=== PATIENT | female | born 1965 | race Caucasian/White ===

== ENCOUNTER 2023-08-25 14:29 | Emergency (ER) | payer BC, SELFPAY ==
[2023-08-25] VITALS (7 sets, daily range): BP systolic 119–134; BP diastolic 67–83; PULSE 79–96; RESP 18; TEMP 36.3; O2SAT 93–96; BMI 27.6
--- NOTE | 2023-08-25 15:05 | CT_ITS ---
Patient: VARUN PORTILLO Facility:?[facility] Patient ID:?[id number] Site Patient ID:?[id number]. Site :?1965 Study:?CT-Chest W/ 95CC [id number] PE PROTOCOL-08/25/2023 3:41:03 PM Ordering Physician:Leela Collins Final Report: INDICATION: Postop; shortness of breath. COMPARISON: CT abdomen and pelvis with intravenous contrast same date. TECHNIQUE: CT chest with intravenous contrast; coronal and sagittal reformats. FINDINGS: No evidence of pulmonary thromboembolism. Dense consolidation lower lobe right lung with elevated right hemidiaphragm. Bilateral pleural effusion more on the right. More fluid identified surrounding the distal esophagus in the lower thorax. Postop changes at the esophagogastric junction. Normal size cardiac silhouette without any pericardial effusion. Evidence of pneumomediastinum as well as subcutaneous emphysema involving the anterior chest wall. IMPRESSION: 1. Dense atelectasis lower lobe right lung. 2. Bilateral pleural effusion. 3. Postop changes at the esophagogastric junction. 4. Subcu emphysema anterior chest wall are pneumomediastinum. Please note that all CT scans at this facility use dose modulation, iterative reconstruction, and/or weight-based dosing when appropriate to reduce radiation dose to as low as reasonably achievable. Dictated by Harsha Zaragoza MD @ 08/25/2023 4:29:45 PM Signed by:?Harsha Zaragoza MD @08/25/2023 4:29:45 PM (Electronic Signature)
--- NOTE | 2023-08-25 15:05 | CT_ITS ---
Patient: VARUN PORTILLO Facility:?[facility] Patient ID:?[id number] Site Patient ID:?[id number]. Site :?1965 Study:?CT-Abdomen/Pelvis W/ 95CC [id number]/27/2024 3:41:05 PM Ordering Physician:Leela Collins Final Report: INDICATION: Postop; abdominal pain. COMPARISON: CT chest with intravenous contrast, same date TECHNIQUE: CT abdomen and pelvis with and without contrast; coronal and sagittal reformats. FINDINGS: Elevated right hemidiaphragm. Consolidation lower lobe right lung. Loculated pleural effusion right lower chest and small left-sided pleural effusion. Postop changes from Filemon fundoplication. Distended stomach with a gastrostomy tube in place. No focal hepatic or splenic pathology. No pancreatic pathology. Nonobstructive dilatation of the common bile duct without any evidence of choledocholithiasis. Gallbladder is unremarkable. No adrenal pathology. No kidney stones or obstructive uropathy. No retroperitoneal lymphadenopathy. Normal appendix. No pneumoperitoneum or intestinal obstruction. Subcutaneous emphysema involving the soft tissues the anterior abdominal wall. IMPRESSION: 1. Bilateral pleural effusion and dense atelectasis lower lobe right lung. 2. Gastrostomy tube in place. 3. Subcu emphysema in the abdominal wall involving the anterior abdominal wall. 4. Normal appendix. Please note that all CT scans at this facility use dose modulation, iterative reconstruction, and/or weight-based dosing when appropriate to reduce radiation dose to as low as reasonably achievable. Dictated by Harsha Zaragoza MD @ 08/25/2023 4:27:03 PM Signed by:?Harsha Zaragoza MD @08/25/2023 4:27:03 PM (Electronic Signature)
--- NOTE | 2023-08-25 15:14 | ED.GENADULT ---
HPI - General Adult General Chief complaint: Post Op Complication Stated complaint: Hernia surgery on 08/20-pain, diff breathing Time Seen by Provider: 08/25/23 14:34 Source: patient Mode of arrival: ambulatory Limitations: no limitations History of Present Illness HPI narrative: 58-year-old female presenting today with shortness of breath, chest pain and abdominal pain. Patient is postop day number 8. On August 16 she had a laparoscopic hiatal hernia repair, lysis of adhesions, Aquiles fundoplication, percutaneous endoscopic gastrostomy tube insertion. Surgery was complicated by a pneumothorax which required right chest tube placement. Immediate postop course complicated by a left-sided pneumothorax which required a bedside pigtail placement. She had extensive pneumomediastinum and subcutaneous emphysema. Chest tubes were removed on 08/18. She was discharged home on August 20. The PEG tube was inserted for venting. Discharged home on Tylenol, ibuprofen, methocarbamol, Zofran, oxycodone, senna-docusate. Follow-up appointment scheduled for September 11. She went back to the ER on August 21 and was diagnosed with a UTI and put on ciprofloxacin. Presents today with increased difficulty breathing. States that she has significant pain around the entire right shoulder area. Can not find a comfortable position. Patient also has questions as to why she has a PEG tube in. States that she does not know how to use it. Has been using her pain medications as prescribed and has been helping. She states that she has an increasing abdominal pain that she describes as a band across the entire upper abdomen. States that she had temperature of 100? on the 21 of August but no elevated temperatures since then. Patient states that she came to [facility] because they were not attentive at the . Past medical history is significant for anxiety, degenerative disc disease of the cervical spine, depression, GERD, neuropathy, restless leg syndrome. Past surgical history includes colonoscopy, EGD, laparoscopic hysterectomy, vaginal prolapse repair. Patient denies any tobacco use or alcohol use. Related Data Home Medications Medication Instructions Recorded Confirmed ciprofloxacin HCl 500 mg tablet 500 mg PO BID 08/25/23 08/25/23 (Cipro) methocarbamol 500 mg tablet 500 mg PO Q4H 08/25/23 08/25/23 oxycodone 5 mg/5 mL oral solution 5 mg PO Q1H 08/25/23 08/25/23 sennosides 8.6 mg-docusate sodium 1 tab-cap PO BID 08/25/23 08/25/23 50 mg tablet (Docuzen) Allergies Allergy/AdvReac Type Severity Reaction Status Date / Time No Known Drug Allergies Allergy Verified 08/25/23 14:48 Review of Systems Status of ROS: Reports: 10 or more systems reviewed and unremarkable except as noted in History and below Exam Const: Vital Signs, click to edit/add: Vital Signs - 24 hr 08/25/23 14:35 08/25/23 15:05 08/25/23 17:05 Temperature 97.4 F L Pulse Rate 83 Pulse Rate [Right Pulse Oximeter] 95 Respiratory Rate 18 Blood Pressure 127/67 Blood Pressure [Ri ght Upper Arm] 134/70 Pulse Oximetry 96 95 94 Oxygen Delivery Me thod Room Air 08/25/23 17:06 Temperature Pulse Rate 86 Pulse Rate [Right Pulse Oximeter] Respiratory Rate Blood Pressure Blood Pressure [Ri ght Upper Arm] Pulse Oximetry 93 Oxygen Delivery Me thod Course Course ED Course: I reviewed the patient is operative and postoperative notes from the [facility]. IV is established and labs were drawn. CBC and chemistries unremarkable. CRP slightly elevated at 2.6. Normal troponin. EKG, read by me, shows normal sinus rhythm with 1 premature ventricular complex, pulse 79. Chest CT shows bilateral pleural effusions, atelectasis on the right, and continued subcutaneous emphysema and pneumomediastinum. Subcutaneous emphysema and pneumomediastinum was noted in her imaging prior to her discharge from the hospital. Abdominal CT was unremarkable. Discussed the case with who suggested comparing previous CT images to make sure that the subcutaneous emphysema was not worsening. Unfortunately, we do not have access to their images and they do not have access to our images. We tried pushing or images to the you however after several hours of trying we were not successful. I did speak to Dr. Guerrero, ER physician at the who felt that outpatient follow-up would be appropriate if the patient was feeling better and was hemodynamically stable. He also stated the transferring the patient to the you would also be reasonable with we felt that a more immediate workup was needed. Patient did have a dose of her own pain medication while she was here and did go re-evaluate her. She did ask to leave several times while she was waiting. She said that she was feeling much better and did not feel the need to be transferred to the at this time. We had a long conversation about her symptoms and if she felt like she was getting worse need to go to the emergency room right away. Otherwise she can follow-up as an outpatient. I recommend she call her surgical TM 1st thing Sunday morning to discuss her symptoms and discuss any follow-up as needed. Vital Signs Vital signs: Initial Vital Signs Temperature 97.4 F L 08/25/23 14:35 Temperature Source Temporal Artery Scan 08/25/23 14:35 Pulse Rate 95 08/25/23 14:35 Respiratory Rate 18 08/25/23 14:35 Blood Pressure 134/70 08/25/23 14:35 Blood Pressure Mean 91 08/25/23 14:35 Blood Pressure Position Sitting 08/25/23 14:35 Pulse Oximetry 96 08/25/23 14:35 Oxygen Delivery Method Room Air 08/25/23 14:35 Vital Signs Temperature 97.4 F L 08/25/23 14:35 Pulse Rate 95 08/25/23 14:35 Respiratory Rate 18 08/25/23 14:35 Blood Pressure 134/70 08/25/23 14:35 Pulse Oximetry 96 08/25/23 14:35 Oxygen Delivery Method Room Air 08/25/23 14:35 Temperature 97.4 F L 08/25/23 14:35 Pulse Rate 86 08/25/23 17:06 Respiratory Rate 18 08/25/23 14:35 Blood Pressure 127/67 08/25/23 17:05 Pulse Oximetry 93 08/25/23 17:06 Oxygen Delivery Method Room Air 08/25/23 14:35 Medical Decision Making MDM Narrative Medical decision making narrative: 58-year-old female with postop pain and subjective shortness of breath. Patient remained between 93 and 97% oxygenation while she was in our ER. And after being here for a few hours she anxious stated that she was feeling better, was requesting dinner and discharge. At this time I do feel like she is hemodynamically stable not follow-up as an outpatient. Our plan per above. Medical Records Medical records reviewed: Yes I reviewed the patient's medical records Lab Data Lab results reviewed: Yes I reviewed the patient's lab results Labs: Lab Results 08/25/23 08/25/23 Range/Units 15:06 15:15 WBC 7.62 (4.50-11.00) K/uL RBC 4.89 (4.00-5.20) m/uL Hgb 12.7 (12.0-16.0) gm/dL Hct 40.4 (33.0-51.0) % MCV 83 (80-100) fL MCH 26 (26-34) pg MCHC 31 L (32-36) gm/dL RDW Coeff of Tess 15.3 (11.5-15.5) % Plt Count 395 (140-440) K/uL Neut % (Auto) 65.0 (42.0-72.0) % Lymph % (Auto) 23.1 (20-44) % [place] % (Auto) 8.9 (0.0-11.0) % Eos % (Auto) 2.4 (0.0-7.0) % Baso % (Auto) 0.1 (0.0-3.0) % Neut # (Auto) 4.95 (1.7-7.0) K/uL Lymph # (Auto) 1.76 (0.90-2.90) K/uL [place] # (Auto) 0.70 (0.00-0.90) K/UL Eos # (Auto) 0.18 (0.00-0.50) K/uL Baso # (Auto) 0.01 (0.00-0.30) K/uL Abs Immat Gran (auto) 0.04 (0.00-0.30) K/uL Imm/Tot Granulo (auto) 0.5 % Sodium 136 (135-149) mmol/L Potassium 4.1 (3.6-5.1) mmol/L Chloride 101 (96-114) mmol/L Carbon Dioxide 29 (20-32) mmol/L Anion Gap 6 L (7-15) mEq/L BUN 7 (7-30) mg/dL Creatinine 0.6 (0.5-1.5) mg/dL Estimated Creat Clear 90.84 Estimated GFR 103 ml/min Glucose 100 (60-115) mg/dL Lactate 1.4 (0.5-1.9) mmol/L Calcium 9.1 (8.4-10.6) mg/dL Total Bilirubin 0.2 (0.1-1.5) mg/dL Direct Bilirubin 0.1 (0.0-0.5) mg/dL AST 21 (12-35) U/L ALT 38 H (4-35) U/L Alkaline Phosphatase 87 (40-150) U/L Troponin I < 0.01 L (0.01-0.04) ng/mL C-Reactive Protein 2.6 H (0.5-1.0) mg/dL Total Protein 7.4 (6.0-8.3) g/dL Albumin 3.9 (3.3-5.0) g/dL Lipase 40 (23-300) U/L POC Troponin I 0.00 L (0.01-0.04) ng/ml Imaging Data CT scan - abdomen: Attestation: I have reviewed the pertinent imaging results. Radiologist's impression: Study:?CT-Abdomen/Pelvis W/ 95CC [id number]/27/2024 3:41:05 PM Ordering Physician:Leela Collins Final Report: INDICATION: Postop; abdominal pain. COMPARISON: CT chest with intravenous contrast, same date TECHNIQUE: CT abdomen and pelvis with and without contrast; coronal and sagittal reformats. FINDINGS: Elevated right hemidiaphragm. Consolidation lower lobe right lung. Loculated pleural effusion right lower chest and small left-sided pleural effusion. Postop changes from Filemon fundoplication. Distended stomach with a gastrostomy tube in place. No focal hepatic or splenic pathology. No pancreatic pathology. Nonobstructive dilatation of the common bile duct without any evidence of choledocholithiasis. Gallbladder is unremarkable. No adrenal pathology. No kidney stones or obstructive uropathy. No retroperitoneal lymphadenopathy. Normal appendix. No pneumoperitoneum or intestinal obstruction. Subcutaneous emphysema involving the soft tissues the anterior abdominal wall. IMPRESSION: 1. Bilateral pleural effusion and dense atelectasis lower lobe right lung. 2. Gastrostomy tube in place. 3. Subcu emphysema in the abdominal wall involving the anterior abdominal wall. 4. Normal appendix. CT scan - chest: Attestation: I have reviewed the pertinent imaging results. Radiologist's impression: Study:?CT-Chest W/ 95CC [id number] PE PROTOCOL-08/25/2023 3:41:03 PM Ordering Physician:Leela Collins Final Report: INDICATION: Postop; shortness of breath. COMPARISON: CT abdomen and pelvis with intravenous contrast same date. TECHNIQUE: CT chest with intravenous contrast; coronal and sagittal reformats. FINDINGS: No evidence of pulmonary thromboembolism. Dense consolidation lower lobe right lung with elevated right hemidiaphragm. Bilateral pleural effusion more on the right. More fluid identified surrounding the distal esophagus in the lower thorax. Postop changes at the esophagogastric junction. Normal size cardiac silhouette without any pericardial effusion. Evidence of pneumomediastinum as well as subcutaneous emphysema involving the anterior chest wall. IMPRESSION: 1. Dense atelectasis lower lobe right lung. 2. Bilateral pleural effusion. 3. Postop changes at the esophagogastric junction. 4. Subcu emphysema anterior chest wall are pneumomediastinum. ECG Data Attestation: I personally reviewed and interpreted this ECG as follows: Discharge Plan Discharge Clinical Impression: Post-op pain Patient Disposition: Home, Self-Care Condition: Stable Additional Instructions: Your workup today included lab work and imaging of both the chest and the abdomen to did not find any evidence of postoperative complications or infection. As we discussed, I was not able to compare today's images with your images from the [facility]. Based on your vital signs and how you are feeling right now it does not seem like the complications you had postoperatively (the air in your chest) are getting any worse. However, If your symptoms get worse you do need to return to the emergency room right away. I do recommend that you call your surgical team on Sunday to discuss your symptoms and see if they want to see you sooner than September 11. Postoperative pain is expected, but if you feel like you are having a hard time breathing, develop a fever or have worsening pain again you should return to the emergency room. Prescriptions: No Action oxycodone 5 mg/5 mL solution 5 mg PO Q1H ciprofloxacin HCl [Cipro] 500 mg tablet 500 mg PO BID methocarbamol 500 mg tablet 500 mg PO Q4H sennosides-docusate sodium [Docuzen] 8.6-50 mg tablet 1 tab-cap PO BID Follow Up/Referrals: Provider,Not a Local [Primary Care Provider] - Stand Alone Forms: [facility] Info Instructions
[2023-08-25 15:22] LABS: Basophils Absolute Auto 0.01 K/uL (0.00-0.30); Basophils Percent Auto 0.1 % (0.0-3.0); Eosinophils Absolute Auto 0.18 K/uL (0.00-0.50); Eosinophils Percent Auto 2.4 % (0.0-7.0); Hematocrit 40.4 % (33.0-51.0); Hemoglobin* 12.7 gm/dL (12.0-16.0); Immature Granulocytes Abs Auto 0.04 K/uL (0.00-0.30); Immature Granulocytes Pct Auto 0.5 %; Lymphocytes Absolute Auto 1.76 K/uL (0.90-2.90); Lymphocytes Percent Auto 23.1 % (20-44); Mean Corpuscular HGB Conc 31 gm/dL (32-36); Mean Corpuscular Hemoglobin 26 pg (26-34); Mean Corpuscular Volume 83 fL (80-100); Monocytes Percent Auto 8.9 % (0.0-11.0); Neutrophils Absolute Auto 4.95 K/uL (1.7-7.0); Platelet Count* 395 K/uL (140-440); RDW Coefficient of Variation % 15.3 % (11.5-15.5); Red Blood Count 4.89 m/uL (4.00-5.20); White Blood Count* 7.62 K/uL (4.50-11.00)
[2023-08-25 15:23] LABS: Slide Review Reflex No
[2023-08-25 15:25] LABS: Lactate* 1.4 mmol/L (0.5-1.9)
[2023-08-25 15:41] LABS: Albumin* 3.9 g/dL (3.3-5.0); Chloride* 101 mmol/L (96-114); Sodium* 136 mmol/L (135-149)
[2023-08-25 15:42] LABS: Potassium* 4.1 mmol/L (3.6-5.1)
[2023-08-25 15:44] LABS: Creatinine* 0.6 mg/dL (0.5-1.5); Est. Creatinine Clearance* 90.84; Estimated Glomerular Filt Rate 103 ml/min
[2023-08-25 15:45] LABS: Alanine Aminotransferase* 38 U/L (4-35); Alkaline Phosphatase* 87 U/L (40-150); Anion Gap 6 mEq/L (7-15); Aspartate Amino Transferase* 21 U/L (12-35); Bilirubin Direct* 0.1 mg/dL (0.0-0.5); Bilirubin Total* 0.2 mg/dL (0.1-1.5); Blood Urea Nitrogen* 7 mg/dL (7-30); Calcium* 9.1 mg/dL (8.4-10.6); Carbon Dioxide* 29 mmol/L (20-32); Glucose* 100 mg/dL (60-115); Lipase* 40 U/L (23-300); Total Protein* 7.4 g/dL (6.0-8.3)
[2023-08-25 15:47] LABS: C Reactive Protein* 2.6 mg/dL (0.5-1.0)
[2023-08-25 15:58] LABS: Troponin I* < 0.01 ng/mL (0.01-0.04)
== END 2023-08-25 19:31 | disposition home or self-care (01) ==
PROVIDERS: Emergency Provider Family Medicine
DX: G89.18 Other acute postprocedural pain (principal)
CPT/HCPCS: 36415; 71275; 74177; 80048; 80076; 83605; 83690; 84484; 85025; 86140; 93005; 94761; 99285; Q9967

== ENCOUNTER 2024-12-19 18:40 | Inpatient (IN) | payer MEDICAID, SELFPAY ==
--- OUTSIDE RECORDS SUMMARY | 2024-11-05 15:20 | XMS_ITS | Encounter Summary ---
Author Organization [facility] Address [address] [address] Phone Care Team Providers Care Catering Assistant Name Role Phone Lucia Lemons RN Unavailable Unavailable Choice, No Pcp-Patient Primary Care Provider Susan vailable Reason for Referral * Ancillary Services (Routine) - Closed Specialty Diagnoses / Procedures Referred By Contac t Referred To Contact Radiology Diagnoses Neck pain Procedures XR CERVICAL SPINE 2 OR 3 VIEWS Zoey Terry MD [address] [place] [address] Phone: tel: fax: Referral ID Status Reason Start Date Expiration Date Visits Re quested Visits Authorized [id number] Closed 11/05/2024 02/05/2026 1 1 Reason for Visit * Reason Comments Pain Neck down arms, left hip pain down legs x 2months Foot Problem Bumps on right foot x6-7 month Lab Work Pt requesting lab wo rk Establish Care Does not want to est ablish with dr terry Encounter Details Date Type Department Care Team (Late st Contact Info) Description 11/05/2024 3:20 PM CDT Office Visit [facility] [address] [place], [place] [id number] Zoey Terry MD [address] [place], [place] [phone] Neck pain (Primary Dx); Gastroesophageal reflux disease with esophagitis without hemorrhage Social History Tobacco Use Types Packs/Day Years Used Date Smoking Tobacco: Never Smokeless Tobacco: Never Tobacco Cessation:Counseling Given: Not Answered Alcohol Use Standard Drinks/Week Comments No 0 (1 standard drink = 0.6 oz pur e alcohol) [facility] Utilities Answer Date Recorded In the past 12 months has th e electric, gas, oil, or water company threatened to shut off services in your home? No 11/05/2024 Overall Financial Resource Strain (CARDIA) Answe r Date Recorded How hard is it for you to pa y for the very basics like food, housing, medical care, and heating? Patient declined 08/16/2022 PHQ-2 Answer Date Recorded PHQ-2 Total 6 11/05/2024 Hunger Vital Sign Answer Date Recorded Within the past 12 months, y ou worried that your food would run out before you got the money to buy more. Never true 11/06/19 25 Within the past 12 months, t he food you bought just didn't last and you didn't have money to get more. Never true 11/05/2024 PRAPARE - Transportation Answer Date Re corded In the past 12 months, has l ack of transportation kept you from medical appointments or from getting medications? No 12/2024 In the past 12 months, has l ack of transportation kept you from meetings, work, or from getting things needed for daily living? No 11/05/2024 Housing Stability Vital Sign Answer Nilesh e Recorded In the last 12 months, was t here a time when you were not able to pay the mortgage or rent on time? No 11/05/2024 In the past 12 months, how m any times have you moved where you were living? 0 11/05/2024 At any time in the past 12 m [facility], were you homeless or living in a usp (including now)? No 11/05/2024 IP Custom Utilities ([employer]) Answer Date Recorded How hard is it for you to pa y for the very basics like food, housing, medical care, and heating? 98 08/16/2022 IP Custom IPV Answer Date Recorded Do you feel UNSAFE in any of your personal relationships with your family members or any other acquaintances? 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 Gender Identity Not on file Sexual Orientation Not on file documented as of this encounter Last Filed Vital Signs Vital Sign Reading Time Taken Comments Blood Pressure 102/60 11/05/2024 3:17 PM CDT Pulse 71 11/05/2024 3:17 PM CDT Temperature 36.3 C (97.4 F) 11/05/2024 3:17 PM CDT Respiratory Rate - - Oxygen Saturation 98% 11/05/2024 3:17 PM CDT Inhaled Oxygen Concentration - - Weight 74.2 kg (163 lb 7.5 oz) 11/05/2024 3:17 P M CDT Height 165.1 cm (5' 5) 11/05/2024 3:17 PM CDT Body Mass Index 27.2 11/05/2024 3:17 PM CDT documented in this encounter Functional Status * Patient's Vision Adequate to Safely Complete Daily Activities Answer Date of Assessment Author Yes 02/26/2024 2:42 PM CDT Nadeem Moore RN * Patient's Memory Adequate to Safely Complete Daily Activities Answer Date of Assessment Author Yes 02/26/2024 2:42 PM CDT Nadeem Moore RN documented as of this encounter Mental Status * Patient's Judgment Adequate to Safely Complete Daily Activities Answer Entry Date Author Yes 02/26/2024 2:42 PM CDT Nadeem Moore RN documented in this encounter Ordered Prescriptions Prescription Sig Dispense Quantity Refills Last Filled Start Date End Date tolnaftate (Tinactin) 1 % AerosolIndications :Infection Apply 1 [place] topically two times a day. Indications: Infection 150 g 1 11/05/2024 diclofenac (Voltaren) 1 % Gel Apply 4 g topically four times a day. Apply to affected area: neck and back 120 g 1 11/05/2024 documented in this encounter Progress Notes * Zoey Terry MD - 11/05/2024 3:20 PM CDT I Laura Dietrich, am scribing under the direction and in the presence of Zoey Terry MD. 11/05/24 3:30 PM SUBJECTIVE: Jo Ann Ely is a 59 year old female who presents with aching, exhausting, and nagging pain located in the neck, down the arms as well as left hip pain and down her leg for the past two months.She does has have osteoarthritis as well as rheumatoid arthritis. OBJECTIVE: Problem list, PMH, Allergies, and Current medications A comprehensive review of systems was negative except for: back and neck pain GENERAL APPEARANCE: Healthy; alert and oriented X3; no acute distress MUSCULOSKELETAL: decreased ROM of the shoulders and back ASSESSMENT No visits with results within 1 Month(s) from this visit. Latest known visit with results is: [facility]/NURSE VISIT on 04/25/2024 Component Date Value Ref Range Status Urine Color 04/25/2024 Yellow Straw, Yellow, Jayda Final Urine Appearance 04/25/2024 Clear Clear Final Urine Specific [place] 04/25/2024 >=1.030 1.003 - 1.035 Final Urine pH 04/25/2024 5.0 5.0 - 8.0 Final Urine Glucose 04/25/2024 Negative Negative Final Urine Ketones 04/25/2024 Trace (A) Negative Final Urine Protein 04/25/2024 Negative Negative, Trace mg/dL Final Urine Nitrites 04/25/2024 Negative Negative Final Urine Leukocyte Esterase 04/25/2024 Negative Negative Final Urine WBC's 04/25/2024 0-3 0 - 8 /HPF Final Urine RBC's 04/25/2024 0-3 0 - 3 /HPF Final Urine Bacteria 04/25/2024 Occasional (A) None Seen /HPF Final Urine Mucous 04/25/2024 Present (A) None Seen Final Urine Hyaline Cast 04/25/2024 3-8 (A) 0 - 3 /LPF Final Calcium Oxalate Crystals, Urine 04/25/2024 Present (A) None Seen Final Urine Squamous Epithelial Cells 04/25/2024 Moderate Rare, Few, Moderate, None Seen /HPF Final (M54.2) Neck pain (primary encounter diagnosis) Plan: XR CERVICAL SPINE 2 OR 3 VIEWS (K21.00) Gastroesophageal reflux disease with esophagitis without hemorrhage PLAN: The is pain with palpation of the SI joint area on the left side. There was some decreased ROM of the shoulders as she is unable to lift them up over her head easily. Her past MRI's show that there is disc bulging present of the thoracic spine area. She did try some physical therapy that did not help much. She has tried pain injections in the past and she feels like it has not helped. Currently has been trying some pain relieving cream such as: Icy hot, Aspercreme that have given her somerelief. Sent over Voltaren gel today. There is athlete's foot present on the right foot and advisedto have her dry them well as well as using a topical spray to help treat this. She does have GERD that is present and has been taking medication to treat this. A x-ray order was placed to have her get her neck checked out. FOLLOW UP PLAN: Will have her follow up again as needed I affirm that the scribed note above has been reviewed and is a complete reflection of this patientencounter. Zoey Terry MD 11/16/24 5:57 PM documented in this encounter Miscellaneous Notes * Clinical Note - Marla Urbano LPN - 11/05/2024 3:20 PM CDT This chart was prepped for visit by Marla Urbano LPN on 11/03/2024. documented in this encounter Plan of Treatment Not on file documented as of this encounter Results * XR CERVICAL SPINE 2 OR 3 VIEWS (11/05/2024 3:52 PM CDT) Anatomical Region Laterality Modality C-Spine Radiographic Anne-Marie ging 11/05/2024 3:52 PM CDT Narrative 11/05/2024 8:57 PM CDT This document is currently in Final Status Exam XR CERVICAL SPINE 2 OR 3 VIEWS INDICATION: Neck pain; COMPARISON: None. IMPRESSION: Cervical lordosis is maintained. No discrete fracture. Mild degenerative disc disease primarily at C4-C5 and C5-C6. Multilevel mild to moderate facet arthropathy. Prevertebral soft tissues and lung apices are unremarkable. Dictated By: Dr. Rohit Contreras 11/05/2024 3:53 PM Edited By: VINCENT 11/05/2024 4:38 PM Electronically Signed: Dr. Rohit Contreras 11/05/2024 8:57 PM Procedure Note Rohit Contreras MD - 11/05/2024 This document is currently in Final Status Exam XR CERVICAL SPINE 2 OR 3 VIEWS INDICATION: Neck pain; COMPARISON: None. IMPRESSION: Cervical lordosis is maintained. No discrete fracture. Milddegenerative disc disease primarily at C4-C5 and C5-C6. Multilevel mild tomoderate facet arthropathy. Prevertebral soft tissues and lung apices areunremarkable. Dictated By: Dr. Rohit Contreras 11/05/2024 3:53 PM Edited By: VINCENT 11/05/2024 4:38 PM Electronically Signed: Dr. Rohit Contreras 11/05/2024 8:57 PM Zoey Terry MD [facility] DIAGNOSTIC IMAGING ORDERABL ES Final Result documented in this encounter Visit Diagnoses Diagnosis Neck pain- Primary Cervicalgia Gastroesophageal reflux disease with esophagitis without hemorrhage Neck pain Cervicalgia documented in this encounter Discontinued Medications Medication Sig Discontinue Reason Start Date End Da te ibuprofen (Motrin) 800 MG tablet Take 1 Tablet by mouth every six hours as needed for Pain or Fever. Administer with food. Course of treatment completed 04/13/2022 11/05/2024 documented as of this encounter Care Teams Catering Assistant Relationship Specialty Start Date End Date Choice, No Pcp-Patient PCP - General 10/02/23 Lucia Lemons, RN Nurse Navigator Pulmonary Medicine 05/23/17 documented as of this encounter
--- OUTSIDE RECORDS SUMMARY | 2024-11-05 15:46 | XMS_ITS | Encounter Summary ---
Author Organization [facility] Address [address] [address] Phone Care Team Providers Care Bowl Sander Name Role Phone Lucia Lemons RN Unavailable Unavailable Choice, No Pcp-Patient Primary Care Provider Susan vailable Reason for Referral * Ancillary Services (Routine) - Closed Specialty Diagnoses / Procedures Referred By Contac t Referred To Contact Radiology Diagnoses Neck pain Procedures XR CERVICAL SPINE 2 OR 3 VIEWS Zoey Terry MD [address] [place] [id number] Phone: tel: fax: Referral ID Status Reason Start Date Expiration Date Visits Re quested Visits Authorized [id number] Closed 11/05/2024 02/05/2026 1 1 Reason for Visit * Ancillary Services (Routine) - Closed Specialty Diagnoses / Procedures Referred By Contac t Referred To Contact Radiology Diagnoses Neck pain Procedures XR CERVICAL SPINE 2 OR 3 VIEWS Zoey Terry MD [address] [place] [address] Phone: tel: fax: Referral ID Status Reason Start Date Expiration Date Visits Re quested Visits Authorized [id number] Closed 11/05/2024 02/05/2026 1 1 Encounter Details Date Type Department Care Team (Late st Contact Info) Description 11/05/2024 3:46 PM CDT - 11/05/2024 11:59 PM CDT Hospital Encounter [facility] RADIOLOGY [address] [place] [id number] Zoey Terry MD [address] [facility] [place], [place] [phone] Neck pain Discharge Disposition: Discharged Social History Tobacco Use Types Packs/Day Years Used Date Smoking Tobacco: Never Smokeless Tobacco: Never Alcohol Use Standard Drinks/Week Comments No 0 (1 standard drink = 0.6 oz pur e alcohol) [facility] Utilities Answer Date Recorded In the past [...] any time in the past 12 m [facility], were you homeless or living in a assisted (including now)? No 11/05/2024 [facility] IP Custom Utilities ([employer]) Answer Date Recorded How hard is it for you to pa y for the very basics like food, housing, medical care, and heating? 98 08/16/2022 [facility] IP Custom IPV Answer Date Recorded Do you feel UNSAFE in any of your personal relationships with your family members or any other acquaintances? 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 Gender Identity Not on file Sexual Orientation Not on file documented as of this encounter Functional Status * Patient's Vision Adequate to Safely Complete Daily Activities Answer Date of Assessment Author Yes 02/26/2024 2:42 PM Nadeem Hopper RN * Patient's Memory Adequate to Safely Complete Daily Activities Answer Date of Assessment Author Yes 02/26/2024 2:42 PM Nadeem Hopper RN documented as of this encounter Mental Status * Patient's Judgment Adequate to Safely Complete Daily Activities Answer Entry Date Author Yes 02/26/2024 2:42 PM Nadeem Hopper RN documented in this encounter Medications at Time of Discharge Multiple Vitamins-Mineral s (CertaVite/Antio xidants) tablet 11/05/2024 omeprazole (PriLOSEC) 40 MG delayed-release capsule Take 1 Capsule by mouth one time a day. 12/06/2022 diclofenac (Voltaren) 1 % Gel Apply 4 g topically four times a day. Apply to affected area: neck and back 120 g 1 11/05/2024 tolnaftate (Tinactin) 1 % AerosolIndicatio ns:Infection Apply 1 [place] topically two times a day. Indications: Infection 150 g 1 11/05/2024 celecoxib (CeleBREX) 200 MG capsule Take 1 Capsule by mouth two times a day. 180 Capsule 3 04/25/2024 cyanocobalamin 500 MCG tablet Take 500 mcg by mouth. famotidine (Pepcid) 20 MG tablet Take 20 mg by mouth two times a day. 12/06/2022 Phenylephrine-DM -GG (Mucinex Fast-Max Congest Cough) 2.5-5-100 MG/5ML Liquid Take 5 mL by mouth two times a day as needed for Other (cough). 118 mL 04/05/2024 [place]-3 Fatty Acids (fish oil) 1200 MG capsuleIndicatio ns:Chronic pain in right shoulder Take 1 Capsule by mouth one time a day. 90 Capsule 3 03/14/2024 Multiple Vitamin (Multivitamin Adult) Tablet Take 1 Tablet by mouth one time a day. 90 Tablet 3 01/30/2024 Glucosamine-Antony droit-Vit C-Mn (glucosamine chondroitin complex) capsule Take 1 Capsule by mouth two times a day. 100 Capsule 3 01/30/2024 Vitamin D, Cholecalciferol, 25 MCG (1000 UT) Tablet Take 1 Tablet by mouth one time a day. 1 unit of Vitamin D equals 0.025 mcg of Vitamin D 90 Tablet 3 01/30/2024 acetaminophen (Tylenol) 500 MG tablet Take 1-2 Tablets by mouth every six hours as needed for Pain . Limit acetaminophen to 4000 mg per day from all sources. 50 Tablet 04/13/2022 documented as of this encounter Discharge Disposition Disposition Code Departure Means Destination Discharged documented in this encounter Plan of Treatment Not on file documented as of this encounter Procedures Procedure Name Priority Date/Time Associated Diagnosis Comments XR CERVICAL SPINE 2 OR 3 VIEWS Xray today 11/05/2024 3:52 PM CDT Neck pain documented in this encounter Results * XR CERVICAL SPINE [...] in this encounter Visit Diagnoses Diagnosis Neck pain Cervicalgia documented in this encounter Care Teams Bowl Sander Relationship Specialty Start Date End Date Choice, No Pcp-Patient PCP - General 10/02/23 Lucia Lemons, RN Nurse Navigator Pulmonary Medicine 05/23/17 documented as of this encounter
--- OUTSIDE RECORDS SUMMARY | 2024-11-13 16:02 | XMS_ITS | Encounter Summary ---
Author Organization [facility] Address [address] [address] Phone Care Team Providers Care Rip And Groove Machine Operator Name Role Phone Lucia Lemons RN Unavailable Unavailable Choice, No Pcp-Patient Primary Care Provider Susan vailable Reason for Referral * Diagnostic (Routine) - Closed Specialty Diagnoses / Procedures Referred By Contac t Referred To Contact Radiology Diagnoses Neck pain Procedures MR CERVICAL SPINE WO CONTRAST Zoey Terry MD [address] [place] [address] Phone: tel: fax: Referral ID Status Reason Start Date Expiration Date Visits Re quested Visits Authorized [id number] Closed 11/06/2024 02/06/2026 1 1 Reason for Visit * Diagnostic (Routine) - Closed Specialty Diagnoses / Procedures Referred By Contac t Referred To Contact Radiology Diagnoses Neck pain Procedures MR CERVICAL SPINE WO CONTRAST Zoey Terry MD [address] [place] [address] Phone: tel: fax: Referral ID Status Reason Start Date Expiration Date Visits Re quested Visits Authorized [id number] Closed 11/06/2024 02/06/2026 1 1 Encounter Details Date Type Department Care Team (Late st Contact Info) Description 11/13/2024 4:02 PM CDT - 11/13/2024 11:59 PM CDT Hospital Encounter [facility] RAD MRI [address] [place], [place] [address] Zoey Terry MD [address] [place], [place] [id number] Neck pain Discharge Disposition: Discharged Social History Tobacco Use Types Packs/Day Years Used Date Smoking Tobacco: Never Smokeless Tobacco: Never Alcohol Use Standard Drinks/Week Comments No 0 (1 standard drink = 0.6 oz pur e alcohol) [facility] Utilities Answer Date Recorded In the past [...] any time in the past 12 m [facility], were you homeless or living in a alf (including now)? 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 12/06/2022 amphetamine-dext roamphetamine (Adderall) 10 MG tablet TAKE 1 TABLET BY MOUTH EVERY MORNING FOR 30 DAYS. TO AVOID INSOMNIA, LAST DAILY DOSE SHOULD BE TAKEN NO LESS THAN 6 HOURS BEFORE BED. 09/24/2024 30 Tablet 11/12/2024 diclofenac (Voltaren) 1 % Gel Apply 4 g topically four times a day. Apply to affected area: neck and back 120 g 1 11/05/2024 tolnaftate (Tinactin) 1 % AerosolIndicatio ns:Infection Apply 1 [place] topically two times a day. Indications: Infection [...] needed for Other (cough). 118 mL 04/05/2024 [place]-3 Fatty Acids (fish oil) 1200 MG capsuleIndicatio [...] Procedure Name Priority Date/Time Associated Diagnosis Comments MR CERVICAL SPINE WO CONTRAST Routine 11/13/2024 4:44 PM CDT Neck pain documented in this encounter Results * MR CERVICAL SPINE WO CONTRAST (11/13/2024 4:44 PM CDT) Anatomical Region Laterality Modality C-Spine, Spine Magnetic Resonan ce 11/13/2024 4:44 PM CDT Narrative 11/14/2024 9:41 PM CDT This document is currently in Final Status Exam MR CERVICAL SPINE WO CONTRAST CLINICAL HISTORY: Neck pain, chronic. TECHNIQUE: Multiplanar, multisequence MR imaging of the cervical spine was performed without contrast. COMPARISON: MRI cervical spine 04/03/2019 FINDINGS:There is anatomic alignment of the cervical vertebrae.The bone marrow signal intensity is within normal limits.The intervertebral disc signal intensity is well-preserved at all visualized levels. The cerebellar tonsils are normal in position and configuration.The cervical cord is normal in caliber and signal intensity. Vertebral artery flow voids are present. Left vertebral artery is dominant. At the C2-C3 level: No spinal canal stenosis, neuroforaminal narrowing or disc herniation is present. At the C3-C4 level: No spinal canal stenosis, neuroforaminal narrowing or disc herniation is present. At the C4-C5 level: No spinal canal stenosis, neuroforaminal narrowing or disc herniation is present. At the C5-C6 level: Small posterior disc bulge and mild facet degenerative change without significant stenosis. At the C6-C7 level: Small posterior disc bulge without significant stenosis. At the C7-T1 level: No spinal canal stenosis, neuroforaminal narrowing or disc herniation is present. IMPRESSION: Minimal degenerative changes. No nerve root impingement or significant stenosis. Dictated By: Eran Sanches MD 11/14/2024 8:29 PM Edited By: TAYA 11/14/2024 8:37 PM Electronically Signed: Eran Sanches MD 11/14/2024 9:41 PM Procedure Note Eran Sanches MD - 11/14/2024 This document is currently in Final Status Exam MR CERVICAL SPINE WO CONTRAST CLINICAL HISTORY: Neck pain, chronic. TECHNIQUE: Multiplanar, multisequence MR imaging of the cervical spine wasperformed without contrast. COMPARISON: MRI cervical spine 04/03/2019 FINDINGS:There is anatomic alignment of the cervical vertebrae.The bonemarrow signal intensity is within normal limits.The intervertebral discsignal intensity is well-preserved at all visualized levels. Thecerebellar tonsils are normal in position and configuration.The cervicalcord is normal in caliber and signal intensity. Vertebral artery flowvoids are present. Left vertebral artery is dominant. At the C2-C3 level: No spinal canal stenosis, neuroforaminal narrowing ordisc herniation is present. At the C3-C4 level: No spinal canal stenosis, neuroforaminal narrowing ordisc herniation is present. At the C4-C5 level: No spinal canal stenosis, neuroforaminal narrowing ordisc herniation is present. At the C5-C6 level: Small posterior disc bulge and mild facet degenerativechange without significant stenosis. At the C6-C7 level: Small posterior disc bulge without significantstenosis. At the C7-T1 level: No spinal canal stenosis, neuroforaminal narrowing ordisc herniation is present. IMPRESSION: Minimal degenerative changes. No nerve root impingement orsignificant stenosis. Dictated By: Eran Sanches MD 11/14/2024 8:29 PM Edited By: TAYA 11/14/2024 8:37 PM Electronically Signed: Eran Sanches MD 11/14/2024 9:41 PM us Zoey Terry MD [facility] MRI ORDERABLES Final Result documented in this encounter Visit Diagnoses Diagnosis Neck pain Cervicalgia documented in this encounter Care Teams Rip And Groove Machine Operator Relationship Specialty Start Date End Date Choice, No Pcp-Patient PCP - General 10/02/23 Lucia Lemons, RN Nurse Navigator Pulmonary Medicine 05/23/17 documented as of this encounter
--- OUTSIDE RECORDS SUMMARY | 2024-12-09 17:00 | XMS_ITS | Encounter Summary ---
Author Organization [facility] Address [address] [address] Phone Care Team Providers Care Timber Sprinkler Name Role Phone Lucia Lemons RN Unavailable Unavailable Choice, No Pcp-Patient Primary Care Provider Susan vailable Reason for Visit * Reason Comments Abdominal Pain Nausea Encounter Details Date Type Department Care Team (Late st Contact Info) Description 12/09/2024 5:00 PM CDT Office Visit [facility] [address] CLINIC [place]ALK - [place] [address] [place] [phone] Rocío Campa, HYDROPRESS OPERATOR, MACARONI MAKER [address] [place] [phone] Abdominal pain, unspecified abdominal location (Primary Dx) Social History Tobacco Use Types Packs/Day Years Used Date Smoking Tobacco: Never Smokeless Tobacco: Never Tobacco Cessation:Counseling Given: Not Answered Alcohol Use Standard Drinks/Week Comments No 0 (1 standard drink = 0.6 oz pur e alcohol) [facility] Utilities Answer Date Recorded In the past 12 months has e electric, gas, oil, or water company threatened to shut off services in your home? No 11/05/2024 Overall Financial Resource Strain (CARDIA) Answe r Date Recorded How hard is it for you to pa y for the very basics like food, housing, medical care, and heating? Patient declined 08/16/2022 PHQ-2 Answer Date Recorded PHQ-2 Total 0 12/09/2024 Hunger Vital Sign Answer Date Recorded Within [...] any time in the past 12 m [facility], were you homeless or living in a long-term (including now)? No 11/05/2024 IP Custom Utilities [...] on file Legal Sex Female 10:44 AM CONSTRUCTION SECRETARY Gender Identity Not on file Sexual Orientation Not on file documented as of this encounter Last Filed Vital Signs Vital Sign Reading Time Taken Comments Blood Pressure 104/60 12/09/2024 5:10 PM CDT Pulse 113 12/09/2024 5:10 PM CDT Temperature 37.6 C (99.6 F) 12/09/2024 5:10 PM CDT Respiratory Rate 22 12/09/2024 5:10 PM CDT Oxygen Saturation 92% 12/09/2024 5:10 PM CDT Inhaled Oxygen Concentration - - Weight 70.1 kg (154 lb 8.7 oz) 12/09/2024 5:10 P M CDT Height - - Body Mass Index 25.72 11/05/2024 3:17 PM CDT documented in this [...] Nadeem Moore RN documented in this encounter Progress Notes * Rocío Campa APRN, CNP - 12/09/2024 5:00 PM CDT Chief Complaint Patient presents with Abdominal Pain Nausea Vitals: 12/09/24 1710 BP: 104/60 Pulse: 113 Resp: 22 Temp: 37.6 ??C (99.6 ??F) TempSrc: Temporal SpO2: 92% Weight: 154 lb 8.7 oz (70.1 kg) Patient here with grandson with complaint of having abdominal pain. Rates abdominal pain 7 out of 10 located more right side of abdomen. complains of having some diarrhea constipation and nausea not keeping fluids down. Remmended further evaluation and treatment at higher level of care. Called and notified ER of patient's arrival. documented in this encounter Plan of Treatment Not on file documented as of this encounter Visit Diagnoses Diagnosis Abdominal pain, unspecified abdominal location- Primary documented in this encounter Historical Medications * This list may reflect changes made after this encounter. omeprazole (PriLOSEC) 40 MG delayed-release capsule Take 1 Capsule by mouth one time a day. 12/06/2022 Multiple Vitamins-Minerals (CertaVite/Antiox idants) tablet 11/05/2024 metoclopramide (Reglan) 5 MG/5ML solution Take 10 mg by mouth. methocarbamol (Robaxin) 500 MG tablet Take 500 mg by mouth every 24 hours as needed. lamoTRIgine (LaMICtal) 100 MG tablet Take 100 mg by mouth at bedtime. hydrOXYzine HCl (Atarax) 25 MG tablet Take 25 mg by mouth every six hours as needed. added in this encounter Care Teams Timber Sprinkler Relationship Specialty Start Date End Date Choice, No Pcp-Patient PCP - General 10/02/23 Lucia Lemons, RN Nurse Navigator Pulmonary Medicine 05/23/17 documented as of this encounter
[2024-12-19] VITALS (7 sets, daily range): BP systolic 91–121; BP diastolic 49–66; PULSE 90–93; RESP 16–18; TEMP 36.6–38.3; O2SAT 92–99; BMI 26.6; BMI 26.7
--- OUTSIDE RECORDS SUMMARY | 2024-12-19 18:43 | XMS_ITS | Encounter Summary ---
Author Organization [employer] [facility] Address [address] [place] [address] Phone Care Team Providers Care Healthcare Facility Administrator Name Role Phone Lucia Lemons RN Unavailable Unavailable Choice, No Pcp-Patient Primary Care Provider Susan vailable Encounter Details Date Type Department Care Team (Latest Contact Info) Description 11/05/2024 Travel Social History Tobacco Use Types Packs/Day Years Used Date Smoking Tobacco: Never Smokeless Tobacco: Never Alcohol Use Standard Drinks/Week Comments No 0 (1 standard drink = 0.6 oz pur e alcohol) [facility] Utilities Answer Date Recorded In the [...] any time in the past 12 m onths, were you homeless or living in a long term (including now)? No 11/05/2024 EH IP Custom [...] on file Legal Sex Female 10:44 AM PHARMACY TECHNICIAN INSTRUCTOR Gender Identity Not on file Sexual Orientation [...] Nadeem Hopper RN documented in this encounter Plan of Treatment Not on file documented as of this encounter Visit Diagnoses Not on filedocumented in this encounter Care Teams Healthcare Facility Administrator Relationship Specialty Start Date End Date Choice, No Pcp-Patient PCP - General 10/02/23 Lucia Lemons, RIGOBERTO Nurse Navigator Pulmonary Medicine 05/23/17 documented as of this encounter
--- OUTSIDE RECORDS SUMMARY | 2024-12-19 18:43 | XMS_ITS | Encounter Summary ---
Author Organization [facility] Address [address] [place] [phone] Phone Care Team Providers Care Boom Truck Driver Name Role Phone Lucia Lemons RN Unavailable Unavailable Choice, No Pcp-Patient Primary Care Provider Susan vailable Encounter Details Date Type Department Care Team (Late st Contact Info) Description 11/07/2024 Telephone [facility] [address] [place], [place] [address] Iris Rodriguez Social History Tobacco Use Types Packs/Day Years Used Date Smoking Tobacco: Never Smokeless Tobacco: Never Alcohol Use Standard Drinks/Week Comments No 0 (1 standard drink = 0.6 oz pur e alcohol) [facility] Utilities Answer Date Recorded In the past [...] any time in the past [address] [facility], were you homeless or living in a fpc (including now)? No 11/05/2024 IP Custom Utilities [...] on file Legal Sex Female 10:44 AM TRAFFIC ANALYST Gender Identity Not on file Sexual Orientation Not on file documented as of this encounter Functional Status * Patient's Vision Adequate to Safely Complete Daily Activities Answer Date of Assessment Author Yes 02/26/2024 2:42 PM CDT Nadeem Moore RN * Patient's Memory Adequate to Safely Complete Daily Activities Answer Date of Assessment Author Yes 02/26/2024 2:42 PM CDT Nadeem Moore, RIGOBERTO documented as of this encounter Mental Status * Patient's Judgment Adequate to Safely Complete Daily Activities Answer Entry Date Author Yes 02/26/2024 2:42 PM CDT Nadeem Moore, RIGOBERTO documented in this encounter Miscellaneous Notes * Telephone Encounter - Iris Rodriguez - 11/10/2024 11:45 AM CDT error documented in this encounter Plan of Treatment Not on file documented as of this encounter Visit Diagnoses Not on filedocumented in this encounter Care Teams Boom Truck Driver Relationship Specialty Start Date End Date Choice, No Pcp-Patient PCP - General 10/02/23 Lucia Lemons, RN Nurse Navigator Pulmonary Medicine 05/23/17 documented as of this encounter
--- OUTSIDE RECORDS SUMMARY | 2024-12-19 18:43 | XMS_ITS | Encounter Summary ---
Author Organization [facility] Address [address] [address] Phone Care Team Providers Care Vacuum Closing Machine Operator Name Role Phone Lucia Lemons RN Unavailable Unavailable Zoey Terry MD Primary Care Provider [phone] Mahnaz Turner APRN, MEDICAL STAFF CREDENTIALING COORDINATOR Primary Care Provi paty Choice, No Pcp-Patient Primary Care Provider Susan vailable Encounter Details Date Type Department Care Team (Late st Contact Info) Description 09/11/2017 Scanned - Medical Reports [facility] HIS [address] [place], [place] [id number] Abstract, Provider, Social History Tobacco Use Types Packs/Day Years Used Date Smoking Tobacco: Never Smokeless Tobacco: Never Alcohol Use Standard Drinks/Week Comments No 0 (1 standard drink = 0.6 oz pur e alcohol) Comments No Sex and Gender Information Value Date Recorded Sex Assigned at Not on file Legal Sex Female 10:44 AM ACADEMIC ADVISEMENT DIRECTOR Gender Identity Not on file Sexual Orientation Not on file documented as of this encounter Functional Status * Patient's Vision Adequate to Safely Complete Daily Activities Answer Date of Assessment Author No 11/22/2015 2:58 PM Nicole Desir RN * Patient's Memory Adequate to Safely Complete Daily Activities Answer Date of Assessment Author No 11/22/2015 2:58 PM Nicole Desir RN documented as of this encounter Mental Status * Patient's Judgment Adequate to Safely Complete Daily Activities Answer Entry Date Author No 11/22/2015 2:58 PM Nicole Desir RN documented in this encounter Plan of Treatment Not on file documented as of this encounter Procedures Procedure Name Priority Date/Time Associated Diagnosis Comments EYE EXAM ESTABLISHED PATIENT COMPREHENSIVE Routine 09/06/2017 documented in this encounter Results * EYE EXAM & TREATMENT (09/06/2017) us Provider Abstract MD GAUTHIER PROCEDURES Final Resul t documented in this encounter Visit Diagnoses Not on filedocumented in this encounter Additional Health Concerns Infection Onset Date Last Indicated Resolved Time COVID-19 Confirmed 02/22/2021 02/22/2021 11:06 PM ACADEMIC ADVISEMENT DIRECTOR R/O COVID-19 12/14/2021 12/14/2021 12/14/2021 10:5 4 AM CDT COVID-19 Confirmed 12/14/2021 12/14/2021 11:06 PM CDT R/O Respiratory Pathogens 02/26/2024 02/26/2024 11:55 AM CDT R/O COVID-19 02/26/2024 02/26/2024 02/26/2024 11:5 5 AM CDT R/O Respiratory Pathogens 04/10/2024 04/10/2024 4:03 PM ACADEMIC ADVISEMENT DIRECTOR R/O COVID-19 04/10/2024 04/10/2024 04/10/2024 4:03 PM ACADEMIC ADVISEMENT DIRECTOR Flu A (influenza A) 04/10/2024 04/10/2024 05/08/19 25 11:06 PM ACADEMIC ADVISEMENT DIRECTOR documented as of this encounter Care Teams Vacuum Closing Machine Operator Relationship Specialty Start Date End Date Zoey Terry MD [address] [place] [id number] PCP - General Family Medicine 06/20/17 08/24/20 Mahnaz Turner, PACKING CLERK, MEDICAL STAFF CREDENTIALING COORDINATOR [address] [place] [phone] PCP - General Family Medicine 08/25/20 05/13/23 Choice, No Pcp-Patient PCP - General 10/02/23 Lucia Lemons, RN Nurse Navigator Pulmonary Medicine 05/23/17 documented as of this encounter
--- OUTSIDE RECORDS SUMMARY | 2024-12-19 18:43 | XMS_ITS | Encounter Summary ---
Author Organization [facility] Address [address] [address] Phone Care Team Providers Care Research Assistant Professor Name Role Phone Lucia Lemons RN Unavailable Unavailable Zoey Terry MD Primary Care Provider [phone] Mahnaz Turner APRN, CATCH BASIN CLEANER Primary Care Provi paty Choice, No Pcp-Patient Primary Care Provider Susan vailable Encounter Details Date Type Department Care Team (Late st Contact Info) Description 10/11/2017 Scanned - Medical Reports [facility] [address] [place], [place] [phone] Abstract, Provider, Social History Tobacco Use Types Packs/Day Years Used Date Smoking Tobacco: Never Smokeless Tobacco: Never Alcohol Use Standard Drinks/Week Comments No 0 (1 standard drink = 0.6 oz pur e alcohol) Comments No Sex and Gender Information Value Date Recorded Sex Assigned at Not on file Legal Sex Female 10:44 AM HORTICULTURAL SPECIALTY GROWER INSIDE Gender Identity Not on file Sexual Orientation [...] Time COVID-19 Confirmed 02/22/2021 02/22/2021 11:06 PM HORTICULTURAL SPECIALTY GROWER INSIDE R/O COVID-19 12/14/2021 12/14/2021 12/14/2021 10:5 4 AM CDT COVID-19 Confirmed 12/14/2021 12/14/2021 11:06 PM CDT R/O Respiratory Pathogens 02/26/2024 02/26/2024 11:55 AM CDT R/O COVID-19 02/26/2024 02/26/2024 02/26/2024 11:5 5 AM CDT R/O Respiratory Pathogens 04/10/2024 04/10/2024 4:03 PM HORTICULTURAL SPECIALTY GROWER INSIDE R/O COVID-19 04/10/2024 04/10/2024 04/10/2024 4:03 PM HORTICULTURAL SPECIALTY GROWER INSIDE Flu A (influenza A) 04/10/2024 04/10/2024 05/08/19 25 11:06 PM HORTICULTURAL SPECIALTY GROWER INSIDE documented as of this encounter Care Teams Research Assistant Professor Relationship Specialty Start Date End Date Zoey Terry MD [address] [place] [id number] PCP - General Family Medicine 06/20/17 08/24/20 Mahnaz Turner, TECHNICAL EDUCATION TEACHER, CATCH BASIN CLEANER [address] [place] [id number] PCP - General Family Medicine 08/25/20 05/13/23 Choice, No Pcp-Patient PCP - General 10/02/23 Lucia Lemons, RN Nurse Navigator Pulmonary Medicine 05/23/17 documented as of this encounter
--- OUTSIDE RECORDS SUMMARY | 2024-12-19 18:43 | XMS_ITS | Encounter Summary ---
Author Organization [facility] Address [address] [address] Phone Care Team Providers Care Automatic Spinning Lathe Operator Name Role Phone Lucia Lemons RN Unavailable Unavailable Choice, No Pcp-Patient Primary Care Provider Susan vailable Reason for Referral * Diagnostic (Routine) - Closed Specialty Diagnoses / Procedures Referred By Contac t Referred To Contact Radiology Diagnoses Neck pain Procedures MR CERVICAL SPINE WO CONTRAST Zoey Terry MD [address] [place] [address] Phone: tel: fax: Referral ID Status Reason Start Date Expiration Date Visits Re quested Visits Authorized [id number] Closed 11/06/2024 02/06/2026 1 1 Reason for Visit * Reason Onset Date Comments Results 11/06/2024 Encounter Details Date Type Department Care Team (Late st Contact Info) Description 11/06/2024 Telephone [facility] [address] [place] [phone] Kiesha Ansari LPN Results Social History Tobacco Use Types Packs/Day Years Used Date Smoking Tobacco: Never Smokeless Tobacco: Never Alcohol Use Standard Drinks/Week Comments No 0 (1 standard drink = 0.6 oz pur e alcohol) [facility] Utilities Answer Date Recorded In the [...] any time in the past 12 m [facility], were you homeless or living in a fpc (including now)? No 11/05/2024 EH IP Custom [...] on file Legal Sex Female 10:44 AM AIR GRINDER Gender Identity Not on file Sexual Orientation Not on file documented as of this encounter Functional Status * Patient's Vision Adequate to Safely Complete Daily Activities Answer Date of Assessment Author Yes 02/26/2024 2:42 PM Nadeem Hopper, RN * Patient's Memory Adequate to Safely Complete Daily Activities Answer Date of Assessment Author Yes 02/26/2024 2:42 PM Nadeem Hopper RN documented as of this encounter Mental Status * Patient's Judgment Adequate to Safely Complete Daily Activities Answer Entry Date Author Yes 02/26/2024 2:42 PM CDT Nadeem Moore RN documented in this encounter Miscellaneous Notes * Telephone Encounter - Kiesha Ansari LPN - 11/06/2024 1:35 PM CDT Director Of Acquisitions called patient back and she states she was looking for results from her Xray. Director Of Acquisitions broughtthat to Zoey Terry MD and she states taht the results show arthritis and recommended either doing PT or having an MRI done to possibly do injections. Patient would like to move forward with the MRI. Orders will be placed today and patient aware to expect a phone call to schedule. -MARTIN Price * Telephone Encounter - Kiesha Ansari LPN - 11/06/2024 1:34 PM CDT ----- Message from Megadyne sent at 11/06/2024 12:30 PM CDT ----- Contact: Eda Ely Provider: Dr. Terry Date: 11/06/2024 Time: 12:30 PM Patient's Date of : 1965 Person Calling: Jo Ann Ely Phone Number: Home phone [phone] (home) Reason for call: Patient would like to know if Dr. Terry's nurse would give her a call. Pharmacy: [facility] - [place], [place] - [facility] [address] AT [address] [place] [address] Allergies: -- Latex -- Hives -- Oxycodone -- GI intolerance documented in this encounter Plan of Treatment Not on file documented as of this encounter Results * MR CERVICAL SPINE [...] Visit Diagnoses Diagnosis Neck pain- Primary Cervicalgia Neck pain Cervicalgia documented in this encounter Care Teams Automatic Spinning Lathe Operator Relationship Specialty Start Date End Date Choice, No Pcp-Patient PCP - General 10/02/23 Lucia Lemons, RN Nurse Navigator Pulmonary Medicine 05/23/17 documented as of this encounter
--- OUTSIDE RECORDS SUMMARY | 2024-12-19 18:43 | XMS_ITS | Encounter Summary ---
Author Organization [facility] Address [address] [place] [id number] Phone Care Team Providers Care Elementary Secretary Name Role Phone Lucia Lemons RN Unavailable Unavailable Choice, No Pcp-Patient Primary Care Provider Susan vailable Reason for Visit * Reason Onset Date Comments Medication 11/10/2024 Encounter Details Date Type Department Care Team (Late st Contact Info) Description 11/10/2024 Telephone [facility] [address] [place] [address] Laura Dietrich LPN Medication Social History Tobacco Use Types Packs/Day Years Used Date Smoking Tobacco: Never Smokeless Tobacco: Never Alcohol Use Standard Drinks/Week Comments No 0 (1 standard drink = 0.6 oz pur e alcohol) [facility] Utilities Answer Date Recorded In the past [...] any time in the past 12 m [facility], were you homeless or living in [...] on file Legal Sex Female 10:44 AM STAGE SET DESIGNER Gender Identity Not on file Sexual Orientation Not on file documented as of this encounter Functional Status * Patient's Vision Adequate to Safely Complete Daily Activities Answer Date of Assessment Author Yes 02/26/2024 2:42 PM CDT Nadeem Moore RN * Patient's Memory Adequate to Safely Complete Daily Activities Answer Date of Assessment Author Yes 02/26/2024 2:42 PM ANAMARIAT Nadeem Moore, RIGOBERTO documented as of this encounter Mental Status * Patient's Judgment Adequate to Safely Complete Daily Activities Answer Entry Date Author Yes 02/26/2024 2:42 PM CDT Nadeem Moore RN documented in this encounter Miscellaneous Notes * Telephone Encounter - Laura Dietrich LPN - 11/10/2024 9:32 AM CDT Called in the prescription to the pharmacy for the patient prior to her MRI. Left voicemail. ----- Message from Rosa sent at 11/06/2024 4:39 PM CDT ----- Provider: Dr Terry Date: 11/06/2024 Time: 4:39 PM Patient's Date of : 1965 Person Calling: Eda Phone Number: Cell phone Telephone Information: Mobile Not on file. Reason for call: Eda is scheduled for an MRI on 11-25-24. She is requesting something to help her relax during the procedure. Thank you Pharmacy: [facility] - [place], [place] - [address] AT [address] [place] [address] Allergies: -- Latex -- Hives -- Oxycodone -- GI intolerance documented in this encounter Plan of Treatment Not on file documented as of this encounter Visit Diagnoses Not on filedocumented in this encounter Care Teams Elementary Secretary Relationship Specialty Start Date End Date Choice, No Pcp-Patient PCP - General 10/02/23 Lucia Lemons, RN Nurse Navigator Pulmonary Medicine 05/23/17 documented as of this encounter
--- OUTSIDE RECORDS SUMMARY | 2024-12-19 18:44 | XMS_ITS | Clinical Summary ---
Author Organization [facility] Address [address] [place] [address] Care Team Providers Care Tax Representative Name Role Phone Clinic, No Pcp Or Primary Care Provider Unavaila ble Allergies No known active allergies Medications cyanocobalamin, vitamin B-12, 1,000 mcg cap Take 1 capsule by mouth once daily. Active dextroamphetamin e-amphetamine (Adderall XR) 20 mg Extended-Release capsule Take 20 mg by mouth once daily. Active hydrOXYzine HCL (ATARAX) 25 mg tablet Take 25 mg by mouth every 6 hours if needed. Active lamoTRIgine (LaMICtal) 100 mg tablet Take 100 mg by mouth at bedtime. Active traZODone (DESYREL) 100 mg tablet Take 100 mg by mouth at bedtime. Active omeprazole (PRILOSEC) 40 mg Delayed-Release capsuleIndicatio ns:Gastroesophag eal reflux disease with esophagitis without hemorrhage Take 1 Capsule (40 mg) by mouth once daily before a meal. 30 Capsule 12/06/2022 Active famotidine (PEPCID) 20 mg tabletIndication s:Gastroesophage al reflux disease with esophagitis without hemorrhage Take 1 Tablet (20 mg) by mouth two times daily. 60 Tablet 12/06/2022 Active ferrous sulfate, 65 mg elemental, (Iron, Ferrous Sulfate,) tabletIndication s:Iron deficiency anemia, unspecified iron deficiency anemia type Take 1 Tablet (325 mg) by mouth two times daily with meals. 60 Tablet 3 12/07/2022 Active Active Problems Problem Noted Date Diagnosed Date Intussusception of rectum 10/12/2017 Scalp pain 12/08/2016 Falls frequently 12/08/2016 Bilateral hand pain 12/08/2016 Urinary incontinence 12/08/2016 Moderate major depression 06/25/2009 Insomnia, unspecified 01/26/2009 Lipid screening 01/26/2009 Other screening mammogram 01/26/2009 Anxiety state, unspecified 01/26/2009 Acid reflux Resolved Problems Problem Noted Date Diagnosed Date Resolved Date Mild depression 03/23/2009 06/25/2009 Moderate major depression, single episode 02/22/2009 03/23/2009 Severe depression 01/26/2009 02/22/2009 Depression 01/26/2009 Immunizations Immunization Administration Dates Next Due Influenza Virus, Unspecified 03/28/2017,06/13/19 17 Influenza, IIV3 (Age >=3 years) 01/26/2009 Pneumococcal conj 13-Valent (Prevnar 13) 017 Tdap 01/26/2009 Family History Medical History Relation Name Comments Diabetes Father Cancer Maternal Aunt Cancer Maternal Uncle Cancer-prostate Maternal Uncle Cancer-breast Mother Diabetes Mother Relation Name Status Comments Father Maternal Aunt Maternal Uncle Mother Alive Social History Tobacco Use Types Packs/Day Years Used Date Smoking Tobacco: Never Smokeless Tobacco: Never Tobacco Cessation:Counseling Given: No Alcohol Use Standard Drinks/Week Comments No 0 (1 standard drink = 0.6 oz pur e alcohol) Social Connections Answer Date Recorded Frequency of Communication with Friends and Fami ly Not on file 12/06/2022 Comments No Sex and Gender Information Value Date Recorded Sex Assigned at Not on file 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 Gender Identity Not on file Sexual Orientation Not on file Obstetrics History Para Term AB IAB SAB Ectopic Multiple Livin g Live Births 4 4 3 1 4 4 Date Outcome GA Total Labor Labor/2nd/3rd Weight Sex Type Anes PTL Maria G A1 A5 Name Clin 1982 Term 4.37 kg (9 lb 10 oz) M Vag Living 1985 Term 3.01 kg (6 lb 10 oz) F Vag Living 1989 Term 2.78 kg (6 lb 2 oz) F Vag Living 1993 2.27 kg (5 lb) F Vag Living Last Filed Vital Signs Vital Sign Reading Time Taken Comments Blood Pressure 100/72 12/06/2022 1:39 PM CDT Pulse 90 12/06/2022 1:39 PM CDT Temperature 36.8 C (98.3 F) 10/13/2017 8:00 AM CDT Respiratory Rate 16 10/13/2017 11:0 0 AM CDT Oxygen Saturation 98% 12/06/2022 1:39 PM CDT Inhaled Oxygen Concentration - - Weight 70.7 kg (155 lb 14.4 oz) 12/06/2022 1:39 PM CDT Height 163 cm (5' 4.17) 12/06/2022 1:39 PM CDT Body Mass Index 26.62 12/06/2022 1:39 PM CDT Plan of Treatment Health Maintenance Due Date Last Done Comments Depression screening for age 12+ 1976 HIV for age 15-65 08/11/1979 Hepatitis C screening for age 18-79 1982 Zoster (shingles) series for age 50+ (1 of 2) 2014 Mammogram for age 45-75 02/07/2017 02/08/20 16 (Completed outside of [facility]), 02/26/2009, 02/23/2009 Pneumococcal series for age 50+ (2 of 2 - PPSV23) 06/13/2017 06/13/2016 Tetanus booster 01/26/2019 01/26/2009 Pap test for age 21-65 03/28/2020 7 (Completed outside of [facility]), 08/11/2011 (Completed outside of [facility]), 01/26/2009 Lipids for age 45-75 05/11/2021 05/11/2016 (Completed outside of [facility]), 02/10/2009 BMI (ht and wt on same day) for age 18+ 12/07/2023 12/06/2022, 12/28/2016 COVID-19 vaccine series ( season) 2023 RSV vaccine for adults or (1 - Risk 60-74 years 1-dose series) 2024 Influenza Vaccine (#1) 2024 7, 06/13/2016, 01/26/2009 Colonoscopy through age 75 04/06/202704/06, 03/15/2016 (Completed outside of [facility]) Hepatitis B series for 19+ Aged Out N o longer eligible based on patient's age to complete this topic Procedures Procedure Name Priority Date/Time Associated Diagnosis Comments SCAN-COLONOSCOPY 04/06/2017 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 XR FFDM MAMMO UNI ADDL VIEWS RIGHT (IA) Routine 02/26/2009 2:46 PM CDT Abnormal Mammogram, Unspecified LIPID PANEL W REFLEX MEASURED LDL Routine 02/10/2009 8:51 AM CDT Lipid Screening COMMUNICATION PROFESSOR THIN PREP PAP SCREEN IMAGED Routine 01/26/2009 4:30 PM CDT Routine Physical Examination from Last 3 Months or Most Recently Relevant to Health Maintenance Results * SCAN-COLONOSCOPY (04/06/2017 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) Narrative Procedure Note Vahe Mcghee MD - 04/06/2017 12:53 PM CST [facility] [address] [place] [address], [address], [place] [address] Patient Name: Jo Ann Ely Gender: Female Exam Date: 04/06/2017 Visit Number: [id number] Age: 51 Years Date of : 1965 Attending MD: Vahe Mcghee MD Medical Record#: [id number] ----- Procedure: Colonoscopy Indications: Rectal bleeding Constipation Referring MD: Referral Self Primary MD: Teo Locke DO Medications: Complications: Procedure: An examination of the heart and lungs was performed and found to be withinacceptable limits. The patient was therefore deemed a reasonablecandidate for endoscopy and 0 sedation. The risks and benefits of the procedure were explained to the patient.After obtaining informed consent, the patient received monitoredanesthesia care and I passed the scope without difficulty via the rectum to the cecum. The appendiceal orificeand ic valve were identified. The scope was retroflexed during theexamination The quality of the prep was good (Miralax/Gatorade/2 tabletsBisacodyl/Magnesium Citrate). This was a complete examination throughout the entire colon. Findings: Diverticulosis. Location: - entire colon. Quantity: many. Anal canal: internal hemorrhoid(s) Impression: Constipation, unspecified constipation type Internal hemorrhoids MD impression comments: MIld decreased sphincter tone on digital exam. Procedure: Upper GI Endoscopy Indications: Reflux Dysphagia Provider: Vahe Mcghee MD Referring MD: Referral Self Primary MD: Teo Locke DO Complications: No immediate complications Procedure: An examination of the heart and lungs was performed within acceptablelimits. The patient was therefore deemed a reasonable candidate forsedation. The risks and benefits were explained to the patient, who appeared tounderstand. After obtaining informed consent, the scope was passed underdirect vision. Throughout the procedure the patient's blood pressure,pulse and oxygen saturations were monitored. The scope was introducedthrough the mouth and advanced to the second portion of duodenum. Findings: Esophagus: Normal esophagus. The z-line is 38 centimeters from the incisors. *Esophagus Comments: No stenosis. Bx taken from distal and mid. Stomach: Normal stomach. Duodenum: Normal duodenum. Impression: GERD without esophagitis Impression Comments: Patient reports variable but frequentheartburn. Her dysphagia is vague and appears mild, so no further testing at thistime Pathology Results: A: ESOPHAGUS, DISTAL, BIOPSY: 1. Esophageal squamous mucosa with no diagnostic abnormalities 2. No evidence of gastroesophageal reflux, eosinophilic esophagitis orBarrett's mucosa B: ESOPHAGUS, MID, BIOPSY: 1. Normal esophageal squamous mucosa 2. No evidence of gastroesophageal reflux, eosinophilic esophagitis orBarrett's mucosa MICROSCOPIC A: Performed B: Performed Electronically signed by: Ravi Gaines MD Plan Comments: Recommendation Comments: Start Omeprazole 20mg qam. If does well couldtry taper to H2 enrico. Should have follow-up office visit Recommendation Comments: High fiber diet and metamucil 1 scoop per day toobtain 25-30g of fiber. If constipation reoccurs on this, would add Miralax 1 scoop at night. Call for follow-up if onogoin problems _Electronically signed by: Vahe Mcghee MD 04/06/2017 cc: Referral Self Teo Locke DO us Vahe Mcghee MD OTHER Final Result * XR FFDM MAMMO UNI ADDL VIEWS RIGHT (02/26/2009 2:46 PM CDT) MAMMOGRAM ACR 3 Probably Benign Finding: Short interval F/U suggested Anatomical Region Laterality Modality BREASTS, Breast Right Right Mammograph y 02/26/2009 2:46 PM CDT Narrative 02/26/2009 2:45 PM CDT UNILATERAL RIGHT BREAST ULTRASOUND CLINICAL HISTORY: Patient was recalled after baseline mammogram demonstrated a partially obscured, partially well-circumscribed questionable nodule in the central aspect of the right breast posterolaterally. FINDINGS: Sonographic evaluation of the right breast demonstrated a benign ovoid 7-mm nodule at the 9 o'clock position 7 cm from the nipple. Given the size and shape of this cyst, it is unlikely to represent what is seen on mammogram, and therefore, additional views of the right breast were performed to further evaluate the questionable nodular density. UNILATERAL RIGHT BREAST MAMMOGRAM ADDITIONAL VIEWS Spot compression CC, spot compression MLO and true lateral views were performed. FINDINGS: The nodular density in question spreads out with no underlying mass or architectural distortion. Benign-appearing calcifications are seen in the [id number]. CONCLUSION: ACR 3 Probably Benign Findings: Short interval followup suggested. RECOMMENDATION: Bilateral mammogram in 6 months. NOTE: The short-term interval followup mammogram of both breasts is being performed for the bilateral calcifications that are noted on this patient's baseline study with no prior studies for comparison. Today's findings were discussed with the patient. Procedure Note Dre Piotr Urbano, - 02/26/2009 UNILATERAL RIGHT BREAST ULTRASOUND CLINICAL HISTORY: Patient was recalled after baseline mammogramdemonstrated a partially obscured, partially well-circumscribedquestionable nodule in the central aspect of the right breastposterolaterally. FINDINGS: Sonographic evaluation of the right breast demonstrated a benignovoid 7-mm nodule at the 9 o'clock position 7 cm from the nipple. Giventhe size and shape of this cyst, it is unlikely to represent what is seenon mammogram, and therefore, additional views of the right breast wereperformed to further evaluate the questionable nodular density. UNILATERAL RIGHT BREAST MAMMOGRAM ADDITIONAL VIEWS Spot compression CC, spot compression MLO and true lateral views wereperformed. FINDINGS: The nodular density in question spreads out with no underlyingmass or architectural distortion. Benign-appearing calcifications areseen in the [id number]-wp-ikeg. CONCLUSION: ACR 3 Probably Benign Findings: Short interval followupsuggested. RECOMMENDATION: Bilateral mammogram in 6 months. NOTE: The short-term interval followup mammogram of both breasts is beingperformed for the bilateral calcifications that are noted on thispatient's baseline study with no prior studies for comparison. Today's findings were discussed with the patient. Suo Yi DO MAMMO Final Result * LIPID PANEL W REFLEX MEASURED LDL (02/10/2009 8:51 AM CDT) CHOLESTEROL,TOTAL 155 110 - 199 mg/dL [facility] TRIGLYCERIDES 94 <150 mg/dL [facility] HDL CHOLESTEROL 41 >40 mg/dL [facility] CHOL/HDL RATIO 3.78 <4.51 [facility] LDL CHOLESTEROL 95 <131 mg/dL [facility] PATIENT STATUS Fasting [facility] Blood specimen (specimen) BLOOD SPECIMEN / Unknown 02/10/2009 8:51 AM CDT 02/10/2009 8:45 AM CDT [employer] CHEMISTRY Final Result [facility] [address] [place] [address] * COMMUNICATION PROFESSOR THIN PREP PAP SCREEN IMAGED (01/26/2009 4:30 PM CDT) CYTOLOGY CYTOPATHOLOGY REPORT [facility] Status: Final Status [id number] CLINICAL INFORMATION Last Pap Result :NIL ABN [place]/Bx Past 5 YRS :None Hormone Usage :None Menstrual Status : Irregular Periods [place]/Bx done today :No HPV Request :HPV if ASCUS SPECIMEN SOURCE :Cervical/vaginal ThinPrep Vial, screening SPECIMEN ADEQUACY :Satisfactory for evaluation Endocervical component present. INT ERPRETATIO N/RESULT Negative for intraepithelial lesion or malignancy (NIL) Cytology 1st Screener :yael Signed by :[facility] This specimen was screened by the FDA approved ThinPrep Imaging System and manually reviewed. NOTE: The Pap test is a screening technique, not a diagnostic procedure. It is used primarily to screen for squamous cancers and precursor lesions. Published studies have shown that it is subject to both false negative and false positive results. The pap test should not be used as the sole means to diagnose or exclude pre-malignant and malignant lesions. COLLECTED:01/26/09 ACCESSIONED: 01/29/09 SIGNED: 02/08/09 [facility] PAP [place] CODE NIL [facility] Cervical/Vaginal (Cervical/Vagina l) 01/26/2009 4:30 PM CDT 01/26/2009 4:27 PM CDT Teo Locke DO PATHOLOGY/CYTOLOGY Final Result [facility] INTERNAL ZIP [id number] [address] from Last 3 Months or Most Recently Relevant to Health Maintenance Advance Directives * Full Code (Latest Code Status on File) Date Activated Date Inactivated Comments 10/11/2017 9:48 AM 10/13/2017 3:33 PM * Full Code Date Activated Date Inactivated Comments 06/01/2017 2:43 PM 06/01/2017 7:03 PM Question Answer Comments Code Status Discussion: Discussed Care Teams Tax Representative Relationship Specialty Start Date End Date Clinic, No Pcp Or . PCP - General 12/06/22
--- OUTSIDE RECORDS SUMMARY | 2024-12-19 18:44 | XMS_ITS | Encounter Summary ---
Author Organization [facility] Address [address] [place] [id number] Phone Care Team Providers Care Trigonometry Teacher Name Role Phone Lucia Lemons RN Unavailable Unavailable Choice, No Pcp-Patient Primary Care Provider Susan vailable Encounter Details Date Type Department Care Team (Latest Contact Info) Description 12/09/2024 Travel Social History Tobacco Use Types Packs/Day Years Used Date Smoking Tobacco: Never Smokeless Tobacco: Never Alcohol Use Standard Drinks/Week Comments No 0 (1 standard drink = 0.6 oz pur e alcohol) [facility] Utilities Answer Date Recorded In the [...] were you homeless or living in a fci (including now)? 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
--- OUTSIDE RECORDS SUMMARY | 2024-12-19 18:44 | XMS_ITS | Clinical Summary ---
Author Organization [facility] Address [address] [place] [id number] Phone Care Team Providers Care Geographic Information System Surveyor Name Role Phone Lucia Lemons RN Unavailable Unavailable Choice, No Pcp-Patient Primary Care Provider Susan vailable Allergies Active Allergy Reactions Criticality Noted Date Comments Latex Hives High 10/04/2023 Oxycodone GI intolerance 07/23/2015 Medications * This document contains information received from the source organization and may not represent a complete record from that organization. acetaminophen (Tylenol) 500 MG tablet Take 1-2 Tablets by mouth every six hours as needed for Pain . Limit acetaminophen to 4000 mg per day from all sources. 50 Tablet 2 Active Multiple Vitamin (Multivitamin Adult) Tablet Take 1 Tablet by mouth one time a day. 90 Tablet 3 4 Active Additional Information Patient not taking.Reported on 12/09/2024 Glucosamine-Cho ndroit-Vit C-Mn (glucosamine chondroitin complex) capsule Take 1 Capsule by mouth two times a day. 100 Capsule 3 4 Active Additional Information Patient not taking.Reported on 12/09/2024 Vitamin D, Cholecalciferol , 25 MCG (1000 UT) Tablet Take 1 Tablet by mouth one time a day. 1 unit of Vitamin D equals 0.025 mcg of Vitamin D 90 Tablet 3 4 Active [place]-3 Fatty Acids (fish oil) 1200 MG capsuleIndicati ons:Chronic pain in right shoulder Take 1 Capsule by mouth one time a day. 90 Capsule 3 4 Active Additional Information Patient not taking.Reported on 12/09/2024 cyanocobalamin 500 MCG tablet Take 500 mcg by mouth. Active famotidine (Pepcid) 20 MG tablet Take 20 mg by mouth two times a day. 3 Active Phenylephrine-D M-GG (Mucinex Fast-Max Congest Cough) 2.5-5-100 MG/5ML Liquid Take 5 mL by mouth two times a day as needed for Other (cough). 118 mL 4 Active Additional Information Patient not taking.Reported on 12/09/2024 celecoxib (CeleBREX) 200 MG capsule Take 1 Capsule by mouth two times a day. 180 Capsule 3 4 Active diclofenac (Voltaren) 1 % Gel Apply 4 g topically four times a day. Apply to affected area: neck and back 120 g 1 5 Active tolnaftate (Tinactin) 1 % AerosolIndicati ons:Infection Apply 1 [place] topically two times a day. Indications: Infection 150 g 1 5 Active Additional Information Patient not taking.Reported on 12/09/2024 amphetamine-dex troamphetamine (Adderall) 10 MG tablet TAKE 1 TABLET BY MOUTH EVERY MORNING FOR 30 DAYS. TO AVOID INSOMNIA, LAST DAILY DOSE SHOULD BE TAKEN NO LESS THAN 6 HOURS BEFORE BED. 09/24/2024 30 Tablet 5 Active sertraline (Zoloft) 100 MG tablet Take two tablets daily (200mg) 60 Tablet 2 5 Active Additional Information Patient not taking.Reported on 12/09/2024 risperiDONE (RisperDAL) 0.25 MG tablet Take 1 Tablet by mouth two times a day. 60 Tablet 5 5 Active topiramate (Topamax) 25 MG tablet Take 1 Tablet by mouth at bedtime. Do not crush. 30 Tablet 2 5 Active Additional Information Patient not taking.Reported on 12/09/2024 traZODone (Desyrel) 50 MG tablet Take one, or up to three at HS PRN 90 Tablet 5 5 Active amphetamine-dex troamphetamine (Adderall) 10 MG tablet Take 1 Tablet by mouth every morning for 30 days. To avoid insomnia, last daily dose should be taken no less than 6 hours before bed. 30 Tablet 5 025 Active amphetamine-dex troamphetamine (Adderall) 10 MG tablet Take 1 Tablet by mouth every morning for 30 days. To avoid insomnia, last daily dose should be taken no less than 6 hours before bed. 30 Tablet 5 025 Active amphetamine-dex troamphetamine (Adderall) 10 MG tablet Take 1 Tablet by mouth every morning for 30 days. To avoid insomnia, last daily dose should be taken no less than 6 hours before bed. 30 Tablet 5 025 Active hydrOXYzine HCl (Atarax) 25 MG tablet Take 25 mg by mouth every six hours as needed. Active lamoTRIgine (LaMICtal) 100 MG tablet Take 100 mg by mouth at bedtime. Active methocarbamol (Robaxin) 500 MG tablet Take 500 mg by mouth every 24 hours as needed. Active metoclopramide (Reglan) 5 MG/5ML solution Take 10 mg by mouth. Active Multiple Vitamins-Minera ls (CertaVite/Anti oxidants) tablet 5 Active omeprazole (PriLOSEC) 40 MG delayed-release capsule Take 1 Capsule by mouth one time a day. 3 Active Active Problems Problem Noted Date Diagnosed Date Acute cystitis without hematuria 02/27/2024 Dehydration 02/26/2024 Age-related osteoporosis with current pathologic al fracture 02/19/2024 Umbilical hernia 09/27/2018 Overview (09/08/2021): Added automatically from request for surgery [id number] Hernia of anterior abdominal wall 09/27/2018 Gastroesophageal reflux disease 10/26/2017 HPV (human papilloma virus) infection 08/02/2017 Family history of breast cancer 08/02/2017 Cyst of right breast 08/02/2017 Dense breasts 08/02/2017 Restless leg syndrome 06/04/2017 Memory loss 06/04/2017 Intractable headache 06/04/2017 Neuropathy 05/25/2017 Incidental pulmonary nodule, less than or equal to 3mm 05/24/2017 Preop general physical exam 05/21/2017 Bilateral hand pain 12/08/2016 Falls frequently 12/08/2016 Facet arthropathy, lumbar 09/19/2016 DDD (degenerative disc disease), lumbar 09/20/19 17 Spinal stenosis of cervical region 08/01/2016 DDD (degenerative disc disease), cervical 2016 Major depressive disorder, recurrent episode, mo derate 04/24/2016 CINTHIA (generalized anxiety disorder) 04/18/2016 Dysthymia Index Date 04/09/15 02/01/2016 Ureteral stone 11/09/2015 Hypermetropia 09/29/2015 Rectocele 04/01/2015 Mixed stress and urge urinary incontinence 04/01 Stool incontinence 04/01/2015 Midline low back pain without sciatica 5 Upper back pain 12/17/2014 Depressive disorder, not elsewhere classified Anxiety state 10/04/2011 Overview (04/19/2015): IMO Update Insomnia secondary to chronic pain 10/04/2011 Overview (01/29/2017): Updated per 01/28/17 IMO import Resolved Problems Problem Noted Date Diagnosed Date Resolved Date Hypotension due to hypovolemia 02/27/2024 02/27/2024 Dehydration 02/27/2024 02/27/2024 Fever 02/27/2024 02/27/2024 Chronic bilateral low back p ain without sciatica 01/24/2016 04/05/2016 Difficulty walking 01/24/2016 6 Left-sided thoracic back perfecto n, unspecified chronicity 01/24/2016 04/05/2016 Muscle stiffness 01/24/2016 04/05/2016 Hip pain 03/13/2012 09/16/2012 Back stiffness 03/13/2012 09/16/2012 Back pain 03/13/2012 09/16/2012 Other physical therapy 02/07/201209/16 Lower back pain 02/07/2012 09/16/2012 Weakness of left leg 02/07/2012 013 Muscle stiffness 02/07/2012 09/16/2012 Spondylosis without myelopat hy or radiculopathy, thoracic region 9 Encounters * This document contains information received from the source organization and may not represent a complete record from that organization. Date Type Department Care Team Description 12/09/2024 5:00 PM CDT Office Visit [facility] [place] [address] [place] [phone] Rocío Campa, HEATER ROOM HELPER, HOME HEALTH REGISTERED NURSE Abdominal pain, unspecified abdominal location (Primary Dx) 12/09/2024 Travel 11/24/2024 Results Follow-Up [facility] [address] [place] [address] Jayda Butler, RN MR CERVICAL SPINE WO CONTRAST 11/18/2024 Travel 11/13/2024 4:02 PM CDT - 11/13/2024 11:59 PM CDT Hospital Encounter [facility] [address] [place] [address] Zoey Terry MD Neck pain Discharge Disposition: Discharged 11/13/2024 Travel 11/10/2024 Telephone [facility] [address] [place] [address] Laura Dietrich LPN Medication 11/07/[address] [address] Iris Rodriguez 11/06/[address] [address] Kiesha Ansari LPN Results 11/05/2024 3:46 PM CDT - 11/05/2024 11:59 PM CDT Hospital Encounter [facility] RAD[facility] [address] [place] [address] Zoey Terry MD Neck pain Discharge Disposition: Discharged 11/05/2024 3:20 PM CDT Office Visit [facility] [address] [place] [id number] Zoey Terry MD Neck pain (Primary Dx); Gastroesophageal reflux disease with esophagitis without hemorrhage 11/05/2024 Travel from Last 3 Months Immunizations Immunization Administration Dates Next Due Influenza 01/26/2015 Influenza Quad Preservative Free 017(Deferred: Invalid Dose - [place]),06/13/2016 Influenza Quad Split 03/10/2013 Influenza Trivalent With Preservative 01/26/2015 ,01/28/2013,01/26/2009 Influenza Unspecified Formulation 2016,06/13/2016,01/26/2015,2012,01/28/2013,01/26/2009 Pneumococcal Conjugate, (Prevnar)13-valent 06/13/2016 Tdap (7 years and older) 06/24/2020,01/26/2009 Surgical History Surgery Date Site/Laterality Comments ANTER COLPORRHAPHY,BLAD/VAGINA , INCLD SCOPY IF PERF 09/21/2011 LAPAROSCOPY,SUPRACERVICA L HYSTERECTOMY,UTERUS 200 G OR < 02/28/2013 COLPOPEXY 07/09/2015 Uterus/N/A Procedure: robotic sacral colpopexy; posterior repair and perineoplasty; Surgeon: Belen Fernandez MD; Location: [facility] OR Medical devices from this surgery are in the Medical Devices section. VAGINAL PROLAPSE REPAIR 07/09/2015 Perineum/N/A Procedure: posterior repair and perineoplasty; Surgeon: Belen Fernandez MD; Location: [facility] OR Medical devices from this surgery are in the Medical Devices section. CYSTOSCOPY 11/29/2015 Bladder/Right Procedure: Cystoscopy with right retrograde pyelogram and Ureteroscopy Right with balloon dilation; Surgeon: Cuong Correia MD; Location: [facility] OR COLONOSCOPY 03/15/2016 Colon/N/A Procedure: COLONOSCOPY DIAGNOSTIC; Surgeon: Ezequiel Dye MD; Location: [facility] OR UPPER GASTROINTESTINAL ENDOSCOPY 03/15/2016 Mouth/N/A Procedure: ESOPHAGOGASTRODUODENOSCOPY DIAGNOSTIC; Surgeon: Ezequiel Dye MD; Location: [facility] OR OTHER SURGICAL HISTORY 05/19/2016 Back/N/A Procedure: INJECTION STEROID EPIDURAL Lumbar; Surgeon: Ravi Alexis MD; Location: [facility] OR OTHER SURGICAL HISTORY 07/07/2016 Back/N/A Procedure: INJECTION STEROID EPIDURAL; Surgeon: Ravi Alexis MD; Location: [facility] OR OTHER SURGICAL HISTORY 09/01/2016 Back/N/A Procedure: lumbar epidural steroid injection; Surgeon: Ravi Alexis MD; Location: [facility] OR OTHER SURGICAL HISTORY 08/15/2017 Bilateral L3-4, L4-5, and L5-S1 lumbar facet joint medial branch blocks LAP,LYSIS OF ADHESIONS 10/11/2017 Robotic assisted lysis of adhesions, suture rectopexy UPPER GASTROINTESTINAL ENDOSCOPY 05/21/2018 N/A Procedure: ESOPHAGOGASTRODUODENOSCOPY DIAGNOSTIC; Surgeon: Edgar Kasper MD; Location: [facility] OR VENTRAL HERNIA REPAIR 09/30/2018 Repair with mesh. ([facility]) COLONOSCOPY 03/25/2024 Colon/N/A Procedure: COLONOSCOPY DIAGNOSTIC; Surgeon: Amandeep Urbina MD; Location: [facility] OR Medical History Medical History Date Comments Depressive disorder, not els ewhere classified 10/04/2011 Insomnia, unspecified 10/04/2011 Rectocele 04/01/2015 Mixed stress and urge urinar y incontinence 04/01/2015 Stool incontinence 04/01/2015 Dysthymia 02/01/2016 Spinal stenosis of cervical region 08/01/2016 DDD (degenerative disc disea se), cervical 08/01/2016 Facet arthropathy, lumbar 09/19/2016 DDD (degenerative disc disea se), lumbar 09/19/2016 Sacroiliitis (HCC) 08/01/2017 S/p sacroilia c joint injection Trochanteric bursitis of left hip 08/01/2017 S/p left trochanteric bursa injection Cervicalgia Headache Spondylosis without myelopat hy or radiculopathy, cervical region Pain in thoracic spine Spondylosis without myelopat hy or radiculopathy, thoracic region Low back pain Spondylosis without myelopat hy or radiculopathy, lumbar region Acute lower UTI (urinary tra ct infection) 08/14/2017 Pulmonary nodule Cyst of right breast 08/02/2017 Family History Medical History Relation Comments Breast Cancer Maternal Aunt Cancer Maternal Aunt lung x2, cervica l cancer- Cancer Maternal Grandfather bone Cancer Maternal Uncle unknown Breast Cancer Mother Diabetes Mother Colon Cancer Other maternal cousin Cancer Paternal Aunt stomach Other Sister Pulmonary Atresi a Relation Status Comments Maternal Aunt Maternal Grandfather Maternal Uncle Mother Alive Other Paternal Aunt Sister Social History Tobacco Use Types Packs/Day Years Used Date Smoking Tobacco: Never Smokeless Tobacco: Never Tobacco Cessation:Counseling Given: Not Answered Alcohol Use Standard Drinks/Week Comments No 0 (1 standard drink = 0.6 oz pur e alcohol) [facility] Utilities Answer Date Recorded In [...] in the past 12 m [facility], were you homeless or living in a residential (including now)? No 11/05/2024 EH IP Custom [...] on file Legal Sex Female 10:44 AM LATHE PULLER Gender Identity Not on file Sexual Orientation Not on file Obstetrics History Para Term AB IAB SAB Ectopic Molar Multiple Living Live Births 4 4 4 4 4 Date Outcome GA Total Labor Labor/2nd/3rd Weight Sex Type Anes PTL Maria G A1 A5 Name Clin Term Term Term Term Last Filed Vital Signs Vital Sign Reading [...] oz) 12/09/2024 5:10 P M CDT Height 165.1 cm (5' 5) 11/05/2024 3:17 PM CDT Body Mass Index 25.72 11/05/2024 3:17 PM CDT Plan of Treatment Health Maintenance Due Date Last Done Comments CT Colonography 1965 Cologuard 1965 Last pap w/o HPV Testing 1965 Sigmoidoscopy 1965 Shingrix (Zoster recombinant) vaccine (Standing Order) (1 of 2) 2014 FIT/FOBT 02/01/2017 02/02/2016 Pneumococcal Vaccine: 50+ yrs (Standing Order) (2 of 2 - PCV20 or PCV21) 06/13/2017 06/13/2016 MAMMO,SCREEN 05/07/2025 05/07/2024, 08/29, 06/12/2019, Additional history exists Cervical Cancer Screening 12/29/2025 Last pap w/ HPV Testing 12/29/2025 12/29/2020 TETANUS (Standing Order) 06/24/2030 06/24/2020, 12/30 Colonoscopy 03/25/2034 03/25/2024, 02/28, 03/15/2016 Colorectal Cancer Screening 03/25/2034 RSV Vaccination (60+ yrs) (Abrysvo/Arexvy) (1 - 1-dose 75+ series) 08/11/2039 PERTUSSIS (Standing Order) Completed 06/24/2020, COLONOSCOPY Q 10 YRS Discontinued 03/25/2024, 03/15/2016, 03/15/2016 HPV Vaccine (Standing Order) Aged Out No longer eligible based on patient's age to complete this topic Hepatitis B Vaccine (Standing Order) Aged Out No longer eligible based on patient's age to complete this topic Medical Devices Implanted Type Area Manager Field Services Device Identifier Shelf Expiration Date Model / Serial / Lot Alyte Y Mesh Graft [id number] - [id number] Implanted:Qty: 1 on 07/09/2015 by Belen Fernandez MD at [facility] N/A: Vagina BARD 05/27/2017 Y500 / NA / [id number] Procedures Procedure Name Priority Date/Time Associated Diagnosis Comments MR CERVICAL SPINE WO CONTRAST Routine 11/13/2024 4:44 PM CDT Neck pain XR CERVICAL SPINE 2 OR 3 VIEWS Xray today 11/05/2024 3:52 PM CDT Neck pain MAMM TATA SCREEN DIGITAL BILAT Routine 05/07/2024 11:11 AM LATHE PULLER Visit for screening mammogram COLONOSCOPY PROCEDURE 03/15/2016 12:00 AM LATHE PULLER FECAL OCCULT BLOOD, IMMUNOASSAY (COLORECTAL SCREENING) Routine 02/02/2016 12:50 PM CDT Non-intractable vomiting with nausea, unspecified vomiting type Diarrhea of infectious origin from Last 3 Months or Most Recently Relevant to Health Maintenance Results * MR CERVICAL SPINE WO CONTRAST [...] Sanches MD 11/14/2024 9:41 PM us Zoey GAUTHIER MRI ORDERABLES Final Result * XR CERVICAL SPINE 2 OR 3 [...] Signed: Dr. Rohit Contreras 11/05/2024 8:57 PM us Zoey GAUTHIER DIAGNOSTIC IMAGING ORDERABL ES Final Result * MAMM TATA SCREEN DIGITAL BILAT (05/07/2024 11:11 AM LATHE PULLER) Anatomical Region Laterality Modality Breast Bilateral Mammography 05/07/2024 11:1 1 AM LATHE PULLER Narrative 05/07/2024 9:46 PM LATHE PULLER This document is currently in Final Status Exam MAMM TATA SCREEN DIGITAL BILAT REASON FOR EXAM: Routine screening with breast cancer history in her mother. COMPARISON: Comparison is made to prior study(ies) dated [id number]. TECHNIQUE: Routine digital mammography was performed with additional 3D digital breast tomosynthesis. Computer-Aided Detection System was utilized. BREAST DENSITY: The breasts are heterogeneously dense, which may obscure small masses. FINDINGS: No suspicious microcalcifications, asymmetries, or architectural distortion. IMPRESSION: No mammographic evidence of malignancy. RECOMMENDATION: Routine annual screening mammography is recommended in 12 months. Layman's letter sent to patient. ASSESSMENT: BI-RADS 2: Benign. TRACKING PURPOSES: Return to annual screening. Breast tissue can be either dense or not dense. Dense tissue makes it harder to find breast cancer on a mammogram and also raises the risk of developing breast cancer. Your breast tissue is dense. In some people with dense tissue, other imaging tests in addition to a mammogram may help find cancers. Talk to your healthcare provider about breast density, risks for breast cancer, and your individual situation. Dictated By: Dr. Moses De La Torre 05/07/2024 5:00 PM Edited By: KIRSTIE 05/07/2024 5:16 PM Electronically Signed: Dr. Moses De La Torre 05/07/2024 9:46 PM Procedure Note Moses De La Torre MD - 05/07/2024 This document is currently in Final Status Exam MAMM TATA SCREEN DIGITAL BILAT REASON FOR EXAM: Routine screening with breast cancer history in hermother. COMPARISON: Comparison is made to prior study(ies) dated . TECHNIQUE: Routine digital mammography was performed with additional 3Ddigital breast tomosynthesis. Computer-Aided Detection System was utilized. BREAST DENSITY: The breasts are heterogeneously dense, which may obscuresmall masses. FINDINGS: No suspicious microcalcifications, asymmetries, or architecturaldistortion. IMPRESSION: No mammographic evidence of malignancy. RECOMMENDATION: Routine annual screening mammography is recommended in 12months. Layman's letter sent to patient. ASSESSMENT: BI-RADS 2: Benign. TRACKING PURPOSES: Return to annual screening. Breast tissue can be either dense or not dense. Dense tissue makes itharder to find breast cancer on a mammogram and also raises the risk ofdeveloping breast cancer. Your breast tissue is dense. In some people withdense tissue, other imaging tests in addition to a mammogram may help findcancers. Talk to your healthcare provider about breast density, risks forbreast cancer, and your individual situation. Dictated By: Dr. Moses De La Torre 05/07/2024 5:00 PM Edited By: KIRSTIE 05/07/2024 5:16 PM Electronically Signed: Dr. Moses De La Torre 05/07/2024 9:46 PM us Yanni Almonte APRN, HOME HEALTH REGISTERED NURSE EC MAMMOGRAPHY ORDERAB LES Final Result * COLONOSCOPY PROCEDURE (03/15/2016 12:00 AM LATHE PULLER) 03/15/2016 Narrative Procedure Note Ezequiel Dye MD - 03/15/2016 12:[address] [facility] Patient Name: JO ANN PORTILLO Date of Service: 03/15/2016 : 1965 Age: 50Y Sex: F Patient Loc/Room #: [facility]/F PRE Provider: Ezequiel Dye MD, General Surgery COLONOSCOPY SITE: [facility] ORDERED BY: PROCEDURES: 1. EGD. 2. Colonoscopy. FINDINGS: Diverticulosis - mostly concentrated in the sigmoid colon. COMPLICATIONS: None. SOCIAL WORK INSTRUCTOR: None. ANESTHETIC: MAC. PREOPERATIVE DIAGNOSIS: GI bleeding. POSTOPERATIVE DIAGNOSIS: GI bleeding. INDICATIONS: Jo Ann is a 50-year-old female requiring an EGD andcolonoscopy for evaluation of GI bleeding. Risks, benefits, alternatives,and limitations including, but not limited to, infection, bleeding, andperforation was explained to patient. She wishes to proceed. PROCEDURE: Patient was placed in the left lateral decubitus position. EGscope was introduced and advanced atraumatically to the 2nd part of theduodenum. Scope was brought back into the stomach. No gastritis. No ulceration. No significant reflux disease. The scope was then brought back into the esophagus, which was normal. Digital rectal exam was performed next. Scope was introduced and advancedatraumatically to the ileocecal valve. Scope was brought back to the ascending, transverse, descending colon andretroflexed. The patient did have diverticulosis, which was extensive and mostlyconcentrated in the sigmoid colon. There was no evidence of old or newblood. The most likely etiology for the patient's bleeding was thediverticulosis, although there was no active bleeding at this time. Thepatient tolerated the procedure well. Ezequiel Dye MD [facility] General Surgery cc: Yanira Newell PA-C /RW Job ID: [id number] /brlisha/myla(status) Document ID: [id number] Ezequiel Dye MD EC PROCEDURES Final Resul t * (ABNORMAL) FECAL OCCULT BLOOD, IMMUNOASSAY (02/02/2016 12:50 PM CDT) Pathologist [facility] Fecal Occult Blood, Immunoassay Positive( A) 02/02/2016 2:00 PM CDT [facility] Comment: PLEASE NOTE: Our gastroenterology section recommends: 1) That positive FOBT results be followed by colonoscopy - without waiting for a second/confirmatory positive test before doing so. 2) Colonoscopy is the preferred screening method for colorectal cancer. if a patient declines colonoscopy for routine screening in favor of FOBT, then the recommended FOBT frequency is annually. 02/02/2016 12:5 0 PM CDT 02/02/2016 2:00 PM CDT Yanira Newell PA-C EC URINE ORDERABLES Final Result [facility] [address] [place] [address] from Last 3 Months or Most Recently Relevant to Health Maintenance Insurance [facility] [employer]ICHARD[employer] COMP [facility] * Guarantor: [employer] Account Type Relation to Patient Date of Phone Billing Address [employer] [address] [place] [address] Advance Directives For more information, please contact: [phone] * Full Code (Latest Code Status on File) Date Activated Date Inactivated Comments 03/25/2024 8:36 AM 03/25/2024 3:45 PM * Full Code Date Activated Date Inactivated Comments 02/26/2024 4:04 PM 02/27/2024 12:45 PM * Full Code/Unaddressed Date Activated Date Inactivated Comments 02/26/2024 2:40 PM 02/26/2024 4:04 PM * Full Code Date Activated Date Inactivated Comments 05/21/2018 9:27 AM 05/21/2018 3:26 PM * Full Code Date Activated Date Inactivated Comments 09/01/2016 11:43 AM 09/01/2016 12:32 PM Care Teams Geographic Information System Surveyor Relationship Specialty Start Date End Date Choice, No Pcp-Patient PCP - General 10/02/23 Lucia Lemons RN Nurse Navigator Pulmonary Medicine 05/23/17
--- OUTSIDE RECORDS SUMMARY | 2024-12-19 18:44 | XMS_ITS | Encounter Summary ---
Author Organization [facility] Address [address] [place] [address] Phone Care Team Providers Care Clinical Trial Specialist Name Role Phone Lucia Lemons RN Unavailable Unavailable Choice, No Pcp-Patient Primary Care Provider Susan vailable Encounter Details Date Type Department Care Team (Late st Contact Info) Description 11/24/2024 Results Follow-Up [facility] [address] [place], [place] [phone] Jayda Butler RN MR CERVICAL SPINE WO CONTRAST Social History Tobacco Use Types Packs/Day Years Used Date Smoking Tobacco: Never Smokeless Tobacco: Never Alcohol Use Standard Drinks/Week Comments No 0 (1 standard drink = 0.6 oz pur e alcohol) [facility] Utilities Answer Date Recorded In the [...] PHQ-2 Answer Date Recorded PHQ-2 Total 6 11/18/2024 Hunger Vital Sign Answer Date Recorded Within [...] any time in the past [address] [facility], were you homeless or living in a [...] on file Legal Sex Female 10:44 AM STEM ROLLER Gender Identity Not on file Sexual Orientation [...] on filedocumented in this encounter Care Teams Clinical Trial Specialist Relationship Specialty Start Date End Date Choice, No Pcp-Patient PCP - General 10/02/23 Lucia Lemons RN Nurse Navigator Pulmonary Medicine 05/23/17 documented as of this encounter
--- OUTSIDE RECORDS SUMMARY | 2024-12-19 18:44 | XMS_ITS | Patient Health Record ---
Author Organization [facility] Address [address] [place] [address] Care Team Providers Care Sales And Marketing Specialist Name Role Phone SHIVAM ADAMES MD Primary Care Provider Unavaila DOROTHEA Chávez Unavailable Unavailable Medications Medication SIG (Take, Route, Fr equency, Duration) Notes Start Date End Date Status Sertraline HCl 50 MG Orally; Duration: 30 day(s) Active Naproxen 500 MG Orally Acti ve Conover 5-325 MG Orally Activ e Lunesta 3 MG Orally Active hydrOXYzine HCl 25 MG Orally; Duration: 30 day(s) Active Zaleplon 10 MG Orally Activ e clonazePAM 0.5 MG Orally Ac tive Social History Tobacco Use: Social History Observation Description Date Details (start date - stop date) Never Smoker NA - NA Tobacco Use/Smoking Question Answer Notes Are you a nonsmoker Problems Problem Type SNOMED Code ICD Code Onset Dates Problem Status W/U Status Risk Notes Problem Ventral hernia (553.20) Active confirmed Plan Of Treatment No Information Insurance Providers Payer Name Payer Address Payer Phone Subscriber Number Group Number Insured Name Patient Relationship to Insured Coverage Start Date Coverage End Date [employer] [place] [address] [address] [place], [place] [id number] VARUN PORTILLO Self - patient is the insured Medical (General) History Medical History History ICD Code depression insomnia Surgical History Surgery Date(Month/Year) bladder sling Hospitalization History Reason Date(Month/Year) No hospitalization history
--- OUTSIDE RECORDS SUMMARY | 2024-12-19 18:44 | XMS_ITS | Encounter Summary ---
Author Organization [facility] Address [address] [place] [id number] Phone Care Team Providers Care Manager Apple Name Role Phone Lucia Lemons RN Unavailable Unavailable Choice, No Pcp-Patient Primary Care Provider Susan vailable Encounter Details Date Type Department Care Team (Latest Contact Info) Description 11/13/2024 Travel Social History Tobacco Use Types Packs/Day Years Used Date Smoking Tobacco: Never Smokeless Tobacco: Never Alcohol Use Standard Drinks/Week Comments No 0 (1 standard drink = 0.6 oz pur e alcohol) [facility] Utilities Answer Date Recorded In the [...] in a prison (including now)? 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
--- OUTSIDE RECORDS SUMMARY | 2024-12-19 18:44 | XMS_ITS | Encounter Summary ---
Author Organization [facility] Address [address] [place] [phone] Phone Care Team Providers Care Tug Boat Captain Name Role Phone Lucia Lemons RN Unavailable Unavailable Choice, No Pcp-Patient Primary Care Provider Susan vailable Encounter Details Date Type Department Care Team (Latest Contact Info) Description 11/18/2024 Travel Social History Tobacco Use Types Packs/Day Years Used Date Smoking Tobacco: Never Smokeless Tobacco: Never Alcohol Use Standard Drinks/Week Comments No 0 (1 standard drink = 0.6 oz pur e alcohol) [facility] Utilities Answer Date Recorded In the [...] in a long-term (including now)? 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
--- NOTE | 2024-12-19 19:07 | ED.GENADULT ---
HPI - General Adult General Chief complaint: Urogenital Problems, Female Stated complaint: Unspecified complaint Time Seen by Provider: 12/19/24 18:52 History of Present Illness HPI narrative: history of bowel and bladder incontinence with stimulator device which is turned off currently, pt has had problems with this since 2017 , the device helps control her bladder and bowels, she believes she may have a UTI now and states, my poop is weird, pt describes it as liquid with some loose consistency, having lower abdominal pain that radiates to her back, was hospitalized at [facility] in [place] for UTI and kept for 5 days , no known history of cdiff, tearful and unable to sit still in triage 59-year-old woman presenting to the emergency department with concern possible urinary tract infection. Has a long history bowel and bladder incontinence with a stimulator which was reportedly ineffective and so has been turned off. She reports being hospitalized between December 07 and December 12 at [facility] in [facility]. Says she was diagnosed with an infection in her butt and UTI. She herself is from [place] originally I believe. Reviewing records was diagnosed with urinary tract infection which looks to have grown out E coli; unclear sensitivities and diverticulitis. Was treated with IV antibiotics and discharged on 12/12 with Augmentin which she took through the completing the course 3 days ago. She has not measured a fever. She is having increased low abdominal pain that seems to radiate to her back. No dysuria. Has been experiencing ?weird poop?; it sounds to be somewhat loose. Is unfamiliar with C diff. no shortness of breath. Is requesting IV treatment with pain medication. Has been nauseated without vomiting. Related Data Home Medications ?Medication ?Instructions ?Recorded ?Confirmed clonazepam 0.25 mg disintegrating 0.25 mg PO DAILY 12/19/24 12/19/24 tablet dextroamphetamine-amphetamine 5 mg 10 mg PO DAILY 12/19/24 12/19/24 tablet (Adderall) risperidone 0.5 mg tablet 0.25 mg PO DAILY 12/19/24 12/19/24 (Risperdal) trazodone 50 mg tablet 50 mg PO QHS PRN 12/19/24 12/19/24 Allergies Allergy/AdvReac Type Severity Reaction Status Date / Time No Known Drug Allergies Allergy Verified 12/19/24 20:46 Review of Systems Status of ROS: Reports: 6 or more systems reviewed and unremarkable except as noted in History and below Exam Narrative: Exam Narrative: Is near tearful. Tremulous, shaky. Breathing easily. Lungs are clear. Heart in elevated rate and regular rhythm. Abdomen soft. She is moderately tender to palpation in the suprapubic area. No masses are appreciated. She is well-perfused peripherally without edema. Const: Vital Signs, click to edit/add: Vital Signs - 24 hr 12/19/24 18:58 12/19/24 20:07 12/19/24 20:52 Temperature 97.8 F 100 F H Pulse Rate Pulse Rate [Right Pulse Oximeter] 90 Respiratory Rate 18 Blood Pressure Blood Pressure [Ri ght Upper Arm] 119/66 Pulse Oximetry 99 96 Oxygen Delivery Me thod Room Air 12/19/24 21:14 12/19/24 21:42 Temperature 100.9 F H Pulse Rate 93 Pulse Rate [Right Pulse Oximeter] Respiratory Rate 16 Blood Pressure 121/60 Blood Pressure [Ri ght Upper Arm] Pulse Oximetry 93 Oxygen Delivery Me thod Room Air Documenting provider has reviewed patient's vital signs: yes Course Vital Signs Vital signs: Initial Vital Signs Temperature 97.8 F 12/19/24 18:58 Temperature Source Temporal Artery Scan 12/19/24 18:58 Pulse Rate 90 12/19/24 18:58 Respiratory Rate 18 12/19/24 18:58 Blood Pressure 119/66 12/19/24 18:58 Blood Pressure Mean 83 12/19/24 18:58 Blood Pressure Position Sitting 12/19/24 18:58 Pulse Oximetry 99 12/19/24 18:58 Oxygen Delivery Method Room Air 12/19/24 18:58 Vital Signs Temperature 97.8 F 12/19/24 18:58 Pulse Rate 90 12/19/24 18:58 Respiratory Rate 18 12/19/24 18:58 Blood Pressure 119/66 12/19/24 18:58 Pulse Oximetry 99 12/19/24 18:58 Oxygen Delivery Method Room Air 12/19/24 18:58 Temperature 100.9 F H 12/19/24 21:42 Pulse Rate 93 12/19/24 21:14 Respiratory Rate 16 12/19/24 21:14 Blood Pressure 121/60 12/19/24 21:14 Pulse Oximetry 93 12/19/24 21:14 Oxygen Delivery Method Room Air 12/19/24 21:14 Medications Administered Medications: Discontinued Medications Generic Name Dose Route Start Last Admin Trade Name Asha PRN Reason Stop Dose Admin Diazepam 5 mg 12/19/24 20:57 12/19/24 21:04 Diazepam 5 Mg/Ml Inj IV 12/19/24 20:58 5 mg ONCE ONE Administration Sodium Chloride 1,000 mls @ 1,000 mls/hr 12/19/24 19:46 12/19/24 21:13 0.9 % Sodium Chloride 1000 Ml IV 12/19/24 20:45 Infused .Q1H ONE Infusion Ketorolac Tromethamine 30 mg 12/19/24 21:08 12/19/24 21:35 Ketorolac 30 Mg/Ml Inj IVP 12/19/24 21:09 30 mg ONCE ONE Administration Morphine Sulfate 4 mg 12/19/24 19:46 12/19/24 20:02 Morphine 4 Mg/Ml Inj IVP 12/19/24 19:47 4 mg ONCE ONE Administration Ondansetron HCl 4 mg 12/19/24 19:46 12/19/24 20:02 Ondansetron 2 Mg/Ml Inj IVP 12/19/24 19:47 4 mg ONCE ONE Administration Medical Decision Making MDM Narrative Medical decision making narrative: Differential certainly includes recurrence of diverticulitis/incomplete treatment. Also consider urinary tract infection including pyelonephritis, abscess, mesenteric adenitis, C diff colitis. These shake some not sure represent rigors at this point. Would collect blood cultures. Initiated IV fluids, ordered for dose of morphine. Zofran. Labs with elevated white count at nearly 19,000. CRP elevated 2.8. Lactate is normal at 1.7. On reassessment is requesting hospitalization if possible to ?get this all sorted out noting that this is been going on since the beginning of November. I do think some of these symptoms are being exacerbated by anxiety. Requested a dose of Valium Pending urinalysis. Necessitated a cath specimen. I did independently review CT imaging of abdomen and pelvis with contrast. Looks to show some inflammatory stranding of the distal colon/rectum. Temperature now at 100. Ordered for ketorolac. On reassessment has actually look to have fallen asleep. Urinalysis with presence of nitrate and 5-10 white cells on microscopic. Indication: Recent diverticulitis, return of low abdominal pain Technique: Volumetric multidetector CT images of the abdomen and pelvis were obtained after the administration of intravenous contrast. 76 cc Isovue 370 low osmolar intravenous contrast Comparison: None available. Findings: There is basilar atelectasis and parenchymal scarring. There is a small pericardial effusion. The liver is normal in attenuation without intrahepatic biliary ductal dilatation. The portal vein is patent. The gallbladder is unremarkable without evidence of radiopaque calculus. Mild intrahepatic and common biliary ductal dilatation. The spleen is normal in enhancement and size. There is demonstration of prior fundoplication with superimposed hiatal hernia. The pancreas is normal in enhancement without significant atrophy. The adrenal glands are unremarkable. The kidneys demonstrate preserved corticomedullary differentiation with nonobstructive calculi in the proximal left collecting system. There is minimal stool seen throughout the colon with demonstration of focal thickening and mild pericolonic inflammation of the distal transverse colon. Additional mild thickening and mucosal hyperemia of the rectum is appreciated. Nonspecific fluid-filled central small bowel is appreciated. The appendix is unremarkable. There is no significant mesenteric, retroperitoneal, or pelvic sidewall lymph nodes. The aorta is nonaneurysmal. There is no significant atherosclerotic disease appreciated. The solid pelvic viscera are grossly unremarkable. There is no free fluid or free air. There is demonstration of a fat containing umbilical hernia with questionable minimal inflammatory changes encroaching the mouth of the hernia from adjacent colonic inflammation. The lumbar vertebral body heights are grossly maintained with moderate degenerative disc disease. Is demonstration of a bladder stimulator device. Impression: 1. Focal thickening and mild pericolonic inflammation of the mid transverse colon likely representing minimal residual low-grade diverticulitis. Additional scattered fluid-filled small bowel is noted commensurate with enteritis. 2. Mild thickening and mucosal hyperemia of the rectum which may represent mild proctitis. 3. Wide-mouth fat containing umbilical hernia with minimal inflammatory changes encroaching the mouth likely representing extension of inflammation from adjacent colonic inflammation. Please note that all CT scans at this facility use dose modulation, iterative reconstruction, and/or weight-based dosing when appropriate to reduce radiation dose to as low as reasonably achievable. Dictated by Sher Chan MD @ 12/19/2024 9:07:00 PM Looks like has failed inpatient/outpatient treatment. Is requesting admission. I do not think this is unreasonable. Urine and blood cultures are pending. Anticipating discussing with hospitalist for admission. Accepted for admission. Dosing with IV metronidazole and oral ciprofloxacin Medical Records Medical records reviewed: Yes I reviewed the patient's medical records Lab Data Lab results reviewed: Yes I reviewed the patient's lab results Labs: Lab Results 12/19/24 12/19/24 12/19/24 Range/Units 19:57 20:00 20:50 WBC 18.81 H (4.50-11.00) K/uL RBC 4.84 (4.00-5.20) m/uL Hgb 14.3 (12.0-16.0) gm/dL Hct 43.4 (33.0-51.0) % MCV 90 (80-100) fL MCH 30 (26-34) pg MCHC 33 (32-36) gm/dL RDW Coeff of Tess 14.1 (11.5-15.5) % Plt Count 344 (140-440) K/uL Neut % (Auto) 86.2 H (42.0-72.0) % Lymph % (Auto) 6.8 L (20-44) % [place] % (Auto) 6.0 (0.0-11.0) % Eos % (Auto) 0.6 (0.0-7.0) % Baso % (Auto) 0.1 (0.0-3.0) % Neut # (Auto) 16.20 H (1.7-7.0) K/uL Lymph # (Auto) 1.30 (0.90-2.90) K/uL [place] # (Auto) 1.10 H (0.00-0.90) K/UL Eos # (Auto) 0.10 (0.00-0.50) K/uL Baso # (Auto) 0.00 (0.00-0.30) K/uL Abs Immat Gran (auto) 0.10 (0.00-0.30) K/uL Imm/Tot Granulo (auto) 0.3 % Sodium 138 (135-149) mmol/L Potassium 5.0 (3.6-5.1) mmol/L Chloride 103 (96-114) mmol/L Carbon Dioxide 28 (20-32) mmol/L Anion Gap 7 (7-15) mEq/L BUN 16 (7-30) mg/dL Creatinine 0.8 (0.5-1.5) mg/dL Estimated Creat Clear 64.58 Estimated GFR 84 ml/min Glucose 113 (60-115) mg/dL Lactate 1.7 (0.5-1.9) mmol/L Calcium 9.0 (8.4-10.6) mg/dL C-Reactive Protein 2.8 H (0.5-1.0) mg/dL Urine Color Yellow (Yellow) Urine Appearance Slightly Cloudy A (Clear) Urine pH 7.0 (5.0-8.5) Ur Specific [place] 1.020 (1.000-1.030) Urine Protein 1+ A (Negative) Urine Glucose (UA) Negative (Negative) Urine Ketones Trace A (Negative) Urine Blood 1+ A (Negative) Urine Nitrite Positive A (Negative) Urine Bilirubin Negative (Negative) Urine Urobilinogen 0.2 (0.2-1.0) Ur Leukocyte Esterase Negative (Negative) Urine RBC 0-2 (0-2) Urine WBC 5-10 A (0-5) Ur Squamous Epith Cells Few (None-Few) Calcium Oxalate Crystal Moderate A (None) Urine Bacteria Moderate A (None) POC Creatinine 0.9 (0.6-1.3) mg/dl Discharge Plan Discharge Clinical Impression: Diverticulitis, Proctitis, Cystitis, Abdominal pain Patient Disposition: Admitted As Inpatient Condition: Stable
--- NOTE | 2024-12-19 19:46 | CRLHL7_ITS ---
For Patients: As a result of the 21st Century Cures Act, medical imaging exams and procedure reports are released immediately into your electronic medical record. You may view this report before your referring provider. If you have questions, please contact your health care provider. Indication: Recent diverticulitis, return of low abdominal pain Technique: Volumetric multidetector CT images of the abdomen and pelvis were obtained after the administration of intravenous contrast. 76 cc Isovue 370 low osmolar intravenous contrast Comparison: None available. Findings: There is basilar atelectasis and parenchymal scarring. There is a small pericardial effusion. The liver is normal in attenuation without intrahepatic biliary ductal dilatation. The portal vein is patent. The gallbladder is unremarkable without evidence of radiopaque calculus. Mild intrahepatic and common biliary ductal dilatation. The spleen is normal in enhancement and size. There is demonstration of prior fundoplication with superimposed hiatal hernia. The pancreas is normal in enhancement without significant atrophy. The adrenal glands are unremarkable. The kidneys demonstrate preserved corticomedullary differentiation with nonobstructive calculi in the proximal left collecting system. There is minimal stool seen throughout the colon with demonstration of focal thickening and mild pericolonic inflammation of the distal transverse colon. Additional mild thickening and mucosal hyperemia of the rectum is appreciated. Nonspecific fluid-filled central small bowel is appreciated. The appendix is unremarkable. There is no significant mesenteric, retroperitoneal, or pelvic sidewall lymph nodes. The aorta is nonaneurysmal. There is no significant atherosclerotic disease appreciated. The solid pelvic viscera are grossly unremarkable. There is no free fluid or free air. There is demonstration of a fat containing umbilical hernia with questionable minimal inflammatory changes encroaching the mouth of the hernia from adjacent colonic inflammation. The lumbar vertebral body heights are grossly maintained with moderate degenerative disc disease. Is demonstration of a bladder stimulator device. Impression: 1. Focal thickening and mild pericolonic inflammation of the mid transverse colon likely representing minimal residual low-grade diverticulitis. Additional scattered fluid-filled small bowel is noted commensurate with enteritis. 2. Mild thickening and mucosal hyperemia of the rectum which may represent mild proctitis. 3. Wide-mouth fat containing umbilical hernia with minimal inflammatory changes encroaching the mouth likely representing extension of inflammation from adjacent colonic inflammation. Please note that all CT scans at this facility use dose modulation, iterative reconstruction, and/or weight-based dosing when appropriate to reduce radiation dose to as low as reasonably achievable. Dictated by Sher Chan MD @ 12/19/2024 9:07:00 PM (Electronically Signed)
[2024-12-19 20:02] LABS: Creatinine, Point-of-Care* 0.9 mg/dl (0.6-1.3)
[2024-12-19] MEDS: ONDANSETRON 2 MG/ML inj 4 MG IVP (20:02)
[2024-12-19] MEDS: MORPHINE 4 MG/ML INJ IVP (20:02)
[2024-12-19 20:05] LABS: Hematocrit 43.4 % (33.0-51.0); Hemoglobin* 14.3 gm/dL (12.0-16.0); Immature Granulocytes Pct Auto 0.3 %; Lactate* 1.7 mmol/L (0.5-1.9); Mean Corpuscular HGB Conc 33 gm/dL (32-36); Mean Corpuscular Hemoglobin 30 pg (26-34); Mean Corpuscular Volume 90 fL (80-100); RDW Coefficient of Variation % 14.1 % (11.5-15.5); Red Blood Count 4.84 m/uL (4.00-5.20); White Blood Count* 18.81 K/uL (4.50-11.00)
[2024-12-19 20:22] LABS: Chloride* 103 mmol/L (96-114); Potassium* 5.0 mmol/L (3.6-5.1); Sodium* 138 mmol/L (135-149)
[2024-12-19 20:25] LABS: Anion Gap 7 mEq/L (7-15); Blood Urea Nitrogen* 16 mg/dL (7-30); Calcium* 9.0 mg/dL (8.4-10.6); Carbon Dioxide* 28 mmol/L (20-32); Creatinine* 0.8 mg/dL (0.5-1.5); Est. Creatinine Clearance* 64.58; Estimated Glomerular Filt Rate 84 ml/min; Glucose* 113 mg/dL (60-115)
[2024-12-19 20:30] LABS: Immature Granulocytes Abs Auto 0.10 K/uL (0.00-0.30); Lymphocytes Absolute Auto 1.30 K/uL (0.90-2.90); Slide Review Reflex No
[2024-12-19 21:01] LABS: Appearance Urine Slightly Cloudy (Clear)
[2024-12-19] MEDS: diazePAM 5 MG/ML inj IV (21:04)
[2024-12-19] MEDS: metroNIDAZOLE 500 MG/100 ML PIGGYBACK 100 MG IVPB (22:10)
[2024-12-19] MEDS: CIPROFLOXACIN 500 MG TABLET PO (22:10)
--- NOTE | 2024-12-19 23:08 | PM.IMHP1 ---
Assessment and Plan Assessment and plan (1) Sepsis: Problem comment: - rigors, hypotension, fever, leukocytosis, elevated C-reactive protein, possible recurrent diverticulitis - blood cultures obtained, urine culture obtained, stool sample for C diff obtained - IV fluids, IV metronidazole, IV ceftriaxone, Status: Acute (2) Diverticulitis: Problem comment: - treated at the [facility] for diverticulitis from 12/10/2024 through 12/12/2024 and discharged on oral Augmentin, was told to stop the Augmentin 4 days prior to admission at this time on 12/15/2024 - recurrent abdominal pain, loose stools, fever, rigors, hypotension on 12/19/[address] scan suggesting distal transverse colon diverticulitis without perforation - ceftriaxone 2 g IV Q 24 hours plus metronidazole 500 mg IV Q 8 hours Status: Acute (3) Abdominal pain: Status: Acute (4) Passage of loose stools: Problem comment: - in setting of recent diverticulitis with treatment with antibiotics, including or Augmentin, consider antibiotic associated diarrhea verses C diff infection - stool for C diff obtain and submitted to lab - empiric vancomycin 125 mg p.o. q.i.d. until we get laboratory confirmation of whether she does or does not have C diff - C diff precautions and to rule obtain results of our laboratory study for C diff Status: Acute (5) Recurrent urinary tract infection: Problem comment: - patient relates longstanding history of UTIs - reportedly has a neurostimulator device in place which is turned off for dysfunctional bladder, bladder incontinence - IV ceftriaxone while we await results of urine culture Status: Acute (6) Non-adherence to medical treatment: Problem comment: - as best as I can tell she does not adhere to medical treatment plans, in particular to her psychotropic medication regimen but possibly beyond that as well Status: Acute Plan 1. Reviewed my impression, plans, recommendations with the patient 2. Continue with other supportive efforts 3. Answered her questions are satisfaction 4. Patient agreeable with above stated plans and recommendations Total Time Spent Total Time Spent: 75 minutes Hospitalist- H&P: HPI History of Present Illness Date Seen: 12/19/24 Chief complaint: Abdominal pain and loose stools Narrative: Jo Ann Ely is a 59 year old woman has been living between [place], [place], with her grandson, and [place], [place], I believe in her own apartment, for the last several months. While in [facility] she was hospitalized from 12/10/2024 through 12/12/2024 with diverticulitis. Unclear what IV antibiotic she was treated with while in the hospital. Discharged on Augmentin 875/125 one tab p.o. b.i.d.. Developed loose stools subsequently and was told by her discharging physician to stop the Augmentin 4 days prior to full course of treatment. Four days later, today, she developed abdominal discomfort and has persistent loose stools. Describes the stools as a dark putting, not watery. 4-5 stools daily. Decreased appetite. Abdominal pain is persistent. Her daughter, Rubi, transported her from [facility] to [place] today, because of a primary care physician follow-up appointment that she has in [place] soon. Patient was uncomfortable the entire ride down and decided to come to the emergency department for further assessment. While in the emergency department she developed fever, T-max 100.9? F, developed rigors, [place] [address], C reactive protein elevated at 3, CT scan of abdomen and pelvis suggests diverticulitis of the distal transverse colon and possible mild proctitis. Urinalysis demonstrates positive nitrites and white blood cells. Recommendation is made for patient to be admitted to the hospital with sepsis and possible recurrent diverticulitis as well as recurrent cystitis. Review of Systems Status of ROS: Reports: 10 or more systems reviewed and unremarkable except as noted in History and below Narrative: We do not have access to outside medical records for her. Is nearly as I can tell from the hospital discharge records that she has with her she does ordinarily take psychotropic medications including lamotrigine, risperidone, sertraline, topiramate, and trazodone. Patient indicates she also takes if that means last dextroamphetamine (Adderall) at times. She also indicates that she takes clonazepam as needed. In fact she acknowledges she only takes these medicines when she feels that she needs to. Denies use of tobacco, alcohol, or any other street or recreational drugs. Denies cardiopulmonary symptoms. Medical Decision Making Medical Decision Making Has patient completed a Health Care Directive: No [facility] Medical History (Updated 12/19/24 @ 23:35 by Jeevan Hutchinson MD) Non-adherence to medical treatment ?Z91.199 - Patient's noncompliance with other medical treatment and regimen due to unspecified reason (ICD-10) Recurrent urinary tract infection ?N39.0 - Urinary tract infection, site not specified (ICD-10) Presence of neurostimulator ?Z96.82 - Presence of neurostimulator (ICD-10) Ureteral stone (11/09/15) ?N20.1 - Calculus of ureter (ICD-10) Upper back pain (12/17/14) ?M54.9 - Dorsalgia, unspecified (ICD-10) Umbilical hernia (09/27/18) ?K42.9 - Umbilical hernia without obstruction or gangrene (ICD-10) Stool incontinence (04/01/15) ?R15.9 - Full incontinence of feces (ICD-10) Spinal stenosis of cervical region (08/01/16) ?M48.02 - Spinal stenosis, cervical region (ICD-10) Restless leg syndrome (06/04/17) ?G25.81 - Restless legs syndrome (ICD-10) Rectocele (04/01/15) ?N81.6 - Rectocele (ICD-10) Neuropathy (05/25/17) ?G62.9 - Polyneuropathy, unspecified (ICD-10) Mixed stress and urge urinary incontinence (04/01/15) ?N39.46 - Mixed incontinence (ICD-10) Midline low back pain without sciatica (12/17/14) ?M54.50 - Low back pain, unspecified (ICD-10) Memory loss (06/04/17) ?R41.3 - Other amnesia (ICD-10) Major depressive disorder, recurrent episode, moderate (04/24/16) ?F33.1 - Major depressive disorder, recurrent, moderate (ICD-10) Intussusception of rectum (10/12/17) ?K56.1 - Intussusception (ICD-10) Insomnia, unspecified (01/26/09) ?G47.00 - Insomnia, unspecified (ICD-10) Insomnia secondary to chronic pain (10/04/11) ?G89.29 - Other chronic pain (ICD-10) ?G47.01 - Insomnia due to medical condition (ICD-10) Incidental pulmonary nodule, less than or equal to 3mm (05/24/17) ?R91.1 - Solitary pulmonary nodule (ICD-10) HPV (human papilloma virus) infection (08/02/17) ?B97.7 - Papillomavirus as the cause of diseases classified elsewhere (ICD-10) Hernia of anterior abdominal wall (09/27/18) ?K43.9 - Ventral hernia without obstruction or gangrene (ICD-10) Gastroesophageal reflux disease (10/26/17) ?K21.9 - Gastro-esophageal reflux disease without esophagitis (ICD-10) CINTHIA (generalized anxiety disorder) (04/18/16) ?F41.1 - Generalized anxiety disorder (ICD-10) Family history of breast cancer (08/02/17) ?Z80.3 - Family history of malignant neoplasm of breast (ICD-10) Falls frequently (12/08/16) ?R29.6 - Repeated falls (ICD-10) Facet arthropathy, lumbar (09/19/16) ?M47.816 - Spondylosis without myelopathy or radiculopathy, lumbar region (ICD-10) Dense breasts (08/02/17) ?R92.30 - Dense breasts, unspecified (ICD-10) DDD (degenerative disc disease), lumbar (09/19/16) ?M51.369 - Other intervertebral disc degeneration, lumbar region without mention of lumbar back pain or lower extremity pain (ICD-10) DDD (degenerative disc disease), cervical (08/01/16) ?M50.30 - Other cervical disc degeneration, unspecified cervical region (ICD-10) Age-related osteoporosis with current pathological fracture (02/19/24) ?M80.00XA - Age-related osteoporosis with current pathological fracture, unspecified site, initial encounter for fracture (ICD-10) Acute cystitis without hematuria (02/27/24) ?N30.00 - Acute cystitis without hematuria (ICD-10) Social History What is your current living situation?: I presently have a place to live Problems where you live: no known problems Problems where you live details: N/A In the past 12 months, utilities in danger of being shut off: no In past 12 months, lack of transportation kept you from medical appts, meetings, work, or getting things needed for daily living: no In the past 12 mos, have been you worried that your food would run out before you had money to buy more?: never true In the past 12 mos, the food you bought just didn't last and you didn't have money to buy more?: sometimes true Highest level of school completed/degree received: 11th grade Smoking Status: Never smoker Second hand tobacco smoke exposure: No How often do you have a drink containing alcohol: never AUDIT-C Alcohol total score: 0 Non-prescribed substance use: denies use How often does anyone, including family, friends and others, physically hurt you: never How often does anyone, including family, friends and others, insult or talk down to you: never How often does anyone, including family, friends and others, threaten you with harm: never How often does anyone, including family, friends and others, scream or curse at you: never service: No Health Related Social Needs: food insecurity (Z59.41) Meds Home Medications and Allergies Home Medications ?Medication ?Instructions ?Recorded ?Confirmed ?Type clonazepam 0.25 mg disintegrating 0.25 mg PO DAILY 12/19/24 12/19/24 History tablet dextroamphetamine-amphetamine 5 mg 10 mg PO DAILY 12/19/24 12/19/24 History tablet (Adderall) risperidone 0.5 mg tablet 0.25 mg PO DAILY 12/19/24 12/19/24 History (Risperdal) trazodone 50 mg tablet 50 mg PO QHS PRN 12/19/24 12/19/24 History Allergies Allergy/AdvReac Type Severity Reaction Status Date / Time No Known Drug Allergies Allergy Verified 12/19/24 20:46 Exam Narrative: Exam Narrative: Examine the patient in the emergency department. She is alert, oriented x3. It is difficult to get straight answers from her as I am speaking with her. It seems she is trying to answer questions but does not always give straightforward, understandable answers. Vision and hearing are adequate. Appears anxious, appropriately. No jaundice, icterus, petechiae, rashes, cyanosis. External auditory canals are clear. Midline nasal septum. Dentition in fair repair. Neck is supple. Midline trachea. No head neck lymphadenopathy. Lungs are clear to auscultation without wheezing, rhonchi, rales. Heart tones with regular rhythm, normal S1-S2. No murmur, gallop, rub. PMI not laterally displaced. Abdomen with hyperactive bowel sounds, soft, subjective discomfort to palpation in epigastrium. No rebound or guarding. No organomegaly or masses. Extremities without edema. Independent with transfer, station, gait. No focal motor neurologic deficits. Const: Vital Signs, click to edit/add: Vital Signs - 24 hr 12/19/24 18:58 12/19/24 20:07 12/19/24 20:52 Temperature 97.8 F 100 F H Pulse Rate Pulse Rate [Right Pulse Oximeter] 90 Respiratory Rate 18 Blood Pressure Blood Pressure [Ri ght Arm] Blood Pressure [Ri ght Upper Arm] 119/66 Pulse Oximetry 99 96 Oxygen Delivery Me thod Room Air 12/19/24 21:14 12/19/24 21:42 12/19/24 22:44 Temperature 100.9 F H 99.2 F Pulse Rate 93 Pulse Rate [Right Pulse Oximeter] 90 Respiratory Rate 16 16 Blood Pressure 121/60 Blood Pressure [Ri ght Arm] 91/49 L Blood Pressure [Ri ght Upper Arm] Pulse Oximetry 93 92 Oxygen Delivery Me thod Room Air Room Air Hospitalist - H&P: Result Labs Labs: Short CBC 12/19/24 Range/Units 19:57 WBC 18.81 H (4.50-11.00) K/uL Hgb 14.3 (12.0-16.0) gm/dL Hct 43.4 (33.0-51.0) % Plt Count 344 (140-440) K/uL BMP 12/19/24 19:57 Sodium 138 Potassium 5.0 Chloride 103 Carbon Dioxide 28 BUN 16 Creatinine 0.8 Glucose 113 Calcium 9.0 Urine 12/19/24 Range/Units 20:50 Urine Color Yellow (Yellow) Urine Appearance Slightly Cloudy A (Clear) Urine pH 7.0 (5.0-8.5) Ur Specific [place] 1.020 (1.000-1.030) Urine Protein 1+ A (Negative) Urine Glucose (UA) Negative (Negative) Imaging CT scan of abdomen and pelvis: Attestation: I have reviewed the pertinent imaging results. Radiologist's impression: Impression: 1. Focal thickening and mild pericolonic inflammation of the mid transverse colon likely representing minimal residual low-grade diverticulitis. Additional scattered fluid-filled small bowel is noted commensurate with enteritis. 2. Mild thickening and mucosal hyperemia of the rectum which may represent mild proctitis. 3. Wide-mouth fat containing umbilical hernia with minimal inflammatory changes encroaching the mouth likely representing extension of inflammation from adjacent colonic inflammation.
[2024-12-19] MEDS: LACTATED RINGERS 1000 ML 1,000 ML 500 ML IV (23:16)
[2024-12-19] MEDS: ACETAMINOPHEN 325 MG TABLET 650 MG PO (23:40)
[2024-12-19] MEDS: TRAZODONE HCL 50 MG TABLET PO (23:40)
[2024-12-19] MEDS: ENOXAPARIN 30 MG/0.3ML INJ SUBCUT (23:42)
[2024-12-19] MEDS: cefTRIAXone 2 GM in 0.9 % SODIUM CHLORIDE Mini-bag 100 ML IVPB (23:42)
[2024-12-20] VITALS (21 sets, daily range): BP systolic 77–108; BP diastolic 45–70; PULSE 82–99; RESP 16–22; TEMP 36.5–38; O2SAT 90–97
[2024-12-20 01:13] LABS: CDIFFEPI 027 PRESUMPTIVE NEGATIVE (Negative)
[2024-12-20 01:14] LABS: C.Difficile POSITIVE (Negative)
[2024-12-20] MEDS: LACTATED RINGERS 1000 ML 1,000 ML IV ×3 (01:54→08:22)
[2024-12-20] MEDS: VANCOMYCIN 125 MG CAPSULE 500 MG PO ×4 (02:04→20:10)
[2024-12-20 04:32] LABS: Lactate Sepsis w/Reflex* 1.7 mmol/L (0.5-1.9)
[2024-12-20] MEDS: metroNIDAZOLE 500 MG/100 ML PIGGYBACK 100 MG IVPB ×3 (05:27→21:49)
--- NOTE | 2024-12-20 05:34 | PC.NURSE ---
Shift note: Patient was brought to the floor at 22:40 from the ED on a wheelchair accompanied by daughter and grandson. Patient was alert and oriented. Endorsed abdominal pain and weakness. Bp was soft on admission. MD notified and ordered 1L R/L bolus and N/S 125/ml. At that time O2 was desaturated as low as 86%. 1L of oxygen set up and has been effective until 0500 where the O2 desaturated again to 89% even with 1L. Oxygen increased to 1.5 to keep O2 above 90%. Occasionally, the O2 will desaturate to below 90%, especially when deep sleep. Lungs sound clear bilaterally. Patient remained on Q15h vital signs monitoring for the rest of the night. She appeared weak and has been in bed mostly. Bp dropped again at 0130. MD informed through Alexis and ordered total of 2L of R/L> Patient refused to stand on the weighting machine. Mentioned that it was checked at the ER. Patient refused SCD application. Patient denied N/V and dizziness. Patient has been in low head position for the rest of the shift. Patient tested positive for C.diff. Contact precaution enforced. No fever, diarrhea or vomiting recorded.
[2024-12-20 06:57] LABS: Lactate* 1.5 mmol/L (0.5-1.9)
[2024-12-20 07:07] LABS: Hematocrit 34.9 % (33.0-51.0); Hemoglobin* 11.2 gm/dL (12.0-16.0); Immature Granulocytes Pct Auto 0.2 %; Mean Corpuscular HGB Conc 32 gm/dL (32-36); Mean Corpuscular Hemoglobin 30 pg (26-34); Mean Corpuscular Volume 92 fL (80-100); RDW Coefficient of Variation % 14.3 % (11.5-15.5); Red Blood Count 3.78 m/uL (4.00-5.20); White Blood Count* 16.87 K/uL (4.50-11.00)
[2024-12-20 07:08] LABS: Immature Granulocytes Abs Auto 0.00 K/uL (0.00-0.30); Lymphocytes Absolute Auto 0.90 K/uL (0.90-2.90); Slide Review Reflex No
[2024-12-20 07:21] LABS: Chloride* 107 mmol/L (96-114)
[2024-12-20 07:22] LABS: Potassium* 4.1 mmol/L (3.6-5.1); Sodium* 134 mmol/L (135-149)
[2024-12-20 07:24] LABS: Blood Urea Nitrogen* 9 mg/dL (7-30); Creatinine* 0.7 mg/dL (0.5-1.5); Est. Creatinine Clearance* 73.80; Estimated Glomerular Filt Rate 99 ml/min
[2024-12-20 07:25] LABS: Anion Gap 0 mEq/L (7-15); Calcium* 6.9 mg/dL (8.4-10.6); Carbon Dioxide* 27 mmol/L (20-32); Glucose* 103 mg/dL (60-115)
--- NOTE | 2024-12-20 07:36 | PM.IMPN1 ---
Assessment and Plan Assessment and plan (1) Sepsis: Problem comment: - rigors, hypotension, fever, leukocytosis, elevated C-reactive protein, possible recurrent vs suboptimally treated diverticulitis - blood and urine cultures obtained, NGTD - IV fluids, IV metronidazole, IV ceftriaxone, oral Vancomycin Status: Acute (2) Hypotension: Problem comment: - persistent in the setting of fluid resuscitation and normalization of lactate - ddx: adrenal insufficiency (patient states no recent steroid use), iatrogenic or medication withdrawal (pt denies recent changes, h/o noncompliance), cardiac disease - CT ab/pelvis 12/19 notes incidental small pericardial effusion, will obtain TTE to further characterize - continue to follow closely, continue IVFs as tolerated, consider steroids pending clinical course Status: Acute (3) Diverticulitis: Problem comment: - treated at the [facility] for diverticulitis from 12/10/2024 through 12/12/2024 and discharged on oral Augmentin until 12/15/24 - ceftriaxone 2 g IV Q 24 hours plus metronidazole 500 mg IV Q 8 hours Status: Acute (4) C. difficile colitis: Problem comment: - positive C-diff on 12/19, on oral Vancomycin (+ IV Flagyl) Status: Acute (5) Recurrent urinary tract infection: Problem comment: - patient relates longstanding history of UTIs - reportedly has a neurostimulator device in place (implanted spring 2024) for dysfunctional bladder, bladder and bowel incontinence; currently turned off - IV ceftriaxone while we await results of urine culture Status: Acute (6) Non-adherence to medical treatment: Problem comment: - per chart review, does not appear to adhere to medical treatment plans, in particular to her psychotropic medication regimen but possibly beyond that as well Status: Acute Plan - per above (TTE, continue IV antibiotics and IVFs, portable CXR) - daughter and partner updated bedside, questions answered Subjective Date Seen: 12/20/24 Interval history: Jo Ann was admitted to the hospital on 12/20 for persistent abdominal pain in the setting of recently diagnosed diverticulitis. Had been hospitalized in [facility] from 12/10-12/12 with diverticulitis, treated with Augmentin. Had worsening diarrheal stools over the past 1-2 days prior to ER presentation; repeat CT of abdomen and pelvis noted for residual low-grade diverticulitis, mild proctitis. Stool positive for C-Diff. Also had a +UA, culture pending. Overnight, remained hypotensive with SBP 80-90. Received 4L total of IVFs, lactated remained normal. HR 80-90s. This morning, she does endorse feeling some lightheadedness when getting up. She also has intermittent nausea, thinks this is because she's hungry. Daughter and partner at bedside this morning. Exam Narrative: Exam Narrative: GEN: Resting in bed, awakens to voice HEENT: Lips are dry, mucous membranes moist, EOMIs bilaterally, no scleral icterus CV: Regular rhythm with heart rate in the 90s during my exam R: LCTA bilaterally without concerning wheezing Ab: No concerning distention, tolerates exam, hyperactive bowel sounds throughout Ext: Extremities thin, no edema Neuro: Nonfocal Psych: Appropriate Const: Vital Signs, click to edit/add: Vital Signs - 24 hr 12/19/24 18:58 12/19/24 20:07 12/19/24 20:52 Temperature 97.8 F 100 F H Pulse Rate Pulse Rate [Right Pulse Oximeter] 90 Respiratory Rate 18 Blood Pressure Blood Pressure [Ri ght Arm] Blood Pressure [Ri ght Upper Arm] 119/66 Pulse Oximetry 99 96 Oxygen Delivery Me thod Room Air Oxygen Flow Rate 12/19/24 21:14 12/19/24 21:42 12/19/24 22:44 Temperature 100.9 F H 99.2 F Pulse Rate 93 Pulse Rate [Right Pulse Oximeter] 90 Respiratory Rate 16 16 Blood Pressure 121/60 Blood Pressure [Ri ght Arm] 91/49 L Blood Pressure [Ri ght Upper Arm] Pulse Oximetry 93 92 Oxygen Delivery Me thod Room Air Room Air Oxygen Flow Rate 12/19/24 23:00 12/20/24 01:20 12/20/24 01:25 Temperature 97.7 F 97.9 F Pulse Rate Pulse Rate [Right Pulse Oximeter] 90 88 82 Respiratory Rate 16 16 16 Blood Pressure Blood Pressure [Ri ght Arm] 78/49 L 81/47 L Blood Pressure [Ri ght Upper Arm] Pulse Oximetry 91 92 Oxygen Delivery Me thod Nasal Cannula Nasal Cannula Oxygen Flow Rate 1 1 12/20/24 01:37 12/20/24 01:51 12/20/24 02:16 Temperature 97.7 F 97.7 F 98 F Pulse Rate Pulse Rate [Right Pulse Oximeter] 88 86 86 Respiratory Rate 16 16 16 Blood Pressure Blood Pressure [Ri ght Arm] 82/47 L 79/46 L 92/50 L Blood Pressure [Ri ght Upper Arm] Pulse Oximetry 92 92 94 Oxygen Delivery Me thod Nasal Cannula Nasal Cannula Nasal Cannula Oxygen Flow Rate 1 1 1 12/20/24 02:52 12/20/24 03:00 12/20/24 03:15 Temperature 98 F 98 F 97.8 F Pulse Rate Pulse Rate [Right Pulse Oximeter] 86 86 86 Respiratory Rate 16 16 16 Blood Pressure Blood Pressure [Ri ght Arm] 90/50 L 87/47 L 77/47 L Blood Pressure [Ri ght Upper Arm] Pulse Oximetry 97 94 95 Oxygen Delivery Me thod Nasal Cannula Nasal Cannula Nasal Cannula Oxygen Flow Rate 1 1 1 12/20/24 03:30 12/20/24 05:00 12/20/24 05:15 Temperature 98 F 97.8 F 98 F Pulse Rate Pulse Rate [Right Pulse Oximeter] 82 88 87 Respiratory Rate 16 16 16 Blood Pressure Blood Pressure [Ri ght Arm] 103/54 L 79/46 L 91/50 L Blood Pressure [Ri ght Upper Arm] Pulse Oximetry 94 92 91 Oxygen Delivery Me thod Nasal Cannula Nasal Cannula Nasal Cannula Oxygen Flow Rate 1 1 1.5 12/20/24 05:32 Temperature 97.9 F Pulse Rate Pulse Rate [Right Pulse Oximeter] 88 Respiratory Rate 19 Blood Pressure Blood Pressure [Ri ght Arm] 88/53 L Blood Pressure [Ri ght Upper Arm] Pulse Oximetry 91 Oxygen Delivery Me thod Nasal Cannula Oxygen Flow Rate 1.5 Labs Labs: Laboratory Results - last 24 hr 12/19/24 12/19/24 12/19/24 19:57 20:00 20:20 WBC 18.81 H RBC 4.84 Hgb 14.3 Hct 43.4 MCV 90 MCH 30 MCHC 33 RDW Coeff of Tess 14.1 Plt Count 344 Neut % (Auto) 86.2 H Lymph % (Auto) 6.8 L [place] % (Auto) 6.0 Eos % (Auto) 0.6 Baso % (Auto) 0.1 Neut # (Auto) 16.20 H Lymph # (Auto) 1.30 [place] # (Auto) 1.10 H Eos # (Auto) 0.10 Baso # (Auto) 0.00 Abs Immat Gran (auto) 0.10 Imm/Tot Granulo (auto) 0.3 Sodium 138 Potassium 5.0 Chloride 103 Carbon Dioxide 28 Anion Gap 7 BUN 16 Creatinine 0.8 Estimated Creat Clear 64.58 Estimated GFR 84 Glucose 113 Lactate 1.7 Calcium 9.0 Phosphorus Magnesium C-Reactive Protein 2.8 H Urine Color Urine Appearance Urine pH Ur Specific [place] Urine Protein Urine Glucose (UA) Urine Ketones Urine Blood Urine Nitrite Urine Bilirubin Urine Urobilinogen Ur Leukocyte Esterase Urine RBC Urine WBC Ur Squamous Epith Cells Calcium Oxalate Crystal Urine Bacteria Stl C. diff Tox B Gene POSITIVE A* Stl C. diff 027-NAP1-BI PRESUMPTIVE NEGATIVE POC Creatinine 0.9 12/19/24 12/20/24 12/20/24 20:50 04:28 06:20 WBC 16.87 H RBC 3.78 L Hgb 11.2 L Hct 34.9 MCV 92 MCH 30 MCHC 32 RDW Coeff of Tess 14.3 Plt Count 180 Neut % (Auto) 86.2 H Lymph % (Auto) 5.2 L [place] % (Auto) 8.1 Eos % (Auto) 0.3 Baso % (Auto) 0.0 Neut # (Auto) 14.50 H Lymph # (Auto) 0.90 [place] # (Auto) 1.40 H Eos # (Auto) 0.10 Baso # (Auto) 0.00 Abs Immat Gran (auto) 0.00 Imm/Tot Granulo (auto) 0.2 Sodium 134 L Potassium 4.1 Chloride 107 Carbon Dioxide 27 Anion Gap 0 L BUN 9 Creatinine 0.7 Estimated Creat Clear 73.80 Estimated GFR 99 Glucose 103 Lactate 1.7 1.5 Calcium 6.9 L Phosphorus 2.7 Magnesium 1.2 L C-Reactive Protein 6.5 H Urine Color Yellow Urine Appearance Slightly Cloudy A Urine pH 7.0 Ur Specific [place] 1.020 Urine Protein 1+ A Urine Glucose (UA) Negative Urine Ketones Trace A Urine Blood 1+ A Urine Nitrite Positive A Urine Bilirubin Negative Urine Urobilinogen 0.2 Ur Leukocyte Esterase Negative Urine RBC 0-2 Urine WBC 5-10 A Ur Squamous Epith Cells Few Calcium Oxalate Crystal Moderate A Urine Bacteria Moderate A Stl C. diff Tox B Gene Stl C. diff [id number]-NAP1-[id number] POC Creatinine
--- NOTE | 2024-12-20 08:16 | CRLHL7_ITS ---
For Patients: As a result of the Century Cures Act, medical imaging exams and procedure reports are released immediately into your electronic medical record. You may view this report before your referring provider. If you have questions, please contact your health care provider. INDICATION: Hypoxia TECHNIQUE: Chest 1 views. COMPARISON: None. FINDINGS: Cardiovasculature and mediastinum: Heart size is normal. Unremarkable mediastinum. Lungs and pleural spaces: Diffuse mild interstitial prominence. No pneumothorax or pleural effusion. Bones and soft tissues: No significant findings. IMPRESSION: Diffuse mild interstitial prominence can be seen with infection or mild pulmonary edema. Dictated by Kirsty Murphy MD @ 12/20/2024 9:04:45 AM (Electronically Signed)
[2024-12-20] MEDS: MORPHINE 4 MG/ML INJ 2 MG IVP (09:06)
[2024-12-20] MEDS: SODIUM CHLORIDE 0.9 % (FLUSH) 10 ML SYRINGE 5 ML IVF ×2 (09:07→20:53)
[2024-12-20] MEDS: ACETAMINOPHEN 325 MG TABLET 650 MG PO ×4 (09:58→20:52)
[2024-12-20] MEDS: MAGNESIUM IV 2 GM/50 ML PIGGYBACK IVPB (09:59)
[2024-12-20] MEDS: ONDANSETRON 2 MG/ML inj 4 MG IVP (11:15)
[2024-12-20] MEDS: LACTATED RINGERS 1000 ML 1,000 ML 500 ML IV (13:01)
[2024-12-20] MEDS: CALCIUM GLUC 1,000MG/50 ML 1,000 MG/50 ML BAG 100 MG IVPB (13:49)
--- NOTE | 2024-12-20 14:15 | RESP.RT ---
Patient was on 1L NC this morning. She was transitioned to RA and SATing 90%. She is currently getting more fluid and this mornings chest x-ray was fluffy. Recommend her remaining on RA and monitoring her to see if SATs begin to drop, and at that point work on removing fluid while on a nasal cannula or placing the patient on CPAP.
--- NOTE | 2024-12-20 18:56 | PC.NURSE ---
End of shift note (255) ? ? Patient has been very somnolent throughout shift. She was admitted 12/19 for a UTI and diarrhea. Tested positive for C.Diff. Patient has an implanted stimulator device to signal to her when she needs to void or go to the bathroom. The device was turned off after a recent CT scan and has not been turned on. Patient is fully incontinent and has been having frequent episodes of diarrhea throughout the afternoon. Purewick was in place showing small output. Purewick is no longer used due to the frequent BM.?Patient has been hypotensive throughout shift and fluids bolus have been infused as per doctor?s orders. Low grade fevers 99.7-100.4 throughout the day. Patient states she has been feeling nauseous on and off. She has been able to eat a full liquid diet and tolerated it well. Patient had an Echo earlier in the afternoon. She moves well SBA, but complains of lightheadness?.?
[2024-12-21] VITALS (9 sets, daily range): BP systolic 90–118; BP diastolic 43–85; PULSE 56–88; RESP 15–20; TEMP 35.9–36.6; O2SAT 90–96
[2024-12-21] MEDS: cefTRIAXone 2 GM in 0.9 % SODIUM CHLORIDE Mini-bag 100 ML IVPB ×2 (00:05→22:55)
[2024-12-21] MEDS: ENOXAPARIN 30 MG/0.3ML INJ SUBCUT ×2 (00:06→22:56)
[2024-12-21] MEDS: VANCOMYCIN 125 MG CAPSULE 500 MG PO ×4 (02:22→19:44)
--- NOTE | 2024-12-21 04:55 | PC.NURSE ---
End of shift report [id number]: Pt is on 1.5 L O2 via NC overnight to maintain O2 sats above 90%. Pt was incontinent of bowel and bladder overnight. Pt reported that her ?face and hands feel puffy? MD Hutchinson notified, no new orders. Nonpitting edema noted on patients left hand. Pt reports intermittent lightheadedness with ambulation. Pt ambulates SBA to bathroom. Pt is tolerating full liquid diet. Pt is resting in bed, call light within reach.?
[2024-12-21] MEDS: metroNIDAZOLE 500 MG/100 ML PIGGYBACK 100 MG IVPB ×3 (06:05→21:32)
[2024-12-21 07:51] LABS: Hematocrit 33.9 % (33.0-51.0); Hemoglobin* 10.9 gm/dL (12.0-16.0); Immature Granulocytes Pct Auto 0.3 %; Mean Corpuscular HGB Conc 32 gm/dL (32-36); Mean Corpuscular Hemoglobin 29 pg (26-34); Mean Corpuscular Volume 91 fL (80-100); RDW Coefficient of Variation % 14.3 % (11.5-15.5); Red Blood Count 3.72 m/uL (4.00-5.20); White Blood Count* 11.78 K/uL (4.50-11.00)
[2024-12-21 07:52] LABS: Immature Granulocytes Abs Auto 0.00 K/uL (0.00-0.30); Lymphocytes Absolute Auto 1.10 K/uL (0.90-2.90); Slide Review Reflex No
[2024-12-21 08:02] LABS: Chloride* 108 mmol/L (96-114); Potassium* 3.9 mmol/L (3.6-5.1); Sodium* 136 mmol/L (135-149)
[2024-12-21 08:05] LABS: Anion Gap 1 mEq/L (7-15); Blood Urea Nitrogen* 5 mg/dL (7-30); Calcium* 7.6 mg/dL (8.4-10.6); Carbon Dioxide* 27 mmol/L (20-32); Creatinine* 0.6 mg/dL (0.5-1.5); Est. Creatinine Clearance* 86.10; Estimated Glomerular Filt Rate 103 ml/min; Glucose* 96 mg/dL (60-115)
[2024-12-21] MEDS: SODIUM CHLORIDE 0.9 % (FLUSH) 10 ML SYRINGE 5 ML IVF ×2 (08:50→21:32)
[2024-12-21] MEDS: ACETAMINOPHEN 325 MG TABLET 650 MG PO ×4 (08:50→21:31)
[2024-12-21] MEDS: ONDANSETRON 2 MG/ML inj 4 MG IVP (09:41)
--- NOTE | 2024-12-21 09:52 | P.IMPN_ITS ---
Assessment and Plan Assessment and plan (1) Sepsis: Problem comment: - rigors, hypotension, fever, leukocytosis, elevated C-reactive protein, possible recurrent vs suboptimally treated diverticulitis - blood and urine cultures obtained, NGTD - IV fluids, IV metronidazole, IV ceftriaxone, oral Vancomycin Status: Acute (2) Hypotension: Problem comment: - 12/20: persistent in the setting of fluid resuscitation and normalization of lactate, likely related to illness/diarrhea/dehydration, continued fluids with improvement - CT ab/pelvis 12/19 noted incidental small pericardial effusion, not noted on TTE (EF 70-75%, normal RV size and function, no valve disease or pericardial effusion) - BP improved 12/21 Status: Acute (3) Diverticulitis: Problem comment: - treated at the [facility] for diverticulitis from 12/10/2024 through 12/12/2024 and discharged on oral Augmentin until 12/15/24 - ceftriaxone 2 g IV Q 24 hours plus metronidazole 500 mg IV Q 8 hours Status: Acute (4) C. difficile colitis: Problem comment: - positive C-diff on 12/19, on oral Vancomycin (+ IV Flagyl), probiotics Status: Acute (5) Recurrent urinary tract infection: Problem comment: - patient relates longstanding history of UTIs - reportedly has a neurostimulator device in place (implanted spring 2024) for dysfunctional bladder, bladder and bowel incontinence; currently turned off - culture obtained 12/19: E Coli, sensitive to Ceftriaxone (12/19) Status: Acute (6) Non-adherence to medical treatment: Problem comment: - per chart review, does not appear to adhere to medical treatment plans, in particular to her psychotropic medication regimen but possibly beyond that as well Status: Acute (7) Ear lesion: Problem comment: - L ear helix, recommend f/u with PCP for further evaluation, patient aware Status: Acute Plan - per above - if continues to clinically improve, likely d/c home tomorrow Subjective Date Seen: 12/21/24 Interval history: Jo Ann was admitted to the hospital on 12/20 for persistent abdominal pain in the setting of recently diagnosed diverticulitis. Had been hospitalized in [place], [place] from 12/10-12/12 with diverticulitis, treated with Augmentin. She'd had worsening diarrheal stools for 1-2 days prior to ER presentation; repeat CT of abdomen and pelvis noted for residual low-grade diverticulitis, mild proctitis. Stool positive for C-Diff. Also noted to have +UA, culture + for E Coli. Had been hypotensive after admission, responded to IVF resuscitation. Current BP 111/63 No significant tachycardia, lactate remained normal. TTE reassuring. WBC continues to trend downward (18->16->11.7), electrolytes stable. This morning, Eda still feels poorly, but willing to try therapy evaluations, working on ADLs. Exam Narrative: Exam Narrative: GEN: Alert HEENT: Thickened hyperpigmented lesion on left ear helix/antihelix, EOMIs bilaterally, no scleral icterus CV: RRR, No concerning murmurs R: LCTA bilaterally without concerning wheezing Ab: Soft, nondistended, + BS, tolerates palpation Ext: wwp, no concerning edema Skin: No other concerning skin findings on exposed skin Neuro: No focal deficits Psych: Appropriate Const: Vital Signs, click to edit/add: Vital Signs - 24 hr 12/20/24 11:00 12/20/24 12:42 12/20/24 14:57 Temperature 99.7 F H 100.4 F H Pulse Rate [Right Pulse Oximeter] 89 85 90 Pulse Rate [orthos tatic lying Right Pulse Oximeter] Pulse Rate [orthos tatic sitting Righ t Pulse Oximeter] Pulse Rate [orthos tatic standing Rig ht Pulse Oximeter] Respiratory Rate 18 18 Blood Pressure [Ri ght Arm] 97/46 L 94/47 L Blood Pressure [or thostatic lying Ri ght Arm] Blood Pressure [or thostatic sitting Right Arm] Blood Pressure [or thostatic standing Right Arm] Pulse Oximetry 90 95 Oxygen Delivery Me thod Room Air Oxygen Flow Rate 12/20/24 14:57 12/20/24 14:57 12/20/24 16:41 Temperature 97.7 F Pulse Rate [Right Pulse Oximeter] 90 Pulse Rate [orthos tatic lying Right Pulse Oximeter] 92 Pulse Rate [orthos tatic sitting Righ t Pulse Oximeter] 92 Pulse Rate [orthos tatic standing Rig ht Pulse Oximeter] 99 Respiratory Rate 18 18 Blood Pressure [Ri ght Arm] 93/45 L Blood Pressure [or thostatic lying Ri ght Arm] 103/56 L Blood Pressure [or thostatic sitting Right Arm] 98/70 Blood Pressure [or thostatic standing Right Arm] 99/60 Pulse Oximetry 92 92 Oxygen Delivery Me thod Nasal Cannula Nasal Cannula Oxygen Flow Rate 1.5 1.5 12/20/24 19:00 12/20/24 21:15 12/20/24 22:21 Temperature 99.3 F Pulse Rate [Right Pulse Oximeter] 82 Pulse Rate [orthos tatic lying Right Pulse Oximeter] Pulse Rate [orthos tatic sitting Righ t Pulse Oximeter] Pulse Rate [orthos tatic standing Rig ht Pulse Oximeter] Respiratory Rate 18 18 18 Blood Pressure [Ri ght Arm] 97/53 L Blood Pressure [or thostatic lying Ri ght Arm] Blood Pressure [or thostatic sitting Right Arm] Blood Pressure [or thostatic standing Right Arm] Pulse Oximetry 94 94 Oxygen Delivery Me thod Nasal Cannula Nasal Cannula Oxygen Flow Rate 1.5 1.5 12/20/24 23:00 12/21/24 02:39 12/21/24 07:00 Temperature 97.9 F 98 F 97.4 F L Pulse Rate [Right Pulse Oximeter] 91 67 65 Pulse Rate [orthos tatic lying Right Pulse Oximeter] Pulse Rate [orthos tatic sitting Righ t Pulse Oximeter] Pulse Rate [orthos tatic standing Rig ht Pulse Oximeter] Respiratory Rate 18 18 18 Blood Pressure [Ri ght Arm] 102/60 103/85 118/66 Blood Pressure [or thostatic lying Ri ght Arm] Blood Pressure [or thostatic sitting Right Arm] Blood Pressure [or thostatic standing Right Arm] Pulse Oximetry 94 90 96 Oxygen Delivery Me thod Nasal Cannula Nasal Cannula Room Air Oxygen Flow Rate 1.5 1.5 12/21/24 07:00 12/21/24 07:00 12/21/24 08:50 Temperature Pulse Rate [Right Pulse Oximeter] 65 Pulse Rate [orthos tatic lying Right Pulse Oximeter] 62 Pulse Rate [orthos tatic sitting Righ t Pulse Oximeter] 63 Pulse Rate [orthos tatic standing Rig ht Pulse Oximeter] 68 Respiratory Rate 18 18 Blood Pressure [Ri ght Arm] Blood Pressure [or thostatic lying Ri ght Arm] 111/58 L Blood Pressure [or thostatic sitting Right Arm] 107/66 Blood Pressure [or thostatic standing Right Arm] 111/63 Pulse Oximetry 96 Oxygen Delivery Me thod Room Air Oxygen Flow Rate 1.5 12/21/24 09:11 Temperature Pulse Rate [Right Pulse Oximeter] Pulse Rate [orthos tatic lying Right Pulse Oximeter] 62 Pulse Rate [orthos tatic sitting Righ t Pulse Oximeter] 63 Pulse Rate [orthos tatic standing Rig ht Pulse Oximeter] 68 Respiratory Rate Blood Pressure [Ri ght Arm] Blood Pressure [or thostatic lying Ri ght Arm] 111/58 L Blood Pressure [or thostatic sitting Right Arm] 107/66 Blood Pressure [or thostatic standing Right Arm] 111/63 Pulse Oximetry Oxygen Delivery Me thod Oxygen Flow Rate Labs Labs: Laboratory Results - last 24 hr 12/20/24 12/20/24 12/21/24 06:20 11:16 07:30 WBC 11.78 H RBC 3.72 L Hgb 10.9 L Hct 33.9 MCV 91 MCH 29 MCHC 32 RDW Coeff of Tess 14.3 Plt Count 216 Neut % (Auto) 78.6 H Lymph % (Auto) 9.1 L [place] % (Auto) 8.9 Eos % (Auto) 3.0 Baso % (Auto) 0.1 Neut # (Auto) 9.30 H Lymph # (Auto) 1.10 [place] # (Auto) 1.00 H Eos # (Auto) 0.40 Baso # (Auto) 0.00 Abs Immat Gran (auto) 0.00 Imm/Tot Granulo (auto) 0.3 Sodium 136 Potassium 3.9 Chloride 108 Carbon Dioxide 27 Anion Gap 1 L BUN 5 L Creatinine 0.6 Estimated Creat Clear 86.10 Estimated GFR 103 Glucose 96 Calcium 7.6 L Magnesium 1.8 Troponin I < 0.01 C-Reactive Protein 18.3 H Lab Acknowledgement Test Added
[2024-12-21] MEDS: LACTOBACILLUS ACIDOPHILUS 1 TABLET 2 TAB PO ×2 (11:57→18:03)
--- NOTE | 2024-12-21 19:03 | PC.NURSE ---
End of shift note (255) ? ? Patient has been more alert than yesterday and very cooperative throughout shift. She was admitted 12/19 for a UTI and diarrhea. Tested positive for C.Diff. Patient has an implanted stimulator device to signal to her when she needs to void or go to the bathroom. The device was turned off after a recent CT scan and has not been turned on. Patient is fully incontinent but has been able to have continent BM as of this morning, going to the restroom independently. Patient has been afebrile, and more alert throughout day. Patient states sha has been feeling nauseous on and off. Diet has been advanced to regular and tolerated very well. Family has been updated on condition and educated on disease process and precautions. She moves well SBA, but complains of light headedness on and off.?
[2024-12-22] MEDS: VANCOMYCIN 125 MG CAPSULE 500 MG PO ×2 (02:21→08:39)
[2024-12-22 02:24] VITALS: BP 117/66; PULSE 56; RESP 18; TEMP 36.5; O2SAT 93
[2024-12-22] MEDS: metroNIDAZOLE 500 MG/100 ML PIGGYBACK 100 MG IVPB (05:59)
[2024-12-22 06:39] LABS: Hematocrit 34.3 % (33.0-51.0); Hemoglobin* 11.3 gm/dL (12.0-16.0); Immature Granulocytes Abs Auto 0.02 K/uL (0.00-0.30); Immature Granulocytes Pct Auto 0.2 %; Mean Corpuscular HGB Conc 33 gm/dL (32-36); Mean Corpuscular Hemoglobin 30 pg (26-34); Mean Corpuscular Volume 92 fL (80-100); RDW Coefficient of Variation % 14.6 % (11.5-15.5); Red Blood Count 3.74 m/uL (4.00-5.20); White Blood Count* 10.21 K/uL (4.50-11.00)
[2024-12-22 06:40] LABS: Lymphocytes Absolute Auto 1.60 K/uL (0.90-2.90); Slide Review Reflex No
[2024-12-22 06:54] LABS: Chloride* 106 mmol/L (96-114); Potassium* 4.3 mmol/L (3.6-5.1); Sodium* 138 mmol/L (135-149)
[2024-12-22 06:57] LABS: Blood Urea Nitrogen* 7 mg/dL (7-30); Creatinine* 0.6 mg/dL (0.5-1.5); Est. Creatinine Clearance* 86.10; Estimated Glomerular Filt Rate 103 ml/min
[2024-12-22 06:58] LABS: Anion Gap 2 mEq/L (7-15); Calcium* 8.2 mg/dL (8.4-10.6); Carbon Dioxide* 30 mmol/L (20-32); Glucose* 89 mg/dL (60-115)
--- NOTE | 2024-12-22 06:59 | PC.NURSE ---
This patient is alert and oriented and vitally stable. Using 2L via nasal canula to stay saturated while asleep. Lower abdomen was painful at 6/10 and described as a sharp ache; this was in the late evening but was not longer felt by morning. Abdomen is soft to the touch and non-tender. Minor nausea is present. Light headedness has been noted.?113/56 BP at 1930. Soft heart rate around 55. CMS intact. New onset of itchiness overnight around the rectum. I spoke with Dr. Hutchinson and a verbal order was given to clean the area then coat it in barrier cream if the feeling persists citing likelihood of skin irritation from liquid stooling. The patient was informed to tell staff if the sensation appears. No other major developments overnight. ?
[2024-12-22 08:33] VITALS: BP 118/69; PULSE 57; RESP 16; TEMP 36.6; O2SAT 95
[2024-12-22 08:36] VITALS: RESP 16; O2SAT 95
[2024-12-22] MEDS: LACTOBACILLUS ACIDOPHILUS 1 TABLET 2 TAB PO (08:39)
[2024-12-22] MEDS: SODIUM CHLORIDE 0.9 % (FLUSH) 10 ML SYRINGE 5 ML IVF (08:41)
--- NOTE | 2024-12-22 10:03 | PM.DS1 ---
DS: Providers Provider Date Seen: 12/22/24 Date of admission: 12/19/24 22:24 Primary care physician: Not a Local Provider Admitting Clinician: Jeevan Hutchinson MD Consults: 12/19/24 23:03 Consult to Mat Sewer [CONS] Routine Comment: Reason for Consult:: Social Service Consult 12/20/24 08:17 Consult to Occupational Therapy [CONS] Routine Comment: Reason(s) for OT Consult:: Evaluate and Treat Any Restrictions?:: No Restrictions Consult to Physical Therapy [CONS] Routine Comment: Reason(s) for PT Consult:: Evaluate and Treat Any Restrictions?:: No Restrictions Attending Physician on discharge: Blanka Landeros MD Date of Discharge: 12/22/24 DS: Diagnosis Discharge Diagnosis (1) Sepsis: Status: Acute Problem details: - rigors, hypotension, fever, leukocytosis, elevated C-reactive protein, possible recurrent vs suboptimally treated diverticulitis - blood and urine cultures obtained, NGTD - treated with IV fluids, IV metronidazole, IV ceftriaxone, oral Vancomycin - blood cultures NGTD, Urine culture + for E Coli - improved during stay on antibiotics (2) Hypotension: Status: Acute Problem details: - 12/20: persistent in the setting of fluid resuscitation and normalization of lactate, likely related to illness/diarrhea/dehydration, continued fluids with improvement - CT ab/pelvis 12/19 noted incidental small pericardial effusion, not noted on TTE (EF 70-75%, normal RV size and function, no valve disease or pericardial effusion) - BP improved 12/21 (3) Diverticulitis: Status: Acute Problem details: - treated at the [facility] for diverticulitis from 12/10/2024 through 12/12/2024 and discharged on oral Augmentin until 12/15/24 - diverticulitis appeared minimal/low grade - ceftriaxone 2 g IV Q 24 hours plus metronidazole 500 mg IV Q 8 hours (4) C. difficile colitis: Status: Acute Problem details: - positive C-diff on 12/19, on oral Vancomycin (+ IV Flagyl), probiotics (5) Recurrent urinary tract infection: Status: Acute Problem details: - patient relates longstanding history of UTIs - reportedly has a neurostimulator device in place (implanted spring 2024) for dysfunctional bladder, bladder and bowel incontinence; currently turned off - culture obtained 12/19: E Coli, sensitive to Ceftriaxone (12/19), completed course of IV Ceftriaxone during stay (6) Non-adherence to medical treatment: Status: Acute Problem details: - per chart review, does not appear to adhere to medical treatment plans, in particular to her psychotropic medication regimen but possibly beyond that as well (7) Ear lesion: Status: Acute Problem details: - L ear helix, recommend f/u with PCP for further evaluation, patient aware DS: Summary Hospital Course Hospital Course: Jo Ann was admitted to the hospital on 12/20 for persistent abdominal pain in the setting of recently diagnosed diverticulitis. Had been hospitalized in [place], [place] from 12/10-12/12 with diverticulitis, treated with Augmentin. She'd had worsening diarrheal stools for 1-2 days prior to ER presentation; repeat CT of abdomen and pelvis noted for residual low-grade diverticulitis, mild proctitis. Stool positive for C-Diff. Also noted to have +UA, culture + for E Coli. During stay: - hypotensive after admission, responded to IVF resuscitation with normalization of BP prior to discharge - HR stable, lactate remained normal - TTE obtained and reassuring - WBC trended downward during stay (18->16->11.7->10.2), electrolytes stable (required IV magnesium replacement on hospital day 2) - seen by therapies, no acute needs identified - urine culture positive for E coli, treated with 3 days of IV ceftriaxone - diarrhea improved on oral vancomycin Other notable findings during stay with details, above. Eda is medically appropriate for discharge home with family on 12/22/2024 and close PCP follow-up. Status at Discharge Functional status at discharge: independent ambulation Overall status at discharge: patient is progressing back to baseline Time Spent with Patient Time attestation: Total time spent providing and/or coordinating discharge services: Time spent: Greater than 30 minutes Specific discharge activities: Medication reconciliation, patient Education, multidisciplinary team discussion Exam Narrative: Exam Narrative: GEN: Alert and oriented, appears to have more energy this morning HEENT: No scleral icterus CV: RRR, No concerning murmurs R: LCTA bilaterally without concerning wheezing, air movement adequate Ab: Soft and nontender without concerning distension, normal bowel sounds throughout Ext: wwp, no concerning edema Neuro: Nonfocal Psych: Appropriate Const: Vital Signs, click to edit/add: Vital Signs - 24 hr 12/21/24 11:00 12/21/24 14:11 12/21/24 15:00 Temperature 97.9 F 97.9 F Pulse Rate [Right Pulse Oximeter] 88 85 Respiratory Rate 20 16 Blood Pressure [Ri ght Arm] 107/61 90/43 L Pulse Oximetry 94 92 92 Oxygen Delivery Me thod Room Air Room Air Room Air Oxygen Flow Rate 12/21/24 19:35 12/21/24 23:00 12/21/24 23:00 Temperature 97.9 F 96.6 F L Pulse Rate [Right Pulse Oximeter] 73 56 L Respiratory Rate 15 16 Blood Pressure [Ri ght Arm] 113/56 L 96/53 L Pulse Oximetry 92 92 92 Oxygen Delivery Me thod Nasal Cannula Room Air Room Air Oxygen Flow Rate 2 12/21/24 23:00 12/22/24 02:24 12/22/24 08:33 Temperature 97.7 F 97.8 F Pulse Rate [Right Pulse Oximeter] 56 L 56 L 57 L Respiratory Rate 16 18 16 Blood Pressure [Ri ght Arm] 117/66 118/69 Pulse Oximetry 93 95 Oxygen Delivery Me thod Nasal Cannula Room Air Oxygen Flow Rate 2 12/22/24 08:36 Temperature Pulse Rate [Right Pulse Oximeter] Respiratory Rate 16 Blood Pressure [Ri ght Arm] Pulse Oximetry 95 Oxygen Delivery Me thod Room Air Oxygen Flow Rate DS: Data Data Completed and Pending Labs on day of discharge: Labs from last 24 hours 12/22/24 06:26 WBC 10.21 RBC 3.74 L Hgb 11.3 L Hct 34.3 MCV 92 MCH 30 MCHC 33 RDW Coeff of Tess 14.6 Plt Count 222 Neut % (Auto) 71.7 Lymph % (Auto) 15.8 L [place] % (Auto) 7.7 Eos % (Auto) 4.5 Baso % (Auto) 0.1 Neut # (Auto) 7.32 H Lymph # (Auto) 1.60 [place] # (Auto) 0.80 Eos # (Auto) 0.46 Baso # (Auto) 0.01 Abs Immat Gran (auto) 0.02 Imm/Tot Granulo (auto) 0.2 Sodium 138 Potassium 4.3 Chloride 106 Carbon Dioxide 30 Anion Gap 2 L BUN 7 Creatinine 0.6 Estimated Creat Clear 86.10 Estimated GFR 103 Glucose 89 Calcium 8.2 L Magnesium 1.7 C-Reactive Protein 12.8 H Preliminary micro results at discharge 12/19/24 20:14 Blood Culture - Preliminary Blood NO GROWTH AFTER 48 HOURS 12/19/24 20:10 Blood Culture - Preliminary Blood NO GROWTH AFTER 48 HOURS Discharge Plan Discharge Disposition: Home, Self-Care Date of Admission: 12/19/24 22:24 Attending Provider on Discharge: Blanka Landeros Primary Care Provider: Provider,Not a Local Condition: Stable Anticipated Discharge Date/Time: 12/22/24 09:47 Discharge Medications: New ondansetron 4 mg Tablet,Disintegrating 4 mg PO Q6H PRNQty: 20 0RF Lactobacillus acidophilus 0.5 mg (100 million cell) Tablet 1,000 mmu cells PO TIDWM Qty: 90 0RF Rx Instructions: May substitute any probiotic covered by insurance, take TID with meals for C-diff vancomycin 125 mg capsule 125 mg PO QID 8 Days Qty: 32 0RF Continued trazodone 50 mg tablet 50 mg PO QHS PRN risperidone [Risperdal] 0.5 mg tablet 0.25 mg PO DAILY clonazepam 0.25 mg tablet,disintegrating 0.25 mg PO DAILY dextroamphetamine-amphetamine [Adderall] 5 mg tablet 10 mg PO DAILY Discharge Orders: Discharge Order (Routine); Ordered 12/22/24 Ordered By: Blanka Landeros Patient Education: Ondansetron (By mouth), Vancomycin (By mouth), Probiotic (By mouth), High Protein Diet (GEN), C. Diff (Clostridioides Difficile) Infection (DC) Additional Instructions: At [facility]: - 8 more days of Vancomycin for C-Diff (you take this FOUR TIMES/day) - Probiotics (to keep good bacteria in your stomach, take these with food) - Zofran (as needed for nausea) No changes to home medications. Take it easy for the next few days, bland diet and advance as tolerated. [facility] will let you know when you can donate again. When you see Ara, check in about your home medications, your stimulator, your L ear skin lesion, and your GI symptoms. Activity Level: No strenuous activity Discharge Diet: Other Diet Detail: [place], good protein, advance as tolerated Follow Up Appointments: Provider,Not a Local [Primary Care Provider, Family Practice] - 01/02/25 10:15 am Referral Note: Post hospital follow up with Ara Short 01/02/25 at 10:15 AM [facility] [phone] Forms: Patient Belongings, MyHealth Info Instructions
--- NOTE | 2024-12-22 11:14 | PC.NURSE ---
Pt discharged @ 1113 via wheelchair, accompanied by daughter. Back to home. 2 IVs removed. Discharge instructions given with Pt reporting understanding. All forms signed. Final room check complete.
--- NOTE | 2024-12-22 12:13 | PC.SOCIAL ---
Discharge planning- Met with patient bedside to verify insurance information. Patient provided insurance card for [facility] medicaid. Patient states that she thinks she may have medicare- [employer] as she recently had a disability determination, however, patient does not have an insurance card or any other information at this time. Patient was instructed to provide a copy of medicare card to business office when received. Provided insurance card to ER TECH on medical floor to scan into patient's chart. Patient's daughter will provide transportation when provider enters discharge paperwork. No further social work needs.
== END 2024-12-22 11:13 | disposition home or self-care (01) | DRG 872 ==
LOC: ED 21:55 → MEDSURG 22:32
PROVIDERS: Family Medicine; Internal Medicine; Admitting Provider Internal Medicine; Emergency Provider Family Medicine; Visit Provider Internal Medicine
DX: A41.9 Sepsis, unspecified organism (principal); K57.32 Diverticulitis of large intestine without perforation or abscess without bleeding; N39.0 Urinary tract infection, site not specified; A04.72 Enterocolitis due to Clostridium difficile, not specified as recurrent; B96.20 Unspecified Escherichia coli [E. coli] as the cause of diseases classified elsewhere; I95.9 Hypotension, unspecified; Z91.199 Patient's noncompliance with other medical treatment and regimen due to unspecified reason; Z87.440 Personal history of urinary (tract) infections; L98.8 Other specified disorders of the skin and subcutaneous tissue; K62.89 Other specified diseases of anus and rectum; Z96.82 Presence of neurostimulator; R32 Unspecified urinary incontinence
CPT/HCPCS: 36415; 71045; 74177; 80048; 81001; 82565; 83605; 83735; 84100; 84484; 85025; 86140; 87040; 87086; 87493; 93005; 93306; 94761; 97161; 97165; 99284; 99285; A9270; J0613; J0696; J1650; J1836; J1885; J2270; J2405; J3360; J3475; J7030; J7120; Q9967

== ENCOUNTER 2024-12-30 14:47 | Emergency (ER) | payer MEDICAID, SELFPAY ==
--- OUTSIDE RECORDS SUMMARY | 2017-04-20 16:00 | XMS_ITS | Continuity of Care Document ---
Author Organization [facility] Address [address] [address] [place] [address] Phone Care Team Providers Care Escalator Constructor Name Role Phone No Information Unavailable Unavailable Allergies, Adverse Reactions, Alerts Substance Reaction Status Criticality No Known Allergies Active No Inform ation Medications Medication Instructions Dosage Effective Dates (start - stop) Status Comments omeprazole 20 mg capsule,delayed release take 1 capsule by oral route every day before a meal 20 MG - Active omeprazole 20 mg tablet,delayed release take 1 by Oral route every day 1 - Active aspirin 81 mg tablet,delayed release take 1 tablet by oral route every day 81 MG - Active gabapentin 600 mg tablet take 1 tablet by oral route 3 times every day 600 MG - Active hydrocodone 5 mg-acetaminophen 325 mg tablet take 1 - 2 tablet by oral route every day - Active trazodone 100 mg tablet take 2 tablets by oral route at bedtime - Active venlafaxine ER 150 mg capsule,extended release 24 hr take 2 capsule by oral route every day 300 MG - Active zolpidem 10 mg tablet take 1 tablet by o ral route every day at bedtime 10 MG - Active Latuda 20 mg tablet take 1 tablet by ora l route every day with food (at least 350 calories) 20 MG - Active Provigil 200 mg tablet take 1 tablet by ORAL route every day in the morning 200 MG - Active Procedures Procedure Date Colonoscopy Flex; Dx (sep Pro) 17 Ugi Endo; W/bx 1/mx Level Iv-surg Path Gross/micro 17 Ugi Endo; Dx W/wo Collec Specm 17 Office Cons New/estab Mod Advance Directives Directive Yes / No Effective Date File Name No Information Encounters Encounter Description Practice Location Reason(s) For Visit Diagnoses Date Provider Providers Copied on Encounter [facility], [address] [address], [place], [id number], [place] tel:[phone] No Information No Information [facility], [address] [address], [place], [id number], [place] tel:[phone] [place] [facility] Constipation, unspecified constipation typeInternal hemorrhoidsGER D without esophagitisMel enaFamily history of colonic polypsGastro-e sophageal reflux disease without esophagitisOth er hemorrhoids Litzy Cotter. [address], [id number], [place]. tel:[phone] Referring Provider: Referral Self, USE FOR SELF REFERRALS. [facility], [address] [address], [place], [id number], [place] tel:[phone] Marybeth [facility] Bowel habit changesGastroe sophageal reflux disease, esophagitis presence not specifiedGERD without esophagitisOth er diseases of stomach and duodenumGastro -esophageal reflux disease without esophagitis Jovan Graves. [address] [facility], [facility] [address], [place], [place], [id number], [place]. tel:[phone] Referring Provider: Referral Self, USE FOR SELF REFERRALS. [facility], [address] [address], [place], [id number], [place] tel:[phone] [facility] No Information No Information Office Cons New/estab Mod [facility], [address] [address], [place], [id number], [place] tel:[phone] [facility] GI Symptoms or Concerns (chief complaint) Gastroesophage al reflux disease, esophagitis presence not specifiedBowel habit changesHematoc hezia 9-201 7 No Information Referring Provider: Teo Locke [place] C, [address] [place], [place], [address]. tel:[phone] Family History Family Member Type Diagnosis Age At Onset Maternal uncle Problem (finding) cancer of colon Maternal aunt Problem (finding) breast cancer Payers Payer name Insurance type Covered republican ID Authoriza tion(s) No Information Social History Type Description Quantity Date Captured Comments Sex Female Smoking Status No Information Chief Complaint And Reason For Visit No Information Reason For Referral Reason For Referral No Information History Of Present Illness Encounter Date Complaint History Of Prese nt Illness GI Symptoms or Concerns This is a consultation report.Consultation requested by Teo Locke DO.Consultation regarding reflux and dysphagia.HISTORY OF PRESENT ILLNESSPatient is a 51-year-old female with a past medical history of depression, osteoarthritis, CVA, chronic headache, unspecified pelvic issues including multiple vaginal surgeries, incontinence, dysthymia, insomnia, rectocele and spinal stenosis.She reports heartburn since 2016. Her history is jumbled and the patient is quite a poor historian. She reports three to four times per week retrosternal burning, although she also describes daily retrosternal burning. This is associated with dysphagia daily to solids since 2016. She has occasional nausea and vomiting. She has foul-smelling burps. She denies hematemesis. She denies dysphagia to liquids. She denies aggravating or palliative factors. She had been on some types of medications in the past for heartburn, but she does not initially know what they were. After her medica Functional Status Date Functional Assessmen t No Information Instructions Date Instruction Additional Infor mation Diverticulosis/Diverticulitis Re lated to Internal hemorrhoids Gastroesophageal Reflux Disease Related to Internal hemorrhoids Hemorrhoids Related to Inter nal hemorrhoids Gastroesophageal Reflux Disease Related to Gastroesophageal reflux disease, esophagitis presence not specified 1. EGD for further e valuation of upper GI symptoms, evaluation of dysphagia and for biopsy of the esophagus.2. Colonoscopy for further evaluation of diarrhea and hematochezia with biopsies of the colon.3. Both of these procedures will be scheduled in our [place] office as this seems to be closest to the patient's home.4. In the interim, I did prescribe the patient Nexium 40 mg daily to take one-half hour before breakfast.5. Patient was provided with literature regarding antireflux measures and lifestyle modifications.6. Recommend high-fiber diet, 25 g daily. Patient given literature regarding high-fiber today.7. I offered the patient an appointment with a dietitian to discuss the above-mentioned dietary changes, but she states she has seen one and defers seeing a dietitian at this time.8. Patient, otherwise, after the procedures will follow up with her primary care provider, Dr. Locke, and contact our office with any problems, questions or concerns regarding the above.9. I recommend the patient follow up with her specialist scheduled for April 2017 for further evaluation of her incontinence. This is being coordinated through Dr. Locke.10. Patient's questions were answered today to her satisfaction. She voices understanding and agrees with the above plan.Thank you for allowing me to participate in this patient's healthcare. Related to Gastroesophageal reflux disease, esophagitis presence not specified Gastroesophageal Reflux Disease Related to Gastroesophageal reflux disease, esophagitis presence not specified High fiber diet Related to Bowel habit changes Assessments Type Assessment Date No Information Patient Care Teams Name Effective Dates (start - stop) Status Members No Information
--- OUTSIDE RECORDS SUMMARY | 2024-12-09 14:30 | XMS_ITS | Encounter Summary ---
Author Organization [facility] Address [address] [place] [address] Care Team Providers Care Supply Chain Procurement Manager Name Role Phone Raiza Martinez MD Unavailable Stefan Gupta MD, Madhuri Unavailable [phone] Karen Rai CUTTER WET MACHINE FIRE SUPPRESSION CAPTAIN Unavailable [phone] Ara ShortC Unavailable [phone] Ara Short PA-C Primary Care Provider Jayda White RN Unavailable Unavailable Emeka Anand MD Unavailable [phone] Anais Jaffe CUTTER WET MACHINE HOT STRIP MILL INSPECTOR Unavailable Willy Owens DO Unavailable Larry Schaefer MD Unavailable [phone] Daysi Winston PA-C Unavailable [phone] Savita Gregory PA-C Unavailable Laura Ball DO Unavailable [phone] Michi Patterson MD Unavailable [phone] Unavailable [phone] Sneha Calero SENSORY SCIENTIST Unavailable [phone] Argenis Mesa MD Unavailable [phone] Deuce, Kelsi C CHW Unavailable [phone] Candelaria Santillan PA-C Unavailable Argenis Mesa MD Unavailable [phone] Melvi Chavez MD Unavailable [phone] Reason for Visit * Reason Comments RECHECK Encounter Details Date Type Department Care Team (Late st Contact Info) Description 12/09/2024 2:30 PM CDT Virtual Visit [facility] [address] [place] [address] Melvi Chavez MD [address] [facility] [place] [address] [place] [address] Mixed stress and urge urinary incontinence (Primary Dx); Pelvic pain in female; Incontinence of feces, unspecified fecal incontinence type; H/O pelvic surgery Social History Tobacco Use Types Packs/Day Years Used Date Smoking Tobacco: Never Passive Smoke Exposure: Never Smokeless Tobacco: Never Alcohol Use Standard Drinks/Week Comments Never 0 (1 standard drink = 0.6 oz pur e alcohol) Social Connection and Isolation Panel [NHANES] A nswer Date Recorded In a typical week, how many times do you talk on the phone with family, friends, or neighbors? Once a week 10/02/2023 Frequency of Social Gatherings with Friends and Family Not on file 10/02/2023 Attends Jewish Services Not on file 10/01 Do you belong to any clubs o r organizations such as mandaen groups, unions, fraternal or athletic groups, or school groups? No 10/02/2023 How often do you attend meet ings of the clubs or organizations you belong to? Never 10/02/2023 Marital Status Not on file 10/02/2023 AUDIT-C Answer Date Recorded Q1: How often do you have a drink containing alcohol? Never 10/02/2023 Q2: How many drinks containi ng alcohol do you have on a typical day when you are drinking? Patient does not drink Q3: How often do you have si x or more drinks on one occasion? Never 10/02/2023 PHQ-2 Answer Date Recorded PHQ-2 Score 6 09/11/2024 [facility] - Occupational Stress Questionnaire Answer Date Recorded Do you feel stress - tense, restless, nervous, or anxious, or unable to sleep at night because your mind is troubled all the time - these days? Very much 10/02/2023 Exercise Vital Sign Answer Date Recorde d On average, how many days pe r week do you engage in moderate to strenuous exercise (like a brisk walk)? 0 days Minutes of Exercise per Session Not on file 10/02/2023 Adolescent Education Answer Date Record ed Getting School Help Needed Not on file 05/18 Food Insecurity Answer Date Recorded Within the past 12 months, d id you worry that your food would run out before you got money to buy more? Yes 10/02/2023 Within the past 12 months, d id the food you bought just not last and you didn t have money to get more? Yes 10/02/2023 Housing Stability Answer Date Recorded Do you have housing? (Housin g is defined as stable permanent housing and does not include staying outside in a car, in a tent, in an abandoned building, in an overnight assisted, or couch-surfing.) Yes 10/02/2023 Are you worried about losing your housing? Yes 10/02/2023 Financial Resource Strain Answer Date R ecorded Within the past 12 months, h ave you or your family members you live with been unable to get utilities (heat, electricity) when it was really needed? No 10/02/2023 Transportation Needs Answer Date Record ed Within the past 12 months, h as lack of transportation kept you from medical appointments, getting your medicines, non-medical meetings or appointments, work, or from getting things that you need? No 10/02/2023 Interpersonal Safety Answer Date Record ed Do you feel physically and e motionally safe where you currently live? Yes 08/13/2024 Within the past 12 months, h ave you been hit, slapped, kicked or otherwise physically hurt by someone? No 08/13/2024 Within the past 12 months, h ave you been humiliated or emotionally abused in other ways by your partner or ex-partner? No 08/13/2024 Comments No Sex and Gender Information Value Date Recorded Sex Assigned at Female 06/01/2023 2:55 PM HIGH SCHOOL SOCIAL SCIENCE TEACHER Legal Sex Female 1:26 PM HIGH SCHOOL SOCIAL SCIENCE TEACHER Gender Identity Female 06/01/2023 2:55 PM HIGH SCHOOL SOCIAL SCIENCE TEACHER Sexual Orientation Straight 06/01/2023 2: 55 PM HIGH SCHOOL SOCIAL SCIENCE TEACHER documented as of this encounter Patient Instructions * Patient Instructions* Melvi Chavez MD - 12/09/2024 2:30 PM CDT Websites with free information: [employer] patient website: www.voicesforpfd.org Total Control Program: www.totalcontrolprogram.com [facility] [address] [place] [address] It was a pleasure meeting with you today. Thank you for allowing me and my team the privilege of caring for you today. YOU are the reason we are here, and I truly hope we provided you with the excellent service you deserve. Please let us know if there is anything else we can do for you so that we can be sure you are leaving completely satisfied with your care experience. documented in this encounter Progress Notes * Melvi Chavez MD - 12/09/2024 2:30 PM CDT Virtual Visit Details Type of service: Video Visit Video Start Time: 2:31 PM Video End Time:2:36 PM Originating Location (pt. Location): Home Distant Location (provider location): On-site Platform used for Video Visit: [facility] December 09, 2024 Jo Ann was seen today for recheck. Diagnoses and all orders for this visit: Mixed stress and urge urinary incontinence Pelvic pain in female Incontinence of feces, unspecified fecal incontinence type H/O pelvic surgery Given her worsening symptoms advised she needs to return for an in person visit for cystoscopy and pelvic exam 7 minutes were spent today on the day of the encounter in reviewing the EMR including reviewed Dr Mesa's note, direct patient care , coordination of care and documentation Melvi Chavez MD MPH (she/her/hers) Ged Instructor of Urology [facility] Subjective Not feeling well today. Last saw her in February, opted to get care closer to home. She underwent SNM with Dr Mesa, note form 08/13/24 reviewed. States that it is cuasing terrible pain and having it removed in [place] in the near future.. She denies any changes in health since last visit There were no vitals taken for this visit. GENERAL: healthy, alert and no distress EYES: Eyes grossly normal to inspection, conjunctivae and sclerae normal HENT: normal cephalic/atraumatic. External ears, nose and mouth without ulcers or lesions. RESP: no audible wheeze, cough, or visible cyanosis. No visible retractions or increased work of breathing. Able to speak fully in complete sentences. NEURO: Cranial nerves grossly intact, mentation intact and speech normal PSYCH: mentation appears normal, affect normal/bright, judgement and insight intact, normal speech and appearance well-groomed CC Patient Care Team: Ara Short PA-C as PCP - General (Family Medicine) Raiza Martinez MD as MD (Otolaryngology) Sherry Aviles MD as MD (Cardiovascular & Thoracic Surgery) Karen Rai APRN FIRE SUPPRESSION CAPTAIN as Nurse Practitioner (Neurology) Ara Short PA-C as Assigned PCP Jayda White, RN as Specialty Antitank Assault Gunner (Thoracic Surgery) Emeka Anand MD as MD (Neurology) Anais Jaffe APRN HOT STRIP MILL INSPECTOR as Clinical Nurse Specialist (Cardiovascular & Thoracic Surgery) Willy Owens DO as Physician (Gastroenterology) Larry Schaefer MD as Assigned Endocrinology Provider Daysi Winston PA-C as Physician Disciplinary Hearing Officer (Physician Disciplinary Hearing Officer - Surgical) Savita Gregory PA-C as Physician Disciplinary Hearing Officer (Urology) Laura Ball DO as Physician (Gastroenterology) Michi Patterson MD as Assigned Neuroscience Provider Bianka Keene RD as Registered Dietitian (Dietitian, Registered) Sneha Calero LSW as Lead Antitank Assault Gunner (Primary Care - CC) Argenis Mesa MD as MD (Colon & Rectal) Kelsi Tripathi CHW as Community Health Worker (Primary Care - CC) Candelaria Santillan PA-C as Assigned Gastroenterology Provider Argenis Mesa MD as Assigned Surgical Provider Melvi Chavez MD as MD (Urology) Jaret Pitts CHW as Community Health Worker (Primary Care - CC) SELF, REFERRED documented in this encounter Nursing Notes * Silva Lama - 12/09/2024 2:30 PM CDT Current patient location: [address] [address] Is the patient currently in the state [facility]? YES Visit mode: VIDEO If the visit is dropped, the patient can be reconnected by:VIDEO VISIT: Text to cell phone: Telephone Information: Will anyone else be joining the visit? NO (If patient encounters technical issues they should call [phone] :[phone]) Are changes needed to the allergy or medication list? No Are refills needed on medications prescribed by this physician? NO Rooming Documentation: Questionnaire(s) not done per department protocol Reason for visit: RECHECK Silva Lama VVF documented in this encounter Plan of Treatment Upcoming Encounters Date Type Department Care Team (Late st Contact Info) Description 01/02/2025 10:30 AM CDT Office Visit [facility] [address] [place] [address] Ara Short PA-C [address] [place] [address] 01/07/2025 8:30 AM CDT Office Visit [facility] [address] [facility] [address] [place] [phone] Melvi Chavez MD [address] [facility] [place] [address] [place] [address] 02/11/2025 2:00 PM CDT Virtual Visit [facility] [place] [address] [place] [phone] Larry Schaefer MD [address] [place] [address] 02/13/2025 2:00 PM CDT Office Visit [facility] [address] [place] [phone] Ara Short PA-C [id number] [place] [address] 02/17/2025 3:15 PM CDT Virtual Visit [facility] [address] [place] [phone] Jessica Howell PA-C [address] [place] [address] documented as of this encounter Goals Goal Patient Goal Type Associated Problems Recent Progress Patient-Stated? Author MYC ECC PW2 [employer]Y [employer] RISK - GOAL TEMPLATE Care Plan MYC ECC PW2 OPY [employer] RISK - PROBLEM TEMPLATE No Luis Alcala MD Demonstrate improved diet management Care Plan Diet management No Sneha Calero LSW Note: Enroll in [employer] when open again Currently not open as of 12/16/24 Establish Stable Housing Care Plan SDOH LACK OF STABLE HOUSING 20%( 4:09 PM CDT) No Sneha Calero LSW Note: Barriers: Currently have no income source Strengths: Good family support Patient expressed understanding of goal: Yes Action steps to achieve this goal: 1. I will work with my commonwealth attorney on my Social Security Disability application appeal. 2. I will work with a Housing Stabilization program to assist me in finding housing. (Services are on hold) 3. I will call the [facility] Housing Crisis Line #[phone]. Discussed on 12/16: No progress as of yet, d/t the patient being hospitalized. documented as of this encounter Visit Diagnoses Diagnosis Mixed stress and urge urinary incontinence- Primary Mixed incontinence urge and stress (male)(female) Pelvic pain in female Unspecified symptom associated with female genital organs Incontinence of feces, unspecified fecal incontinence type H/O pelvic surgery Personal history of surgery to other organs documented in this encounter Additional Health Concerns Active Problems Noted Date Diagnosed Date MYC ECC PW2 OPY WELCOME [employer]IUM RISK - PROBLEM TE MPLATE 08/12/2024 Diet management 09/17/2024 SDOH LACK OF STABLE HOUSING 09/17/2024 Assessment Noted Time PHQ-9 Depression Total Score: 18 025 10:30 AM CDT documented as of this encounter Care Teams Supply Chain Procurement Manager Relationship Specialty Start Date End Date Ara Short PA-C [address] [place] [phone] PCP - General Family Medicine 06/27/23 Raiza Martinez MD [address] [place] [phone] Otolaryngology 05/18/23 Sherry Aviles MD [address] [place] [phone] Cardiovascular & Thoracic Surgery 06/11/23 Karen Rai APRN FIRE SUPPRESSION CAPTAIN [address] [place] [address] Nurse Practitioner Neurology 06/13/23 Ara Short PA-C [address] [place] [phone] Assigned PCP 06/22/23 Jayda White, RN Specialty Antitank Assault Gunner Thoracic Surgery 08/28/23 Emeka Anand MD [address] [place] [address] Neurology 10/24/23 Anais Jaffe APRN HOT STRIP MILL INSPECTOR [address] [address] Clinical Nurse Specialist Cardiovascular & Thoracic Surgery 11/09/23 Willy Owens DO [address] [place] [address] Physician Gastroenterology 11/09/23 Larry Schaefer MD [address] [place] [address] Assigned Endocrinology Provider 11/20/23 Daysi Winston PA-C [address] [place] [address] Physician Disciplinary Hearing Officer Physician Disciplinary Hearing Officer - Surgical 11/30/23 Saivta Gregory PA-C [address] [id number] Physician Disciplinary Hearing Officer Urology 11/30/23 [place] [address] [place], [place] [address] Physician Gastroenterology 12/06/23 [place] [address] [address] Assigned Neuroscience Provider 12/21/[address] [place] [address] Registered Dietitian Dietitian, Registered 02/14/24 Sneha Calero, [facility] Lead Antitank Assault Gunner Primary Care - CC 09/15/24 Argenis Mesa MD [address] [place] [address] Colon & Rectal 09/17/24 Kelsi Tripathi, [facility] Community Health Worker Primary Care - CC 09/17/24 Candelaria Santillan PA-C [address] [place] [address] Assigned Gastroenterology Provider 09/19/24 Argenis Mesa MD [address] [place] [address] Assigned Surgical Provider 10/20/24 Melvi Chavez MD [address] [place] [address] Urology 10/28/24 documented as of this encounter
--- OUTSIDE RECORDS SUMMARY | 2024-12-09 17:00 | XMS_ITS | Encounter Summary ---
Author Organization [facility] Address [address] [address] Phone Care Team Providers Care Backend Developer Name Role Phone Lucia Lemons RN Unavailable Unavailable Choice, No Pcp-Patient Primary Care Provider Susan vailable Reason for Visit * Reason Comments Abdominal Pain Nausea Encounter Details Date Type Department Care Team (Late st Contact Info) Description 12/09/2024 5:00 PM CDT Office Visit [facility] [address] CLINIC WALK - [place] [address] [place] [phone] Rocío Campa, EVENT SET UP SPECIALIST, CADD OPERATOR [address] [place] [phone] Abdominal pain, unspecified abdominal location (Primary Dx) Social History Tobacco Use Types Packs/Day Years Used Date Smoking Tobacco: Never Smokeless Tobacco: Never Tobacco Cessation:Counseling Given: Not Answered Alcohol Use Standard Drinks/Week Comments No 0 (1 standard drink = 0.6 oz pur e alcohol) [facility] Utilities Answer Date Recorded In the [...] time in the past 12 m [facility], were you homeless or living in a prison (including now)? No 11/05/2024 IP Custom Utilities [...] on file Legal Sex Female 10:44 AM PUNCH HAND Gender Identity Not on file Sexual Orientation [...] needed. added in this encounter Care Teams Backend Developer Relationship Specialty Start Date End Date Choice, No Pcp-Patient PCP - General 10/02/23 Lucia Lemons, RN Nurse Navigator Pulmonary Medicine 05/23/17 documented as of this encounter
[2024-12-30 14:57] VITALS: BP 98/63; PULSE 76; RESP 20; TEMP 36.3; O2SAT 96; BMI 26.8
[2024-12-30 15:08] LABS: Appearance Urine Clear (Clear)
--- NOTE | 2024-12-30 15:14 | ED.GENADULT ---
HPI - General Adult General Chief complaint: Urogenital Problems, Female Stated complaint: blood in urine Time Seen by Provider: 12/30/24 15:09 History of Present Illness HPI narrative: Patient recently hospitalized here for c diff . Finished vanco yesterday . Still not feeling well. States she started to have blood in her urine yesterday . No other symptoms other than also a little itchy. 59-year-old woman presenting to the emergency department with concern of not feeling well and with new hematuria as of yesterday. She has continued to have nausea and has been taking her Zofran. Maybe has not been doing good job of staying hydrated. Discharged from this facility 7 days ago with diagnosis of sepsis and C diff colitis and proctitis following treatment for diverticulitis.. She has just completed her vancomycin course. She has continued to have looser stools, leaking in her underwear. Underlying history of urinary and fecal incontinence. History of recurrent urinary tract infections. She is continuing to have pain since hospitalization across the low abdomen into the left side. (with later questioning it sounds as though this escalated to some almost like cramps 2 days ago) Has felt chilled but no measured fever. No cough or shortness of breath. Intermittently lightheaded. She does acknowledge having a history of kidney stones requiring surgical intervention years ago in [place]. During hospitalization urine cultures were positive for E coli received ceftriaxone in addition to Cipro metronidazole and vancomycin over course. Blood cultures were negative. She is requesting Dilaudid for pain. Related Data Home Medications ?Medication ?Instructions ?Recorded ?Confirmed clonazepam 0.25 mg disintegrating 0.25 mg PO DAILY 12/19/24 12/19/24 tablet dextroamphetamine-amphetamine 5 mg 10 mg PO DAILY 12/19/24 12/19/24 tablet (Adderall) risperidone 0.5 mg tablet 0.25 mg PO DAILY 12/19/24 12/19/24 (Risperdal) trazodone 50 mg tablet 50 mg PO QHS PRN 12/19/24 12/19/24 Previous Rx's ?Medication ?Instructions ?Recorded Lactobacillus acidophilus 0.5 mg 1,000 mmu cells PO TIDWM #90 tabs 12/22/24 (100 million cell) tablet ondansetron 4 mg disintegrating 4 mg PO Q6H PRN #20 tabs 12/22/24 tablet oxycodone-acetaminophen 5 mg-325 1 - 2 tab PO Q4-6H PRN pain #10 12/30/24 mg tablet (Endocet) tabs tamsulosin 0.4 mg capsule 0.4 mg PO DAILY Ureteral spasm #14 12/30/24 caps Allergies Allergy/AdvReac Type Severity Reaction Status Date / Time No Known Drug Allergies Allergy Verified 12/19/24 20:46 Review of Systems Status of ROS: Reports: 6 or more systems reviewed and unremarkable except as noted in History and below [facility] Medical History Non-adherence to medical treatment ?Z91.199 - Patient's noncompliance with other medical treatment and regimen due to unspecified reason (ICD-10) Recurrent urinary tract infection ?N39.0 - Urinary tract infection, site not specified (ICD-10) Presence of neurostimulator ?Z96.82 - Presence of neurostimulator (ICD-10) Ureteral stone (11/09/15) ?N20.1 - Calculus of ureter (ICD-10) Upper back pain (12/17/14) ?M54.9 - Dorsalgia, unspecified (ICD-10) Umbilical hernia (09/27/18) ?K42.9 - Umbilical hernia without obstruction or gangrene (ICD-10) Stool incontinence (04/01/15) ?R15.9 - Full incontinence of feces (ICD-10) Spinal stenosis of cervical region (08/01/16) ?M48.02 - Spinal stenosis, cervical region (ICD-10) Restless leg syndrome (06/04/17) ?G25.81 - Restless legs syndrome (ICD-10) Rectocele (04/01/15) ?N81.6 - Rectocele (ICD-10) Neuropathy (05/25/17) ?G62.9 - Polyneuropathy, unspecified (ICD-10) Mixed stress and urge urinary incontinence (04/01/15) ?N39.46 - Mixed incontinence (ICD-10) Midline low back pain without sciatica (12/17/14) ?M54.50 - Low back pain, unspecified (ICD-10) Memory loss (06/04/17) ?R41.3 - Other amnesia (ICD-10) Major depressive disorder, recurrent episode, moderate (04/24/16) ?F33.1 - Major depressive disorder, recurrent, moderate (ICD-10) Intussusception of rectum (10/12/17) ?K56.1 - Intussusception (ICD-10) Insomnia, unspecified (01/26/09) ?G47.00 - Insomnia, unspecified (ICD-10) Insomnia secondary to chronic pain (10/04/11) ?G89.29 - Other chronic pain (ICD-10) ?G47.01 - Insomnia due to medical condition (ICD-10) Incidental pulmonary nodule, less than or equal to 3mm (05/24/17) ?R91.1 - Solitary pulmonary nodule (ICD-10) HPV (human papilloma virus) infection (08/02/17) ?B97.7 - Papillomavirus as the cause of diseases classified elsewhere (ICD-10) Hernia of anterior abdominal wall (09/27/18) ?K43.9 - Ventral hernia without obstruction or gangrene (ICD-10) Gastroesophageal reflux disease (10/26/17) ?K21.9 - Gastro-esophageal reflux disease without esophagitis (ICD-10) CINTHIA (generalized anxiety disorder) (04/18/16) ?F41.1 - Generalized anxiety disorder (ICD-10) Family history of breast cancer (08/02/17) ?Z80.3 - Family history of malignant neoplasm of breast (ICD-10) Falls frequently (12/08/16) ?R29.6 - Repeated falls (ICD-10) Facet arthropathy, lumbar (09/19/16) ?M47.816 - Spondylosis without myelopathy or radiculopathy, lumbar region (ICD-10) Dense breasts (08/02/17) ?R92.30 - Dense breasts, unspecified (ICD-10) DDD (degenerative disc disease), lumbar (09/19/16) ?M51.369 - Other intervertebral disc degeneration, lumbar region without mention of lumbar back pain or lower extremity pain (ICD-10) DDD (degenerative disc disease), cervical (08/01/16) ?M50.30 - Other cervical disc degeneration, unspecified cervical region (ICD-10) Age-related osteoporosis with current pathological fracture (02/19/24) ?M80.00XA - Age-related osteoporosis with current pathological fracture, unspecified site, initial encounter for fracture (ICD-10) Acute cystitis without hematuria (02/27/24) ?N30.00 - Acute cystitis without hematuria (ICD-10) Social History What is your current living situation?: I presently have a place to live Problems where you live: no known problems Problems where you live details: N/A In the past 12 months, utilities in danger of being shut off: no In past 12 months, lack of transportation kept you from medical appts, meetings, work, or getting things needed for daily living: no In the past 12 mos, have been you worried that your food would run out before you had money to buy more?: never true In the past 12 mos, the food you bought just didn't last and you didn't have money to buy more?: sometimes true Highest level of school completed/degree received: 11th grade Smoking Status: Never smoker Second hand tobacco smoke exposure: No How often do you have a drink containing alcohol: never AUDIT-C Alcohol total score: 0 Non-prescribed substance use: denies use How often does anyone, including family, friends and others, physically hurt you: never How often does anyone, including family, friends and others, insult or talk down to you: never How often does anyone, including family, friends and others, threaten you with harm: never How often does anyone, including family, friends and others, scream or curse at you: never service: No Health Related Social Needs: food insecurity (Z59.41) Exam Narrative: Exam Narrative: Pleasant. Appears a little uncomfortable. Anxious. Breathing easily. Lungs appear to be clear. Heart in regular rate and rhythm with some ectopic beats. Abdomen of present bowel sounds soft and mildly to moderately tender in the suprapubic area and then into the left abdomen. Extremities are well perfused. Without edema. Const: Vital Signs, click to edit/add: Vital Signs - 24 hr 12/30/24 16:12 12/30/24 16:15 12/30/24 16:30 Pulse Rate 66 64 67 Pulse Rate [Pulse Oximeter] Respiratory Rate Blood Pressure [Ri ght Upper Arm] Pulse Oximetry 93 95 Oxygen Delivery Me thod 12/30/24 16:48 12/30/24 18:22 Pulse Rate Pulse Rate [Pulse Oximeter] 61 57 L Respiratory Rate 18 18 Blood Pressure [Ri ght Upper Arm] 99/58 L 102/58 L Pulse Oximetry 94 96 Oxygen Delivery Me thod Room Air Room Air Documenting provider has reviewed patient's vital signs: yes Course Vital Signs Vital signs: Initial Vital Signs Temperature 97.3 F L 12/30/24 14:57 Temperature Source Temporal Artery Scan 12/30/24 14:57 Pulse Rate 76 12/30/24 14:57 Respiratory Rate 20 12/30/24 14:57 Blood Pressure 98/63 12/30/24 14:57 Blood Pressure Mean 74 12/30/24 14:57 Blood Pressure Position Sitting 12/30/24 14:57 Pulse Oximetry 96 12/30/24 14:57 Oxygen Delivery Method Room Air 12/30/24 14:57 Vital Signs Temperature 97.3 F L 12/30/24 14:57 Pulse Rate 76 12/30/24 14:57 Respiratory Rate 20 12/30/24 14:57 Blood Pressure 98/63 12/30/24 14:57 Pulse Oximetry 96 12/30/24 14:57 Oxygen Delivery Method Room Air 12/30/24 14:57 Temperature 97.3 F L 12/30/24 14:57 Pulse Rate 57 L 12/30/24 18:22 Respiratory Rate 18 12/30/24 18:22 Blood Pressure 102/58 L 12/30/24 18:22 Pulse Oximetry 96 12/30/24 18:22 Oxygen Delivery Method Room Air 12/30/24 18:22 Medications Administered Medications: Discontinued Medications Generic Name Dose Route Start Last Admin Trade Name Freq PRN Reason Stop Dose Admin Hydromorphone HCl 0.5 mg 12/30/24 15:44 12/30/24 16:02 Hydromorphone 0.5 Mg/0.5 Ml Inj IVP 12/30/24 15:45 0.5 mg ONCE ONE Administration Sodium Chloride 1,000 mls @ 1,000 mls/hr 12/30/24 15:44 12/30/24 16:49 0.9 % Sodium Chloride 1000 Ml IV 12/30/24 16:43 Infused .Q1H ONE Infusion Ketorolac Tromethamine 30 mg 12/30/24 17:29 12/30/24 17:35 Ketorolac 30 Mg/Ml Inj IVP 12/30/24 17:30 30 mg ONCE ONE Administration Ondansetron HCl 4 mg 12/30/24 15:44 12/30/24 16:03 Ondansetron 2 Mg/Ml Inj IVP 12/30/24 15:45 4 mg ONCE ONE Administration Tamsulosin HCl 0.4 mg 12/30/24 18:08 12/30/24 18:18 Tamsulosin Hcl 0.4 Mg Capsule PO 12/30/24 18:09 0.4 mg ONCE ONE Administration Medical Decision Making MDM Narrative Medical decision making narrative: Drug-induced nephritis? Cystitis - infectious or otherwise? Large renal or ureteral stone? Will need to compare labs I think to recent admission as certainly might have recurrence or failed treatment with continued C diff colitis. Symptoms are a little hard to distinguish with history of fecal incontinence. Physical findings I think suggest less likely to have nephropathy. IV initiated. IV fluids. Zofran and initial dosing of Dilaudid as I would have primary concern of ureteral stone and want to verify good renal function before giving something like ketorolac. Would also obtain blood culture with initial blood draw. Urinalysis with hematuria without evidence of infection. Concentrated. White count has normalized. Normal CRP. Lactate 2.1 not inconsistent with report of hydration needs. Does not appear to represent sepsis at this point. Reassuring vitals with slightly low blood pressure but not too far from baseline. CT abdomen pelvis, noncontrast independently reviewed by me does show what I think is a left-sided proximal ureteral stone. Good renal function is ordered for ketorolac with increased pain. This apparently did help a great deal with her discomfort on reassessment. Also given a dose of Flomax at this time. Radiology over-read below Final Report: INDICATION: Lower abdomen pain, left-sided, hematuria TECHNIQUE: CT abdomen and pelvis without contrast. COMPARISON: CT abdomen and pelvis with contrast 12/19/2024. FINDINGS: Lower chest: Bibasilar atelectasis or scarring. Moderate-sized hiatal hernia. Liver: Normal in size and attenuation. No suspicious masses. Gallbladder and bile ducts: No stones or inflammation. No biliary dilatation. Pancreas: Unremarkable. No mass or inflammation. Spleen: Normal in size. No masses. Adrenal glands: Normal in size. No nodules. Kidneys: Normal in size. No hydronephrosis. Interval migration of previously seen nonobstructing left lower pole renal calculus to the proximal left ureter. The calculus measures up to 5 millimeters in size. GI tract: No evidence of bowel obstruction. Near complete resolution of fat stranding along the ascending colon consistent with resolving diverticulitis. Colonic elsewhere without evidence of diverticulitis. Stool is present throughout the colon. Vasculature: Abdominal aorta is normal in caliber. Lymph nodes: No lymphadenopathy. Peritoneum/Abdominal Wall: Unchanged wide necked periumbilical hernia with mild internal fat stranding. No free air or significant free fluid. Pelvis: Unremarkable. No pelvic masses. Bones/soft tissues: No acute osseous abnormality. Dextrocurvature of the thoracolumbar junction. Sacral nerve stimulator. IMPRESSION: 1. Interval migration of previously seen nonobstructing 5 millimeter left renal calculus, now within the proximal left ureter. No hydroureteronephrosis. 2. Near-complete resolution of diverticulitis of the transverse colon. Please note that all CT scans at this facility use dose modulation, iterative reconstruction, and/or weight-based dosing when appropriate to reduce radiation dose to as low as reasonably achievable. Dictated by Yue Winston MD @ 12/30/2024 5:58:18 PM In attempt to clarify duration of possible ureteral stone distinct from pain that she had been experiencing in the hospital/require admission, it appears that may have started to have new cramping pain 2 days ago. Hematuria then beginning today. Radiology read noting some residual mild diverticulitis. Since had C diff here recently and overall labs look better, I would not institute antibiotics unless symptoms really seem to be worsening again. Important to not get constipated Overall improved. Stable vitals during time of monitoring emergency department. See patient discharge plan for further discussion I am relieved you're feeling better. I am sorry this has happened in addition to everything else you have had going on. Sounds like that ketorolac worked very well for you. I can prescribe more of that for home. I would consider straining your urine over this next week. We do not have the medications I was hoping to prescribe for you rather than ketorolac, in [facility]. So I sent in some medications to your pharmacy. Tamsulosin, also known as Flomax, can be helpful for ureteral spasm and therefore pain. Take this daily until you think the stone has passed. Also prescribing some Percocet which contains oxycodone and acetaminophen. This opiate can make you tired and constipated. Consider taking a senna-containing bowel stimulant product on the days you might need the Percocet. You do not need to get the other medications yet tonight. I am prescribing ketorolac from [facility] if you choose not to go to the pharmacy tonight. Also, I understand you have Zofran for nausea if needed. Be seen for pain lasting another 3 days, inability to control your pain, repeated vomiting, fever. Medical Records Medical records reviewed: Yes I reviewed the patient's medical records Lab Data Lab results reviewed: Yes I reviewed the patient's lab results Labs: Lab Results 12/30/24 12/30/24 12/30/24 Range/Units 14:48 15:44 16:00 WBC 8.54 (4.50-11.00) K/uL RBC 5.02 (4.00-5.20) m/uL Hgb 14.6 (12.0-16.0) gm/dL Hct 45.7 (33.0-51.0) % MCV 91 (80-100) fL MCH 29 (26-34) pg MCHC 32 (32-36) gm/dL RDW Coeff of Tess 14.0 (11.5-15.5) % Plt Count 386 (140-440) K/uL Neut % (Auto) 61.9 (42.0-72.0) % Lymph % (Auto) 27.5 (20-44) % [place] % (Auto) 7.7 (0.0-11.0) % Eos % (Auto) 2.2 (0.0-7.0) % Baso % (Auto) 0.1 (0.0-3.0) % Neut # (Auto) 5.28 (1.7-7.0) K/uL Lymph # (Auto) 2.35 (0.90-2.90) K/uL [place] # (Auto) 0.70 (0.00-0.90) K/UL Eos # (Auto) 0.19 (0.00-0.50) K/uL Baso # (Auto) 0.01 (0.00-0.30) K/uL Abs Immat Gran (auto) 0.05 (0.00-0.30) K/uL Imm/Tot Granulo (auto) 0.6 % Sodium 140 (135-149) mmol/L Potassium 4.3 (3.6-5.1) mmol/L Chloride 110 (96-114) mmol/L Carbon Dioxide 24 (20-32) mmol/L Anion Gap 6 L (7-15) mEq/L BUN 15 (7-30) mg/dL Creatinine 0.8 (0.5-1.5) mg/dL Estimated Creat Clear 64.58 Estimated GFR 84 ml/min Glucose 102 (60-115) mg/dL Lactate 2.1 H (0.5-1.9) mmol/L Calcium 7.8 L (8.4-10.6) mg/dL C-Reactive Protein < 0.5 L (0.5-1.0) mg/dL Urine Color Red A (Yellow) Urine Appearance Clear (Clear) Urine pH 5.5 (5.0-8.5) Ur Specific [place] >= 1.030 (1.000-1.030) Urine Protein 2+ A (Negative) Urine Glucose (UA) Negative (Negative) Urine Ketones Negative (Negative) Urine Blood 3+ A (Negative) Urine Nitrite Negative (Negative) Urine Bilirubin 1+ A (Negative) Urine Urobilinogen 0.2 (0.2-1.0) Ur Leukocyte Esterase Negative (Negative) Urine RBC 25-50 A (0-2) Urine WBC 2-5 (0-5) Ur Squamous Epith Cells Few (None-Few) Calcium Oxalate Crystal Moderate A (None) Urine Bacteria Few A (None) Stl C. diff Tox B Gene Negative (Negative) Stl C. diff [id number] PRESUMPTIVE NEGATIVE (Negative) Discharge Plan Discharge Clinical Impression: Left ureteral calculus, Ureteral colic Patient Disposition: Home w/ Parent or Adult Condition: Improved Additional Instructions: I am relieved you're feeling better. I am sorry this has happened in addition to everything else you have had going on. Sounds like that ketorolac worked very well for you. I can prescribe more of that for home. I would consider straining your urine over this next week. We do not have the medications I was hoping to prescribe for you rather than ketorolac, in [facility]. So I sent in some medications to your pharmacy. Tamsulosin, also known as Flomax, can be helpful for ureteral spasm and therefore pain. Take this daily until you think the stone has passed. Also prescribing some Percocet which contains oxycodone and acetaminophen. This opiate can make you tired and constipated. Consider taking a senna-containing bowel stimulant product on the days you might need the Percocet. You do not need to get the other medications yet tonight. I am prescribing ketorolac from [facility] if you choose not to go to the pharmacy tonight. Also, I understand you have Zofran for nausea if needed. Be seen for pain lasting another 3 days, inability to control your pain, repeated vomiting, fever. Prescriptions: New oxycodone-acetaminophen [Endocet] 5-325 mg tablet 1 - 2 tab PO Q4-6H PRN (Reason: pain) Qty: 10 0RF tamsulosin 0.4 mg capsule 0.4 mg PO DAILY Qty: 14 0RF No Action trazodone 50 mg tablet 50 mg PO QHS PRN risperidone [Risperdal] 0.5 mg tablet 0.25 mg PO DAILY clonazepam 0.25 mg tablet,disintegrating 0.25 mg PO DAILY dextroamphetamine-amphetamine [Adderall] 5 mg tablet 10 mg PO DAILY ondansetron 4 mg Tablet,Disintegrating 4 mg PO Q6H PRNQty: 20 0RF Lactobacillus acidophilus 0.5 mg (100 million cell) Tablet 1,000 mmu cells PO TIDWM Qty: 90 0RF Rx Instructions: May substitute any probiotic covered by insurance, take TID with meals for C-diff Follow Up/Referrals: Provider,Not a Local [Primary Care Provider, Family Practice] Stand Alone Forms: [employer] Info Instructions
[2024-12-30] MEDS: ONDANSETRON 2 MG/ML inj 4 MG IVP (16:03)
[2024-12-30 16:09] LABS: Lactate* 2.1 mmol/L (0.5-1.9)
[2024-12-30 16:12] VITALS: PULSE 66
[2024-12-30 16:13] LABS: Hematocrit 45.7 % (33.0-51.0); Hemoglobin* 14.6 gm/dL (12.0-16.0); Immature Granulocytes Abs Auto 0.05 K/uL (0.00-0.30); Immature Granulocytes Pct Auto 0.6 %; Lymphocytes Absolute Auto 2.35 K/uL (0.90-2.90); Mean Corpuscular HGB Conc 32 gm/dL (32-36); Mean Corpuscular Hemoglobin 29 pg (26-34); Mean Corpuscular Volume 91 fL (80-100); RDW Coefficient of Variation % 14.0 % (11.5-15.5); Red Blood Count 5.02 m/uL (4.00-5.20); White Blood Count* 8.54 K/uL (4.50-11.00)
[2024-12-30 16:15] VITALS: PULSE 64; O2SAT 93
[2024-12-30 16:17] LABS: Slide Review Reflex No
[2024-12-30 16:30] VITALS: PULSE 67; O2SAT 95
[2024-12-30 16:48] VITALS: BP 99/58; PULSE 61; RESP 18; O2SAT 94
--- NOTE | 2024-12-30 17:01 | CT_ITS ---
Patient: VARUN AJ Facility:?[facility] Patient ID:?[id number] Site Patient ID:?[id number]. Site :?[id number] Study:?CT-Abdomen/Pelvis W/O-12/30/2024 5:17:22 PM Ordering Physician:Manuela Bedolla Final Report: INDICATION: Lower abdomen pain, left-sided, hematuria TECHNIQUE: CT abdomen and pelvis without contrast. COMPARISON: CT abdomen and pelvis with contrast 12/19/2024. FINDINGS: Lower chest: Bibasilar atelectasis or scarring. Moderate-sized hiatal hernia. Liver: Normal in size and attenuation. No suspicious masses. Gallbladder and bile ducts: No stones or inflammation. No biliary dilatation. Pancreas: Unremarkable. No mass or inflammation. Spleen: Normal in size. No masses. Adrenal glands: Normal in size. No nodules. Kidneys: Normal in size. No hydronephrosis. Interval migration of previously seen nonobstructing left lower pole renal calculus to the proximal left ureter. The calculus measures up to 5 millimeters in size. GI tract: No evidence of bowel obstruction. Near complete resolution of fat stranding along the ascending colon consistent with resolving diverticulitis. Colonic elsewhere without evidence of diverticulitis. Stool is present throughout the colon. Vasculature: Abdominal aorta is normal in caliber. Lymph nodes: No lymphadenopathy. Peritoneum/Abdominal Wall: Unchanged wide necked periumbilical hernia with mild internal fat stranding. No free air or significant free fluid. Pelvis: Unremarkable. No pelvic masses. Bones/soft tissues: No acute osseous abnormality. Dextrocurvature of the thoracolumbar junction. Sacral nerve stimulator. IMPRESSION: 1. Interval migration of previously seen nonobstructing 5 millimeter left renal calculus, now within the proximal left ureter. No hydroureteronephrosis. 2. Near-complete resolution of diverticulitis of the transverse colon. Please note that all CT scans at this facility use dose modulation, iterative reconstruction, and/or weight-based dosing when appropriate to reduce radiation dose to as low as reasonably achievable. Dictated by Yue Winston MD @ 12/30/2024 5:58:18 PM Signed by:?Yue Winston MD @12/30/2024 5:58:18 PM (Electronic Signature)
[2024-12-30 17:02] LABS: Chloride* 110 mmol/L (96-114)
[2024-12-30 17:03] LABS: Potassium* 4.3 mmol/L (3.6-5.1); Sodium* 140 mmol/L (135-149)
--- OUTSIDE RECORDS SUMMARY | 2024-12-30 17:05 | XMS_ITS | Encounter Summary ---
Author Organization [place] Address [address] [place] [address] Care Team Providers Care Co Pilot Name Role Phone No Ref-Primary, Physician Primary Care Provider Raiza Martinez MD Unavailable Stefan Gupta MD, Sherry Unavailable [phone] Karen Rai SLAB TRIPPER PRODUCTION ILLUSTRATOR Unavailable [phone] Deacon Bishop MD Unavailable Catherine Miguel NP Unavailable Ara Short-C Unavailable [phone] Ara Short PA-C Primary Care Provider Stefan Gupta MD, Sherry Unavailable [phone] Graeme Le MD Unavailable Jayda White RN Unavailable Unavailable Audrey Dong MD Unavailable [phone] Emeka Anand MD Unavailable [phone] Anais Jaffe SLAB TRIPPER CATH LAB NURSE Unavailable Willy Owens DO Unavailable Larry Schaefer MD Unavailable [phone] Daysi Winston PA-C Unavailable [phone] Savita Gregory PA-C Unavailable Laura Ball DO Unavailable Kelsi Tripathi CHW Unavailable Michi Patterson MD Unavailable [phone] Unavailable [phone] Laura Ball DO Unavailable [phone] Jessica Howell PA-C Unavailable [phone] DeuceKelsi ballard CHW Unavailable Sneha Calero JAVA GROOVY DEVELOPER Unavailable [phone] Argenis Mesa MD Unavailable [phone] DeuceKelsi ballard CHW Unavailable Candelaria SantillanC Unavailable Daysi Winston-C Unavailable [phone] Argenis Mesa MD Unavailable [phone] Melvi Chavez MD Unavailable [phone] Jaret Pitts CHW Unavailable Unavailable Neetu Hopkins CHW Unavailable [phone] Encounter Details Date Type Department Care Team (Late st Contact Info) Description 06/18/2023 MyC Medical Advice [address] [address] Argenis Mitchell Social History Tobacco Use Types Packs/Day Years Used Date Smoking Tobacco: Unknown PHQ-2 Answer Date Recorded PHQ-2 Score 6 05/18/2023 Adolescent Education Answer Date Record ed Getting School Help Needed Not on file 05/18 Food Insecurity Answer Date Recorded Within the past 12 months, d id you worry that your food would run out before you got money to buy more? No 05/18/2023 Within the past 12 months, d id the food you bought just not last and you didn t have money to get more? No 05/18/2023 Housing Stability Answer Date Recorded Do you have housing? (Jeremy cochran is defined as stable permanent housing and does not include staying outside in a car, in a tent, in an abandoned building, in an overnight long term, or couch-surfing.) Yes 05/18/2023 Are you worried about losing your housing? No 05/18/2023 Financial Resource Strain Answer Date R ecorded Within the past 12 months, h ave you or your family members you live with been unable to get utilities (heat, electricity) when it was really needed? No 05/18/2023 Transportation Needs Answer Date Record ed Within the past 12 months, h as lack of transportation kept you from medical appointments, getting your medicines, non-medical meetings or appointments, work, or from getting things that you need? No 05/18/2023 Comments No Sex and Gender Information Value Date Recorded Sex Assigned at Female 06/01/2023 2:55 PM SOCIAL HUMAN SERVICES ASSISTANTS Legal Sex Female 1:26 PM SOCIAL HUMAN SERVICES ASSISTANTS Gender Identity Female 06/01/2023 2:55 PM SOCIAL HUMAN SERVICES ASSISTANTS Sexual Orientation Straight 06/01/2023 2: 55 PM SOCIAL HUMAN SERVICES ASSISTANTS documented as of this encounter Plan of Treatment Upcoming Encounters Date Type Department Care Team (Late st Contact Info) Description 01/02/2025 10:30 AM CDT Office Visit [facility] [address] [place] [phone] Ara Short PA-C [address] [place] [phone] 01/07/2025 8:30 AM CDT Office Visit [facility] [place] [address] [facility] [address] [place] [phone] Melvi Chavez MD 420 [facility] 394 [place] [address] 02/11/2025 2:00 PM CDT Virtual Visit [facility] [address] [address] Larry Schaefer MD 516 [place], [place] 5[address]195 02/13/2025 2:00 PM CDT Office Visit [facility] [address] [place] [address] Ara Short PA-C [id number] [place] [address] 02/17/2025 3:15 PM CDT Virtual Visit [facility] [place] 909 [facility] 4th [place] [address] Jessica Howell PA-C [address] [place] [address] 080315 documented as of this encounter Visit Diagnoses Not on filedocumented in this encounter Additional Health Concerns Infection Onset Date Last Indicated Resolved Time Rule Out COVID-19 08/23/2023 08/23/2023 08/23/2023 3:33 AM CDT Assessment Noted Time PHQ-9 Depression Total Score: 21 024 9:44 AM SOCIAL HUMAN SERVICES ASSISTANTS documented as of this encounter Care Teams Co Pilot Relationship Specialty Start Date End Date No Ref-Primary, Physician PCP - General 05/08/23 06/26/23 Ara Short PA-C [id number] [place] [address] PCP - General Family Medicine 06/27/23 Raiza Martinez MD [address] [place] [address] 581375 Otolaryngology 05/18/23 Sherry Aviles MD [address] [place] [address] Cardiovascular & Thoracic Surgery 06/11/23 Karen Rai APRN CNP [address] [place] [address] 18773 Nurse Practitioner Neurology 06/13/23 Deacon Bishop MD [address] [place] [address] 20[address] Neurology 06/19/23 08/09/23 [place] [address] [place] [address] Nurse Practitioner Nurse Practitioner 06/21/23 02/26/24 Ara Short PAGabbyC [address] [place] [address]83 Assigned PCP 06/22/23 Sherry Aviles MD [address] [place] [address] 79[address] Assigned Surgical Provider 07/13/23 09/18/24 Graeme Le MD [address] [place] [address] Neurology 08/10/23 10/23/23 Jayda White, RIGOBERTO Specialty Stationary Engineer Apprentice Thoracic Surgery 08/28/23 [place] [address] [place], [place] [phone] Assigned Pain Medication Provider 09/20/23 03/21/24 Emeka Anand MD 909 [place], [place] 485525 Neurology 10/24/23 Anais Jaffe APRN CATH LAB NURSE [address] 618455 Clinical Nurse Specialist Cardiovascular & Thoracic Surgery 11/09/23 Willy Owens DO [address] 629095 Physician Gastroenterology 11/09/23 Larry Schaefer MD 6 [place], [place] 589345 Assigned Endocrinology Provider 11/20/23 Daysi Winston PA-C 909 [place], [place] 442645 Physician Corporate Financial Analyst Physician Corporate Financial Analyst - Surgical 11/30/23 Savita Gregory PA-C [address] [address] Physician Corporate Financial Analyst Urology 11/30/23 [place] [address] [place], [place] 07[address] Physician Gastroenterology 12/06/23 Kelsi Tripathi, [facility] Community Health Worker Primary Care - CC 12/11/23 4 [place] [address] [address] Assigned Neuroscience Provider 12/21/[address] [place] [address] Registered Dietitian Dietitian, Registered 02/14/24 [place] [address] [place], [place] 98[address] Assigned Gastroenterology Provider 02/20/24 04/20/24 Jessica Howell PA-C [address] [place] [address] 134515 Assigned Gastroenterology Provider 04/21/24 09/18/24 Kelsi Tripathi, [facility] Community Health Worker Primary Care - CC 09/11/24 5 Sneha Calero, [facility] Lead Stationary Engineer Apprentice Primary Care - CC 09/15/24 Argenis Mesa MD [address] 200 [place] 9[address]145 Colon & Rectal 09/17/24 Kelsi Tripathi, [facility] Community Health Worker Primary Care - CC 09/17/24 Candelaria Santillan PA-C [address] [place], [place] [address] Assigned Gastroenterology Provider 09/19/24 Daysi Winston PA-C [address] [place] [address] Assigned Surgical Provider 09/19/24 10/19/24 Argenis Mesa MD [address] [place] [address] [place] [address] Assigned Surgical Provider 10/20/24 Melvi Chavez MD [address] [place] [address] [place] [address] Urology 10/28/24 Jaret Pitts, CHW Community Health Worker Primary Care - CC 12/12/24 5 Neetu Hopkins CHW Community Health Worker 12/25/24 documented as of this encounter
--- OUTSIDE RECORDS SUMMARY | 2024-12-30 17:05 | XMS_ITS | Encounter Summary ---
Author Organization [place] Address [address] [place] [address] Care Team Providers Care Bark Fitter Name Role Phone Raiza Martinez MD Unavailable Stefan Gupta MD, Sherry Unavailable [phone] Karen Rai FURNITURE UPHOLSTERER RESEARCH PROGRAM COORDINATOR Unavailable Catherine Miguel NP Unavailable Ara ShortC Unavailable [phone] Ara Short-C Primary Care Provider Stefan Gupta MD, Sherry Unavailable [phone] Graeme Le MD Unavailable Jayda White RN Unavailable Unavailable O'Audrey Grimm MD Unavailable [phone] Emeka Anand MD Unavailable Anais Jaffe FURNITURE UPHOLSTERER [place] Unavailable Willy Owens DO Unavailable Larry Schaefer MD Unavailable Daysi Winston PA-C Unavailable [phone] Savita Gregory PA-C Unavailable Laura Ball DO Unavailable Kelsi Tripathi [facility] Unavailable Michi Patterson MD Unavailable [phone] Unavailable [phone] Laura Ball DO Unavailable [phone] Jessica Howell PA-C Unavailable [phone] Kelsi Tripathi CHW Unavailable [phone] Sneha Calero FROG SHAKER Unavailable [phone] Argenis Mesa MD Unavailable [phone] Kelsi Tripathi CHW Unavailable [phone] Candelaria Santillan PA-C Unavailable Daysi Winston PA-C Unavailable [phone] Argenis Mesa MD Unavailable [phone] Melvi Chavez MD Unavailable [phone] Jaret Pitts CHW Unavailable Unavailable Neetu Hopkins CHW Unavailable [phone] Encounter Details Date Type Department Care Team (Late st Contact Info) Description 10/18/2023 [facility] Medical Advice [address] [address] Dodie Regan, LEONOR Social History Tobacco Use Types Packs/Day Years [...] and Family Not on file 10/02/2023 Attends Muslim Services Not on file 10/01 Do you belong to any clubs o r organizations such as taoist groups, unions, fraternal or athletic groups, or [...] PHQ-2 Answer Date Recorded PHQ-2 Score 6 10/02/2023 [facility] [place] of Occupat ional Health - Occupational Stress Questionnaire Answer Date Recorded [...] Date Recorded Do you have housing? (Jeremy g is defined as stable permanent housing and does not include staying outside in a car, in a tent, in an abandoned building, in an overnight mcfp, or couch-surfing.) Yes 10/02/2023 Are you worried [...] motionally safe where you currently live? Yes 06/27/2023 Within the past 12 months, h ave you been hit, slapped, kicked or otherwise physically hurt by someone? No 06/27/2023 Within the past 12 months, h ave you been humiliated or emotionally abused in other ways by your partner or ex-partner? No 06/27/2023 Comments No Sex and Gender Information Value Date Recorded Sex Assigned at Female 06/01/2023 2:55 PM BARK FITTER Legal Sex Female 1:26 PM BARK FITTER Gender Identity Female 06/01/2023 2:55 PM BARK FITTER Sexual Orientation Straight 06/01/2023 2: 55 PM BARK FITTER documented as of this encounter Plan of Treatment Upcoming Encounters Date Type Department Care Team (Late st Contact Info) Description 01/02/2025 10:30 AM CDT Office Visit [facility] [address] [place] [phone] Ara Short PA-C [address] [place] [address] 01/07/2025 8:30 AM CDT Office Visit [facility] [address] [facility] [address] [place] [phone] Melvi Chavez MD 420 [facility] 394 [place], [place] [address] 02/11/2025 2:00 PM CDT Virtual Visit [facility] 1875 [place] [address] Larry Schaefer MD 516 [place], [place] 597485 02/13/2025 2:00 PM CDT Office Visit [facility] [address] [place] [phone] Ara Short PA-C [address] [place] [address] 02/17/2025 3:15 PM CDT Virtual Visit [facility] [address] 4th [place] [phone] Jessica Howell PA-C [address] [place] [address] 548295 documented as of this encounter Visit Diagnoses Not on filedocumented in this encounter Additional Health Concerns Assessment Noted Time PHQ-9 Depression Total Score: 21 024 8:41 AM CDT documented as of this encounter Care Teams Bark Fitter Relationship Specialty Start Date End Date Ara Short PA-C [address] [place] [phone] PCP - General Family Medicine 06/27/23 Raiza Martinez MD [address] [place] [address] 810105 Otolaryngology 05/18/23 Sherry Aviles MD [address] [place] [address] 243815 Cardiovascular & Thoracic Surgery 06/11/23 Karen Rai APRN RESEARCH PROGRAM COORDINATOR [address] [place] [address] 146095 Nurse Practitioner Neurology 06/13/23 [place] [address] [address] [place] 955597 Nurse Practitioner Nurse Practitioner 06/21/23 02/26/24 Ara Short PAGabbyC [address] [place] [address]818483 Assigned PCP 06/22/23 Sherry Aviles MD [address] [place] [address]46 Assigned Surgical Provider 07/13/23 09/18/24 Graeme Le MD [address] [place], [place] [address] [place], [place] [address] Neurology 08/10/23 10/23/23 Jayda White, RIGOBERTO Specialty Feller Machine Operator Thoracic Surgery 08/28/23 [place] [address] [place], [place] 47939124 Assigned Pain Medication Provider 09/20/23 03/21/24 Emeka Anand MD [address] [place] [address] Neurology 10/24/23 Anais Jaffe APRN [place] [address] [address] Clinical Nurse Specialist Cardiovascular & Thoracic Surgery 11/09/23 Wilyl Owens DO [address] [address] Physician Gastroenterology 11/09/23 Larry Schaefer MD [address] [place] [address] Assigned Endocrinology Provider 11/20/23 Daysi Winston PA-C [address] [place] [address] Physician Adapted Physical Education Specialist Physician Adapted Physical Education Specialist - Surgical 11/30/23 Savita Gregory PA-C [address] [address] Physician Adapted Physical Education Specialist Urology 11/30/23 [place] [address] [place] [address] Physician Gastroenterology 12/06/23 Kelsi Tripathi, [facility] Community Health Worker Primary Care - CC 12/11/23 4 [place] [address] [address] Assigned Neuroscience Provider 12/21/[address] [place] [address] Registered Dietitian Dietitian, Registered 02/14/24 [place] [address] [place] [address] Assigned Gastroenterology Provider 02/20/24 04/20/24 Jessica Howell PA-C [address] [place] [address] Assigned Gastroenterology Provider 04/21/24 09/18/24 Kelsi Triapthi, [facility] Community Health Worker Primary Care - CC 09/11/24 5 Sneha Calero, [facility] Lead Feller Machine Operator Primary Care - CC 09/15/24 Argenis Mesa MD [address] [place] [address] [place] [address] Colon & Rectal 09/17/24 Kelsi Tripathi [facility] Health Worker Primary Care - CC 09/17/24 Candelaria Santillan PA-C [address] [place] [address] Assigned Gastroenterology Provider 09/19/24 Daysi Winston PA-C [address] [place] [address] 435425 Assigned Surgical Provider 09/19/24 10/19/24 Argenis Mesa MD [address] [place] [address] [place] [address] Assigned Surgical Provider 10/20/24 Melvi Chavez MD [address] [place] [place], [place] 467545 Urology 10/28/24 Jaret Pitts, [facility] Community Health Worker Primary Care - CC 12/12/24 5 Neetu Hopkins [facility] Community Health Worker 12/25/24 documented as of this encounter
--- OUTSIDE RECORDS SUMMARY | 2024-12-30 17:05 | XMS_ITS | Encounter Summary ---
Author Organization [place] Address [address] [place] [address] Care Team Providers Care Speech And Language Tutor Name Role Phone Raiza Martinez MD Unavailable Stefan Gupta MD, Sherry Unavailable [phone] Karen Rai APRN DEPUTY HEAD Unavailable [phone] Deacon Bishop MD Unavailable Catherine Miguel NP Unavailable rAa Short-C Unavailable [phone] Ara Short PA-C Primary Care Provider Stefan Gupta MD, Sherry Unavailable [phone] Graeme Le MD Unavailable Jayda White RN Unavailable Unavailable Audrey Dong MD Unavailable [phone] Emeka Anand MD Unavailable Anais Jaffe CLUB CAR ATTENDANT WASTE DUSTER Unavailable Willy Owens DO Unavailable Larry Schaefer MD Unavailable [phone] Daysi Winston PA-C Unavailable Savita Gregory PA-C Unavailable Laura Ball DO Unavailable Kelsi Tripathi CHW Unavailable [phone] Michi Patterson MD Unavailable [phone] Unavailable Laura Ball Samira DO Unavailable [phone] Jessica Howell PA-C Unavailable [phone] Kelis Tripathi CHW Unavailable [phone] Sneha Calero RESIDENTIAL CONSTRUCTION INSTRUCTOR Unavailable [phone] Argenis Mesa MD Unavailable [phone] Kelsi Tripathi CHW Unavailable [phone] Candelaria Santillan-C Unavailable Daysi Winston PA-C Unavailable [phone] Argenis Mesa MD Unavailable [phone] Melvi Chavez MD Unavailable [phone] Jaret Pitts CHW Unavailable Unavailable Neetu Hopkins CHW Unavailable [phone] Encounter Details Date Type Department Care Team (Late st Contact Info) Description 07/10/2023 My[facility] Medical Advice [address] [address] Nesha Kenney CMA Social History Tobacco Use Types Packs/Day Years Used Date Smoking Tobacco: Never Passive Smoke Exposure: Never Smokeless Tobacco: Never PHQ-2 Answer Date Recorded PHQ-2 Score 6 06/27/2023 Adolescent Education Answer Date Record ed Getting [...] in an abandoned building, in an overnight snf, or couch-surfing.) Yes 05/18/2023 Are you worried [...] getting things that you need? No 05/18/2023 Interpersonal Safety Answer Date Record ed Do [...] Sex Assigned at Female 06/01/2023 2:55 PM SPORTS EQUIPMENT SUPERVISOR Legal Sex Female 1:26 PM SPORTS EQUIPMENT SUPERVISOR Gender Identity Female 06/01/2023 2:55 PM SPORTS EQUIPMENT SUPERVISOR Sexual Orientation Straight 06/01/2023 2: 55 PM SPORTS EQUIPMENT SUPERVISOR documented as of this encounter Plan of Treatment Upcoming Encounters Date Type Department Care Team (Late st Contact Info) Description 01/02/2025 10:30 AM CDT Office Visit [facility] [address] [place] [address] Ara Short PA-C [address] [place] [address] 01/07/2025 8:30 AM CDT Office Visit [facility] [address] [place] [address] Melvi Chavez MD 420 [facility] 394 [place], [place] 448415 02/11/2025 2:00 PM CDT Virtual Visit [facility] [place] 1875 [place] [phone] Larry Schaefer MD 516 [place], [place] 136025 02/13/2025 2:00 PM CDT Office Visit [facility] [address] [place] [address] Ara Short PA-C [address] [place] [address] 02/17/2025 3:15 PM CDT Virtual Visit [facility] [place] 909 [facility] 4th [place] [phone] Jessica Howell PA-C [address] [place] [address] 385445 documented as of this encounter Visit Diagnoses Not on filedocumented in this encounter Additional Health Concerns Infection Onset Date Last Indicated Resolved Time Rule Out COVID-19 08/23/2023 08/23/2023 08/23/2023 3:33 AM CDT Assessment Noted Time PHQ-9 Depression Total Score: 23 024 1:32 PM SPORTS EQUIPMENT SUPERVISOR documented as of this encounter Care Teams Speech And Language Tutor Relationship Specialty Start Date End Date Ara Short PA-C [address] [place] [address] PCP - General Family Medicine 06/27/23 Raiza Martinez MD [address] [place] [address] 338795 [phone] Otolaryngology 05/18/23 Sherry Aviles MD [address] [place] [address] Cardiovascular & Thoracic Surgery 06/11/23 Karen Rai APRN DEPUTY HEAD [address] [place] [address] Nurse Practitioner Neurology 06/13/23 Deacon Bishop MD [address] [place] [address] Neurology 06/19/23 08/09/23 [place] [address] [place] [address] Nurse Practitioner Nurse Practitioner 06/21/23 02/26/24 Ara Short, PAGabbyC [address] [place] [address]-051183 Assigned PCP 06/22/23 Sherry Aviles MD [address] [place] [address] Assigned Surgical Provider 07/13/23 09/18/24 Graeme Le MD [address] [place] [address] Neurology 08/10/23 10/23/23 Jayda White, RIGOBERTO Specialty Childcare Aide Thoracic Surgery 08/28/23 [place] [address] [place] [address] Assigned Pain Medication Provider 09/20/23 03/21/24 Emeka Anand MD 909 [place] [address] Neurology 10/24/23 Anais Jaffe APRN WASTE DUSTER 420 [facility] 207 [place] [address] Clinical Nurse Specialist Cardiovascular & Thoracic Surgery 11/09/23 Willy Owens DO 420 [facility] 207 [place], [place] 067605 Physician Gastroenterology 11/09/23 Larry Schaefer MD 516 [place], [place] 711025 Assigned Endocrinology Provider 11/20/23 Daysi Winston PA-C 909 [place] [address] Physician Handbag Stitcher Physician Handbag Stitcher - Surgical 11/30/23 Savita Gregory PA-C [address] 584377 Physician Handbag Stitcher Urology 11/30/23 [place] [address] [place] [address] Physician Gastroenterology 12/06/23 Kelsi Tripathi, [facility] Community Health Worker Primary Care - CC 12/11/23 4 [place] [address] [place] [address] Assigned Neuroscience Provider 12/21/[address] [place] [address] Registered Dietitian Dietitian, Registered 02/14/24 [place] [address] [place], [place] 0[address] Assigned Gastroenterology Provider 02/20/24 04/20/24 Jessica Howell PA-C [address] [place] [address] Assigned Gastroenterology Provider 04/21/24 09/18/24 Kelsi Tripathi, [facility] Community Health Worker Primary Care - CC 09/11/24 5 Sneha Calero, [facility] Lead Childcare Aide Primary Care - CC 09/15/24 Argenis Mesa MD [address] 282115 Colon & Rectal 09/17/24 Kelsi Tripathi, [facility] Community Health Worker Primary Care - CC 09/17/24 Candelaria Santillan PA-C [address] [place] [address] Assigned Gastroenterology Provider 09/19/24 Daysi Winston PA-C 909 [place] [address] Assigned Surgical Provider 09/19/24 10/19/24 Argenis Mesa MD [address] [place] [address] Assigned Surgical Provider 10/20/24 Melvi Chavez MD [address] [place] [place] [address] Urology 10/28/24 Jaret Pitts, [facility] Community Health Worker Primary Care - CC 12/12/24 5 Neetu Hopkins CHW Community Health Worker 12/25/24 documented as of this encounter
--- OUTSIDE RECORDS SUMMARY | 2024-12-30 17:05 | XMS_ITS | Encounter Summary ---
Author Organization [facility] Address [address] [place] [address] 87[address] Care Team Providers Care Electrical Automation Engineer Name Role Phone Raiza Martinez MD Unavailable Stefan Gupta MD, Sherry Unavailable [phone] Karen Rai SUPERVISING LAW ENFORCEMENT ANALYST SURVEY RESEARCHER Unavailable Catherine Miguel NP Unavailable [phone] Ara ShortC Unavailable [phone] Ara Short-C Primary Care Provider Stefan Gupta MD, Sherry Unavailable [phone] Graeme Le MD Unavailable Jayda White RN Unavailable Unavailable O'Audrey Grimm MD Unavailable [phone] Emeka Anand MD Unavailable [phone] Anais Jaffe SUPERVISING LAW ENFORCEMENT ANALYST DAIRY PROCESSING EQUIPMENT OPERATOR Unavailable Willy Owens DO Unavailable Larry Schaefer MD Unavailable [phone] Daysi Winston PA-C Unavailable Savita Gregory PA-C Unavailable Laura Ball DO Unavailable Kelsi Tripathi [facility] Unavailable Michi Patterson MD Unavailable [phone] Unavailable [phone] Laura Ball DO Unavailable [phone] Jessica Howell PA-C Unavailable [phone] Kelsi Tripathi CHW Unavailable [phone] Sneha Calero NEONATAL DOCTOR Unavailable [phone] Argenis Mesa MD Unavailable [phone] Kelsi Tripathi CHW Unavailable [phone] Candelaria Santillan PA-C Unavailable Daysi Winston PA-C Unavailable [phone] Argenis Mesa MD Unavailable [phone] Melvi Chavez MD Unavailable [phone] Jaret Pitts CHW Unavailable Unavailable Neetu Hopkins CHW Unavailable [phone] Encounter Details Date Type Department Care Team (Late st Contact Info) Description 10/02/2023 MyC Medical Advice [facility] [address] [place] [address] Jayda White, RN Social History Tobacco Use Types Packs/Day Years [...] and Family Not on file 10/02/2023 Attends Religion Services Not on file 10/01 Do you belong to any clubs o r organizations such as synagogue groups, unions, fraternal or athletic groups, or [...] Answer Date Recorded PHQ-2 Score 6 10/02/2023 [facility] [place] of Occupat ional Health - Occupational Stress [...] Answer Date Recorded Do you have housing? (Lachoin g is defined as stable permanent housing and does not include staying outside in a car, in a tent, in an abandoned building, in an overnight halfway, or couch-surfing.) Yes 10/02/2023 Are you worried [...] Sex Assigned at Female 06/01/2023 2:55 PM ROUNDING MACHINE OPERATOR Legal Sex Female 1:26 PM ROUNDING MACHINE OPERATOR Gender Identity Female 06/01/2023 2:55 PM ROUNDING MACHINE OPERATOR Sexual Orientation Straight 06/01/2023 2: 55 PM ROUNDING MACHINE OPERATOR documented as of this encounter Functional Status * Audit-C Score Answer Date of Assessment Author 0 10/02/2023 8:46 AM CDT Tablet, A pple [place] * Q1: How often do you have a drink containing alcohol? Answer Date of Assessment Author Never 10/02/2023 8:46 AM CDT Tablet, A pple [place] * Q2: How many drinks containing alcohol do you have on a typical day when you are drinking? Answer Date of Assessment Author Patient does not drink 10/02/2023 8:46 AM CDT Ta Mely wang * Q3: How often do you have six or more drinks on one occasion? Answer Date of Assessment Author Never 10/02/2023 8:46 AM CDT Tablet, A pple [place] documented as of this encounter Plan of Treatment Upcoming Encounters Date Type Department Care Team (Late st Contact Info) Description 01/02/2025 10:30 AM CDT Office Visit [facility] [address] [place] [address] Ara Short PAOliver [address] [place] [address] 01/07/2025 8:30 AM CDT Office Visit [facility] [place] [id number] [place] [address] Melvi Chavez MD 420 [facility] [address] [place], [place] 873515 02/11/2025 2:00 PM CDT Virtual Visit [facility] [place] 1875 [place] [address] Larry Schaefer MD 516 [place], [place] 997505 02/13/2025 2:00 PM CDT Office Visit [facility] [address] [place] [address] Ara Short PA-C [address] [place] [address] 02/17/2025 3:15 PM CDT Virtual Visit [facility] [place] 909 [facility] 4th [place] [address] Jessica Howell PA-C [address] [place] [address] 297325 documented as of this encounter Visit Diagnoses Not on filedocumented in this encounter Additional Health Concerns Assessment Noted Time PHQ-9 Depression Total Score: 21 024 8:41 AM CDT documented as of this encounter Care Teams Electrical Automation Engineer Relationship Specialty Start Date End Date Ara Short PA-C [id number] [place] [address] PCP - General Family Medicine 06/27/23 Raiza Martinez MD [address] [place] [address] 851525 Otolaryngology 05/18/23 Sherry Aviles MD [address] [place] [address]455 Cardiovascular & Thoracic Surgery 06/11/23 Karen Rai APRN CNP [address] [place] [address] 32589 Nurse Practitioner Neurology 06/13/23 [place] [address] [place] [address] Nurse Practitioner Nurse Practitioner 06/21/23 02/26/24 Ara Short PA-C [address] [place] [address] Assigned PCP 06/22/23 Sherry Aviles MD [address] [place] [address] 545445 Assigned Surgical Provider 07/13/23 09/18/24 Graeme Le MD [address] [place], [place] [address] [place], [place] 58[address] Neurology 08/10/23 10/23/23 Jayda White, RIGOBERTO Specialty Predictive Maintenance Technician Thoracic Surgery 08/28/23 [place] [address] [place], [place] 57567[address] Assigned Pain Medication Provider 09/20/23 03/21/24 Emeka Anand MD [address] [place] [address] 535285 Neurology 10/24/23 Anais Jaffe, LYLA DAIRY PROCESSING EQUIPMENT OPERATOR 420 [facility] 207 [place] [address] Clinical Nurse Specialist Cardiovascular & Thoracic Surgery 11/09/23 Willy Owens DO 420 [facility] 207 [place], [place] 144665 Physician Gastroenterology 11/09/23 Larry Schaefer MD 516 [place] [address] Assigned Endocrinology Provider 11/20/23 Daysi Winston PA-C 909 [place], [place] [address]95 Physician Director Emergency Department Physician Director Emergency Department - Surgical 11/30/23 Savita Gregory PA-C [address] [phone] Physician Director Emergency Department Urology 11/30/23 [place] [address] [place], [place] [address] Physician Gastroenterology 12/06/23 Kelsi Tripathi, [facility] Community Health Worker Primary Care - CC 12/11/23 [place] [address] [place], [place] [phone] Assigned Neuroscience Provider 12/21/[address] [place] [address] 27748 Registered Dietitian Dietitian, Registered 02/14/24 [place] [address] [place] [address] Assigned Gastroenterology Provider 02/20/24 04/20/24 Jessica Howell PA-C [address] [place] [address] 813895 Assigned Gastroenterology Provider 04/21/24 09/18/24 Kelsi Tripathi, [facility] Community Health Worker Primary Care - CC 09/11/24 5 Sneha Calero, [facility] Lead Predictive Maintenance Technician Primary Care - CC 09/15/24 Argenis Mesa MD 6525 [facility] Eugenia [address] 699165 Colon & Rectal 09/17/24 Kelsi Tripathi, [facility] Community Health Worker Primary Care - CC 09/17/24 Candelaria Santillan PA-C [address] [place] [address] Assigned Gastroenterology Provider 09/19/24 Daysi Winston PA-C [address] [place] [address] 269585 Assigned Surgical Provider 09/19/24 10/19/24 Argenis Mesa MD [address] [place] [address] [place] [address] Assigned Surgical Provider 10/20/24 Melvi Chavez MD [address] [place] [address] [place] [address] Urology 10/28/24 Jaret Pitts, W Community Health Worker Primary Care - CC 12/12/24 5 Neetu Hopkins CHW Community Health Worker 12/25/24 documented as of this encounter
--- OUTSIDE RECORDS SUMMARY | 2024-12-30 17:05 | XMS_ITS | Encounter Summary ---
Author Organization [facility] Address [address] [place] [address] 18288 Care Team Providers Care Surgical Manager Name Role Phone Raiza Martinez MD Unavailable Stefan Gupta MD, Sherry Unavailable [phone] Karen Rai APRN ATTENDANCE OFFICER Unavailable [phone] Deacon Bishop MD Unavailable Catherine Miguel NP Unavailable [phone] Ara Short-C Unavailable [phone] Ara Short PA-C Primary Care Provider [phone] Stefan Gupta MD, Sherry Unavailable [phone] Graeme Le MD Unavailable Jayda White RN Unavailable Unavailable Audrey Dong MD Unavailable [phone] Emeka Anand MD Unavailable Anais Jaffe PIPE FITTER MARINE JEWISH THOUGHT PROFESSOR Unavailable Willy Owens DO Unavailable Larry Schaefer MD Unavailable [phone] Daysi Winston PA-C Unavailable Savita Gregory PA-C Unavailable [phone] Laura Ball DO Unavailable Kelsi Tripathi CHW Unavailable Michi Patterson MD Unavailable [phone] Unavailable [phone] Laura Ball DO Unavailable [phone] Jessica Howell-C Unavailable [phone] Kelsi Tripathi CHW Unavailable Abdias Sneha Delisa MONITOR CAR OPERATOR Unavailable [phone] Argenis Mesa MD Unavailable [phone] Kelsi Tripathi CHW Unavailable [phone] Candelaria SantillanC Unavailable Daysi Winston-C Unavailable [phone] Argenis Mesa MD Unavailable [phone] Melvi Chavez MD Unavailable [phone] Encounter Details Date Type Department Care Team (Late st Contact Info) Description 07/06/2023 Prep for Procedure [facility] - Surgical Specialties Service Line [address] [place] [address] Sherry Aviles MD [address] [place] [address] Social History Tobacco Use Types Packs/Day Years Used Date Smoking Tobacco: Never Passive Smoke Exposure: Never Smokeless Tobacco: Never Social Connection and Isolation Panel [NHANES] A nswer Date Recorded In a typical week, how many times do you talk on the phone with family, friends, or neighbors? Once a week 10/02/2023 Frequency of Social Gatherings with Friends and Family Not on file 10/02/2023 Attends Mormon Services Not on file 10/01 Do you belong to any clubs o r organizations such as hinduism groups, unions, fraternal or athletic groups, or [...] Answer Date Recorded PHQ-2 Score 6 09/11/2024 [facility] - Occupational Stress Questionnaire Answer [...] in an abandoned building, in an overnight [place] [facility], or couch-surfing.) Yes 10/02/2023 Are you worried [...] Sex Assigned at Female 06/01/2023 2:55 PM RATOPRINTER Legal Sex Female 1:26 PM RATOPRINTER Gender Identity Female 06/01/2023 2:55 PM RATOPRINTER Sexual Orientation Straight 06/01/2023 2: 55 PM RATOPRINTER documented as of this encounter Functional Status [...] not drink 10/02/2023 8:46 AM CDT Ta kathleen [place] * Q3: How often do you have six or more drinks on one occasion? Answer Date of Assessment Author Never 10/02/2023 8:46 AM CDT Tablet, A pple [place] documented as of this encounter Plan of Treatment Upcoming Encounters Date Type Department Care Team (Late st Contact Info) Description 01/02/2025 10:30 AM CDT Office Visit [facility] [address] [place] [address] Ara Short PA-C [address] [place] [address] 01/07/2025 8:30 AM CDT Office Visit [facility] [place] [address] [place] [phone] Melvi Chavez MD 420 [facility] 394 [place] [address] 02/11/2025 2:00 PM CDT Virtual Visit [facility] [place] 6[address]85 [place] [address] Larry Schaefer MD 516 [place] [address] 02/13/2025 2:00 PM CDT Office Visit [facility] [address] [place] [address] Ara Short PA-C [address] [place] [address] 02/17/2025 3:15 PM CDT Virtual Visit [facility] [place] 909 [facility] 4th [place] [phone] Jessica Howell PA-C [address] [place] [address] documented as of this encounter Visit Diagnoses Not on filedocumented in this encounter Additional Health Concerns Infection Onset Date Last Indicated Resolved Time Rule Out COVID-19 08/23/2023 08/23/2023 08/23/2023 3:33 AM CDT Assessment Noted Time PHQ-9 Depression Total Score: 23 024 1:32 PM RATOPRINTER documented as of this encounter Care Teams Surgical Manager Relationship Specialty Start Date End Date Ara Short PA-C [id number] [place] [address] PCP - General Family Medicine 06/27/23 Raiza Martinez MD [address] [place] [address]70 Otolaryngology 05/18/23 Sherry Aviles MD [address] [place] [address] Cardiovascular & Thoracic Surgery 06/11/23 Karen Rai APRN ATTENDANCE OFFICER [address] [place] [address] Nurse Practitioner Neurology 06/13/23 Deacon Bishop MD [address] [place] [address] Neurology 06/19/23 08/09/23 [place] [address] [place] [address] Nurse Practitioner Nurse Practitioner 06/21/23 02/26/24 Ara Short PA-C [address] [place] [address] Assigned PCP 06/22/23 Sherry Aviles MD [address] [place] [address] Assigned Surgical Provider 07/13/23 09/18/24 Graeme Le MD [address] [place] [address] Neurology 08/10/23 10/23/23 Jayda White, RN Specialty Mobile Application Engineer Thoracic Surgery 08/28/23 [place] [address] [place] [address] Assigned Pain Medication Provider 09/20/23 03/21/24 Emeka Anand MD 909 [place] [address] Neurology 10/24/23 Anais Jaffe APRN JEWISH THOUGHT PROFESSOR [address] 739935 Clinical Nurse Specialist Cardiovascular & Thoracic Surgery 11/09/23 Willy Owens DO [address] 030785 Physician Gastroenterology 11/09/23 Larry Schaefer MD 516 [place], [place] 011635 Assigned Endocrinology Provider 11/20/23 Daysi Winston PA-C 909 [place] [address] Physician Metal Cans Supervisor Physician Metal Cans Supervisor - Surgical 11/30/23 Savita Gregory PA-C [address] 365077 Physician Metal Cans Supervisor Urology 11/30/23 [place] [address] [place] [address] Physician Gastroenterology 12/06/23 Kelsi Tripathi, W Community Health Worker Primary Care - CC 12/11/23 4 [place] [address] [place] [address] Assigned Neuroscience Provider 12/21/[address] [place] [address] Registered Dietitian Dietitian, Registered 02/14/24 [place] [address] [place], [place] [address] Assigned Gastroenterology Provider 02/20/24 04/20/24 Jessica Howell PA-C [address] [place] [address] 767305 Assigned Gastroenterology Provider 04/21/24 09/18/24 Kelsi Tripathi, W Community Health Worker Primary Care - CC 09/11/24 5 Sneha Calero, [facility] Lead Mobile Application Engineer Primary Care - CC 09/15/24 Argenis Mesa MD [address] [facility] 200 [place], [place] 074[address] Colon & Rectal 09/17/24 Kelsi Tripathi, W Community Health Worker Primary Care - CC 09/17/24 Candelaria Santillan PA-C [address] [place] [address] Assigned Gastroenterology Provider 09/19/24 Daysi Winston PA-C 909 [place] [address] Assigned Surgical Provider 09/19/24 10/19/24 Argenis Mesa MD [address] [place] [address] [place] [address] Assigned Surgical Provider 10/20/24 Melvi Chavez MD [address] [place] [address] [place] [address] Urology 10/28/24 documented as of this encounter
--- OUTSIDE RECORDS SUMMARY | 2024-12-30 17:05 | XMS_ITS | Encounter Summary ---
Author Organization [facility] Address [address] [place] [address] 16769 Care Team Providers Care Spring Assembler Name Role Phone Raiza Martinez MD Unavailable Stefan Gupta MD, Sherry Unavailable [phone] Karen Rai POWDER PRESS OPERATOR TIRE LAYER Unavailable Catherine Miguel NP Unavailable Ara ShortC Unavailable [phone] Ara Short-C Primary Care Provider Stefan Gupta MD, Sherry Unavailable [phone] Graeme Le MD Unavailable Jayda White RN Unavailable Unavailable O'Audrey Grimm MD Unavailable [phone] Emeka Anand MD Unavailable Anais Jaffe POWDER PRESS OPERATOR ACCOUNT SERVICES MANAGER Unavailable Willy Owens DO Unavailable Larry Schaefer MD Unavailable [phone] Daysi Winston PA-C Unavailable [phone] Saivta Gregory PA-C Unavailable Laura Ball DO Unavailable Kelsi Tripathi [facility] Unavailable Michi Patterson MD Unavailable [phone] Unavailable [phone] Laura Ball DO Unavailable [phone] Jessica Howell PA-C Unavailable [phone] eKlsi Tripathi CHW Unavailable [phone] Sneha Calero STEMHOLE BORER Unavailable [phone] Argenis Mesa MD Unavailable [phone] Kelsi Tripathi CHW Unavailable [phone] Candelaria Santillan PA-C Unavailable Daysi Winston PA-C Unavailable [phone] Argenis Mesa MD Unavailable [phone] Melvi Chavez MD Unavailable [phone] Jaret Pitts CHW Unavailable Unavailable Neetu Hopkins CHW Unavailable [phone] Encounter Details Date Type Department Care Team (Late st Contact Info) Description 09/05/2023 MyC Medical Advice [facility] [address] [place] [address] Jayda White, RN Social History Tobacco Use Types Packs/Day Years Used Date Smoking Tobacco: Never Passive Smoke Exposure: Never Smokeless Tobacco: Never Alcohol Use Standard Drinks/Week Comments Never 0 (1 standard drink = 0.6 oz pur e alcohol) PHQ-2 Answer Date Recorded PHQ-2 Score 6 08/27/2023 Adolescent Education Answer Date Record ed Getting [...] Sex Assigned at Female 06/01/2023 2:55 PM TAP AND DIE MAKER TECHNICIAN Legal Sex Female 1:26 PM TAP AND DIE MAKER TECHNICIAN Gender Identity Female 06/01/2023 2:55 PM TAP AND DIE MAKER TECHNICIAN Sexual Orientation Straight 06/01/2023 2: 55 PM TAP AND DIE MAKER TECHNICIAN documented as of this encounter Plan of Treatment Upcoming Encounters Date Type Department Care Team (Late st Contact Info) Description 01/02/2025 10:30 AM CDT Office Visit [facility] [address] [place] [address] Ara Short PA-C [address] [place] [address] 01/07/2025 8:30 AM CDT Office Visit [facility] [place] [address] [place], [place] [address] Melvi Chavez MD 420 [facility] 394 [place], [place] [address] 02/11/2025 2:00 PM CDT Virtual Visit [facility] [place] 1875 [place] [address] Larry Schaefer MD 516 [place], [place] 896985 02/13/2025 2:00 PM CDT Office Visit [facility] [address] [place] [address] Ara Short PA-C [address] [place] [address] 02/17/2025 3:15 PM CDT Virtual Visit [facility] [place] 909 [facility] 4th [place] [address] Jessica Howell PA-C [address] [place] [address] 646805 documented as of this encounter Visit Diagnoses Not on filedocumented in this encounter Additional Health Concerns Assessment Noted Time PHQ-9 Depression Total Score: 19 024 2:02 PM CDT documented as of this encounter Care Teams Spring Assembler Relationship Specialty Start Date End Date Ara Short PA-C [address] [place] [address] PCP - General Family Medicine 06/27/23 Raiza Martinez MD [address] [place] [address] Otolaryngology 05/18/23 Sherry Aviles MD [address] [place] [address] Cardiovascular & Thoracic Surgery 06/11/23 Karen Rai APRN CNP [address] [place] [address]280 Nurse Practitioner Neurology 06/13/23 [place] [address] [place] [address] Nurse Practitioner Nurse Practitioner 06/21/23 02/26/24 Ara Short PA-C [address] [place] [address] Assigned PCP 06/22/23 Sherry Aviles MD [address] [place] [address] 95458 Assigned Surgical Provider 07/13/23 09/18/24 Graeme Le MD [address] [place], [place] [address] [place] [address] Neurology 08/10/23 10/23/23 Jayda White, RIGOBERTO Specialty Weather Observer Thoracic Surgery 08/28/23 [place] [address] [place], [place] 38192124 Assigned Pain Medication Provider 09/20/23 03/21/24 Emeka Anand MD [address] [place] [address] 139385 Neurology 10/24/23 Anais Jaffe APRN ACCOUNT SERVICES MANAGER 420 [facility] 207 [place], [place] 042625 Clinical Nurse Specialist Cardiovascular & Thoracic Surgery 11/09/23 Willy Owens DO 420 [facility] 207 [place], [place] 755835 Physician Gastroenterology 11/09/23 Larry Schaefer MD 516 [place], [place] 072325 Assigned Endocrinology Provider 11/20/23 Daysi Winston PA-C 909 [place], [place] 272095 Physician High Scaler Physician High Scaler - Surgical 11/30/23 Savita Gregory PA-C [address] [phone] Physician High Scaler Urology 11/30/23 [place] [address] [place], [place] [address] Physician Gastroenterology 12/06/23 Kelsi Tripathi, [facility] Community Health Worker Primary Care - CC 12/11/23 [place] [address] [place] [address] 70417 Assigned Neuroscience Provider 12/21/[address] [place] [address]682 Registered Dietitian Dietitian, Registered 02/14/24 [place] [address] [place] [address] Assigned Gastroenterology Provider 02/20/24 04/20/24 Jessica Howell PA-C [address] [place] [address] 587445 Assigned Gastroenterology Provider 04/21/24 09/18/24 Kelsi Tripathi, [facility] Community Health Worker Primary Care - CC 09/11/24 5 Sneha Calero, [facility] Lead Weather Observer Primary Care - CC 09/15/24 Argenis Mesa MD 6525 [facility] Eugenia [address] 740015 Colon & Rectal 09/17/24 Kelsi Tripathi, [facility] Community Health Worker Primary Care - CC 09/17/24 Candelaria Santillan PA-C [address] [place] [address] Assigned Gastroenterology Provider 09/19/24 Daysi Winston PA-C [address] [place] [address] Assigned Surgical Provider 09/19/24 10/19/24 Argenis Mesa MD [address] [place] [address] [place] [address] Assigned Surgical Provider 10/20/24 Melvi Chavez MD [address] [place] [address] [place] [address] Urology 10/28/24 Jaret Pitts, W Community Health Worker Primary Care - CC 12/12/24 5 Neetu Hopkins CHW Community Health Worker 12/25/24 documented as of this encounter
--- OUTSIDE RECORDS SUMMARY | 2024-12-30 17:05 | XMS_ITS | Clinical Summary ---
Author Organization [facility] Address [address] [place] [address] Care Team Providers Care Endless Belt Finisher Name Role Phone Unavailable Primary Care Provider Unavailabl e Source Comments You are receiving this document as you are listed as the primary care provider,follow-up provider, or the patient has been referred to you for consultation.This is in compliance with the Medicare andMedicaid EHR Incentive Program,which states Providers who transition their patient to another setting of careor provider of care or refers their patient to another provider of care shouldprovide summary care record for each transition of care or referral. [employer] Allergies No known active allergies Medications amphetamine-dextro amphetamine XR (ADDERALL XR) 20 MG 24 hour release capsule Take 1 Capsule (20 mg) by mouth daily. Should be given by noon. Active sertraline (ZOLOFT) 100 MG tablet Take 1 Tablet (100 mg) by mouth daily. Active traZODone (DESYREL) 50 MG tablet Take 1-3 Tablets (50-150 mg) by mouth at bedtime as needed for Sleep. Active metoclopramide (REGLAN) 10 MG/10ML solution Take 10 mL (10 mg) by mouth three times daily before meals. Active ondansetron (ZOFRAN-ODT) 4 MG disintegrating tablet Take 1 Tablet (4 mg) by mouth every 8 hours as needed for Nausea. Active oxyCODONE (ROXICODONE) 1 MG/1ML solution Take 5 mL (5 mg) by mouth every 6 hours as needed for Pain. Active senna-docusate (AKA SENOKOT-S) 8.6-50 MG tablet Take 1 Tablet by mouth two times daily as needed for Constipation. Active methocarbamol (ROBAXIN) 500 MG tablet Take 1 Tablet (500 mg) by mouth at bedtime as needed. Active omeprazole (PRILOSEC) 40 MG capsule Take 1 Capsule (40 mg) by mouth daily. Take 1 hour before a meal. Active acetaminophen 500 MG tablet Take 2 Tablets (1,000 mg) by mouth daily as needed for Pain. Maximum acetaminophen dose is 4000 mg in 24 hours Active ibuprofen (MOTRIN) 200 MG tablet Take 2 Tablets (400 mg) by mouth daily as needed for Pain. Active Active Problems Problem Noted Date Diagnosed Date Dilated cbd, acquired 09/13/2023 Anorexia 09/13/2023 Complication of surgical procedure 09/13/2023 Social History Tobacco Use Types Packs/Day Years Used Date Smoking Tobacco: Never Assessed Humiliation, Afraid, Rape, and Kick questionnair e Answer Date Recorded Fear of Current or Ex-Partner Not on file Emotionally Abused Not on file 09/13/2023 Within the last year, have y ou been kicked, hit, slapped, or otherwise physically hurt by your partner or ex-partner? No 09/13/2023 Within the last year, have y ou been raped or forced to have any kind of sexual activity by your partner or ex-partner? No 09/13/2023 Comments Unknown Sex and Gender Information Value Date Recorded Sex Assigned at Female 09/13/2023 8:06 PM CDT Legal Sex Female 8:09 AM PROP SAWYER Gender Identity Female 09/13/2023 8:06 PM CDT Sexual Orientation Straight 09/13/2023 8: 06 PM CDT Last Filed Vital Signs Vital Sign Reading Time Taken Comments Blood Pressure 117/86 09/13/2023 5:00 PM CDT Pulse 77 09/13/2023 5:03 PM CDT Temperature 36.8 C (98.3 F) 09/13/2023 9:32 AM CDT Respiratory Rate 16 09/13/2023 5:03 PM CDT Oxygen Saturation 93% 09/13/2023 5:03 PM CDT Inhaled Oxygen Concentration - - Weight - - Height - - Body Mass Index - - Plan of Treatment Health Maintenance Due Date Last Done Comments Cervical Cancer Screening Due 1964 Colon Cancer Screening Plan Due 1964 Hep C Screening (Preventive Services) 1964 Mammogram 1964 HIV Screening (Preventive Services) 1980 Adult Preventive Visit 1982 Cholesterol 2009 Zoster/Shingles Vaccine (1 of 2) 2014 Pneumococcal Vaccine 50+ Yrs (2 of 2 - PCV20 or PCV21) 06/13/2017 06/13/2016 COVID-19 Vaccine (1 - 2023- season) 2023 Influenza Vaccine (#1) 2024 7, 06/13/2016, 01/26/2015, Additional history exists DTaP/Tdap/Td Vaccine (3 - Tdap) 06/24/2030 06/24/2020, 01/26/2009 RSV Vaccine (1 - 1-dose 75+ series) 08/11/2039 HepA Vaccine Aged Out No longer eligi ble based on patient's age to complete this topic HepB Vaccine Aged Out No longer eligi ble based on patient's age to complete this topic Hib Vaccine Aged Out No longer eligi ble based on patient's age to complete this topic IPV (Polio) Vaccine Aged Out No longe r eligible based on patient's age to complete this topic MCV4 Vaccine Aged Out No longer eligi ble based on patient's age to complete this topic Meningococcal B Vaccine Aged Out No l onger eligible based on patient's age to complete this topic Insurance [address] [place], [place] [address]
--- OUTSIDE RECORDS SUMMARY | 2024-12-30 17:05 | XMS_ITS | Encounter Summary ---
Author Organization [facility] Address [address] [place] [address] Care Team Providers Care Water And Gas Helper Name Role Phone Raiza Martinez MD Unavailable Stefan Gupta MD, Sherry Unavailable [phone] Karen Rai APRN FINISHING SUPERVISOR PLASTIC SHEETS Unavailable [phone] Deacon Bishop MD Unavailable Catherine Miguel NP Unavailable [phone] Ara Short-C Unavailable [phone] Ara Short PA-C Primary Care Provider [phone] Stefan Gupta MD, Sherry Unavailable [phone] Graeme Le MD Unavailable Jayda White RN Unavailable Unavailable Audrey Dong MD Unavailable [phone] Emeka Anand MD Unavailable [phone] Anais Jaffe TOBACCO SAMPLER MANAGER SCIENTIFIC Unavailable Willy Owens DO Unavailable Larry Schaefer MD Unavailable [phone] Daysi Winston PA-C Unavailable [phone] Savita Gregory PA-C Unavailable Laura Ball DO Unavailable Kelsi Tripathi CHW Unavailable Michi Patterson MD Unavailable [phone] Unavailable Laura Ball Samira DO Unavailable [phone] Jessica Howell PA-C Unavailable [phone] Kelsi Tripathi CHW Unavailable [phone] Sneha Calero BUNK ASSEMBLER Unavailable [phone] Argenis Mesa MD Unavailable [phone] Kelsi Tripathi CHW Unavailable [phone] Candelaria Santillan PA-C Unavailable Daysi Winston PA-C Unavailable [phone] Argenis Mesa MD Unavailable [phone] Melvi Chavez MD Unavailable [phone] Jaret Pitts CHW Unavailable Unavailable Neetu Hopkins CHW Unavailable [phone] Encounter Details Date Type Department Care Team (Late st Contact Info) Description 07/13/2023 MyC Medical Advice [facility] [address] [place] [address] Yanira Berman Social History Tobacco Use Types Packs/Day Years [...] in an abandoned building, in an overnight mcc, or couch-surfing.) Yes 05/18/2023 Are you worried [...] Sex Assigned at Female 06/01/2023 2:55 PM DIRECTOR PHARMACOVIGILANCE Legal Sex Female 1:26 PM DIRECTOR PHARMACOVIGILANCE Gender Identity Female 06/01/2023 2:55 PM DIRECTOR PHARMACOVIGILANCE Sexual Orientation Straight 06/01/2023 2: 55 PM DIRECTOR PHARMACOVIGILANCE documented as of this encounter Plan of Treatment Upcoming Encounters Date Type Department Care Team (Late st Contact Info) Description 01/02/2025 10:30 AM CDT Office Visit [facility] [address] [place] [address] Ara Short PA-C [address] [place] [address] 01/07/2025 8:30 AM CDT Office Visit [facility] [place] [id number] [place] [address] Melvi Chavez MD 420 [facility] [address] [place], [place] [address] 02/11/2025 2:00 PM CDT Virtual Visit [facility] [place] [address] [place] [phone] Larry Schaefer MD [address] [place] [address] 02/13/2025 2:00 PM CDT Office Visit [facility] [address] [place] [address] Ara Short PA-C [id number] [place] [address] 02/17/2025 3:15 PM CDT Virtual Visit [facility] [place] 9[address] [facility] 4th [place] [phone] Jessica Howell PA-C [address] [place] [address]1215 documented as of this encounter Visit Diagnoses Not on filedocumented in this encounter Additional Health Concerns Infection Onset Date Last Indicated Resolved Time Rule Out COVID-19 08/23/2023 08/23/2023 08/23/2023 3:33 AM CDT Assessment Noted Time PHQ-9 Depression Total Score: 23 024 1:32 PM DIRECTOR PHARMACOVIGILANCE documented as of this encounter Care Teams Water And Gas Helper Relationship Specialty Start Date End Date Ara Short PA-C [id number] [place] [address] PCP - General Family Medicine 06/27/23 Raiza Martinez MD [address] [place] [address] Otolaryngology 05/18/23 Sherry Aviles MD [address] [place] [address] Cardiovascular & Thoracic Surgery 06/11/23 Karen Rai APRN FINISHING SUPERVISOR PLASTIC SHEETS [address] [place] [address]06 Nurse Practitioner Neurology 06/13/23 Deacon Bishop MD [address] [place] [address] Neurology 06/19/23 08/09/23 [place] [address] [place] [address] Nurse Practitioner Nurse Practitioner 06/21/23 02/26/24 Ara Short PAGabbyC [address] [place] [address] Assigned PCP 06/22/23 Sherry Aviles MD [address] [place] [address] Assigned Surgical Provider 07/13/23 09/18/24 Graeme Le MD [address] [place] [address] Neurology 08/10/23 10/23/23 Jayda White, RIGOBERTO Specialty Horse Racing Analyst Thoracic Surgery 08/28/23 [place] [address] [place] [address] Assigned Pain Medication Provider 09/20/23 03/21/24 Emeka Anand MD 909 [place], [place] 0156[address] Neurology 10/24/23 Anais Jaffe APRN MANAGER SCIENTIFIC 420 [facility] [address] [place] [address] Clinical Nurse Specialist Cardiovascular & Thoracic Surgery 11/09/23 Willy Owens DO 420 [facility] 207 [place], [place] 4[address] Physician Gastroenterology 11/09/23 Larry Schaefer MD 6 [place], [place] 852375 Assigned Endocrinology Provider 11/20/23 Daysi Winston PA-C [address] [place], [place] 1879[address] Physician Ethics Manager Physician Ethics Manager - Surgical 11/30/23 Savita Gregory PA-C [address] [address] Physician Ethics Manager Urology 11/30/23 [place] [address] [place] [address] Physician Gastroenterology 12/06/23 Kelsi Tripathi, W Community Health Worker Primary Care - CC 12/11/23 4 [place] [address] [place] [address] [place] [address] Assigned Neuroscience Provider 12/21/[address] [place] [address] Registered Dietitian Dietitian, Registered 02/14/24 [place] [address] [place], [place] [address] Assigned Gastroenterology Provider 02/20/24 04/20/24 Jessica Howell PA-C [address] [place] [address] 272215 Assigned Gastroenterology Provider 04/21/24 09/18/24 Kelsi Tripathi, W Community Health Worker Primary Care - CC 09/11/24 5 Sneha Calero, [facility] Lead Horse Racing Analyst Primary Care - CC 09/15/24 Argenis Mesa MD [address] [phone] Colon & Rectal 09/17/24 Kelsi Tripathi, W Community Health Worker Primary Care - CC 09/17/24 Candelaria Santillan PA-C [address] [place] [address] Assigned Gastroenterology Provider 09/19/24 Daysi Winston PA-C [address]09 [place] [address] Assigned Surgical Provider 09/19/24 10/19/24 Argenis Mesa MD [address] [place] [address] Assigned Surgical Provider 10/20/24 Melvi Chavez MD [address] [place] [address] [place] [address] Urology 10/28/24 Jaret Pitts CHW Community Health Worker Primary Care - CC 12/12/24 5 Neetu Hopkins CHW Community Health Worker 12/25/24 documented as of this encounter
--- OUTSIDE RECORDS SUMMARY | 2024-12-30 17:05 | XMS_ITS | Encounter Summary ---
Author Organization [facility] Address [address] [place] [address] Care Team Providers Care Furniture Salesperson Name Role Phone Raiza Martinez MD Unavailable Stefan Gupta MD, Sherry Unavailable [phone] Karen Rai COMPUTER PROCESSING SCHEDULER WELDING FOREMAN Unavailable Catherine Miguel NP Unavailable [phone] Ara ShortC Unavailable [phone] Ara Short-C Primary Care Provider Stefan Gupta MD, Sherry Unavailable [phone] Graeme Le MD Unavailable Jayda White RN Unavailable Unavailable O'Audrey Grimm MD Unavailable [phone] Emeka Anand MD Unavailable Anais Jaffe COMPUTER PROCESSING SCHEDULER DELIVERY TABLE OPERATOR Unavailable Willy Owens DO Unavailable Larry Schaefer MD Unavailable [phone] Daysi Winston PA-C Unavailable [phone] Savita Gregory PA-C Unavailable Laura Ball DO Unavailable [phone] Kelsi Tripathi [facility] Unavailable Michi Patterson MD Unavailable [phone] Unavailable [phone] Laura Ball DO Unavailable [phone] Jessica Howell PA-C Unavailable [phone] Kelsi Tripathi CHW Unavailable [phone] Sneha Calero LINUX ADMIN Unavailable [phone] Argenis Mesa MD Unavailable [phone] Kelsi Tripathi CHW Unavailable [phone] Candelaria Santillan PA-C Unavailable Daysi Winston PA-C Unavailable [phone] Argenis Mesa MD Unavailable [phone] Melvi Chavez MD Unavailable [phone] Jaret Pitts CHW Unavailable Unavailable Neetu Hopkins CHW Unavailable [phone] Encounter Details Date Type Department Care Team (Late st Contact Info) Description 10/01/2023 MyC Medical Advice [facility] [address] [place] [address] Yanira Berman Social History Tobacco Use [...] and Family Not on file 10/02/2023 Attends Yazidism Services Not on file 10/01 Do you belong to any clubs o r organizations such as confucianism groups, unions, fraternal or athletic groups, or [...] Answer Date Recorded PHQ-2 Score 6 10/02/2023 [facility] - Occupational Stress [...] in an abandoned building, in an overnight jail, or couch-surfing.) Yes 10/02/2023 Are you worried [...] Sex Assigned at Female 06/01/2023 2:55 PM WAITER Legal Sex Female 1:26 PM WAITER Gender Identity Female 06/01/2023 2:55 PM WAITER Sexual Orientation Straight 06/01/2023 2: 55 PM WAITER documented as of this encounter Functional Status [...] drink 10/02/2023 8:46 AM CDT Ta kathleen [place] * Q3: How often do you have six or more drinks on one occasion? Answer Date of Assessment Author Never 10/02/2023 8:46 AM CDT Tablet, A pple [place] documented as of this encounter Plan of Treatment Upcoming Encounters Date Type Department Care Team (Late st Contact Info) Description 01/02/2025 10:30 AM CDT Office Visit [facility] [address] [place] [address] Ara Short PAOliver [address] [place] [address] 01/07/2025 8:30 AM CDT Office Visit [facility] [place] [address] [place] [address] Melvi Chavez MD 420 [facility] 394 [place], [place] [address] 02/11/2025 2:00 PM CDT Virtual Visit [facility] Specialty [address] [phone] Larry Schaefer MD [address] [place], [place] [address] 02/13/2025 2:00 PM CDT Office Visit [facility] [address] [place] [address] Ara Short PA-C [address] [place] [address] 02/17/2025 3:15 PM CDT Virtual Visit [facility] [place] 9[address] [facility] 4th [place] [phone] Jessica Howell PA-C [address] [place] [address] 601425 documented as of this encounter Visit Diagnoses Not on filedocumented in this encounter Additional Health Concerns Assessment Noted Time PHQ-9 Depression Total Score: 19 024 2:02 PM CDT documented as of this encounter Care Teams Furniture Salesperson Relationship Specialty Start Date End Date Ara Short PA-C [address] [place] [address] PCP - General Family Medicine 06/27/23 Raiza Martinez MD [address] [place] [address] Otolaryngology 05/18/23 Sherry Aviles MD [address] [place] [address] Cardiovascular & Thoracic Surgery 06/11/23 Karen Rai APRN CNP [address] [place] [address] Nurse Practitioner Neurology 06/13/23 [place] [address] [place] [address] Nurse Practitioner Nurse Practitioner 06/21/23 02/26/24 Ara Short PA-C [address] [place] [address] Assigned PCP 06/22/23 Sherry Aviles MD [address] [place] [address] 267595 Assigned Surgical Provider 07/13/23 09/18/24 Graeme Le MD [address] [place] [address] [address] Neurology 08/10/23 10/23/23 Jayda White, RN Specialty Allergist/Immunologist Thoracic Surgery 08/28/23 [place] [address] [place], [place] [phone] Assigned Pain Medication Provider 09/20/23 03/21/24 Emeka Anand MD [address] [place] [address] 935265 Neurology 10/24/23 Anais Jaffe APRN CNS 420 [facility] 207 [place] [address] Clinical Nurse Specialist Cardiovascular & Thoracic Surgery 11/09/23 Willy Owens DO 420 [facility] 207 [place], [place] [address] Physician Gastroenterology 11/09/23 Larry Schaefer MD [address] [place] [address] Assigned Endocrinology Provider 11/20/23 Daysi Winston PA-C [address] [place], [place] 9[address] Physician Cnc Programmer Physician Cnc Programmer - Surgical 11/30/23 Savita Gregory PA-C [address] 593927 Physician Cnc Programmer Urology 11/30/23 [place] [address] [place] [address] Physician Gastroenterology 12/06/23 Kelsi Tripathi, [facility] Community Health Worker Primary Care - CC 12/11/23 [place] [address] [address] [facility] [address] [place], [place] [address] Assigned Neuroscience Provider 12/21/[address] [place] [address] Registered Dietitian Dietitian, Registered 02/14/24 [place] [address] [place] [address] Assigned Gastroenterology Provider 02/20/24 04/20/24 Jessica Howell PA-C [address] [place] [address] 589855 Assigned Gastroenterology Provider 04/21/24 09/18/24 Kelsi Tripathi, [facility] Community Health Worker Primary Care - CC 09/11/24 5 Sneha Calero, [facility] Lead Allergist/Immunologist Primary Care - CC 09/15/24 Argenis Mesa MD 6525 [facility] Eugenia [address] 997465 Colon & Rectal 09/17/24 Kelsi Tripathi, [facility] Community Health Worker Primary Care - CC 09/17/24 Candelaria Santillan PA-C [address] [place] [address] Assigned Gastroenterology Provider 09/19/24 Daysi Winston PA-C [address] [place] [address] Assigned Surgical Provider 09/19/24 10/19/24 Argenis Mesa MD [address] [place] [address] Assigned Surgical Provider 10/20/24 Melvi Chavez MD [address] [place] [address] [place] [address] Urology 10/28/24 Jaret Pitts, W Community Health Worker Primary Care - CC 12/12/24 5 Neetu Hopkins CHW Community Health Worker 12/25/24 documented as of this encounter
--- OUTSIDE RECORDS SUMMARY | 2024-12-30 17:05 | XMS_ITS | Encounter Summary ---
Author Organization [facility] Address [address] [place] [address] Care Team Providers Care Blood Bank Laboratory Technologist Name Role Phone Raiza Martinez MD Unavailable Stefan Gupta MD, Sherry Unavailable [phone] Karen Rai MORTICIAN INVESTIGATOR PATCHING MACHINE OPERATOR Unavailable Catherine Miguel NP Unavailable [phone] Ara ShortC Unavailable [phone] Ara Short-C Primary Care Provider [phone] Stefan Gupta MD, Sherry Unavailable [phone] Graeme Le MD Unavailable Jayda White RN Unavailable Unavailable O'Audrey Grimm MD Unavailable [phone] Emeka Anand MD Unavailable [phone] Anais Jaffe MORTICIAN INVESTIGATOR NUTRITION FACULTY MEMBER Unavailable Willy Owens DO Unavailable Larry Schaefer MD Unavailable [phone] Daysi Winston PA-C Unavailable Savita Gregory PA-C Unavailable [phone] Laura Ball DO Unavailable Kelsi Tripathi [facility] Unavailable Michi Patterson MD Unavailable [phone] Unavailable [phone] Laura Ball DO Unavailable [phone] Jessica Howell PA-C Unavailable [phone] Kelsi Tripathi CHW Unavailable [phone] Sneha Calero CURRICULUM SPECIALIST Unavailable [phone] Argenis Mesa MD Unavailable [phone] Kelsi Tripathi CHW Unavailable [phone] Candelaria Santillan PA-C Unavailable Daysi Winston PA-C Unavailable [phone] Argenis Mesa MD Unavailable [phone] Melvi Chavez MD Unavailable [phone] Jaret Pitts CHW Unavailable Unavailable Neetu Hopkins CHW Unavailable [phone] Encounter Details Date Type Department Care Team (Late st Contact Info) Description 09/04/2023 MyC Medical Advice [facility] [address] [place] [phone] Jayda White, RN Social History Tobacco [...] Sex Assigned at Female 06/01/2023 2:55 PM SAUSAGE MIXER Legal Sex Female 1:26 PM SAUSAGE MIXER Gender Identity Female 06/01/2023 2:55 PM SAUSAGE MIXER Sexual Orientation Straight 06/01/2023 2: 55 PM SAUSAGE MIXER documented as of this encounter Plan of Treatment Upcoming Encounters Date Type Department Care Team (Late st Contact Info) Description 01/02/2025 10:30 AM CDT Office Visit [facility] [id number] [place] [phone] Ara Short PA-C [address] [place] [address] 01/07/2025 8:30 AM CDT Office Visit [facility] [place] [address] [place], [place] [address] Melvi Chavez MD 420 [facility] [address] [place], [place] [address] 02/11/2025 2:00 PM CDT Virtual Visit [facility] Specialty [facility] [place] [address]75 [place] [phone] Larry Schaeefr MD 516 [place], [place] 648865 02/13/2025 2:00 PM CDT Office Visit [facility] [address] [place] [address] Ara Short PA-C [id number] [place] [address] 02/17/2025 3:15 PM CDT Virtual Visit [facility] G[facility]enterology [facility] [place] 9[address] [facility] 4th [place] [phone] Jessica Howell PA-C [address] [place] [address] 754835 documented as of this encounter Visit Diagnoses Not on filedocumented in this encounter Additional Health Concerns Assessment Noted Time PHQ-9 Depression Total Score: 19 024 2:02 PM CDT documented as of this encounter Care Teams Blood Bank Laboratory Technologist Relationship Specialty Start Date End Date Ara Short PA-C [id number] [place] [address] PCP - General Family Medicine 06/27/23 Raiza Martinez MD [address] [place] [address] Otolaryngology 05/18/23 Sherry Aviles MD [address] [place] [address] Cardiovascular & Thoracic Surgery 06/11/23 Karen Rai APRN CNP [address] [place] [address] Nurse Practitioner Neurology 06/13/23 [place] [address] [place] [address] Nurse Practitioner Nurse Practitioner 06/21/23 02/26/24 Ara Short PA-C [address] [place] [address] Assigned PCP 06/22/23 Sherry Aviles MD [address] [place] [address] Assigned Surgical Provider 07/13/23 09/18/24 Graeme Le MD [address] [place], [place] [address] [place] [address] Neurology 08/10/23 10/23/23 Jayda White, RIGOBERTO Specialty Licensed Sales Assistant Thoracic Surgery 08/28/23 [place] [address] [place], [place] [phone] Assigned Pain Medication Provider 09/20/23 03/21/24 Emeka Anand MD [address] [place] [address] 855675 Neurology 10/24/23 Anais Jaffe APRN NUTRITION FACULTY MEMBER 420 [facility] 207 [place], [place] 7768[address] Clinical Nurse Specialist Cardiovascular & Thoracic Surgery 11/09/23 Willy Owens DO 420 [facility] 207 [place], [place] [address] Physician Gastroenterology 11/09/23 Larry Schaefer MD 516 [place], [place] 179035 Assigned Endocrinology Provider 11/20/23 Daysi Winston PA-C 909 [place], [place] 0614[address] Physician Home School Liaison Officer Physician Home School Liaison Officer - Surgical 11/30/23 Savita Gregory PA-C [address] [phone] Physician Home School Liaison Officer Urology 11/30/23 [place] [address] [place], [place] [address] Physician Gastroenterology 12/06/23 Kelsi Tripathi, [facility] Community Health Worker Primary Care - CC 12/11/23 [place] [address] S[place] [place] [address] Assigned Neuroscience Provider 12/21/[address] [place] [address] Registered Dietitian Dietitian, Registered 02/14/24 [place] [address] [place] [address] Assigned Gastroenterology Provider 02/20/24 04/20/24 Jessica Howell PA-C [address] [place] [address] 625845 Assigned Gastroenterology Provider 04/21/24 09/18/24 Kelsi Tripathi, [facility] Community Health Worker Primary Care - CC 09/11/24 5 Sneha Calero, [facility] Lead Licensed Sales Assistant Primary Care - CC 09/15/24 Argenis Mesa MD 6525 [facility] Eug[address] 868695 Colon & Rectal 09/17/24 Kelsi Tripathi, [facility] Community Health Worker Primary Care - CC 09/17/24 Candelaria Santillan PA-C [address] [place] [address] Assigned Gastroenterology Provider 09/19/24 Daysi Winston PA-C [address] [place] [address] Assigned Surgical Provider 09/19/24 10/19/24 Argenis Mesa MD [address] [place] [address] [place] [address] Assigned Surgical Provider 10/20/24 Melvi Chavez MD [address] [place] [address] [place] [address] Urology 10/28/24 Jaret Pitts, W Community Health Worker Primary Care - CC 12/12/24 5 Neetu Hopkins CHW Community Health Worker 12/25/24 documented as of this encounter
--- OUTSIDE RECORDS SUMMARY | 2024-12-30 17:05 | XMS_ITS | Encounter Summary ---
Author Organization [facility] Address [address] [place] [address] Care Team Providers Care Trademark Affixer Name Role Phone Raiza Martinez MD Unavailable Stefan Gupta MD, Sherry Unavailable [phone] Karen Rai APRN CLINICAL ACADEMIC ALLERGIST Unavailable [phone] Deacon Bishop MD Unavailable Catherine Miguel NP Unavailable [phone] Ara Short-C Unavailable [phone] Ara Short PA-C Primary Care Provider [phone] Stefan Gupta MD, Sherry Unavailable [phone] Graeme Le MD Unavailable Jayda White RN Unavailable Unavailable Audrey Dong MD Unavailable [phone] Emeka Anand MD Unavailable Anais Jaffe HORTICULTURAL FARMWORKER RESEARCH RECRUITER Unavailable Willy Owens DO Unavailable Larry Schaefer MD Unavailable [phone] Daysi Winston PA-C Unavailable [phone] Savita Gregory PA-C Unavailable Laura Ball DO Unavailable Kelsi Tripathi CHW Unavailable Michi Patterson MD Unavailable [phone] Unavailable [phone] Laura Ball DO Unavailable [phone] Jessica Howell PA-C Unavailable [phone] Kelsi Tripathi CHW Unavailable Sneha Calero TRASH MAN Unavailable [phone] Argenis Mesa MD Unavailable [phone] Kelsi Tripathi CHW Unavailable [phone] Candelaria Santillan PA-C Unavailable Daysi Winston PA-C Unavailable [phone] Argenis Mesa MD Unavailable [phone] Melvi Chavez MD Unavailable [phone] Jaret Pitts CHW Unavailable Unavailable Neetu Hopkins CHW Unavailable [phone] Encounter Details Date Type Department Care Team (Late st Contact Info) Description 07/06/2023 Orders Only [facility] - Surgical Specialties Service Line [address] [place] [phone] Sherry Aviles MD [address] [place] [address] Social History Tobacco Use Types Packs/Day Years [...] in an abandoned building, in an overnight fpc, or couch-surfing.) Yes 05/18/2023 Are you worried [...] Sex Assigned at Female 06/01/2023 2:55 PM CLINICAL PSYCHOLOGY PROFESSOR Legal Sex Female 1:26 PM CLINICAL PSYCHOLOGY PROFESSOR Gender Identity Female 06/01/2023 2:55 PM CLINICAL PSYCHOLOGY PROFESSOR Sexual Orientation Straight 06/01/2023 2: 55 PM CLINICAL PSYCHOLOGY PROFESSOR documented as of this encounter Plan of Treatment Upcoming Encounters Date Type Department Care Team (Late st Contact Info) Description 01/02/2025 10:30 AM CDT Office Visit [address] [address] Ara Short PA-C [id number] [place] [phone] 01/07/2025 8:30 AM CDT Office Visit [facility] [place] [address] [facility] [facility] [address] [place] [phone] Melvi Chavez MD 420 [facility] 394 [place] [address] 02/11/2025 2:00 PM CDT Virtual Visit [facility] Specialty Clinic [place] [address] [place] [phone] Larry Schaefer MD 516 [place] [address] 02/13/2025 2:00 PM CDT Office Visit [facility] [address] [place] [phone] Ara Short PA-C [address] [place] [address] 02/17/2025 3:15 PM CDT Virtual Visit [facility] Gastroenterology [facility] [place] [address] [place] [address] 4th [place] [phone] Jessica Howell PA-C [address] [place] [address] documented as of this encounter Procedures Procedure Name Priority Date/Time Associated Diagnosis Comments XR ESOPHAGRAM SINGLE CONTRAST Routine 09/12/2023 2:42 PM CDT documented in this encounter Results * XR ESOPHAGRAM SINGLE CONTRAST (09/12/2023 2:42 PM CDT) Anatomical Region Laterality Modality Chest, Abdomen/Pelvis Radio Fluo roscopy Impressions 09/12/2023 3:23 PM CDT IMPRESSION: No evidence of leak status post hiatal hernia repair. Mild esophageal dysmotility noted. I have personally reviewed the examination and initial interpretation and I agree with the findings. ANNMARIE GRANADO MD Narrative 09/12/2023 3:23 PM CDT EXAM: Esophagram 09/12/2023 2:42 PM. HISTORY: Hiatal hernia, postop. COMPARISON: X-ray 09/03/2023, CT 08/22/2023 FLUOROSCOPY TIME: Less than 0.1 minute. FINDINGS: A single contrast water soluble esophagram was performed. Audio Visual Technician films demonstrate percutaneous gastrostomy tube with balloon projecting over the stomach. There are no strictures or filling defects. Mild esophageal dysmotility. No evidence of spontaneous reflux. Procedure Note Annmarie Granado MD - 09/12/2023 EXAM: Esophagram 09/12/2023 2:42 PM. HISTORY: Hiatal hernia, postop. COMPARISON: X-ray 09/03/2023, CT 08/22/2023 FLUOROSCOPY TIME: Less than 0.1 minute. FINDINGS: A single contrast water soluble esophagram was performed. Audio Visual Technician films demonstrate percutaneous gastrostomy tube with balloon projecting over the stomach. There are no strictures or filling defects. Mild esophageal dysmotility. No evidence of spontaneous reflux. IMPRESSION: No evidence of leak status post hiatal hernia repair. Mild esophageal dysmotility noted. I have personally reviewed the examination and initial interpretation and I agree with the findings. ANNMARIE GRANADO MD Sheryr Gupta MD IMG DIAGNOSTIC IMAGING ORDERAB LES Final Result documented in this encounter Visit Diagnoses Not on filedocumented in this encounter Additional Health Concerns Infection Onset Date Last Indicated Resolved Time Rule Out COVID-19 08/23/2023 08/23/2023 08/23/2023 3:33 AM CDT Assessment Noted Time PHQ-9 Depression Total Score: 23 024 1:32 PM CLINICAL PSYCHOLOGY PROFESSOR documented as of this encounter Care Teams Trademark Affixer Relationship Specialty Start Date End Date Ara Short PA-C [address] [place] [address] PCP - General Family Medicine 06/27/23 Raiza Martinez MD [address] [place] [address] Otolaryngology 05/18/23 Sherry Aviles MD [address] [place] [address] Cardiovascular & Thoracic Surgery 06/11/23 Karen Rai APRN CLINICAL ACADEMIC ALLERGIST [address] [place] [address] Nurse Practitioner Neurology 06/13/23 Deacon Bishop MD [address] [place] [address] Neurology 06/19/23 08/09/23 [place] [address] [place] [address] Nurse Practitioner Nurse Practitioner 06/21/23 02/26/24 Ara Short, PAGabbyC [address] [place] [address] Assigned PCP 06/22/23 Sherry Aviles MD [address] [place] [address] Assigned Surgical Provider 07/13/23 09/18/24 Graeme Le MD [address] [place] [address] Neurology 08/10/23 10/23/23 Jayda White, RN Specialty Clinical Analyst Thoracic Surgery 08/28/23 [place] [address] [place] [address] Assigned Pain Medication Provider 09/20/23 03/21/24 Emeka Anand MD 909 [place] [address] Neurology 10/24/23 Anais Jaffe APRN RESEARCH RECRUITER [address] [place] [address] 826895 Clinical Nurse Specialist Cardiovascular & Thoracic Surgery 11/09/23 Willy Owens DO [address] [address] Physician Gastroenterology 11/09/23 Larry Schaefer MD 6 [place], [place] 89[address]35 Assigned Endocrinology Provider 11/20/23 Daysi Winston PA-C 909 [place], [place] 938025 Physician Foreign Language Interpreter Physician Foreign Language Interpreter - Surgical 11/30/23 Savita Gregory PA-C [address] 704[address] Physician Foreign Language Interpreter Urology 11/30/23 [place] [address] [address] [place], [place] 66[address] Physician Gastroenterology 12/06/23 Kelsi Tripathi, W Community Health Worker Primary Care - CC 12/11/23 4 [place] [address] [place] [address] Assigned Neuroscience Provider 12/21/[address] [place] [address] [phone] Registered Dietitian Dietitian, Registered 02/14/24 [place] [address] [facility] [address] Assigned Gastroenterology Provider 02/20/24 04/20/24 Jessica Howell PA-C [address] [place] [address] 653005 Assigned Gastroenterology Provider 04/21/24 09/18/24 Kelsi Tripathi, W Community Health Worker Primary Care - CC 09/11/24 5 Sneha Calero, [facility] Lead Clinical Analyst Primary Care - CC 09/15/24 Argenis Mesa MD 6525 [facility] [place] [address] 938715 Colon & Rectal 09/17/24 Kelsi Tripathi, W Community Health Worker Primary Care - CC 09/17/24 Candelaria Santillan PA-C [address] [place] [address] Assigned Gastroenterology Provider 09/19/24 Daysi Winston PA-C 909 [place] [address] Assigned Surgical Provider 09/19/24 10/19/24 Argenis Mesa MD [address] [place], [place] [address] Assigned Surgical Provider 10/20/24 Melvi Chavez MD [address] [place], [place] [address] Urology 10/28/24 Jaret Pitts CHW Community Health Worker Primary Care - CC 12/12/24 5 Neetu Hopkins CHW Community Health Worker 12/25/24 documented as of this encounter
--- OUTSIDE RECORDS SUMMARY | 2024-12-30 17:05 | XMS_ITS | Encounter Summary ---
Author Organization [place] Address [address] [place] [address]07 Care Team Providers Care Rn Baby Name Role Phone Raiza Martinez MD Unavailable Stefan Gupta MD, Sherry Unavailable [phone] Karen Rai ANTIQUE JEWELRY REPAIRER LINING SCRUBBER Unavailable Catherine Miguel NP Unavailable Ara ShortC Unavailable [phone] Ara Short-C Primary Care Provider [phone] Stefan Gupta MD, Sherry Unavailable [phone] Graeme Le MD Unavailable Jayda White RN Unavailable Unavailable O'Audrey Grimm MD Unavailable [phone] Emeka Anand MD Unavailable [phone] Anais Jaffe ANTIQUE JEWELRY REPAIRER BILLET STRAIGHTENER Unavailable Willy Owens DO Unavailable Larry Schaefer MD Unavailable [phone] Daysi Winston PA-C Unavailable [phone] Savita Gregory PA-C Unavailable Laura Ball DO Unavailable [phone] Kelsi Tripathi [facility] Unavailable Michi Patterson MD Unavailable [phone] Unavailable [phone] Laura Ball DO Unavailable [phone] Jessica Howell PA-C Unavailable [phone] Kelsi Tripathi CHW Unavailable [phone] Sneha Calero HOUSE PRINCIPAL Unavailable [phone] Argenis Mesa MD Unavailable +[phone] Kelsi Tripathi CHW Unavailable +[phone] Candelaria Santillan-C Unavailable Daysi Winston PA-C Unavailable [phone] Argenis Mesa MD Unavailable +[phone] Melvi Chavez MD Unavailable [phone] Jaret Pitts CHW Unavailable Unavailable Neetu Hopkins CHW Unavailable [phone] Encounter Details Date Type Department Care Team (Late st Contact Info) Description 10/02/2023 Team Conference [facility] [address] [place] [address] Jayda White, RN Gastrostomy tube present (H) (Primary Dx) Social History Tobacco Use Types [...] and Family Not on file 10/02/2023 Attends [employer] Services Not on file 10/01 Do you belong to any clubs o r organizations such as scientology groups, unions, fraternal or athletic groups, or [...] Date Recorded PHQ-2 Score 6 10/02/2023 [facility] - Occupational Stress Questionnaire Answer Date [...] in an abandoned building, in an overnight senior living, or couch-surfing.) Yes 10/02/2023 Are you worried [...] Sex Assigned at Female 06/01/2023 2:55 PM RENAL DIALYSIS TECHNICIAN Legal Sex Female 1:26 PM RENAL DIALYSIS TECHNICIAN Gender Identity Female 06/01/2023 2:55 PM RENAL DIALYSIS TECHNICIAN Sexual Orientation Straight 06/01/2023 2: 55 PM RENAL DIALYSIS TECHNICIAN documented as of this encounter Functional Status [...] not drink 10/02/2023 8:46 AM CDT Ta blet, [place] * Q3: How often do you have six or more drinks on one occasion? Answer Date of Assessment Author Never 10/02/2023 8:46 AM CDT Tablet, A pple [place] documented as of this encounter Miscellaneous Notes * Telephone Encounter - Jayda White, RIGOBERTO - 10/02/2023 8:30 AM CDT GI Conference Patient Name: Jo Ann Ely Reason for conference discussion (brief overview): Reviewed stomach distention and other issues with g tube following hernia repair. Pt denies any symptoms of gastroperesis. Has lost a little weight. Reviewed gastric emptying study (pt did not complete). Specific Question: EGD and dilate pylorus vs Botox? Concerns regarding abdominal distention and surgical repair? Pertinent Histology: N/A 08/17/23: Robotic assisted laparoscopic hiatal hernia repair and Filemon fundoplication, EGD,percutaneous endoscopic gastrostomy tube placement, right chest tube placement and lysis of adhesions Referring Physician: Dr. Sherry Aviles The patient's case was presented at the multidisciplinary conference for the above noted reason. There was a consensus recommendation for the following actions: Have pt trial clamping of the g tube for the next few days and if she does not develop symptoms, she can have tube removed. She is scheduled for EGD on Sunday, 10/07. She can have 200u Botox injected into pylorus or can continue Reglan if having symptoms. Case Lead: Jayda White RNCC reviewed this recommendation with pt and will call on Sunday to check in. Interventional Radiology Staff Present: N/A documented in this encounter Plan of Treatment Upcoming Encounters Date Type Department Care Team (Late st Contact Info) Description 01/02/2025 10:30 AM CDT Office Visit [facility] [address] [place] [address] [phone] Ara Short PA-C [id number] [place] [phone] 01/07/2025 8:30 AM CDT Office Visit [facility] [address] [facility] [address] [place] [phone] Melvi Chavez MD 420 [facility] EMER[facility]PARTMENT 394 [place], [place] 794765 02/11/2025 2:00 PM CDT Virtual Visit [facility] Specialty [facility] 1875 [place] [phone] Larry Schaefer MD 6 [place], [place] 255955 02/13/2025 2:00 PM CDT Office Visit [address] [phone] Ara Shotr PA-C [address] [place] [address] 02/17/2025 3:15 PM CDT Virtual Visit [facility] [address] 4th [place] [phone] Jessica Howell PA-C [address] [place] [address] 046935 documented as of this encounter Visit Diagnoses Diagnosis Gastrostomy tube present (H)- Primary documented in this encounter Additional Health Concerns Assessment Noted Time PHQ-9 Depression Total Score: 21 024 8:41 AM CDT documented as of this encounter Care Teams Rn Baby Relationship Specialty Start Date End Date Ara Short PA-C [address] [place] [phone] PCP - General Family Medicine 06/27/23 Raiza Martinez MD [address] [place] [address] 231105 Otolaryngology 05/18/23 Sherry Aviles MD [address] [place] [address] 898705 Cardiovascular & Thoracic Surgery 06/11/23 Karen Rai APRN LINING SCRUBBER [address] [place] [address] 405105 Nurse Practitioner Neurology 06/13/23 [place] [address] [address] [phone] Nurse Practitioner Nurse Practitioner 06/21/23 02/26/24 Ara Short PAGabbyC [address] [place] [address]-919483 Assigned PCP 06/22/23 Sherry Aviles MD [address] [place] [address] 97697 Assigned Surgical Provider 07/13/23 09/18/24 Graeme Le MD [address] [place], [place] [address] [address] Neurology 08/10/23 10/23/23 Jayda White, RIGOBERTO Specialty Aircraft Electronics Technical Officer Thoracic Surgery 08/28/23 [place] [address] [place], [place] [phone] Assigned Pain Medication Provider 09/20/23 03/21/24 Emeka Anand MD [address] [place] [address] Neurology 10/24/23 Anais Jaffe APRN BILLET STRAIGHTENER [address] [address] Clinical Nurse Specialist Cardiovascular & Thoracic Surgery 11/09/23 Willy Owens DO [address] [address] Physician Gastroenterology 11/09/23 Larry Schaefer MD [address] [place] [address] Assigned Endocrinology Provider 11/20/23 Daysi Winston PA-C [address] [place] [address]362 Physician Cobol Engineer Physician Cobol Engineer - Surgical 11/30/23 Savita Gregory PA-C [address] [address] Physician Cobol Engineer Urology 11/30/23 [place] [address] [place] [address] Physician Gastroenterology 12/06/23 Kelsi Tripathi, [facility] Community Health Worker Primary Care - CC 12/11/23 [place] [address] [address] Assigned Neuroscience Provider 12/21/[address] [place] [address] Registered Dietitian Dietitian, Registered 02/14/24 [place] [address] [place] [address] Assigned Gastroenterology Provider 02/20/24 04/20/24 Jessica Howell PA-C [address] [place] [address] Assigned Gastroenterology Provider 04/21/24 09/18/24 Kelsi Tripathi, [facility] Community Health Worker Primary Care - CC 09/11/24 5 Sneha Calero, [facility] Lead Aircraft Electronics Technical Officer Primary Care - CC 09/15/24 Argenis Mesa MD [address] [place] [address] Colon & Rectal 09/17/24 Kelsi Tripathi, [facility] Community Health Worker Primary Care - CC 09/17/24 Candelaria Santillan PA-C [address] [place] [address] Assigned Gastroenterology Provider 09/19/24 Daysi Winston PA-C 9 [place] [address] Assigned Surgical Provider 09/19/24 10/19/24 Argenis Mesa MD [address] [place] [address] Assigned Surgical Provider 10/20/24 Melvi Chavez MD [address] [place] 004475 Urology 10/28/24 Jaret Pitts, [facility] Community Health Worker Primary Care - CC 12/12/24 5 Neetu Hopkins [facility] Community Health Worker 12/25/24 documented as of this encounter
--- OUTSIDE RECORDS SUMMARY | 2024-12-30 17:05 | XMS_ITS | Encounter Summary ---
Author Organization [place] Address [address] [place] [address] 8[address]65 Care Team Providers Care Pockets And Pieces Necktie Operator Name Role Phone Raiza Martinez MD Unavailable Stefan Gupta MD, Sherry Unavailable [phone] Karen Rai APRN PANMAN Unavailable [phone] Deacon Bishop MD Unavailable Catherine Miguel NP Unavailable Ara Short-C Unavailable [phone] Ara Short PA-C Primary Care Provider Stefan Gupta MD, Sherry Unavailable [phone] Graeme Le MD Unavailable Jayda White RN Unavailable Unavailable Audrey Dong MD Unavailable [phone] Emeka Anand MD Unavailable Anais Jaffe CAGE MANAGER CARDIAC CATH LAB MANAGER Unavailable Willy Owens DO Unavailable Larry Schaefer MD Unavailable [phone] Daysi Winston PA-C Unavailable Savita Gregory PA-C Unavailable Laura Ball DO Unavailable Kelsi Tripathi CHW Unavailable Michi Patterson MD Unavailable [phone] Unavailable [phone] Laura Ball Samira DO Unavailable [phone] Jessica Howell PA-C Unavailable [phone] Kelsi Tripathi CHW Unavailable [phone] Sneha Calero CAM MAKER Unavailable [phone] Argenis Mesa MD Unavailable [phone] Kelsi Tripathi CHW Unavailable [phone] Candelaria Santillan PA-C Unavailable Daysi Winston PA-C Unavailable +[phone] Argenis Mesa MD Unavailable [phone] Melvi Chavez MD Unavailable [phone] Jaret Pitts CHW Unavailable Unavailable Neetu Hopkins CHW Unavailable [phone] Encounter Details Date Type Department Care Team (Late st Contact Info) Description 07/25/2023 MyC Medical Advice [facility] 9 [place] [address] Yanira Berman Social History Tobacco [...] in an overnight mcfp, or couch-surfing.) Yes 05/18/2023 Are you worried [...] Sex Assigned at Female 06/01/2023 2:55 PM CAFETERIA OPERATOR Legal Sex Female 1:26 PM CAFETERIA OPERATOR Gender Identity Female 06/01/2023 2:55 PM CAFETERIA OPERATOR Sexual Orientation Straight 06/01/2023 2: 55 PM CAFETERIA OPERATOR documented as of this encounter Plan of Treatment Upcoming Encounters Date Type Department Care Team (Late st Contact Info) Description 01/02/2025 10:30 AM CDT [facility] [address] [place] [address] Ara Short PA-C [address] [place] [address] 01/07/2025 8:30 AM CDT Office Visit [facility] Urology [place] [id number] [place] [address] Melvi Chavez MD 420 [facility] 394 [place], [place] 767815 02/11/2025 2:00 PM CDT Virtual Visit [facility] Specialty Clinic [place] [address] [place] [phone] Larry Schaefer MD 516 [place] [address] 02/13/2025 2:00 PM CDT [facility] [address] [place] [address] Ara Short PA-C [address] [place] [address] 02/17/2025 3:15 PM CDT Virtual Visit [facility] Gastroenterology [facility] [place] 909 [facility] 4th [place] [phone] Jessica Howell PA-C [address] [place] [address] [phone] documented as of this encounter Visit Diagnoses Not on filedocumented in this encounter Additional Health Concerns Infection Onset Date Last Indicated Resolved Time Rule Out COVID-19 08/23/2023 08/23/2023 08/23/2023 3:33 AM CDT Assessment Noted Time PHQ-9 Depression Total Score: 23 024 1:32 PM CAFETERIA OPERATOR documented as of this encounter Care Teams Pockets And Pieces Necktie Operator Relationship Specialty Start Date End Date Ara Short PA-C [id number] [place] [address] PCP - General Family Medicine 06/27/23 Raiza Martinez MD [address] [place] [address] Otolaryngology 05/18/23 Sherry Aviles MD [address] [place] [address]120 Cardiovascular & Thoracic Surgery 06/11/23 Karen Rai APRN PANMAN [address] [place] [address] 39518 Nurse Practitioner Neurology 06/13/23 Deacon Bishop MD [address] [place] [address] Neurology 06/19/23 08/09/23 [place] [address] [place] [address] Nurse Practitioner Nurse Practitioner 06/21/23 02/26/24 Ara Short PAGabbyC [address] [place] [address]-386583 Assigned PCP 06/22/23 Sherry Aviles MD [address] [place] [address] 9[address]37 Assigned Surgical Provider 07/13/23 09/18/24 Graeme Le MD [address] [place] [address] Neurology 08/10/23 10/23/23 Jayda White, RIGOBERTO Specialty Gas Pit Worker Thoracic Surgery 08/28/23 [place] [address] [place] [address] Assigned Pain Medication Provider 09/20/23 03/21/24 Emeka Anand MD 909 [place], [place] 247895 Neurology 10/24/23 Anais Jaffe APRN CARDIAC CATH LAB MANAGER 420 [facility] 207 [place] [address] Clinical Nurse Specialist Cardiovascular & Thoracic Surgery 11/09/23 Willy Owens DO 420 [facility] 207 [place], [place] 072065 Physician Gastroenterology 11/09/23 Larry Schaefer MD 6 [place], [place] 904255 Assigned Endocrinology Provider 11/20/23 Daysi Winston PA-C 909 [place], [place] 905165 Physician Sawsmith Physician Sawsmith - Surgical 11/30/23 Savita Gregory PA-C [address] 576287 Physician Sawsmith Urology 11/30/23 [place] [address] [place] [address] Physician Gastroenterology 12/06/23 Kelsi Tripathi, W Community Health Worker Primary Care - CC 12/11/23 4 [place] [address] [place] [address] Assigned Neuroscience Provider 12/21/[address] [place] [address] Registered Dietitian Dietitian, Registered 02/14/24 [place] [address] [place], [place] 902929 Assigned Gastroenterology Provider 02/20/24 04/20/24 Jessica Howell PA-C [address] [place] [address] 269525 Assigned Gastroenterology Provider 04/21/24 09/18/24 Kelsi Tripathi, W Community Health Worker Primary Care - CC 09/11/24 5 Sneha aClero, [facility] Lead Gas Pit Worker Primary Care - CC 09/15/24 Argenis Mesa MD [address] 648395 Colon & Rectal 09/17/24 Kelsi Tripathi, W Community Health Worker Primary Care - CC 09/17/24 Candelaria Santillan PA-C [address] [place] [address] Assigned Gastroenterology Provider 09/19/24 Daysi Winston PA-C 909 [place] [address] Assigned Surgical Provider 09/19/24 10/19/24 Argenis Mesa MD [address] [place] [address] Assigned Surgical Provider 10/20/24 Melvi Chavez MD [address] [place] [address] Urology 10/28/24 Jaret Pitts CHW Community Health Worker Primary Care - CC 12/12/24 5 Neetu Hopkins CHW Community Health Worker 12/25/24 documented as of this encounter
--- OUTSIDE RECORDS SUMMARY | 2024-12-30 17:05 | XMS_ITS | Encounter Summary ---
Author Organization [place] Address [address] [place] [address] Care Team Providers Care Filter Changing Technician Name Role Phone Raiza Martinez MD Unavailable Stefan Gupta MD, Sherry Unavailable [phone] Karen Rai INSURANCE CONSULTANT CUTTING AND BONING SUPERVISOR Unavailable [phone] Catherine Miguel NP Unavailable Ara ShortC Unavailable [phone] Ara ShortC Primary Care Provider [phone] Stefan Gupta MD, Sherry Unavailable [phone] Jayda White RN Unavailable Unavailable OAudrey Hernandez MD Unavailable [phone] Emeka Anand MD Unavailable Anais Jaffe INSURANCE CONSULTANT COMMERCIAL SUBCONTRACTOR Unavailable Willy Owens DO Unavailable Larry Schaefer MD Unavailable [phone] Daysi Winston PA-C Unavailable Savita Gregory-C Unavailable Laura Ball DO Unavailable [phone] Kelsi Tripathi Unavailable Michi Patterson MD Unavailable Yecenia, Jill Urbano LOVE Unavailable [phone] QuinnYairLauracaleb Hogan DO Unavailable [phone] Jessica Howell PA-C Unavailable [phone] Kelsi Tripathi CHW Unavailable [phone] Sneha Calero SERVICE DESK ASSOCIATE Unavailable [phone] Argenis Mesa MD Unavailable [phone] Kelsi Tripathi W Unavailable [phone] Candelaria SantillanC Unavailable Daysi Winston-C Unavailable [phone] Argenis Mesa MD Unavailable [phone] Melvi Chavez MD Unavailable [phone] Jaret Pitts W Unavailable Unavailable Neetu Hopkins [facility] Unavailable [phone] Encounter Details Date Type Department Care Team (Late st Contact Info) Description 11/08/[address] [facility] [address] [place] [address] Jayda White, RN Social History Tobacco [...] and Family Not on file 10/02/2023 Attends Catholic Services Not on file 10/01 Do you belong to any clubs o r organizations such as protestant groups, unions, fraternal or athletic groups, or [...] PHQ-2 Answer Date Recorded PHQ-2 Score 6 10/26/2023 [facility] Occupat [facility] Health - Occupational Stress [...] in an abandoned building, in an overnight fci, or couch-surfing.) Yes 10/02/2023 Are you worried [...] Sex Assigned at Female 06/01/2023 2:55 PM PASTRY COOK APPRENTICE Legal Sex Female 1:26 PM PASTRY COOK APPRENTICE Gender Identity Female 06/01/2023 2:55 PM PASTRY COOK APPRENTICE Sexual Orientation Straight 06/01/2023 2: 55 PM PASTRY COOK APPRENTICE documented as of this encounter Plan of Treatment Upcoming Encounters Date Type Department Care Team (Late st Contact Info) Description 01/02/2025 10:30 AM CDT Office Visit [facility] [address] [place] [address] Ara Short PAGabbyC [address] [place] [address] 01/07/2025 8:30 AM CDT Office Visit [facility] Urology [facility] 6[address] [facility] [address] [place] [phone] Melvi Chavez MD 420 [facility] EMERGENCY [facility]PARTMENT 394 [place], [place] 503275 02/11/2025 2:00 PM CDT Virtual Visit [facility] Specialty [facility] 1875 [place] [phone] Larry Schaefer MD 516 [place], [place] 122745 02/13/2025 2:00 PM CDT Office Visit [facility] [address] [place] [address] Ara Short PA-C [address] [place] [address] 02/17/2025 3:15 PM CDT Virtual Visit [facility] Gastroenterology Clinic [place] 909 [facility] 4th [place] [address] Jessica Howell PA-C [address] [place] [address] 322085 documented as of this encounter Visit Diagnoses Not on filedocumented in this encounter Additional Health Concerns Assessment Noted Time PHQ-9 Depression Total Score: 17 024 7:55 AM CDT documented as of this encounter Care Teams Filter Changing Technician Relationship Specialty Start Date End Date Ara Short PA-C [address] [place] [address] PCP - General Family Medicine 06/27/23 Raiza Martinez MD [address] [place] [address] 052525 Otolaryngology 05/18/23 Sherry Aviles MD [address] [place] [address] 004825 Cardiovascular & Thoracic Surgery 06/11/23 Karen Rai APRN CUTTING AND BONING SUPERVISOR [address] [place] [address] 325135 Nurse Practitioner Neurology 06/13/23 [place] [address] [address] [address] Nurse Practitioner Nurse Practitioner 06/21/23 02/26/24 Ara Short PA-C [address] [place] [address] Assigned PCP 06/22/23 Sherry Aviles MD [address] [place] [address] 7[address]47 Assigned Surgical Provider 07/13/23 09/18/24 Jayda White, RN Specialty Control Panel Operator Thoracic Surgery 08/28/23 [place] [address] [place], [place] 59667124 Assigned Pain Medication Provider 09/20/23 03/21/24 Emeka Anand MD [address] [place] [address] 736885 Neurology 10/24/23 Anais Jaffe, LYLA COMMERCIAL SUBCONTRACTOR [address] [place] [address] 375245 Clinical Nurse Specialist Cardiovascular & Thoracic Surgery 11/09/23 Willy Owens DO [address] [place] [address] 140165 Physician Gastroenterology 11/09/23 Larry Schaefer MD [address] [place] [address] 937065 Assigned Endocrinology Provider 11/20/23 Daysi Winston PA-C [address] [place] [address] 148375 Physician Sales Representative Business Courses Physician Sales Representative Business Courses - Surgical 11/30/23 Savita Gregory PA-C [address] [address] Physician Sales Representative Business Courses Urology 11/30/23 [place] [address] [place] [address] Physician Gastroenterology 12/06/23 Kelsi Tripathi, [facility] Community Health Worker Primary Care - CC 12/11/23 4 [place] [address] [address] Assigned Neuroscience Provider 12/21/[address] [place] [address] Registered Dietitian Dietitian, Registered 02/14/24 [place] [address] [place] [address] Assigned Gastroenterology Provider 02/20/24 04/20/24 Jessica Howell PA-C 909 [place] [address] Assigned Gastroenterology Provider 04/21/24 09/18/24 Kelsi Tripathi, W Community Health Worker Primary Care - CC 09/11/24 5 Sneha Calero, [facility] Lead Control Panel Operator Primary Care - CC 09/15/24 Argenis Mesa MD [address] [place] [address] Colon & Rectal 09/17/24 Kelsi Tripathi, W Community Health Worker Primary Care - CC 09/17/24 Candelaria Santillan PA-C [address] [place] [address] Assigned Gastroenterology Provider 09/19/24 Daysi Winston PA-C 909 [place] [address] Assigned Surgical Provider 09/19/24 10/19/24 Argenis Mesa MD [address] [place] [address] Assigned Surgical Provider 10/20/24 Melvi Chavez MD [address] [place] [address] Urology 10/28/24 Jaret Pitts, W Community Health Worker Primary Care - CC 12/12/24 Neetu Lui, W Community Health Worker 12/25/24 documented as of this encounter
--- OUTSIDE RECORDS SUMMARY | 2024-12-30 17:05 | XMS_ITS | Encounter Summary ---
Author Organization [place] Address [address] [place] [address]195 Care Team Providers Care Satellite Installer Name Role Phone Raiza Martinez MD Unavailable Stefan Gupta MD, Sherry Unavailable [phone] Karen Rai MULTICRAFT OPERATOR TURN MACHINE OPERATOR Unavailable [phone] Catherine Miguel NP Unavailable Ara ShortC Unavailable [phone] Ara ShortC Primary Care Provider Stefan Gupta MD, Sherry Unavailable Jayda White RN Unavailable Unavailable OAudrey Hernandez MD Unavailable [phone] Emeka Anand MD Unavailable Anais Jaffe MULTICRAFT OPERATOR FUTURES TRADER Unavailable Willy Owens DO Unavailable Larry Schaefer MD Unavailable [phone] Daysi Winston PA-C Unavailable [phone] Savita Gregory-C Unavailable Laura Ball DO Unavailable [phone] Kelsi Tripathi Unavailable Michi Patterson MD Unavailable [phone] Unavailable [phone] QuinnLaura Samira CHIU Unavailable [phone] Jessica Howell PA-C Unavailable [phone] Kelsi Tripathi CHW Unavailable Sneha Calero ENVIRONMENTAL PLANNER Unavailable [phone] Argenis Mesa MD Unavailable [phone] Kelsi Tripathi CHW Unavailable [phone] Candelaria Santillan-C Unavailable Daysi Winston PA-C Unavailable [phone] Argenis Mesa MD Unavailable [phone] Melvi Chavez MD Unavailable [phone] Jaret Pitts W Unavailable Unavailable Neetu Hopkins W Unavailable [phone] Encounter Details Date Type Department Care Team (Late st Contact Info) Description 11/06/2023 MyC Medical Advice [facility] [address] [place] [address] Sherry Aviles MD [address] [place] [address] Social History Tobacco Use Types Packs/Day [...] and Family Not on file 10/02/2023 Attends Gnosticist Services Not on file 10/01 Do you belong to any clubs o r organizations such as yazdanism groups, unions, fraternal or athletic groups, or [...] Answer Date Recorded PHQ-2 Score 6 10/26/2023 [facility] of Occupat ional Health - Occupational Stress [...] in an abandoned building, in an overnight penitentiary, or couch-surfing.) Yes 10/02/2023 Are you worried [...] Sex Assigned at Female 06/01/2023 2:55 PM SADDLE MECHANIC Legal Sex Female 1:26 PM SADDLE MECHANIC Gender Identity Female 06/01/2023 2:55 PM SADDLE MECHANIC Sexual Orientation Straight 06/01/2023 2: 55 PM SADDLE MECHANIC documented as of this encounter Plan of Treatment Upcoming Encounters Date Type Department Care Team (Late st Contact Info) Description 01/02/2025 10:30 AM CDT Office Visit [facility] [address] [place] [phone] Ara Short PA-C [address] [place] [address] 01/07/2025 8:30 AM CDT Office Visit [facility] [place] [address] [facility] [address] [place] [phone] Melvi Chavez MD 420 [facility] 394 [place], [place] 3088[address] 02/11/2025 2:00 PM CDT Virtual Visit [facility] Specialty [address] [phone] Larry Schaefer MD 6 [place], [place] [phone] 02/13/2025 2:00 PM CDT Office Visit [facility] [address] [place] [address] Ara Short PA-C [address] [place] [address] 02/17/2025 3:15 PM CDT Virtual Visit [facility] Gastroenterology Clinic [address] 4th [place] [phone] Jessica Howell PA-C [address] [place] [address] [phone] documented as of this encounter Visit Diagnoses Not on filedocumented in this encounter Additional Health Concerns Assessment Noted Time PHQ-9 Depression Total Score: 17 024 7:55 AM CDT documented as of this encounter Care Teams Satellite Installer Relationship Specialty Start Date End Date Ara Short PA-C [address] [place] [address] PCP - General Family Medicine 06/27/23 Raiza Martinez MD [address] [place] [address] 993755 Otolaryngology 05/18/23 Sherry Aviles MD [address] [place] [address] 026435 Cardiovascular & Thoracic Surgery 06/11/23 Karen Rai APRN TURN MACHINE OPERATOR [address] [place] [address] 941645 Nurse Practitioner Neurology 06/13/23 [place] [address] [place] [address] Nurse Practitioner Nurse Practitioner 06/21/23 02/26/24 Ara Short PA-C [address] [place] [address]-948383 Assigned PCP 06/22/23 Sherry Aviles MD [address] [place] [address] 08693 Assigned Surgical Provider 07/13/23 09/18/24 Jayda White, RIGOBERTO Specialty Bend Sorter Thoracic Surgery 08/28/23 [place] [address] [place], [place] [phone] Assigned Pain Medication Provider 09/20/23 03/21/24 Emeka Anand MD [address] [place] [address] 207295 Neurology 10/24/23 Anais Jaffe, LYLA FUTURES TRADER [address] 878735 Clinical Nurse Specialist Cardiovascular & Thoracic Surgery 11/09/23 Willy Owens DO [address] 012285 Physician Gastroenterology 11/09/23 Larry Schaefer MD 6 [place], [place] 143275 Assigned Endocrinology Provider 11/20/23 Daysi Winston PA-C 9 [place] [address] Physician Freelance Digital Project Manager Physician Freelance Digital Project Manager - Surgical 11/30/23 Savita Gregory PA-C [address] [address] Physician Freelance Digital Project Manager Urology 11/30/23 [place] [address] [place] [address] Physician Gastroenterology 12/06/23 Kelsi Tripathi, W Community Health Worker Primary Care - CC 12/11/23 4 [place] [address] [address] Assigned Neuroscience Provider 12/21/[address] [place] [address] Registered Dietitian Dietitian, Registered 02/14/24 [place] [address] [place] [address] Assigned Gastroenterology Provider 02/20/24 04/20/24 Jessica Howell PA-C [address] [place] [address] Assigned Gastroenterology Provider 04/21/24 09/18/24 Kelsi Tripathi, [facility] Community Health Worker Primary Care - CC 09/11/24 5 Sneha Calero, [facility] Lead Bend Sorter Primary Care - CC 09/15/24 Argenis Mesa MD [address] [place], [place] 0[address] Colon & Rectal 09/17/24 Kelsi Tripathi, [facility] Community Health Worker Primary Care - CC 09/17/24 Candelaria Santillan PA-C [address] [place] [address] Assigned Gastroenterology Provider 09/19/24 Daysi Winston PA-C [address] [place] [address] Assigned Surgical Provider 09/19/24 10/19/24 Argenis Mesa MD [address] [place] [address] Assigned Surgical Provider 10/20/24 Melvi Chavez MD [address] [place] [address] Urology 10/28/24 Jaret Pitts, [facility] Community Health Worker Primary Care - CC 12/12/24 5 Neetu Hopkins, [facility] Community Health Worker 12/25/24 documented as of this encounter
--- OUTSIDE RECORDS SUMMARY | 2024-12-30 17:05 | XMS_ITS | Encounter Summary ---
Author Organization [place] Address [address] [place] [address] Care Team Providers Care Music Composer Name Role Phone Raiza Martinez MD Unavailable Stefan Gupta MD, Sherry Unavailable [phone] Karen Rai APRN NEONATAL CRITICAL CARE NURSE Unavailable [phone] Deacon Bishop MD Unavailable Catherine Miguel NP Unavailable [phone] Ara Short-C Unavailable [phone] Ara Short PA-C Primary Care Provider [phone] Stefan Gupta MD, Sherry Unavailable [phone] Graeme Le MD Unavailable Jayda White RN Unavailable Unavailable Audrey Dong MD Unavailable [phone] Emeka Anand MD Unavailable Anais Jaffe ELEVATOR INSTALLER TAX SERVICES INTERN Unavailable Willy Owens DO Unavailable aLrry Schaefer MD Unavailable [phone] Daysi Winston PA-C Unavailable Savita Gregory PA-C Unavailable Laura Ball DO Unavailable Kelsi Tripathi CHW Unavailable [phone] Michi Patterson MD Unavailable [phone] Unavailable [phone] Laura Ball Samira DO Unavailable [phone] Jessica Howell PA-C Unavailable [phone] Kelsi Tripathi CHW Unavailable [phone] Sneha Calero LEI SELLER Unavailable [phone] Argenis Mesa MD Unavailable [phone] Kelsi Tripathi CHW Unavailable [phone] Candelaria Santillan PA-C Unavailable Daysi Winston PA-C Unavailable [phone] Argenis Mesa MD Unavailable [phone] Melvi Chavez MD Unavailable [phone] Jaret Pitts CHW Unavailable Unavailable Neetu Hopkins CHW Unavailable [phone] Encounter Details Date Type Department Care Team (Late st Contact Info) Description 08/03/2023 MyC Medical Advice [facility] [address] [place] [address] Jayda White, RN Social History Tobacco [...] in an abandoned building, in an overnight half-way, or couch-surfing.) Yes 05/18/2023 Are you worried [...] Sex Assigned at Female 06/01/2023 2:55 PM HEAT TREAT OPERATOR Legal Sex Female 1:26 PM HEAT TREAT OPERATOR Gender Identity Female 06/01/2023 2:55 PM HEAT TREAT OPERATOR Sexual Orientation Straight 06/01/2023 2: 55 PM HEAT TREAT OPERATOR documented as of this encounter Plan of Treatment Upcoming Encounters Date Type Department Care Team (Late st Contact Info) Description 01/02/2025 10:30 AM CDT Office Visit [facility] [address] [place] [address] Ara Short PA-C [address] [place] [address] 01/07/2025 8:30 AM CDT Office Visit [facility] [place] [facility] [address] [place] [phone] Melvi Chavez MD 420 [facility] 394 [place], [place] [address] 02/11/2025 2:00 PM CDT Virtual Visit [facility] Specialty [place] [address] [place] [phone] Larry Schaefer MD 516 [place] [address] 02/13/2025 2:00 PM CDT Office Visit [facility] [address] [place] [phone] Ara Short PA-C [address] [place] [address] 02/17/2025 3:15 PM CDT Virtual Visit [facility] Gastroenterology Clinic [place] 909 [facility] 4th [place] [phone] Jessica Howell PA-C [address] [place] [address] documented as of this encounter Visit Diagnoses Not on filedocumented in this encounter Additional Health Concerns Infection Onset Date Last Indicated Resolved Time Rule Out COVID-19 08/23/2023 08/23/2023 08/23/2023 3:33 AM CDT Assessment Noted Time PHQ-9 Depression Total Score: 23 024 1:32 PM HEAT TREAT OPERATOR documented as of this encounter Care Teams Music Composer Relationship Specialty Start Date End Date Ara Short PA-C [id number] [place] [address] PCP - General Family Medicine 06/27/23 Raiza Martinez MD [address] [place] [address] Otolaryngology 05/18/23 Sherry Aviles MD [address] [place] [address]134 Cardiovascular & Thoracic Surgery 06/11/23 Karen Rai APRN NEONATAL CRITICAL CARE NURSE [address] [place] [address] 72073 Nurse Practitioner Neurology 06/13/23 Deacon Bishop MD [address] [place] [address] Neurology 06/19/23 08/09/23 [place] [address] [place] [address] Nurse Practitioner Nurse Practitioner 06/21/23 02/26/24 Ara Short PAGabbyC [address] [place] [address]34[address]83 Assigned PCP 06/22/23 Sherry Aviles MD [address] [place] [address] Assigned Surgical Provider 07/13/23 09/18/24 Graeme Le MD [address] [place] [address] Neurology 08/10/23 10/23/23 Jayda White, RN Specialty Forging Roll Operator Thoracic Surgery 08/28/23 [place] [address] [place] [address] Assigned Pain Medication Provider 09/20/23 03/21/24 Emeka Anand MD 909 [place], [place] 879445 Neurology 10/24/23 Anais Jaffe APRN TAX SERVICES INTERN [address] 805265 Clinical Nurse Specialist Cardiovascular & Thoracic Surgery 11/09/23 iWlly Owens DO [address] 125055 Physician Gastroenterology 11/09/23 Larry Schaefer MD 6 [place], [place] 810045 Assigned Endocrinology Provider 11/20/23 Daysi Winston PA-C 909 [place], [place] 106825 Physician [employer] Physician [employer] - Surgical 11/30/23 Savita Gregory PA-C [address] 053067 Physician [employer] Urology 11/30/23 [place] [address] [place] [address] Physician Gastroenterology 12/06/23 Kelsi Tripathi, W Community Health Worker Primary Care - CC 12/11/23 4 [place] [address] [place] [address] Assigned Neuroscience Provider 12/21/[address] [place] [address] [phone] Registered Dietitian Dietitian, Registered 02/14/24 [place] [address] [facility] [place] 960239 Assigned Gastroenterology Provider 02/20/24 04/20/24 Jessica Howell PA-C [address] [place] [address] 394405 Assigned Gastroenterology Provider 04/21/24 09/18/24 Kelsi Tripathi, W Community Health Worker Primary Care - CC 09/11/24 5 Sneha Calero, [facility] Lead Forging Roll Operator Primary Care - CC 09/15/24 Argenis Mesa MD [address] [place] 7[address] Colon & Rectal 09/17/24 Kelsi Tripathi, W Community Health Worker Primary Care - CC 09/17/24 Candelaria Santillan PA-C [address] [place] [address] Assigned Gastroenterology Provider 09/19/24 Daysi Winston PA-C 909 [place] [address] Assigned Surgical Provider 09/19/24 10/19/24 Argenis Mesa MD [address] [place], [place] 412105 Assigned Surgical Provider 10/20/24 Melvi Chavez MD [address] [place], [place] [address] Urology 10/28/24 Jaret Pitts CHW Community Health Worker Primary Care - CC 12/12/24 5 Neetu Hopkins CHW Community Health Worker 12/25/24 documented as of this encounter
[2024-12-30 17:06] LABS: Anion Gap 6 mEq/L (7-15); Blood Urea Nitrogen* 15 mg/dL (7-30); Calcium* 7.8 mg/dL (8.4-10.6); Carbon Dioxide* 24 mmol/L (20-32); Creatinine* 0.8 mg/dL (0.5-1.5); Est. Creatinine Clearance* 64.58; Estimated Glomerular Filt Rate 84 ml/min; Glucose* 102 mg/dL (60-115)
--- OUTSIDE RECORDS SUMMARY | 2024-12-30 17:06 | XMS_ITS | Encounter Summary ---
Author Organization [place] Address [address] [place] [address]24 Care Team Providers Care Crystal Slicer Name Role Phone Raiza Martinez MD Unavailable Stefan Gupta MD, Sherry Unavailable [phone] Karen Rai THREADING MACHINE FEEDER AUTOMATIC PRACTICE LEAD Unavailable [phone] Catherine Miguel NP Unavailable [phone] Ara ShortC Unavailable [phone] Ara ShortC Primary Care Provider Stefan Gupta MD, Sherry Unavailable [phone] Jayda White RN Unavailable Unavailable OAudrey Hernandez MD Unavailable [phone] Emeka Anand MD Unavailable Anais Jaffe THREADING MACHINE FEEDER AUTOMATIC BEAUTY ARTIST Unavailable Willy Owens DO Unavailable Larry Schaefer MD Unavailable [phone] Daysi Winston PA-C Unavailable Savita Gregory-C Unavailable Laura Ball DO Unavailable [phone] Kelsi Tripathi Unavailable Michi Patterson MD Unavailable Yecenia, Jill Urbano LOVE Unavailable [phone] QuinnYairLauracaleb Hogan DO Unavailable [phone] Jessica Howell PA-C Unavailable [phone] Kelsi Tripathi CHW Unavailable [phone] Sneha Calero ATOMIZER ASSEMBLER Unavailable [phone] Argenis Mesa MD Unavailable [phone] Kelsi Tripathi W Unavailable [phone] Candelaria Santillan-C Unavailable Daysi Winston-C Unavailable [phone] Argenis Mesa MD Unavailable [phone] Melvi Chavez MD Unavailable [phone] Jaret Pitts W Unavailable Unavailable Neetu Hopkins [facility] Unavailable [phone] Encounter Details Date Type Department Care Team (Late st Contact Info) Description 12/04/2023 MyC Medical Advice [facility] [address] [place] [address] Jayda White, RN Social History Tobacco [...] and Family Not on file 10/02/2023 Attends Taoist Services Not on file 10/01 Do you [...] Answer Date Recorded PHQ-2 Score 6 10/26/2023 [facility] of Occupat ional Health - Occupational Stress [...] in an abandoned building, in an overnight custodial, or couch-surfing.) Yes 10/02/2023 Are you worried [...] Sex Assigned at Female 06/01/2023 2:55 PM CELL TECHNICIAN Legal Sex Female 1:26 PM CELL TECHNICIAN Gender Identity Female 06/01/2023 2:55 PM CELL TECHNICIAN Sexual Orientation Straight 06/01/2023 2: 55 PM CELL TECHNICIAN documented as of this encounter Plan of Treatment Upcoming Encounters Date Type Department Care Team (Late st Contact Info) Description 01/02/2025 10:30 AM CDT Office Visit [facility] [address] [place] [address] Ara Short PAGabbyC [address] [place] [address] 01/07/2025 8:30 AM CDT Office Visit [facility] Urology [facility] [address] [facility] [address] [place] [phone] Melvi Chavez MD 420 [facility] 394 [place], [place] 120[address] 02/11/2025 2:00 PM CDT Virtual Visit [facility] Specialty [facility] 1875 [place] [phone] Larry Schaefer MD 516 [place], [place] 524075 02/13/2025 2:00 PM CDT Office Visit [facility] [address] [place] [address] Ara Short PA-C [address] [place] [address] 02/17/2025 3:15 PM CDT Virtual Visit [facility] Gastroenterology Clinic [place] 9[address] [facility] 4th [place] [phone] Jessica Howell PA-C [address] [place] [address] 386225 documented as of this encounter Visit Diagnoses Not on filedocumented in this encounter Additional Health Concerns Assessment Noted Time PHQ-9 Depression Total Score: 17 024 7:55 AM CDT documented as of this encounter Care Teams Crystal Slicer Relationship Specialty Start Date End Date Ara Short PA-C [address] [place] [address] PCP - General Family Medicine 06/27/23 Raiza Martinez MD [address] [place] [address] 299445 Otolaryngology 05/18/23 Sherry Aviles MD [address] [place] [address] 802205 Cardiovascular & Thoracic Surgery 06/11/23 Karen Rai APRN PRACTICE LEAD [address] [place] [address] 462695 Nurse Practitioner Neurology 06/13/23 [place] [address] [place] [address] Nurse Practitioner Nurse Practitioner 06/21/23 02/26/24 Ara Short PA-C [address] [place] [address] Assigned PCP 06/22/23 Sherry Aviles MD [address] [place] [address]666 Assigned Surgical Provider 07/13/23 09/18/24 Jayda White, RN Specialty Sales Office Administrator Thoracic Surgery 08/28/23 [place] [address] [place], [place] 88058124 Assigned Pain Medication Provider 09/20/23 03/21/24 Emeka Anand MD [address] [place] [address] 537125 Neurology 10/24/23 Anais Jaffe, LYLA BEAUTY ARTIST [address] [place] [address] 683825 Clinical Nurse Specialist Cardiovascular & Thoracic Surgery 11/09/23 Willy Owens DO [address] [place] [address] 396825 Physician Gastroenterology 11/09/23 Larry Schaefer MD [address] [place] [address] 300505 Assigned Endocrinology Provider 11/20/23 Daysi Winston PA-C [address] [place] [address] 574825 Physician Distribution Collection Operator Physician Distribution Collection Operator - Surgical 11/30/23 Savita Gregory PA-C [address] [address] Physician Distribution Collection Operator Urology 11/30/23 [place] [address] [place] [address] Physician Gastroenterology 12/06/23 Kelsi Tripathi, [facility] Community Health Worker Primary Care - CC 12/11/23 4 [place] [address] [address] [address] Assigned Neuroscience Provider 12/21/[address] [place] [address] Registered Dietitian Dietitian, Registered 02/14/24 [place] [address] [place] [address] Assigned Gastroenterology Provider 02/20/24 04/20/24 Jessica Howell PA-C 909 [place] [address] Assigned Gastroenterology Provider 04/21/24 09/18/24 Kelsi Tripathi, W Community Health Worker Primary Care - CC 09/11/24 5 Sneha Calero, [facility] Lead Sales Office Administrator Primary Care - CC 09/15/24 Argenis Mesa MD [address] [place] [address] Colon & Rectal 09/17/24 Kelsi Tripathi, W Community Health Worker Primary Care - CC 09/17/24 Candelaria Santillan PA-C [address] [place] [address] Assigned Gastroenterology Provider 09/19/24 Daysi Winston PA-C 909 [place] [address] Assigned Surgical Provider 09/19/24 10/19/24 Argenis Mesa MD [address] [place] [address] Assigned Surgical Provider 10/20/24 Melvi Chavez MD [address] [place] [address] Urology 10/28/24 Jaret Pitts, W Community Health Worker Primary Care - CC 12/12/24 Neetu Lui, W Community Health Worker 12/25/24 documented as of this encounter
--- OUTSIDE RECORDS SUMMARY | 2024-12-30 17:06 | XMS_ITS | Encounter Summary ---
Author Organization [facility] Address [address] [place] [address] 18387 Care Team Providers Care Block Chopper Hand Name Role Phone Raiza Martinez MD Unavailable Stefan Gupta MD, Sherry Unavailable [phone] Karen Rai FUNERAL GREETER FUNERAL GREETER Unavailable [phone] Catherine Miguel NP Unavailable [phone] Ara ShortC Unavailable [phone] Ara ShortC Primary Care Provider Stefan Gupta MD, Sherry Unavailable [phone] Jayda White RN Unavailable Unavailable OAudrey Hernandez MD Unavailable [phone] Emeka Anand MD Unavailable Anais Jaffe FUNERAL GREETER BUILDING CONSTRUCTION IRONWORKER Unavailable Willy Owens DO Unavailable Larry Schaefer MD Unavailable [phone] Daysi Winston PA-C Unavailable [phone] Savita Gregory-C Unavailable Laura Ball DO Unavailable Kelsi Tripathi Unavailable Michi Patterson MD Unavailable Yecenia, Jill Urbano RD Unavailable [phone] Laura Ball DO Unavailable [phone] Jessica Howell PA-C Unavailable +[phone] Kelsi Tripathi CHW Unavailable [phone] Sneha Calero [facility] Unavailable [phone] Argenis Mesa MD Unavailable [phone] Kelsi Tripathi W Unavailable [phone] Candelaria SantillanC Unavailable Daysi Winston-C Unavailable [phone] Argenis Mesa MD Unavailable [phone] Melvi Chavez MD Unavailable +[phone] Jaret Pitts W Unavailable Unavailable Neetu Hopkins [facility] Unavailable [phone] Encounter Details Date Type Department Care Team (Late st Contact Info) Description 12/10/2023 MyC Medical Advice [facility] Neurology [address], [address] [address] Anastasia Mcgill, RN Social History Tobacco Use Types Packs/Day [...] and Family Not on file 10/02/2023 Attends Christianity Services Not on file 10/01 Do you belong to any clubs o r organizations such as yazidi groups, unions, fraternal or athletic groups, or [...] Answer Date Recorded PHQ-2 Score 6 10/26/2023 [facility] - Occupational [...] in an abandoned building, in an overnight nursing home, or couch-surfing.) Yes 10/02/2023 Are you worried [...] Sex Assigned at Female 06/01/2023 2:55 PM WIRE SPIRAL BINDER Legal Sex Female 1:26 PM WIRE SPIRAL BINDER Gender Identity Female 06/01/2023 2:55 PM WIRE SPIRAL BINDER Sexual Orientation Straight 06/01/2023 2: 55 PM WIRE SPIRAL BINDER documented as of this encounter Plan of Treatment Upcoming Encounters Date Type Department Care Team (Late st Contact Info) Description 01/02/2025 10:30 AM CDT Office Visit [address] [phone] Ara Short PA-C [id number] [place] [phone] 01/07/2025 8:30 AM CDT Office Visit [facility] Urology [facility] [address] [facility] [address] [place] [phone] Melvi Chavez MD 420 [facility] 394 [place], [place] 47[address] 02/11/2025 2:00 PM CDT Virtual Visit [facility] Specialty [facility] 1875 [place] [address] Larry Schaefer MD 516 [place], [place] 058505 02/13/2025 2:00 PM CDT Office Visit [address] [phone] Ara Short PA-C [address] [place] [address] 02/17/2025 3:15 PM CDT Virtual Visit [facility] Gastroenterology Clinic [address] 4th [place] [phone] Jessica Howell PA-C [address] [place] [address] documented as of this encounter Visit Diagnoses Not on filedocumented in this encounter Additional Health Concerns Assessment Noted Time PHQ-9 Depression Total Score: 17 024 7:55 AM CDT documented as of this encounter Care Teams Block Chopper Hand Relationship Specialty Start Date End Date Ara Short PA-C [address] [place] [phone] PCP - General Family Medicine 06/27/23 Raiza Martinez MD [address] [place] [address] [phone] Otolaryngology 05/18/23 Sherry Aviles MD [address] [place] [address] 434475 Cardiovascular & Thoracic Surgery 06/11/23 Karen Rai APRN FUNERAL GREETER [address] [place] [address] 602615 Nurse Practitioner Neurology 06/13/23 [place] [address] [address] [place] 046487 Nurse Practitioner Nurse Practitioner 06/21/23 02/26/24 Ara Short PA-C [address] [place] [address]-697383 Assigned PCP 06/22/23 Sherry Aviles MD [address] [place] [address] 550765 Assigned Surgical Provider 07/13/23 09/18/24 Jayda White, RIGOBERTO Specialty Personal Counselor Thoracic Surgery 08/28/23 [place] [address] [place], [place] [phone] Assigned Pain Medication Provider 09/20/23 03/21/24 Emeka Anand MD [address] [place] [address] 365885 Neurology 10/24/23 Anais Jaffe, LYLA BUILDING CONSTRUCTION IRONWORKER [address] [place] [address] 399055 Clinical Nurse Specialist Cardiovascular & Thoracic Surgery 11/09/23 Willy Owens DO [address] [place] [address] 425475 Physician Gastroenterology 11/09/23 Larry Schaefer MD [address] [place] [address] 182145 Assigned Endocrinology Provider 11/20/23 Daysi Winston PA-C [address] [place] [address] [phone] Physician Inspector Materials And Processes Physician Inspector Materials And Processes - Surgical 11/30/23 Savita Gregory PA-C [address] [address] Physician Inspector Materials And Processes Urology 11/30/23 [place] [address] [place] [address] Physician Gastroenterology 12/06/23 Kelsi Trpiathi, [facility] Community Health Worker Primary Care - CC 12/11/23 4 [place] [address] [address] Assigned Neuroscience Provider 12/21/[address] [place] [address] Registered Dietitian Dietitian, Registered 02/14/24 [place] [address] [place] [address] Assigned Gastroenterology Provider 02/20/24 04/20/24 Jessica Howell PA-C 909 [place] [address] Assigned Gastroenterology Provider 04/21/24 09/18/24 Kelsi Tripathi, [facility] Community Health Worker Primary Care - CC 09/11/24 5 Sneha Calero LSW Lead Personal Counselor Primary Care - CC 09/15/24 Argenis Mesa MD [address] [place] [address] [place] [address] Colon & Rectal 09/17/24 Kelsi Tripathi, [facility] Community Health Worker Primary Care - CC 09/17/24 Candelaria Santillan PA-C [address] [place] [address] Assigned Gastroenterology Provider 09/19/24 Daysi Winston PA-C 909 [place] [address] Assigned Surgical Provider 09/19/24 10/19/24 Argenis Mesa MD [address] [place] [address] [place] [address] Assigned Surgical Provider 10/20/24 Melvi Chavez MD [address] [place] [address] [place] [address] Urology 10/28/24 Jaret Pitts, W Community Health Worker Primary Care - CC 12/12/24 5 Neetu Hopkins, [facility] Community Health Worker 12/25/24 documented as of this encounter
--- OUTSIDE RECORDS SUMMARY | 2024-12-30 17:06 | XMS_ITS | Encounter Summary ---
Author Organization [facility] Address [address] [place] [address] Care Team Providers Care Gamewell Operator Name Role Phone Raiza Martinez MD Unavailable Stefan Gupta MD, Sherry Unavailable [phone] Karen Rai SAILING INSTRUCTOR SECURITY SYSTEM ANALYST Unavailable Catherine Miguel NP Unavailable [phone] Ara ShortC Unavailable [phone] Ara Short-C Primary Care Provider [phone] Stefan Gupta MD, Sherry Unavailable Graeme Le MD Unavailable Jayda White RN Unavailable Unavailable O'Audrey Grimm MD Unavailable [phone] Emeka Anand MD Unavailable Anais Jaffe SAILING INSTRUCTOR VALET RUNNER Unavailable Willy Owens DO Unavailable Larry Schaefer MD Unavailable [phone] Daysi Winston PA-C Unavailable [phone] Savita Gregory PA-C Unavailable Laura Ball DO Unavailable Kelsi Tripathi [facility] Unavailable iMchi Patterson MD Unavailable [phone] Unavailable [phone] Laura Ball DO Unavailable [phone] Jessica Howell PA-C Unavailable [phone] Kelsi Tripathi CHW Unavailable [phone] Sneha Calero BOARDING HOUSE COOK Unavailable [phone] Argenis Mesa MD Unavailable [phone] Kelsi Tripathi CHW Unavailable [phone] Candelaria Santillan PA-C Unavailable Daysi Winston PA-C Unavailable [phone] Argenis Mesa MD Unavailable [phone] Melvi Chavez MD Unavailable [phone] Jaret Pitts CHW Unavailable Unavailable Neetu Hopkins CHW Unavailable [phone] Encounter Details Date Type Department Care Team (Late st Contact Info) Description 08/30/2023 MyC Medical Advice [facility] [address] [place] [address] Jayda White, RN Social History Tobacco [...] in an abandoned building, in an overnight prison, or couch-surfing.) Yes 05/18/2023 Are you worried [...] Sex Assigned at Female 06/01/2023 2:55 PM GRIEVANCE MANAGER Legal Sex Female 1:26 PM GRIEVANCE MANAGER Gender Identity Female 06/01/2023 2:55 PM GRIEVANCE MANAGER Sexual Orientation Straight 06/01/2023 2: 55 PM GRIEVANCE MANAGER documented as of this encounter Plan of Treatment Upcoming Encounters Date Type Department Care Team (Late st Contact Info) Description 01/02/2025 10:30 AM CDT Office Visit [facility] [address] [place] [phone] Ara Short PA-C [address] [place] [address] 01/07/2025 8:30 AM CDT Office Visit [facility] Urology Clinic [place] [address] [place], [place] [address] Melvi Chavez MD 420 [facility] 394 [place], [place] 808445 02/11/2025 2:00 PM CDT Virtual Visit [facility] Specialty Clinic [place] 1875 [place] [phone] Larry Schaefer MD 516 [place], [place] 185745 02/13/2025 2:00 PM CDT Office Visit [facility] [address] [place] [address] Ara Short PA-C [address] [place] [address] 02/17/2025 3:15 PM CDT Virtual Visit [facility] Gastroenterology Clinic [place] 909 [facility] 4th [place] [address] Jessica Howell PA-C [address] [place] [address] 914875 documented as of this encounter Visit Diagnoses Not on filedocumented in this encounter Additional Health Concerns Assessment Noted Time PHQ-9 Depression Total Score: 19 024 2:02 PM CDT documented as of this encounter Care Teams Gamewell Operator Relationship Specialty Start Date End Date Ara Short PA-C [address] [place] [address] PCP - General Family Medicine 06/27/23 Raiza Martinez MD [address] [place] [address] Otolaryngology 05/18/23 Sherry Aviles MD [address] [place] [address] Cardiovascular & Thoracic Surgery 06/11/23 Karen Rai APRN CNP [address] [place] [address] 80324 Nurse Practitioner Neurology 06/13/23 [place] [address] [place] [address] Nurse Practitioner Nurse Practitioner 06/21/23 02/26/24 Ara Short PA-C [address] [place] [address]-25667283 Assigned PCP 06/22/23 Sherry Aviles MD [address] [place] [address] 20262 Assigned Surgical Provider 07/13/23 09/18/24 Graeme Le MD [address] [place] [address] [place] [address] Neurology 08/10/23 10/23/23 Jayda White, RIGOBERTO Specialty Wallpaper Embosser Helper Thoracic Surgery 08/28/23 [place] [address] [place], [place] [phone] Assigned Pain Medication Provider 09/20/23 03/21/24 Emeka Anand MD [address] [place] [address] 189685 Neurology 10/24/23 Anais Jaffe APRN VALET RUNNER 420 [facility] 207 [place], [place] 301135 Clinical Nurse Specialist Cardiovascular & Thoracic Surgery 11/09/23 Willy Owens DO 420 [facility] 207 [place], [place] 638[address] Physician Gastroenterology 11/09/23 Larry Schaefer MD 516 [place], [place] 195635 Assigned Endocrinology Provider 11/20/23 Daysi Winston PA-C 909 [place], [place] 965885 Physician Professor Of Biblical Studies Physician Professor Of Biblical Studies - Surgical 11/30/23 Savita Gregory PA-C [address] [phone] Physician Professor Of Biblical Studies Urology 11/30/23 [place] [address] [place], [place] 4[address] Physician Gastroenterology 12/06/23 Kelsi Tripathi, [facility] Community Health Worker Primary Care - CC 12/11/23 [place] [address] [place] [address] [place] [address] 00148 Assigned Neuroscience Provider 12/21/[address] [place] [address] 18093 Registered Dietitian Dietitian, Registered 02/14/24 [place] [address] [place] [address] Assigned Gastroenterology Provider 02/20/24 04/20/24 Jessica Howell PA-C [address] [place] [address] 838895 Assigned Gastroenterology Provider 04/21/24 09/18/24 Kelsi Tripathi, [facility] Community Health Worker Primary Care - CC 09/11/24 5 Sneha Calero, [facility] Lead Wallpaper Embosser Helper Primary Care - CC 09/15/24 Argenis Mesa MD 6525 [facility] Eugenia [address] 178865 Colon & Rectal 09/17/24 Kelsi Tripathi, [facility] Community Health Worker Primary Care - CC 09/17/24 Candelaria Santillan PA-C [address] [place] [address] Assigned Gastroenterology Provider 09/19/24 Daysi Winston PA-C [address] [place] [address] Assigned Surgical Provider 09/19/24 10/19/24 Argenis Mesa MD [address] [place] [address] [place] [address] Assigned Surgical Provider 10/20/24 Melvi Chavez MD [address] [place] [address] [place] [address] Urology 10/28/24 Jaret Pitts, W Community Health Worker Primary Care - CC 12/12/24 5 Neetu Hopkins CHW Community Health Worker 12/25/24 documented as of this encounter
--- OUTSIDE RECORDS SUMMARY | 2024-12-30 17:06 | XMS_ITS | Encounter Summary ---
Author Organization [facility] Address [address] [address] Phone Care Team Providers Care Public Affairs Officer Name Role Phone Lucia Lemons RN Unavailable Unavailable Zoey Terry MD Primary Care Provider [phone] Mahnaz Turner APRN, ATMOSPHERIC SCIENTIST Primary Care Provi paty Choice, No Pcp-Patient Primary Care Provider Susan vailable Encounter Details Date Type Department Care Team (Late st Contact Info) Description 10/11/2017 Scanned - Medical Reports [facility] HIS [address] [place], [place] [phone] Abstract, Provider, Social History Tobacco Use Types Packs/Day Years Used Date Smoking Tobacco: Never Smokeless Tobacco: Never Alcohol Use Standard Drinks/Week Comments No 0 (1 standard drink = 0.6 oz pur e alcohol) Comments No Sex and Gender Information Value Date Recorded Sex Assigned at Not on file Legal Sex Female 10:44 AM ELECTRICAL APPRENTICE Gender Identity Not on file Sexual Orientation [...] Time COVID-19 Confirmed 02/22/2021 02/22/2021 11:06 PM ELECTRICAL APPRENTICE R/O COVID-19 12/14/2021 12/14/2021 12/14/2021 10:5 4 AM CDT COVID-19 Confirmed 12/14/2021 12/14/2021 11:06 PM CDT R/O Respiratory Pathogens 02/26/2024 02/26/2024 11:55 AM CDT R/O COVID-19 02/26/2024 02/26/2024 02/26/2024 11:5 5 AM CDT R/O Respiratory Pathogens 04/10/2024 04/10/2024 4:03 PM ELECTRICAL APPRENTICE R/O COVID-19 04/10/2024 04/10/2024 04/10/2024 4:03 PM ELECTRICAL APPRENTICE Flu A (influenza A) 04/10/2024 04/10/2024 05/08/19 25 11:06 PM ELECTRICAL APPRENTICE documented as of this encounter Care Teams Public Affairs Officer Relationship Specialty Start Date End Date Zoey Terry MD [address] [place] [address] 865591 PCP - General Family Medicine 06/20/17 08/24/20 Mahnaz Turner, HIGH PRESSURE BOILER OPERATOR, ATMOSPHERIC SCIENTIST [address] [place] [address] PCP - General Family Medicine 08/25/20 05/13/23 Choice, No Pcp-Patient PCP - General 10/02/23 Lucia Lemons, RN Nurse Navigator Pulmonary Medicine 05/23/17 documented as of this encounter
--- OUTSIDE RECORDS SUMMARY | 2024-12-30 17:06 | XMS_ITS | Encounter Summary ---
Author Organization [facility] Address [address] [place] [address] Care Team Providers Care Visual Lead Name Role Phone Raiza Martinez MD Unavailable Stefan Gupta MD, Sherry Unavailable [phone] Karen Rai CONGRESSIONAL ASSISTANT DECORATING INSTRUCTOR Unavailable [phone] Catherine Miguel NP Unavailable Ara ShortC Unavailable [phone] Ara ShortC Primary Care Provider [phone] Stefan Gupta MD, Sherry Unavailable [phone] Jayda White RN Unavailable Unavailable OAudrey Hernandez MD Unavailable [phone] Emeka Anand MD Unavailable Anais Jaffe CONGRESSIONAL ASSISTANT SUCTION DRUM DRIER OPERATOR Unavailable Willy Owens DO Unavailable Larry Schaefer MD Unavailable [phone] Daysi Winston PA-C Unavailable Savita Gregory-C Unavailable Laura Ball DO Unavailable Kelsi Tripathi Unavailable Michi Patterson MD Unavailable Yecenia, Jill Urbano RD Unavailable [phone] Quinn Laura M DO Unavailable [phone] Jessica Howell PA-C Unavailable [phone] Kelsi Tripathi CHW Unavailable [phone] Sneha Calero OVEN HEATER HELPER Unavailable [phone] Argenis Mesa MD Unavailable [phone] Kelsi Tripathi CHW Unavailable [phone] Candelaria SantillanC Unavailable Daysi Winston-C Unavailable [phone] Argenis Mesa MD Unavailable [phone] Melvi Chavez MD Unavailable [phone] Jaret Pitts W Unavailable Unavailable Neetu Hopkins W Unavailable [phone] Encounter Details Date Type Department Care Team (Late st Contact Info) Description 11/27/2023 [facility] [place] [facility] Insurance Verification Skylar Antonio Social History Tobacco Use Types Packs/Day Years [...] and Family Not on file 10/02/2023 Attends Mormonism Services Not on file 10/01 Do you belong to any clubs o r organizations such as latter day groups, unions, fraternal or athletic groups, or [...] Answer Date Recorded PHQ-2 Score 6 10/26/2023 [place] - Occupational Stress Questionnaire Answer Date Recorded [...] Sex Assigned at Female 06/01/2023 2:55 PM CUSTOMS COMPLIANCE DIRECTOR Legal Sex Female 1:26 PM CUSTOMS COMPLIANCE DIRECTOR Gender Identity Female 06/01/2023 2:55 PM CUSTOMS COMPLIANCE DIRECTOR Sexual Orientation Straight 06/01/2023 2: 55 PM CUSTOMS COMPLIANCE DIRECTOR documented as of this encounter Plan of Treatment Upcoming Encounters Date Type Department Care Team (Late st Contact Info) Description 01/02/2025 10:30 AM CDT Office Visit [address] [address] Ara Short PA-C [address] [place] [address] 01/07/2025 8:30 AM CDT Office Visit [facility] Urology [facility] [address] [facility] [address] [place] [phone] Melvi Chavez MD 420 [facility] 394 [place], [place] 9[address] 02/11/2025 2:00 PM CDT Virtual Visit [facility] Specialty [place] [address] [place] [phone] Larry Schaefer MD 516 [place], [place] 819455 02/13/2025 2:00 PM CDT Office Visit [address] [address] Ara Short PA-C [address] [place] [address]-9103124-[address] 02/17/2025 3:15 PM CDT Virtual Visit [facility] Gastroenterology Clinic [place] 461369 [facility] 4th [place] [phone] Jessica Howell PA-C [address] [place] [address] 562245 documented as of this encounter Visit Diagnoses Not on filedocumented in this encounter Additional Health Concerns Assessment Noted Time PHQ-9 Depression Total Score: 17 024 7:55 AM CDT documented as of this encounter Care Teams Visual Lead Relationship Specialty Start Date End Date Ara Short PA-C [address] [place] [phone] PCP - General Family Medicine 06/27/23 Raiza Martinez MD [address] [place] [address] Otolaryngology 05/18/23 Sherry Aviles MD [address] [place] [address] 459385 Cardiovascular & Thoracic Surgery 06/11/23 Karen Rai APRN DECORATING INSTRUCTOR [address] [place] [address] Nurse Practitioner Neurology 06/13/23 [place] [address] [place] [address] Nurse Practitioner Nurse Practitioner 06/21/23 02/26/24 Ara Short PA-C [address] [place] [address] Assigned PCP 06/22/23 Sherry Aviles MD [address] [place] [address] Assigned Surgical Provider 07/13/23 09/18/24 Jayda White, RIGOBERTO Specialty Storeroom Clerk Thoracic Surgery 08/28/23 [place] [address] [place], [place] 49631124 Assigned Pain Medication Provider 09/20/23 03/21/24 Emeka Anand MD [address] [place] [address] 918925 Neurology 10/24/23 Anais Jaffe, CONGRESSIONAL ASSISTANT SUCTION DRUM DRIER OPERATOR [address] 695635 Clinical Nurse Specialist Cardiovascular & Thoracic Surgery 11/09/23 Willy Owens DO [address] [place] [address] 763785 Physician Gastroenterology 11/09/23 Larry Schaefer MD [address] [place] [address] 494445 Assigned Endocrinology Provider 11/20/23 Daysi Winston PA-C [address] [place] [address] Physician Dice Spotter Physician Dice Spotter - Surgical 11/30/23 FerSavita cole PA-C [address] [address] Physician Dice Spotter Urology 11/30/23 [place] [address] [place] [address] Physician Gastroenterology 12/06/23 Kelsi Tripathi, W Community Health Worker Primary Care - CC 12/11/23 4 [place] [address] [address] Assigned Neuroscience Provider 12/21/[address] [place] [address] Registered Dietitian Dietitian, Registered 02/14/24 [place] [address] [place] [address] Assigned Gastroenterology Provider 02/20/24 04/20/24 Jessica Howell PA-C [address] [place] [address] Assigned Gastroenterology Provider 04/21/24 09/18/24 Kelsi Tripathi, W Community Health Worker Primary Care - CC 09/11/24 5 Sneha Calero, OVEN HEATER HELPER Lead Storeroom Clerk Primary Care - CC 09/15/24 Argenis Mesa MD [address] [place] [address] Colon & Rectal 09/17/24 Kelsi Tripathi, W Community Health Worker Primary Care - CC 09/17/24 Candelaria Santillan PA-C [address] [facility] [place] [address] Assigned Gastroenterology Provider 09/19/24 Daysi Winston PA-C 9 [place] [address] Assigned Surgical Provider 09/19/24 10/19/24 Argenis Mesa MD [address] [place] [address] [place] [address] Assigned Surgical Provider 10/20/24 Melvi Chavez MD [address] [place] [address] [place] [address] Urology 10/28/24 Jaret Pitts, W Community Health Worker Primary Care - CC 12/12/24 Neetu Lui, [facility] Community Health Worker 12/25/24 documented as of this encounter
--- OUTSIDE RECORDS SUMMARY | 2024-12-30 17:06 | XMS_ITS | Encounter Summary ---
Author Organization [place] Address [address] [place] [address] Care Team Providers Care Bleach Machine Operator Name Role Phone Raiza Martinez MD Unavailable Stefan Gupta MD, Sherry Unavailable [phone] Karen Rai COMPARATOR OPERATOR PRODUCTION REPRODUCTION MANAGER Unavailable Catherine Miguel NP Unavailable Ara ShortC Unavailable [phone] Ara Short-C Primary Care Provider Stefan Gupta MD, Sherry Unavailable [phone] Graeme Le MD Unavailable Jayda White RN Unavailable Unavailable O'Audrey Grimm MD Unavailable [phone] Emeka Anand MD Unavailable Anais Jaffe COMPARATOR OPERATOR MARINE FIRE FIGHTER Unavailable Willy Owens DO Unavailable Larry Schaefer MD Unavailable [phone] Daysi Winston PA-C Unavailable [phone] Savita Gregory PA-C Unavailable Laura Ball DO Unavailable Kelsi Tripathi [facility] Unavailable Michi Patterson MD Unavailable [phone] Unavailable [phone] Laura Ball DO Unavailable [phone] Jessica Howell PA-C Unavailable [phone] Kelsi Tripathi CHW Unavailable [phone] Sneha Calero ELIGIBILITY TECHNICIAN Unavailable [phone] Argenis Mesa MD Unavailable [phone] Kelsi Tripathi CHW Unavailable [phone] Candelaria Santillan PA-C Unavailable Daysi Winston PA-C Unavailable [phone] Argenis Mesa MD Unavailable [phone] Melvi Chavez MD Unavailable [phone] Jaret Pitts CHW Unavailable Unavailable Neetu Hopkins CHW Unavailable [phone] Encounter Details Date Type Department Care Team (Late st Contact Info) Description 08/30/2023 MyC Medical Advice [facility] [address] [place] [address] Jayda White, RN Social History Tobacco [...] in an abandoned building, in an overnight long-term, or couch-surfing.) Yes 05/18/2023 Are you worried [...] Sex Assigned at Female 06/01/2023 2:55 PM STEEL CHIPPER Legal Sex Female 1:26 PM STEEL CHIPPER Gender Identity Female 06/01/2023 2:55 PM STEEL CHIPPER Sexual Orientation Straight 06/01/2023 2: 55 PM STEEL CHIPPER documented as of this encounter Plan of Treatment Upcoming Encounters Date Type Department Care Team (Late st Contact Info) Description 01/02/2025 10:30 AM CDT Office Visit [facility] [address] [place] [address] Ara Short PA-C [address] [place] [address] 01/07/2025 8:30 AM CDT Office Visit [facility] [place] [address] [place], [place] [address] Melvi Chavez MD 420 [facility] 394 [place], [place] 0[address]605 02/11/2025 2:00 PM CDT Virtual Visit [facility] [place] 1875 [place] [address] Larry Schaefer MD 516 [place], [place] 618285 02/13/2025 2:00 PM CDT Office Visit [facility] [address] [place] [address] Ara Short PA-C [address] [place] [address] 02/17/2025 3:15 PM CDT Virtual Visit [facility] [place] 9[address] [facility] 4th [place] [address] Jessica Howell PA-C [address] [place] [address] 902065 documented as of this encounter Visit Diagnoses Not on filedocumented in this encounter Additional Health Concerns Assessment Noted Time PHQ-9 Depression Total Score: 19 024 2:02 PM CDT documented as of this encounter Care Teams Bleach Machine Operator Relationship Specialty Start Date End Date Ara Short PA-C [id number] [place] [address] PCP - General Family Medicine 06/27/23 Raiza Martinez MD [address] [place] [address] 48[address] Otolaryngology 05/18/23 Sherry Aviles MD [address] [place] [address] Cardiovascular & Thoracic Surgery 06/11/23 Karen Rai APRN CNP [address] [place] [address] Nurse Practitioner Neurology 06/13/23 [place] [address] [place] [address] Nurse Practitioner Nurse Practitioner 06/21/23 02/26/24 Ara Short PA-C [address] [place] [address] Assigned PCP 06/22/23 Sherry Aviles MD [address] [place] [address]31 Assigned Surgical Provider 07/13/23 09/18/24 Graeme Le MD [address] [place] [address] [address] Neurology 08/10/23 10/23/23 Jayda White, RIGOBERTO Specialty Extension Worker Thoracic Surgery 08/28/23 [place] [address] [place], [place] 650[address] Assigned Pain Medication Provider 09/20/23 03/21/24 Emeka Anand MD [address] [place] [address] 489735 Neurology 10/24/23 Anais Jaffe APRN MARINE FIRE FIGHTER 420 [facility] 207 [place], [place] 935035 Clinical Nurse Specialist Cardiovascular & Thoracic Surgery 11/09/23 Willy Owens DO 420 [facility] 207 [place], [place] 221745 Physician Gastroenterology 11/09/23 Larry Schaefer MD 516 [place], [place] 028105 Assigned Endocrinology Provider 11/20/23 Daysi Winston PA-C 909 [place], [place] 658915 Physician Audio Experience Expert Physician Audio Experience Expert - Surgical 11/30/23 Savita Gregory PA-C [address] [id number] Physician Audio Experience Expert Urology 11/30/23 [place] [address] [place], [place] 4[address] Physician Gastroenterology 12/06/23 Kelsi Tripathi, [facility] Community Health Worker Primary Care - CC 12/11/23 [place] [address] [place] [address] Assigned Neuroscience Provider 12/21/[address] [place] [address] 269[address] Registered Dietitian Dietitian, Registered 02/14/24 [place] [address] [place] [address] Assigned Gastroenterology Provider 02/20/24 04/20/24 Jessica Howell PA-C [address] [place] [address] 624305 Assigned Gastroenterology Provider 04/21/24 09/18/24 Kelsi Tripathi, [facility] Community Health Worker Primary Care - CC 09/11/24 5 Sneha Calero, [facility] Lead Extension Worker Primary Care - CC 09/15/24 Argenis Mesa MD 6525 [facility] Eug[place] [address] 068535 Colon & Rectal 09/17/24 Kelsi Tripathi, [facility] Community Health Worker Primary Care - CC 09/17/24 Candelaria Santillan PA-C [address] [place] [address] Assigned Gastroenterology Provider 09/19/24 Daysi Winston PA-C [address] [place] [address]046 Assigned Surgical Provider 09/19/24 10/19/24 Argenis Mesa MD [address] [place] [address] [place] [address] Assigned Surgical Provider 10/20/24 Melvi Chavez MD [address] [place] [address] [place] [address] Urology 10/28/24 Jaret Pitts, W Community Health Worker Primary Care - CC 12/12/24 5 Neetu Hopkins CHW Community Health Worker 12/25/24 documented as of this encounter
--- OUTSIDE RECORDS SUMMARY | 2024-12-30 17:06 | XMS_ITS | Encounter Summary ---
Author Organization [place] Address [address] [place] [address] Care Team Providers Care Release Specialist Name Role Phone Raiza Martinez MD Unavailable Stefan Gupta MD, Sherry Unavailable [phone] Karen Rai SEED CLEANING MACHINE OPERATOR WOUND CARE NURSE Unavailable [phone] Catherine Miguel NP Unavailable Ara ShortC Unavailable [phone] Ara ShortC Primary Care Provider Stefan Gupta MD, Sherry Unavailable [phone] Jayda White RN Unavailable Unavailable OAudrey Hernandez MD Unavailable [phone] Emeka Anand MD Unavailable [phone] Anais Jaffe SEED CLEANING MACHINE OPERATOR BEAD MAKER Unavailable Willy Owens DO Unavailable Larry Schaefer MD Unavailable [phone] Daysi Winston PA-C Unavailable Savita Gregory-C Unavailable Laura Ball DO Unavailable Kelsi Tripathi Unavailable Michi Patterson MD Unavailable Yecenia[address]ianka [address] Unavailable [phone] QuinnLaura Samira DO Unavailable [phone] Jessica Howell PA-C Unavailable [phone] Kelsi Tripathi CHW Unavailable [phone] Sneha Calero MANNEQUIN WIG MAKER Unavailable [phone] Argenis Mesa MD Unavailable [phone] Kelsi Tripathi W Unavailable [phone] Candelaria Santillan-C Unavailable Daysi Winston PA-C Unavailable [phone] Argenis Mesa MD Unavailable [phone] Melvi Chavez MD Unavailable [phone] Jaret Pitts W Unavailable Unavailable Neetu Hopkins [facility] Unavailable [phone] Encounter Details Date Type Department Care Team (Late st Contact Info) Description 11/28/2023 MyC Medical Advice [facility] [address], [address] [place] [address] Abby Hilliard, RN Social History Tobacco Use Types Packs/Day [...] and Family Not on file 10/02/2023 Attends Orthodox Services Not on file 10/01 Do you belong to any clubs o r organizations such as advent groups, unions, fraternal or athletic groups, or [...] Answer Date Recorded PHQ-2 Score 6 10/26/2023 [facility] [...] Sex Assigned at Female 06/01/2023 2:55 PM CRAWLER CRANE OPERATOR Legal Sex Female 1:26 PM CRAWLER CRANE OPERATOR Gender Identity Female 06/01/2023 2:55 PM CRAWLER CRANE OPERATOR Sexual Orientation Straight 06/01/2023 2: 55 PM CRAWLER CRANE OPERATOR documented as of this encounter Miscellaneous Notes * Telephone Encounter - Catherine Jimenez RN - 12/04/2023 3:35 PM CDT Placed call to [facility] - Gave verbal order for DEXA scan. Have tried to fax multiple times [facility] states they already have the dexa scan referral. Pt is already scheduled on 12/24 1:05 check at [facility]. Pt updated. * Telephone Encounter - Abby Hilliard RN - 11/28/2023 3:15 PM CDT Can only fax 1 thing at a time via [employer]. Has not been faxed in clinic yet Faxed only the Dexa order to [facility] via Epic at If [facility] needs more info, they can request it. documented in this encounter Plan of Treatment Upcoming Encounters Date Type Department Care Team (Late st Contact Info) Description 01/02/2025 10:30 AM CDT Office Visit [facility] [address] [place] [address] Ara Short PA-C [id number] [place] [address] 01/07/2025 8:30 AM CDT Office Visit [facility] [place] 6[address] [facility] [address] [place] [phone] Melvi Chavez MD 420 [facility] 394 [place], [place] 197505 02/11/2025 2:00 PM CDT Virtual Visit [facility] [place] [address] [place] [address] Larry Schaefer MD 516 [place], [place] 518015 02/13/2025 2:00 PM CDT Office Visit [facility] [address] [place] [address] Ara Short PA-C [address] [place] [address] 02/17/2025 3:15 PM CDT Virtual Visit [facility] [place] 909 [facility] 4th [place] [address] Jessica Howell PA-C [address] [place] [address] 012915 documented as of this encounter Visit Diagnoses Not on filedocumented in this encounter Additional Health Concerns Assessment Noted Time PHQ-9 Depression Total Score: 17 024 7:55 AM CDT documented as of this encounter Care Teams Release Specialist Relationship Specialty Start Date End Date Ara Short PA-C [id number] [place] [address] PCP - General Family Medicine 06/27/23 Raiza Martinez MD [address] [place] [address] Otolaryngology 05/18/23 Sherry Aviles MD [address] [place] [address]336 Cardiovascular & Thoracic Surgery 06/11/23 Karen Rai APRN WOUND CARE NURSE [address] [place] [address] 359965 Nurse Practitioner Neurology 06/13/23 [place] [address] [place], [place] 598437 Nurse Practitioner Nurse Practitioner 06/21/23 02/26/24 Ara Short PA-C [address] [place] [address] Assigned PCP 06/22/23 Sherry Aviles MD [address] [place] [address] Assigned Surgical Provider 07/13/23 09/18/24 Jayda White, RIGOBERTO Specialty Pulp Grinder And Blender Thoracic Surgery 08/28/23 [place] [address] [place] [address] Assigned Pain Medication Provider 09/20/23 03/21/24 Emeka Anand MD [address] [place] [address] 395495 Neurology 10/24/23 Anais Jaffe APRN BEAD MAKER 420 [facility] 207 [place], [place] 734745 Clinical Nurse Specialist Cardiovascular & Thoracic Surgery 11/09/23 Willy Owens DO 420 [facility] 207 [place], [place] 357265 Physician Gastroenterology 11/09/23 Larry Schaefer MD 516 [place], [place] 610415 Assigned Endocrinology Provider 11/20/23 Daysi Winston PA-C 909 [place], [place] 676565 Physician Cattle Broker Physician Cattle Broker - Surgical 11/30/23 Savita Gregory PA-C [address] [phone] Physician Cattle Broker Urology 11/30/23 [place] [address] [place], [place] [address] Physician Gastroenterology 12/06/23 Kelsi Tripathi, [facility] Community Health Worker Primary Care - CC 12/11/23 [place] [address] [place] [address] Assigned Neuroscience Provider 12/21/[address] [place] [address] 52592 Registered Dietitian Dietitian, Registered 02/14/24 [place] [address] [place] [address] Assigned Gastroenterology Provider 02/20/24 04/20/24 Jessica Howell PA-C [address] [place] [address] 916885 Assigned Gastroenterology Provider 04/21/24 09/18/24 Kelsi Tripathi, [facility] Community Health Worker Primary Care - CC 09/11/24 5 Sneha Calero, [facility] Lead Pulp Grinder And Blender Primary Care - CC 09/15/24 Argenis Mesa MD 6525 [facility] Eug[address] 682965 Colon & Rectal 09/17/24 Kelsi Tripathi, [facility] Community Health Worker Primary Care - CC 09/17/24 Candelaria Santillan PA-C [address] [place] [address] Assigned Gastroenterology Provider 09/19/24 Daysi Winston PA-C [address] [place] [address] 92143 Assigned Surgical Provider 09/19/24 10/19/24 Argenis Mesa MD [address] [place] [address] [place] [address] Assigned Surgical Provider 10/20/24 Melvi Chavez MD [address] [place] [address] [place] [address] Urology 10/28/24 Jaret Pitts, W Community Health Worker Primary Care - CC 12/12/24 5 Neetu Hopkins CHW Community Health Worker 12/25/24 documented as of this encounter
--- OUTSIDE RECORDS SUMMARY | 2024-12-30 17:06 | XMS_ITS | Encounter Summary ---
Author Organization [place] Address [address] [place] [address] 8[address]69 Care Team Providers Care Pipe Cutter Name Role Phone Raiza Martinez MD Unavailable Stefan Gupta MD, Sherry Unavailable [phone] Karen Rai LEADERSHIP RECRUITER COMMUNITY FACILITATOR Unavailable Catherine Miguel NP Unavailable Ara ShortC Unavailable [phone] Ara Short-C Primary Care Provider [phone] Stefan Gupta MD, Sherry Unavailable [phone] Graeme Le MD Unavailable Jayda White RN Unavailable Unavailable O'Audrey Grimm MD Unavailable [phone] Emeka Anand MD Unavailable Anais Jaffe LEADERSHIP RECRUITER CLINICAL NURSING MANAGER Unavailable Willy Owens DO Unavailable Larry Schaefer MD Unavailable [phone] Daysi Winston PA-C Unavailable Savita Gregory PA-C Unavailable Laura Ball DO Unavailable Kelsi Tripathi [facility] Unavailable Michi Patterson MD Unavailable [phone] Unavailable [phone] Laura Ball DO Unavailable [phone] Jessica Howell PA-C Unavailable [phone] Kelsi Tripathi CHW Unavailable [phone] Sneha Calero PALEONTOLOGY TEACHER Unavailable [phone] Argenis Mesa MD Unavailable [phone] Kelsi Tripathi CHW Unavailable [phone] Candelaria Santillan PA-C Unavailable Daysi Winston PA-C Unavailable [phone] Argenis Mesa MD Unavailable [phone] Melvi Chavez MD Unavailable [phone] Jaret Pitts CHW Unavailable Unavailable Neetu Hopkins CHW Unavailable [phone] Encounter Details Date Type Department Care Team (Late st Contact Info) Description 09/25/2023 MyC Medical Advice [facility] [address] [place] [address] Jayda White, RN Social History Tobacco [...] Sex Assigned at Female 06/01/2023 2:55 PM BOMB SQUAD COMMANDER Legal Sex Female 1:26 PM BOMB SQUAD COMMANDER Gender Identity Female 06/01/2023 2:55 PM BOMB SQUAD COMMANDER Sexual Orientation Straight 06/01/2023 2: 55 PM BOMB SQUAD COMMANDER documented as of this encounter Plan of Treatment Upcoming Encounters Date Type Department Care Team (Late st Contact Info) Description 01/02/2025 10:30 AM CDT Office Visit [facility] [address] [place] [address] Ara Short PA-C [address] [place] [address] 01/07/2025 8:30 AM CDT Office Visit [facility] [place] [address] [place], [place] [address] Melvi Chavez MD 420 [facility] [address] [place], [place] [address] 02/11/2025 2:00 PM CDT Virtual Visit [facility] [place] 1875 [place] [address] Laryr Schaefer MD 516 [place], [place] 530155 02/13/2025 2:00 PM CDT Office [facility] [address] [place] [address] Ara Short PA-C [address] [place] [address] 02/17/2025 3:15 PM CDT Virtual Visit [facility] [place] 909 [facility] 4th [place] [address] Jessica Howell PA-C [address] [place] [address] 133805 documented as of this encounter Visit Diagnoses Not on filedocumented in this encounter Additional Health Concerns Assessment Noted Time PHQ-9 Depression Total Score: 19 024 2:02 PM CDT documented as of this encounter Care Teams Pipe Cutter Relationship Specialty Start Date End Date Ara Short PA-C [id number] [place] [address] PCP - General Family Medicine 06/27/23 Raiza Martinez MD [address] [place] [address] Otolaryngology 05/18/23 Sherry Aviles MD [address] [place] [address]67 Cardiovascular & Thoracic Surgery 06/11/23 Karen Rai APRN CNP [address] [place] [address] Nurse Practitioner Neurology 06/13/23 [place] [address] [place] [address] Nurse Practitioner Nurse Practitioner 06/21/23 02/26/24 Ara Short PA-C [address] [place] [address] Assigned PCP 06/22/23 Sherry Aviles MD [address] [place] [address] 98204 Assigned Surgical Provider 07/13/23 09/18/24 Graeme Le MD [address] [place] [address] [address] Neurology 08/10/23 10/23/23 Jayda White, RIGOBERTO Specialty Simulation Tech Thoracic Surgery 08/28/23 [place] [address] [place], [place] 93798124 Assigned Pain Medication Provider 09/20/23 03/21/24 Emeka Anand MD [address] [place] [address] 047305 Neurology 10/24/23 Anais Jaffe APRN CLINICAL NURSING MANAGER 420 [facility] 207 [place], [place] 528385 Clinical Nurse Specialist Cardiovascular & Thoracic Surgery 11/09/23 Willy Owens DO 420 [facility] 207 [place], [place] [address] Physician Gastroenterology 11/09/23 Larry Schaefer MD 516 [place], [place] 607415 Assigned Endocrinology Provider 11/20/23 Daysi Winston PA-C 909 [place], [place] 490145 Physician Master Craftsman Physician Master Craftsman - Surgical 11/30/23 Savita Gregory PA-C [address] [id number] Physician Master Craftsman Urology 11/30/23 [place] [address] [place], [place] [address] Physician Gastroenterology 12/06/23 Kelsi Tripathi, [facility] Community Health Worker Primary Care - CC 12/11/23 [place] [address] [place] [address] 787[address] Assigned Neuroscience Provider 12/21/[address] [place] [address]40 Registered Dietitian Dietitian, Registered 02/14/24 [place] [address] [place] [address] Assigned Gastroenterology Provider 02/20/24 04/20/24 Jessica Howell PA-C [address] [place] [address] 947365 Assigned Gastroenterology Provider 04/21/24 09/18/24 Kelsi Tripathi, [facility] Community Health Worker Primary Care - CC 09/11/24 5 Sneha Calero, [facility] Lead Simulation Tech Primary Care - CC 09/15/24 Argenis Mesa MD 6525 [facility] Eug[address] 071765 Colon & Rectal 09/17/24 Kelsi Tripathi, [facility] Community Health Worker Primary Care - CC 09/17/24 Candelaria Santillan PA-C [address] [place] [address] Assigned Gastroenterology Provider 09/19/24 Daysi Winston PA-C [address] [place] [address]66 Assigned Surgical Provider 09/19/24 10/19/24 Argenis Mesa MD [address] [place] [address] [place] [address] Assigned Surgical Provider 10/20/24 Melvi Chavez MD [address] [place] [address] [place] [address] Urology 10/28/24 Jaret Pitts, W Community Health Worker Primary Care - CC 12/12/24 5 Neetu Hopkins CHW Community Health Worker 12/25/24 documented as of this encounter
--- OUTSIDE RECORDS SUMMARY | 2024-12-30 17:06 | XMS_ITS | Encounter Summary ---
Author Organization [facility] Address [address] [address] Phone Care Team Providers Care Foam Rubber Curer Name Role Phone Lucia Lemons RN Unavailable Unavailable Zoey Terry MD Primary Care Provider [phone] Mahnaz Turner APRN, TRAFFIC RECORDER Primary Care Provi paty Choice, No Pcp-Patient Primary Care Provider Susan vailable Encounter Details Date Type Department Care Team (Late st Contact Info) Description 09/11/2017 Scanned - Medical Reports [facility] [address] [place], [place] [phone] Abstract, Provider, Social History Tobacco Use Types Packs/Day Years Used Date Smoking Tobacco: Never Smokeless Tobacco: Never Alcohol Use Standard Drinks/Week Comments No 0 (1 standard drink = 0.6 oz pur e alcohol) Comments No Sex and Gender Information Value Date Recorded Sex Assigned at Not on file Legal Sex Female 10:44 AM SPORTS DOCTOR Gender Identity Not on file Sexual Orientation [...] Time COVID-19 Confirmed 02/22/2021 02/22/2021 11:06 PM SPORTS DOCTOR R/O COVID-19 12/14/2021 12/14/2021 12/14/2021 10:5 4 AM CDT COVID-19 Confirmed 12/14/2021 12/14/2021 11:06 PM CDT R/O Respiratory Pathogens 02/26/2024 02/26/2024 11:55 AM CDT R/O COVID-19 02/26/2024 02/26/2024 02/26/2024 11:5 5 AM CDT R/O Respiratory Pathogens 04/10/2024 04/10/2024 4:03 PM SPORTS DOCTOR R/O COVID-19 04/10/2024 04/10/2024 04/10/2024 4:03 PM SPORTS DOCTOR Flu A (influenza A) 04/10/2024 04/10/2024 05/08/19 25 11:06 PM SPORTS DOCTOR documented as of this encounter Care Teams Foam Rubber Curer Relationship Specialty Start Date End Date Zoey Terry MD [address] [place] [address] [phone] PCP - General Family Medicine 06/20/17 08/24/20 Mahnaz Turner, CHECK EXAMINER, TRAFFIC RECORDER [address] [place] [address] 067442 PCP - General Family Medicine 08/25/20 05/13/23 Choice, No Pcp-Patient PCP - General 10/02/23 Lucia Lemons, RN Nurse Navigator Pulmonary Medicine 05/23/17 documented as of this encounter
--- OUTSIDE RECORDS SUMMARY | 2024-12-30 17:06 | XMS_ITS | Encounter Summary ---
Author Organization [facility] Address [address] [place] [address] Care Team Providers Care Relations Manager Name Role Phone Raiza Martinez MD Unavailable Stefan Gupta MD, Sherry Unavailable [phone] Karen Rai HOISTING PILE DRIVING ENGINEER BRIDGE GANG WORKER Unavailable [phone] Catherine Miguel NP Unavailable Ara ShortC Unavailable [phone] Ara ShortC Primary Care Provider [phone] Stefan Gupta MD, Sherry Unavailable [phone] Jayda White RN Unavailable Unavailable OAudrey Hernandez MD Unavailable [phone] Emeka Anand MD Unavailable Anais Jaffe HOISTING PILE DRIVING ENGINEER [address]REELANCE COURT STENOGRAPHER Unavailable Willy Owens DO Unavailable Larry Schaefer MD Unavailable [phone] Daysi Winston PA-C Unavailable [phone] Savita Gregory-C Unavailable [phone] Laura Ball DO Unavailable Kelsi Tripathi Unavailable Michi Patterson MD Unavailable Bianka Keene RD Unavailable [phone] QuinnYairLauracaleb Hogan DO Unavailable [phone] Jessica Howell PA-C Unavailable [phone] Kelsi Tripathi CHW Unavailable Sneha Calero FILAMENT WELDER Unavailable [phone] Argenis Mesa MD Unavailable [phone] Kelsi Tripathi W Unavailable [phone] Candelaria Santillan-C Unavailable Daysi Winston-C Unavailable [phone] Argenis Mesa MD Unavailable [phone] Melvi Chavez MD Unavailable [phone] Jaret Pitts [facility] Unavailable Unavailable Neetu Hopkins [facility] Unavailable [phone] Reason for Visit * Reason Onset Date Comments Medication Question 11/20/2023 Liquid calci um Encounter Details Date Type Department Care Team (Late st Contact Info) Description 11/20/[address] [address] Larry Schaefer MD [address] [place] [address] Medication Question (Liquid calcium) Social History Tobacco Use Types Packs/Day Years [...] and Family Not on file 10/02/2023 Attends Alevism Services Not on file 10/01 Do you belong to any clubs o r organizations such as congregation groups, unions, fraternal or athletic groups, or [...] Answer Date Recorded PHQ-2 Score 6 10/26/2023 [facility] Occupat ional Health - [...] Sex Assigned at Female 06/01/2023 2:55 PM STENO TYPIST Legal Sex Female 1:26 PM STENO TYPIST Gender Identity Female 06/01/2023 2:55 PM STENO TYPIST Sexual Orientation Straight 06/01/2023 2: 55 PM STENO TYPIST documented as of this encounter Plan of Treatment Upcoming Encounters Date Type Department Care Team (Late st Contact Info) Description 01/02/2025 10:30 AM CDT Office Visit [facility] [address] [place] [phone] Ara Sohrt PA-C [address] [place] [address] 01/07/2025 8:30 AM CDT Office Visit [facility] [place] [address] [facility] [address] [place] [address] Melvi Chavez MD 420 [facility] 394 [place] [address] 02/11/2025 2:00 PM CDT Virtual Visit [facility] Specialty [address] [phone] Larry Schaefer MD [address] [place], [place] [address] [phone] 02/13/2025 2:00 PM CDT Office Visit [facility] [address] [place] [phone] Ara Short PA-C [address] [place] [address] 02/17/2025 3:15 PM CDT Virtual Visit [facility] Gastroenterology Clinic [place] 9[address] [facility] 4th [place] [address] Jessica Howell PA-C [address] [place] [address] 898795 documented as of this encounter Visit Diagnoses Not on filedocumented in this encounter Additional Health Concerns Assessment Noted Time PHQ-9 Depression Total Score: 17 024 7:55 AM CDT documented as of this encounter Care Teams Relations Manager Relationship Specialty Start Date End Date Ara Short PA-C [address] [place] [address] PCP - General Family Medicine 06/27/23 Raiza Martinez MD [address] [place] [address] 002105 Otolaryngology 05/18/23 Sherry Aviles MD [address] [place] [address] 107935 Cardiovascular & Thoracic Surgery 06/11/23 Karen Rai APRN BRIDGE GANG WORKER [address] [place] [address] 200415 Nurse Practitioner Neurology 06/13/23 [place] [address] [place] [address] Nurse Practitioner Nurse Practitioner 06/21/23 02/26/24 Ara Short PA-C [address] [place] [address]-267[address]283 Assigned PCP 06/22/23 Sherry Aviles MD [address] [place] [address] 289875 Assigned Surgical Provider 07/13/23 09/18/24 Jayda White, RN Specialty Float Builder Thoracic Surgery 08/28/23 [place] [address] [place], [place] [phone] Assigned Pain Medication Provider 09/20/23 03/21/24 Emeka Anand MD [address] [place] [address] 502615 Neurology 10/24/[address] STENOGRAPHER [address] [place] [address] 268675 Clinical Nurse Specialist Cardiovascular & Thoracic Surgery 11/09/23 Willy Owens DO [address] [place] [address] 243565 Physician Gastroenterology 11/09/23 Larry Schaefer MD [address] [place] [address] [id number] Assigned Endocrinology Provider 11/20/23 Daysi Winston PA-C 9 [place] [address] Physician Twenty One Dealer Physician Twenty One Dealer - Surgical 11/30/23 Savita Gregory PA-C [address] [address] Physician Twenty One Dealer Urology 11/30/23 [place] [address] [place] [address] Physician Gastroenterology 12/06/23 Kelsi Tripathi, [facility] Community Health Worker Primary Care - CC 12/11/23 4 [place] [address] [address] Assigned Neuroscience Provider 12/21/[address] [place] [address] Registered Dietitian Dietitian, Registered 02/14/24 [place] [address] [place] [address] Assigned Gastroenterology Provider 02/20/24 04/20/24 Jessica Howell PA-C [address] [place] [address] Assigned Gastroenterology Provider 04/21/24 09/18/24 Kelsi Tripathi, [facility] Community Health Worker Primary Care - CC 09/11/24 5 Sneha Calero, [facility] Lead Float Builder Primary Care - CC 09/15/24 Argenis Mesa MD [address] [place] [address] Colon & Rectal 09/17/24 Kelsi Tripathi, [facility] Community Health Worker Primary Care - CC 09/17/24 Candelaria Santillan PA-C [address] [place] [address] Assigned Gastroenterology Provider 09/19/24 Daysi Winston PA-C 9 [place] [address] Assigned Surgical Provider 09/19/24 10/19/24 Argenis Mesa MD [address] [place] [address] Assigned Surgical Provider 10/20/24 Melvi Chavez MD [address] [place], [place] 712955 Urology 10/28/24 Jaret Pitts, W Community Health Worker Primary Care - CC 12/12/24 5 Neetu Hopkins [facility] Community Health Worker 12/25/24 documented as of this encounter
--- OUTSIDE RECORDS SUMMARY | 2024-12-30 17:06 | XMS_ITS | Encounter Summary ---
Author Organization [facility] Address [address] [place] [address] Care Team Providers Care Reducing Machine Operator Name Role Phone Raiza Martinez MD Unavailable Stefan Gupta MD, Sherry Unavailable [phone] Karen Rai CAR WASHER BROACH OPERATOR Unavailable [phone] Catherine Miguel NP Unavailable [phone] Ara ShortC Unavailable [phone] Ara ShortC Primary Care Provider Stefan Gupta MD, Sherry Unavailable [phone] Jayda White RN Unavailable Unavailable OAudrey Hernandez MD Unavailable [phone] Emeka Anand MD Unavailable Anais Jaffe CAR WASHER [employer] DEVELOPER Unavailable Willy Owens DO Unavailable Larry Schaefer MD Unavailable [phone] Daysi Winston PA-C Unavailable Savita Gregory-C Unavailable Laura Ball DO Unavailable Kelsi Tripathi Unavailable Michi Patterson MD Unavailable Yecenia Bianka A RD Unavailable [phone] Laura Ball DO Unavailable [phone] Jessica Howell PA-C Unavailable [phone] Kelsi Tripathi CHW Unavailable [phone] Sneha Calero PHOTOGRAPHER'S MODEL Unavailable [phone] Argenis Mesa MD Unavailable [phone] Kelsi Tripathi W Unavailable [phone] Candelraia SantillanC Unavailable Daysi Winston-C Unavailable [phone] Argenis Mesa MD Unavailable [phone] Melvi Chavez MD Unavailable [phone] Jaret Pitts W Unavailable Unavailable Neetu Hopkins [facility] Unavailable [phone] Encounter Details Date Type Department Care Team (Late st Contact Info) Description 12/03/2023 Team Conference [facility] Cancer [address] [address] Jayda White, RN Delayed gastric emptying (Primary Dx) Social History Tobacco Use Types [...] Answer Date Recorded PHQ-2 Score 6 10/26/2023 [facility] of Occupat ional Health [...] in an overnight fpc, or couch-surfing.) Yes 10/02/2023 Are you worried [...] Sex Assigned at Female 06/01/2023 2:55 PM LIVE GAMES DEALER Legal Sex Female 1:26 PM LIVE GAMES DEALER Gender Identity Female 06/01/2023 2:55 PM LIVE GAMES DEALER Sexual Orientation Straight 06/01/2023 2: 55 PM LIVE GAMES DEALER documented as of this encounter Miscellaneous Notes * Telephone Encounter - Jayda White RN - 12/03/2023 3:06 PM CDT Esophageal conference Patient Name: Jo Ann Colesallanpeggy Reason for conference discussion (brief overview): Eda is a 58 year old female who underwent robotic hiatal hernia repair with Filemon with Dr. Aviles on 08/17/23. She visited the ED x 4 after surgery with complains of SOB, fever, rash, abd pain, PEG tube dysfunction. Pt repeatedly did not follow instructions given by thoracic surgery to help manage her symptoms (venting g tube). Pt experienced a lot of abdominal distention. Gastric emptying study was ordered but pt left intermediate through testing. Pt had an EGD with Dr. Aviles on 10/08/23 but her esophagus did not require dilation. Pt refused Botox to gastric pylorus. Her PEG tube was removed on 10/08/23. She has lost 15 lbs total since surgery. Per virtual visit with Anais Jaffe APRN on 11/06/23 she was c/o food getting stuck in esophagusand coughing it back up. Always feels hungry, weak, winded. Pt saw [facility] voice clinic BRAND STRATEGIST on 11/26 who placed referral for a swallow study scheduled on 01/07. She will continue with speech therapy. Specific Question: Next steps Pertinent Histology: N/A Referring Physician: Dr. Sherry Aviles The patient's case was presented at the multidisciplinary conference for the above noted reason. There was a consensus recommendation for the following actions: There was a group consensus that pt's issues do not seem mechanical, but are more related to gastroparesis. Referral to GI APPs Jessica Howell or Sarah Son with an updated CT chest/abdomen. Case Lead: Jayda White RNCC Interventional Radiology Staff Present: N/A documented in this encounter Plan of Treatment Upcoming Encounters Date Type Department Care Team (Late st Contact Info) Description 01/02/2025 10:30 AM CDT Office Visit [address] [address] Ara Short PA-C [id number] [place] [address] 01/07/2025 8:30 AM CDT Office Visit [facility] Urology [facility] [address] [facility] [address] [place] [phone] Melvi Chavez MD 420 [facility] 394 [place], [place] 863075 02/11/2025 2:00 PM CDT Virtual Visit [facility] Specialty [facility] 1875 [place] [phone] Larry Schaefer MD 516 [place] [address] 02/13/2025 2:00 PM CDT Office Visit [address] [address] Ara Short PA-C [id number] [place] [address] 02/17/2025 3:15 PM CDT Virtual Visit [facility] Gastroenterology Clinic [address] 4th [place] [phone] Jessica Howell PA-C [address] [place] [address] 798545 documented as of this encounter Visit Diagnoses Diagnosis Delayed gastric emptying- Primary Dyspepsia and other specified disorders of function of stomach documented in this encounter Additional Health Concerns Assessment Noted Time PHQ-9 Depression Total Score: 17 024 7:55 AM CDT documented as of this encounter Care Teams Reducing Machine Operator Relationship Specialty Start Date End Date Ara Short PA-C [address] [place] [address] PCP - General Family Medicine 06/27/23 Raiza Martinez MD [address] [place] [address] [phone] Otolaryngology 05/18/23 Sherry Aviles MD [address] [place] [address] Cardiovascular & Thoracic Surgery 06/11/23 Karen Rai APRN CNP [address] [place] [address] 365335 Nurse Practitioner Neurology 06/13/23 [place] [address] [address] 356237 Nurse Practitioner Nurse Practitioner 06/21/23 02/26/24 Ara Short PA-C [address] [place] [address] Assigned PCP 06/22/23 Sherry Aviles MD 9 [place], [place] 660985 Assigned Surgical Provider 07/13/23 09/18/24 Jayda White, RN Specialty Er Physician Thoracic Surgery 08/28/23 [place] [address] [place] [address] Assigned Pain Medication Provider 09/20/23 03/21/24 Emeka Anand MD [address] [place] [address] Neurology 10/24/23 Anais Jaffe, CAR WASHER [employer] DEVELOPER [address] [place] [address] Clinical Nurse Specialist Cardiovascular & Thoracic Surgery 11/09/23 Willy Owens DO [address] [place] [address] Physician Gastroenterology 11/09/23 Larry Schaefer MD [address] [place] [address] Assigned Endocrinology Provider 11/20/23 Daysi Winston PA-C [address] [place] [address] 932175 Physician Fuel Buyer Physician Fuel Buyer - Surgical 11/30/23 Savita Gregory PA-C [address] [address] Physician Fuel Buyer Urology 11/30/23 [place] [address] [place] [address] Physician Gastroenterology 12/06/23 Kelsi Tripathi, [facility] Community Health Worker Primary Care - CC 12/11/23 4 [place] [address] SING[address] [place] [address] Assigned Neuroscience Provider 12/21/[address] [place] [address] Registered Dietitian Dietitian, Registered 02/14/24 [place] [address] [place] [address] Assigned Gastroenterology Provider 02/20/24 04/20/24 Jessica Howell PA-C [address] [place] [address] Assigned Gastroenterology Provider 04/21/24 09/18/24 Kelsi Tripathi, W Community Health Worker Primary Care - CC 09/11/24 5 Sneha Calero, [facility] Lead Er Physician Primary Care - CC 09/15/24 Argenis Mesa MD [address] [facility] [place] [address] [place] [address] Colon & Rectal 09/17/24 Kelsi Tripathi, W Community Health Worker Primary Care - CC 09/17/24 Candelaria Santillan PA-C [address] [facility] [place] [address] Assigned Gastroenterology Provider 09/19/24 Daysi Winston PA-C 909 [place] [address] Assigned Surgical Provider 09/19/24 10/19/24 Argenis Mesa MD [address] [place] [address] Assigned Surgical Provider 10/20/24 Melvi Chavez MD [address] [place] [address] Urology 10/28/24 Jaret Pitts, CH[facility] Community Health Worker Primary Care - CC 12/12/24 Neetu Lui [facility] Community Health Worker 12/25/24 documented as of this encounter
--- OUTSIDE RECORDS SUMMARY | 2024-12-30 17:06 | XMS_ITS | Encounter Summary ---
Author Organization [facility] Address [address] [place] [address] Care Team Providers Care Upholstery Technician Name Role Phone Raiza Martinez MD Unavailable Stefan Gupta MD, Sherry Unavailable [phone] Karen Rai SALES PROPERTY MANAGER TABLET REPAIR Unavailable Catherine Miguel NP Unavailable [phone] Ara ShortC Unavailable Ara Short-C Primary Care Provider Stefan Gupta MD, Sherry Unavailable Graeme Le MD Unavailable Jayda White RN Unavailable Unavailable O'Audrey Grimm MD Unavailable [phone] Emeka Anand MD Unavailable [phone] Anais Jaffe SALES PROPERTY MANAGER [facility] Unavailable Willy Owens DO Unavailable Larry Schaefer MD Unavailable [phone] Daysi Winston PA-C Unavailable Savita Gregory PA-C Unavailable Laura Ball DO Unavailable [phone] Kelsi Tripathi [facility] Unavailable Michi Patterson MD Unavailable [phone] Unavailable [phone] Laura Ball DO Unavailable [phone] Jessica Howell PA-C Unavailable [phone] Kelsi Tripathi CHW Unavailable [phone] Sneha Calero CHEMICAL DEPENDENCY THERAPIST Unavailable [phone] Argenis Mesa MD Unavailable [phone] Kelsi Tripathi CHW Unavailable [phone] Candelaria Santillan PA-C Unavailable Daysi Winston PA-C Unavailable [phone] Argenis Mesa MD Unavailable [phone] Melvi Chavez MD Unavailable [phone] Jaret Pitts CHW Unavailable Unavailable Neetu Hopkins CHW Unavailable [phone] Encounter Details Date Type Department Care Team (Late st Contact Info) Description 09/04/2023 MyC Medical Advice [facility] [address] [place] [address] Jayda White, RN Social History Tobacco [...] Sex Assigned at Female 06/01/2023 2:55 PM MARKET INVESTIGATOR Legal Sex Female 1:26 PM MARKET INVESTIGATOR Gender Identity Female 06/01/2023 2:55 PM MARKET INVESTIGATOR Sexual Orientation Straight 06/01/2023 2: 55 PM MARKET INVESTIGATOR documented as of this encounter Plan of Treatment Upcoming Encounters Date Type Department Care Team (Late st Contact Info) Description 01/02/2025 10:30 AM CDT Office Visit [facility] [address] [place] [address] Ara Short PA-C [address] [place] [address] 01/07/2025 8:30 AM CDT Office Visit [facility] [place] [address] [place] [address] Melvi Chavez MD 420 [facility] 394 [place], [place] 729735 02/11/2025 2:00 PM CDT Virtual Visit [facility] Specialty Clinic [place] 1875 [place] [address] Larry Schaefer MD 516 [place], [place] 237685 02/13/2025 2:00 PM CDT Office Visit [facility] [address] [place] [address] Ara Short PA-C [address] [place] [address] 02/17/2025 3:15 PM CDT Virtual Visit [facility] [place] 909 [facility] 4th [place] [address] Jessica Howell PA-C [address] [place] [address] 698825 documented as of this encounter Visit Diagnoses Not on filedocumented in this encounter Additional Health Concerns Assessment Noted Time PHQ-9 Depression Total Score: 19 024 2:02 PM CDT documented as of this encounter Care Teams Upholstery Technician Relationship Specialty Start Date End Date Ara Short PA-C [id number] [place] [address] PCP - General Family Medicine 06/27/23 Raiza Martinez MD [address] [place] [address] Otolaryngology 05/18/23 Sherry Aviles MD [address] [place] [address] Cardiovascular & Thoracic Surgery 06/11/23 Karen Rai APRN CNP [address] [place] [address] Nurse Practitioner Neurology 06/13/23 [place] [address] [place] [address] Nurse Practitioner Nurse Practitioner 06/21/23 02/26/24 Ara Short PA-C [address] [place] [address] Assigned PCP 06/22/23 Sherry Aviles MD [address] [place] [address] Assigned Surgical Provider 07/13/23 09/18/24 Graeme Le MD [address] [place] [address] [address] Neurology 08/10/23 10/23/23 Jayda White, RIGOBERTO Specialty Smoke Tester Thoracic Surgery 08/28/23 [place] [address] [place], [place] 13913124 Assigned Pain Medication Provider 09/20/23 03/21/24 Emeka Anand MD [address] [place] [address] 865165 Neurology 10/24/23 Anais Jaffe APRN [facility] 420 [facility] 207 [place], [place] 227985 Clinical Nurse Specialist Cardiovascular & Thoracic Surgery 11/09/23 Willy Owens DO 420 [facility] 207 [place], [place] 271855 Physician Gastroenterology 11/09/23 Larry Schaefer MD 516 [place], [place] 519285 Assigned Endocrinology Provider 11/20/23 Daysi Winston PA-C 909 [place], [place] 169195 Physician Incising Machine Operator Physician Incising Machine Operator - Surgical 11/30/23 Savita Gregory PA-C [address] [id number] Physician Incising Machine Operator Urology 11/30/23 [place] [address] [place], [place] 12[address]69 Physician Gastroenterology 12/06/23 Kelsi Tripathi, [facility] Community Health Worker Primary Care - CC 12/11/23 [place] [address] [place] [address] Assigned Neuroscience Provider 12/21/[address] [place] [address] Registered Dietitian Dietitian, Registered 02/14/24 [place] [address] [place] [address] Assigned Gastroenterology Provider 02/20/24 04/20/24 Jessica Howell PA-C [address] [place] [address] 940645 Assigned Gastroenterology Provider 04/21/24 09/18/24 Kelsi Tripathi, [facility] Community Health Worker Primary Care - CC 09/11/24 5 Sneha Calero, [facility] Lead Smoke Tester Primary Care - CC 09/15/24 Argenis Mesa MD 65[address] [facility] Eug[address] 175945 Colon & Rectal 09/17/24 Kelsi Tripathi, [facility] Community Health Worker Primary Care - CC 09/17/24 Candelaria Santillan PA-C [address] [place] [address] Assigned Gastroenterology Provider 09/19/24 Daysi Winston PA-C [address] [place] [address] Assigned Surgical Provider 09/19/24 10/19/24 Argenis Mesa MD [address] [place] [address] [place] [address] Assigned Surgical Provider 10/20/24 Melvi Chavez MD [address] [place] [place] [address] Urology 10/28/24 Jaret Pitts, W Community Health Worker Primary Care - CC 12/12/24 5 Neetu Hopkins [facility] Community Health Worker 12/25/24 documented as of this encounter
--- OUTSIDE RECORDS SUMMARY | 2024-12-30 17:06 | XMS_ITS | Encounter Summary ---
Author Organization [place] Address [address] [place] [address] Care Team Providers Care Press Service Reader Name Role Phone Raiza Martinez MD Unavailable Stefan Gupta MD, Sherry Unavailable [phone] Karen Rai SAMPLE BODY BUILDER ARMHOLE FELLER HANDSTITCHING MACHINE Unavailable Catherine Miguel NP Unavailable Ara hSortC Unavailable [phone] Ara Short-C Primary Care Provider Stefan Gupta MD, Sherry Unavailable [phone] Graeme Le MD Unavailable Jayda White RN Unavailable Unavailable O'Audrey Grimm MD Unavailable [phone] Emeka Anand MD Unavailable Anais Jaffe SAMPLE BODY BUILDER SERVICE COORDINATOR Unavailable Willy Owens DO Unavailable Larry Schaefer MD Unavailable [phone] Daysi Winston PA-C Unavailable Savita Gregory PA-C Unavailable Laura Ball DO Unavailable Kelsi Tripathi [facility] Unavailable Michi Patterson MD Unavailable [phone] Unavailable Laura Ball DO Unavailable [phone] Jessica Howell PA-C Unavailable [phone] Kelsi Tripathi CHW Unavailable [phone] Sneha Calero WEBBING SUPERVISOR Unavailable [phone] Argenis Mesa MD Unavailable [phone] Kelsi Tripathi CHW Unavailable [phone] Candelaria Santillan PA-C Unavailable Daysi Winston PA-C Unavailable [phone] Argenis Mesa MD Unavailable [phone] Melvi Chavez MD Unavailable [phone] Jaret Pitts CHW Unavailable Unavailable Neetu Hopkins CHW Unavailable [phone] Encounter Details Date Type Department Care Team (Late st Contact Info) Description 08/30/2023 [facility] [address] [place] [address] [place]le [place] Social History Tobacco Use Types Packs/Day Years [...] in an abandoned building, in an overnight usp, or couch-surfing.) Yes 05/18/2023 Are you worried [...] Sex Assigned at Female 06/01/2023 2:55 PM COAL CUTTING MACHINE OPERATOR Legal Sex Female 1:26 PM COAL CUTTING MACHINE OPERATOR Gender Identity Female 06/01/2023 2:55 PM COAL CUTTING MACHINE OPERATOR Sexual Orientation Straight 06/01/2023 2: 55 PM COAL CUTTING MACHINE OPERATOR documented as of this encounter Plan of Treatment Upcoming Encounters Date Type Department Care Team (Late st Contact Info) Description 01/02/2025 10:30 AM CDT Office Visit [facility] [address] [place] [address] Ara Short PA-C [address] [place] [address] 01/07/2025 8:30 AM CDT Office Visit [facility] [place] [address] [place], [place] [address] Melvi Chavez MD 420 [facility] [address] [place], [place] 374995 02/11/2025 2:00 PM CDT Virtual Visit [facility] [place] 1875 [place] [address] Larry Schaefer MD 516 [place], [place] 535895 02/13/2025 2:00 PM CDT Office Visit [facility] [address] [place] [address] Ara Short PA-C [id number] [place] [address] 02/17/2025 3:15 PM CDT Virtual Visit [facility] [place] 909 [facility] [place] 4th [place] [address] Jessica Howell PA-C [address] [place] [address] 656495 documented as of this encounter Visit Diagnoses Not on filedocumented in this encounter Additional Health Concerns Assessment Noted Time PHQ-9 Depression Total Score: 19 024 2:02 PM CDT documented as of this encounter Care Teams Press Service Reader Relationship Specialty Start Date End Date Ara Short PA-C [id number] [place] [address] PCP - General Family Medicine 06/27/23 Raiza Martinez MD [address] [place] [address] 25385 Otolaryngology 05/18/23 Sherry Aviles MD [address] [place] [address] 13357 Cardiovascular & Thoracic Surgery 06/11/23 Karen Rai APRN CNP [address] [place] [address] 48329 Nurse Practitioner Neurology 06/13/23 [place] [address] [place] [address] Nurse Practitioner Nurse Practitioner 06/21/23 02/26/24 Ara Short PA-C [address] [place] [address] Assigned PCP 06/22/23 Sherry Aviles MD [address] [place] [address] 12635 Assigned Surgical Provider 07/13/23 09/18/24 Graeme Le MD [address] [place], [place] [address] [address] Neurology 08/10/23 10/23/23 Jayda White, RIGOBERTO Specialty Scaffold Erector Thoracic Surgery 08/28/23 [place] [address] [place], [place] [phone] Assigned Pain Medication Provider 09/20/23 03/21/24 Emeka Anand MD [address] [place] [address] 924585 Neurology 10/24/23 Anais Jaffe APRN SERVICE COORDINATOR 420 [facility] 207 [place], [place] 812405 Clinical Nurse Specialist Cardiovascular & Thoracic Surgery 11/09/23 Willy Owens DO 420 [facility] 207 [place], [place] 698145 Physician Gastroenterology 11/09/23 Larry Schaefer MD 516 [place], [place] 859205 Assigned Endocrinology Provider 11/20/23 Daysi Winston PA-C 909 [place], [place] 772995 Physician Director Of Testing Physician Director Of Testing - Surgical 11/30/23 Savita Gregory PA-C [address] [phone] Physician Director Of Testing Urology 11/30/23 [place] [address] [place], [place] [address] Physician Gastroenterology 12/06/23 Kelsi Tripathi, [facility] Community Health Worker Primary Care - CC 12/11/23 [place] [address] [place] [place] [address] Assigned Neuroscience Provider 12/21/[address] [place] [address] 38769 Registered Dietitian Dietitian, Registered 02/14/24 [place] [address] [place] [address] Assigned Gastroenterology Provider 02/20/24 04/20/24 Jessica Howell PA-C [address] [place] [address] 862185 Assigned Gastroenterology Provider 04/21/24 09/18/24 Kelsi Tripathi, [facility] Community Health Worker Primary Care - CC 09/11/24 5 Sneha Calero, [facility] Lead Scaffold Erector Primary Care - CC 09/15/24 Argenis Mesa MD 6525 [facility] Eugenia [address] [phone] Colon & Rectal 09/17/24 Kelsi Tripathi, [facility] Community Health Worker Primary Care - CC 09/17/24 Candelaria Santillan PA-C [address] [place] [address] Assigned Gastroenterology Provider 09/19/24 Daysi Winston PA-C [address] [place] [address] Assigned Surgical Provider 09/19/24 10/19/24 Argenis Mesa MD [address] [place] [address] [place] [address] Assigned Surgical Provider 10/20/24 Melvi Chavez MD [address] [place] [address] [place] [address] Urology 10/28/24 Jaret Pitts, W Community Health Worker Primary Care - CC 12/12/24 5 Neetu Hopkins CHW Community Health Worker 12/25/24 documented as of this encounter
--- OUTSIDE RECORDS SUMMARY | 2024-12-30 17:06 | XMS_ITS | Encounter Summary ---
Author Organization [facility] Address [address] [place] [address] Care Team Providers Care Grinder Operator Tool Name Role Phone Raiza Martinez MD Unavailable Stefan Gupta MD, Sherry Unavailable [phone] Karen Rai BATTERY ASSEMBLER DRY CELL MONKEY KEEPER Unavailable [phone] Catherine Miguel NP Unavailable [phone] Ara ShortC Unavailable [phone] Ara ShortC Primary Care Provider Stefan Gupta MD, Sherry Unavailable [phone] Jayda White RN Unavailable Unavailable Audrey Dong MD Unavailable [phone] Emeka Anand MD Unavailable [phone] Anais Jaffe BATTERY ASSEMBLER DRY CELL VEGETABLE LOADER MACHINE OPERATOR Unavailable Willy Owens DO Unavailable Larry Schaefer MD Unavailable [phone] Daysi Winston PA-C Unavailable Savita Gregory PA-C Unavailable [phone] Laura Ball DO Unavailable [phone] Michi Patterson MD Unavailable Bianka Keene RD Unavailable [phone] PhilipLaura romo DO Unavailable [phone] Jessica Howell-C Unavailable [phone] Kelsi Tripathi CHW Unavailable [phone] Sneha Calero Delisa MERCHANDISE STOCKER Unavailable [phone] Argenis Mesa MD Unavailable [phone] Kelsi Tripathi CHW Unavailable [phone] Candelaria SantillanC Unavailable Daysi Winston-C Unavailable [phone] Argenis Mesa MD Unavailable [phone] Melvi Chavez MD Unavailable [phone] Jaret Pitts W Unavailable Unavailable Neetu Hopkins W Unavailable [phone] Encounter Details Date Type Department Care Team (Late st Contact Info) Description 01/30/2024 MyC Medical Advice [facility] [address] [place] [address] Mile Moreno LPN Social History Tobacco Use Types Packs/Day Years [...] and Family Not on file 10/02/2023 Attends Baptism Services Not on file 10/01 Do you belong to any clubs o r organizations such as jehovah's witness groups, unions, fraternal or athletic groups, or [...] PHQ-2 Answer Date Recorded PHQ-2 Score 6 01/21/2024 [facility] - Occupational Stress Questionnaire Answer Date [...] in an overnight prison, or couch-surfing.) Yes 10/02/2023 Are you worried [...] Sex Assigned at Female 06/01/2023 2:55 PM ADOBE DEVELOPER Legal Sex Female 1:26 PM ADOBE DEVELOPER Gender Identity Female 06/01/2023 2:55 PM ADOBE DEVELOPER Sexual Orientation Straight 06/01/2023 2: 55 PM ADOBE DEVELOPER documented as of this encounter Plan of Treatment Upcoming Encounters Date Type Department Care Team (Late st Contact Info) Description 01/02/2025 10:30 AM CDT Office Visit [address] [phone] Ara Short PA-C [address] [place] [address] 01/07/2025 8:30 AM CDT Office Visit [facility] Urology [facility] [address] [facility] [address] [place] [phone] Melvi Chavez MD 420 [facility] 394 [place], [place] 6[address]65 02/11/2025 2:00 PM CDT Virtual Visit [facility] Specialty [facility] 1875 [place] [phone] Larry Schaefer MD 516 [place], [place] 992075 02/13/2025 2:00 PM CDT Office Visit [address] [phone] Ara Short PA-C [address] [place] [address] 02/17/2025 3:15 PM CDT Virtual Visit [facility]ology Clinic [address]th [place] [address] Jessica Howell PA-C [address] [place] [address] 319095 documented as of this encounter Visit Diagnoses Not on filedocumented in this encounter Additional Health Concerns Assessment Noted Time PHQ-9 Depression Total Score: 17 024 2:44 PM CDT documented as of this encounter Care Teams Grinder Operator Tool Relationship Specialty Start Date End Date Ara Short PA-C [address] [place] [address] PCP - General Family Medicine 06/27/23 Raiza Martinez MD [address] [place] [address] 249285 Otolaryngology 05/18/23 Sherry Aviles MD [address] [place] [address] 970615 Cardiovascular & Thoracic Surgery 06/11/23 Karen Rai APRN MONKEY KEEPER [address] [place] [address] 009585 Nurse Practitioner Neurology 06/13/23 [place] [address] [address] [place] [address] Nurse Practitioner Nurse Practitioner 06/21/23 02/26/24 Ara Short PA-C [address] [place] [address]226883 Assigned PCP 06/22/23 Sherry Aviles MD [address] [place] [address] 87678 Assigned Surgical Provider 07/13/23 09/18/24 Jayda White, RN Specialty Picker Tender Thoracic Surgery 08/28/23 [place] [address] [place], [place] 354101[address] Assigned Pain Medication Provider 09/20/23 03/21/24 Emeka Anand MD [address] [place] [address] 906695 Neurology 10/24/23 Anais Jaffe, BATTERY ASSEMBLER DRY CELL VEGETABLE LOADER MACHINE OPERATOR 420 [facility] 207 [place], [place] 059355 Clinical Nurse Specialist Cardiovascular & Thoracic Surgery 11/09/23 Willy Owens DO 420 [facility] 207 [place], [place] 676165 Physician Gastroenterology 11/09/23 Larry Schaefer MD [address] [place] [address] 772465 Assigned Endocrinology Provider 11/20/23 Daysi Winston PA-C [address] [place] [address]907 Physician Communications Assistant Physician Communications Assistant - Surgical 11/30/23 Savita Gregory PA-C [address] [facility] 377 [place] [address] Physician Communications Assistant Urology 11/30/23 [place] [address] [place] [address] Physician Gastroenterology 12/06/23 [place] [address] [place] [facility] 300 [place] [address] Assigned Neuroscience Provider 12/21/[address] [place], [place] 565475 Registered Dietitian Dietitian, Registered 02/14/24 [place] [address] [place] [address] Assigned Gastroenterology Provider 02/20/24 04/20/24 Jessica Howell PA-C [address] [place] [address] 293075 Assigned Gastroenterology Provider 04/21/24 09/18/24 Kelsi Tripathi, [facility] Community Health Worker Primary Care - CC 09/11/24 5 Sneha Calero, MERCHANDISE STOCKER Lead Picker Tender Primary Care - CC 09/15/24 Argenis Mesa MD [address] [facility] [address] [place] [address] Colon & Rectal 09/17/24 Kelsi Tripathi, W Community Health Worker Primary Care - CC 09/17/24 Candelaria Santillan PA-C [address] [place] [address] Assigned Gastroenterology Provider 09/19/24 Daysi Winston PA-C 909 [place] [address] Assigned Surgical Provider 09/19/24 10/19/24 Argenis Mesa MD [address] [place] [address] [place] [address] Assigned Surgical Provider 10/20/24 Melvi Chavez MD [address] [place] [address] [place] [address] Urology 10/28/24 Jaret Pitts, W Community Health Worker Primary Care - CC 12/12/24 Neetu Lui [facility] Community Health Worker 12/25/24 documented as of this encounter
--- OUTSIDE RECORDS SUMMARY | 2024-12-30 17:06 | XMS_ITS | Encounter Summary ---
Author Organization [place] Address [address] [place] [address] Care Team Providers Care Metal Melter Name Role Phone Raiza Martinez MD Unavailable Stefan Gupta MD, Sherry Unavailable [phone] Karen Rai A CLASS LINEMAN ENGINE OILER Unavailable Catherine Miguel NP Unavailable [phone] Ara ShortC Unavailable [phone] Ara Short-C Primary Care Provider Stefan Gupta MD, Sherry Unavailable [phone] Graeme Le MD Unavailable Jayda White RN Unavailable Unavailable O'Audrey Grimm MD Unavailable [phone] Emeka Anand MD Unavailable [phone] Anais Jaffe A CLASS LINEMAN BRAND COORDINATOR Unavailable Willy Owens DO Unavailable Larry Schaefer MD Unavailable [phone] Daysi Winston PA-C Unavailable [phone] Savita Gregory PA-C Unavailable Laura Ball DO Unavailable Kelsi Tripathi [facility] Unavailable Michi Patterson MD Unavailable [phone] Unavailable [phone] Laura Ball DO Unavailable [phone] Jessica Howell PA-C Unavailable [phone] Kelsi Tripathi CHW Unavailable [phone] Sneha Calero ALARM OPERATOR Unavailable [phone] Argenis Mesa MD Unavailable [phone] Kelsi Tripathi CHW Unavailable [phone] Candelaria Santillan PA-C Unavailable Daysi Winston PA-C Unavailable [phone] Argenis Mesa MD Unavailable [phone] Melvi Chavez MD Unavailable [phone] Jaret Pitts CHW Unavailable Unavailable Neetu Hopkins CHW Unavailable [phone] Encounter Details Date Type Department Care Team (Late st Contact Info) Description 08/28/2023 MyC Medical Advice [facility] [address] [place] [address] Jayda White, RN Social History Tobacco [...] in an abandoned building, in an overnight retirement, or couch-surfing.) Yes 05/18/2023 Are you worried [...] Sex Assigned at Female 06/01/2023 2:55 PM ENVIRONMENTAL AIDE Legal Sex Female 1:26 PM ENVIRONMENTAL AIDE Gender Identity Female 06/01/2023 2:55 PM ENVIRONMENTAL AIDE Sexual Orientation Straight 06/01/2023 2: 55 PM ENVIRONMENTAL AIDE documented as of this encounter Plan of Treatment Upcoming Encounters Date Type Department Care Team (Late st Contact Info) Description 01/02/2025 10:30 AM CDT Office Visit [facility] [address] [place] [address] Ara Short PA-C [address] [place] [address] 01/07/2025 8:30 AM CDT Office Visit [facility] [place] [address] [place], [place] [address] Melvi Chavez MD 420 [facility] 394 [place], [place] 898205 02/11/2025 2:00 PM CDT Virtual Visit [facility] Specialty Clinic [place] 1875 [place] [phone] Larry Schaefer MD 516 [place], [place] 776775 02/13/2025 2:00 PM CDT Office Visit [facility] [address] [place] [address] Ara Short PA-C [address] [place] [address] 02/17/2025 3:15 PM CDT Virtual Visit [facility]astroenterology [facility] [place] 909 [facility] 4th [place] [address] Jessica Howell PA-C [address] [place] [address] 316155 documented as of this encounter Visit Diagnoses Not on filedocumented in this encounter Additional Health Concerns Assessment Noted Time PHQ-9 Depression Total Score: 19 024 2:02 PM CDT documented as of this encounter Care Teams Metal Melter Relationship Specialty Start Date End Date Ara Short PA-C [address] [place] [address] PCP - General Family Medicine 06/27/23 Raiza Martinez MD [address] [place] [address] Otolaryngology 05/18/23 Sherry Aviles MD [address] [place] [address] Cardiovascular & Thoracic Surgery 06/11/23 Karen Rai APRN CNP [address] [place] [address] Nurse Practitioner Neurology 06/13/23 [place] [address] [place] [address] Nurse Practitioner Nurse Practitioner 06/21/23 02/26/24 Ara Short PA-C [address] [place] [address] Assigned PCP 06/22/23 Sherry Aviles MD [address] [place] [address] Assigned Surgical Provider 07/13/23 09/18/24 Graeme Le MD [address] [place], [place] [address] [address] Neurology 08/10/23 10/23/23 Jayda White, RIGOBERTO Specialty Nurse Thoracic Surgery 08/28/23 [place] [address] [place], [place] 1681[address]24 Assigned Pain Medication Provider 09/20/23 03/21/24 Emeka Anand MD [address] [place] [address] 975875 Neurology 10/24/23 Anais Jaffe APRN BRAND COORDINATOR 420 [facility] 207 [place], [place] 436035 Clinical Nurse Specialist Cardiovascular & Thoracic Surgery 11/09/23 Willy Owens DO 420 [facility] 207 [place], [place] 968415 Physician Gastroenterology 11/09/23 Larry Schaefer MD 516 [place], [place] 023765 Assigned Endocrinology Provider 11/20/23 Daysi Winston PA-C 909 [place], [place] 798825 Physician Hull And Deck Remover Physician Hull And Deck Remover - Surgical 11/30/23 Savita Gregory PA-C [address] [phone] Physician Hull And Deck Remover Urology 11/30/23 [place] [address] [place], [place] 4625[address] Physician Gastroenterology 12/06/23 Kelsi Tripathi, [facility] Community Health Worker Primary Care - CC 12/11/23 [place] [address] [place] [address] Assigned Neuroscience Provider 12/21/[address] [place] [address]39 Registered Dietitian Dietitian, Registered 02/14/24 [place] [address] [place] [address] Assigned Gastroenterology Provider 02/20/24 04/20/24 Jessica Howell PA-C [address] [place] [address] 425215 Assigned Gastroenterology Provider 04/21/24 09/18/24 Kelsi Tripathi, [facility] Community Health Worker Primary Care - CC 09/11/24 5 Sneha Calero, [facility] Lead Nurse Primary Care - CC 09/15/24 Argenis Mesa MD 6525 [facility] Eugenia [address] 150995 Colon & Rectal 09/17/24 Kelsi Tripathi, [facility] Community Health Worker Primary Care - CC 09/17/24 Candelaria Santillan PA-C [address] [place] [address] Assigned Gastroenterology Provider 09/19/24 Daysi Winston PA-C [address] [place] [address] 67661 Assigned Surgical Provider 09/19/24 10/19/24 Argenis Mesa MD [address] [place] [address] [place] [address] Assigned Surgical Provider 10/20/24 Melvi Chavez MD [address] [place] [address] [place] [address] Urology 10/28/24 Jaret Pitts, W Community Health Worker Primary Care - CC 12/12/24 5 Neetu Hopkins CHW Community Health Worker 12/25/24 documented as of this encounter
--- OUTSIDE RECORDS SUMMARY | 2024-12-30 17:07 | XMS_ITS | Encounter Summary ---
Author Organization [place] Address [address] [place] [address] Care Team Providers Care Safe And Vault Service Mechanic Name Role Phone Raiza Martinez MD Unavailable Stefan Gupta MD, Sherry Unavailable [phone] Karen Rai METAL GRINDER MAKING MACHINE CATCHER Unavailable [phone] Catherine Miguel NP Unavailable Ara ShortC Unavailable Ara ShortC Primary Care Provider Stefan Gupta MD, Sherry Unavailable [phone] Jayda White RN Unavailable Unavailable Audrey Dong MD Unavailable [phone] Emeka Anand MD Unavailable [phone] Anais Jaffe METAL GRINDER SURFACE ROOM SHOP OPTICIAN Unavailable Willy Owens DO Unavailable Larry Schaefer MD Unavailable [phone] Daysi Winston PA-C Unavailable Savita Gregory PA-C Unavailable [phone] Laura Ball DO Unavailable [phone] Michi Patterson MD Unavailable Bianka Keene RD Unavailable [phone] Quinn Lauracaleb Hogan DO Unavailable [phone] Jessica HowellC Unavailable [phone] Kelsi Tripathi CHW Unavailable [phone] Abdias Sneha Delisa FEED ADVISER Unavailable [phone] Argenis Mesa MD Unavailable [phone] Kelsi Tripathi CHW Unavailable [phone] Candelaria SantillanC Unavailable Daysi WinstonC Unavailable [phone] Argenis Mesa MD Unavailable [phone] Melvi Chavez MD Unavailable [phone] Jaret Pitts W Unavailable Unavailable Neetu Hopkins W Unavailable [phone] Encounter Details Date Type Department Care Team (Late st Contact Info) Description 02/20/2024 MyC Medical Advice [facility] [address] [address] Bianka Keene, RD 909 [place] [address] Social History Tobacco Use Types Packs/Day [...] and Family Not on file 10/02/2023 Attends [employer] Not on file 10/01 Do you belong to any clubs o r organizations such as rastafari groups, unions, fraternal or athletic groups, or [...] 10/02/2023 PHQ-2 Answer Date Recorded PHQ-2 Score 2 02/20/2024 [facility] - Occupational [...] in an abandoned building, in an overnight group home, or couch-surfing.) Yes 10/02/2023 Are you [...] Sex Assigned at Female 06/01/2023 2:55 PM SOLAR SALES REPRESENTATIVE Legal Sex Female 1:26 PM SOLAR SALES REPRESENTATIVE Gender Identity Female 06/01/2023 2:55 PM SOLAR SALES REPRESENTATIVE Sexual Orientation Straight 06/01/2023 2: 55 PM SOLAR SALES REPRESENTATIVE documented as of this encounter Plan of Treatment Upcoming Encounters Date Type Department Care Team (Late st Contact Info) Description 01/02/2025 10:30 AM CDT Office Visit [facility] [address] [place] [phone] rAa Short PA-C [address] [place] [phone] 01/07/2025 8:30 AM CDT Office Visit [facility] Urology [facility] [address] [facility] [address] [place] [phone] Melvi Chavez MD 420 [facility] 394 [place], [place] 441025 02/11/2025 2:00 PM CDT Virtual Visit [facility] Specialty [facility] 1875 [place] [address] Larry Schaefer MD 516 [place], [place] 458455 02/13/2025 2:00 PM CDT Office Visit [facility] [address] [place] [phone] Ara Short PA-C [address] [place] [phone] 02/17/2025 3:15 PM CDT Virtual Visit [facility] [address] 4th [place] [phone] Jessica Howell PA-C [address] [place] [address] 848215 documented as of this encounter Visit Diagnoses Not on filedocumented in this encounter Additional Health Concerns Assessment Noted Time PHQ-9 Depression Total Score: 21 024 2:29 PM CDT documented as of this encounter Care Teams Safe And Vault Service Mechanic Relationship Specialty Start Date End Date Ara Short PA-C [address] [place] [phone] PCP - General Family Medicine 06/27/23 Raiza Martinez MD [address] [place] [address] 712315 Otolaryngology 05/18/23 Sherry Aviles MD [address] [place] [address] 674725 Cardiovascular & Thoracic Surgery 06/11/23 Karen Rai APRN MAKING MACHINE CATCHER [address] [place] [address] 314705 Nurse Practitioner Neurology 06/13/23 [place] [address] [place] 740477 Nurse Practitioner Nurse Practitioner 06/21/23 02/26/24 Ara Short PA-C [address] [place] [address]-428983 Assigned PCP 06/22/23 Sherry Aviles MD [address] [place] [address] Assigned Surgical Provider 07/13/23 09/18/24 Jayda White, RIGOBERTO Specialty Merchandising Intern Thoracic Surgery 08/28/23 [place] [address] [place], [place] [phone] Assigned Pain Medication Provider 09/20/23 03/21/24 Emeka Anand MD [address] [place] [address] 776295 Neurology 10/24/23 Anais Jaffe, LYLA SURFACE ROOM SHOP OPTICIAN [address] [place] [address] 545175 Clinical Nurse Specialist Cardiovascular & Thoracic Surgery 11/09/23 Willy Owens DO [address] [address] Physician Gastroenterology 11/09/23 Larry Schaefer MD [address] [place] [address] 430155 Assigned Endocrinology Provider 11/20/23 Daysi Winston PA-C [address] [place] [address] Physician On Site Property Manager Physician On Site Property Manager - Surgical 11/30/23 Savita Gregory PA-C [address] [address] Physician On Site Property Manager Urology 11/30/23 [place] [address] [place] [address] Physician Gastroenterology 12/06/23 [place] [address] [place] [address] [address] Assigned Neuroscience Provider 12/21/[address] [place] [address] Registered Dietitian Dietitian, Registered 02/14/24 [place] [address] [place] [address] Assigned Gastroenterology Provider 02/20/24 04/20/24 Jessica Howell PA-C [address] [place] [address] Assigned Gastroenterology Provider 04/21/24 09/18/24 Kelsi Tripathi, W Community Health Worker Primary Care - CC 09/11/24 5 Sneha Calero, FEED ADVISER Lead Merchandising Intern Primary Care - CC 09/15/24 Argenis Mesa MD [address] [place] [address] [place] [address] Colon & Rectal 09/17/24 Kelsi Tripathi, W Community Health Worker Primary Care - CC 09/17/24 Candelaria Santillan PA-C [address] [facility] [place] [address] Assigned Gastroenterology Provider 09/19/24 Daysi Winston PA-C 9 [place] [address] Assigned Surgical Provider 09/19/24 10/19/24 Argenis Mesa MD [address] [place] [address] [place] [address] Assigned Surgical Provider 10/20/24 Melvi Chavez MD [address] [place] [place] [address] Urology 10/28/24 Jaret Pitts, W Community Health Worker Primary Care - CC 12/12/24 Neetu Lui, W Community Health Worker 12/25/24 documented as of this encounter
--- OUTSIDE RECORDS SUMMARY | 2024-12-30 17:07 | XMS_ITS | Encounter Summary ---
Author Organization [place] Address [address] [place] [address] Care Team Providers Care Clinical Medical Transcriptionist Name Role Phone No Ref-Primary, Physician Primary Care Provider Raiza Martinez MD Unavailable Stefan Gupta MD, Sherry Unavailable [phone] Karen Rai EXCAVATING SUPERVISOR ASSEMBLY LEADER Unavailable [phone] Deacon Bishop MD Unavailable Catherine Miguel NP Unavailable [phone] Ara Short-C Unavailable [phone] Ara Short PA-C Primary Care Provider Stefan Gupta MD, Sherry Unavailable [phone] Graeme Le MD Unavailable Jayda White RN Unavailable Unavailable Audrey Dong MD Unavailable [phone] Emeka Anand MD Unavailable [phone] Anais Jaffe EXCAVATING SUPERVISOR WORKERS' COMPENSATION MAGISTRATE Unavailable Willy Owens DO Unavailable Larry Schaefer MD Unavailable [phone] Daysi Winston PA-C Unavailable [phone] Savita Gregory PA-C Unavailable Laura Ball DO Unavailable [phone] Kelsi Tripathi CHW Unavailable Michi Patterson MD Unavailable [phone] Unavailable [phone] Laura Ball DO Unavailable [phone] Jessica Howell PA-C Unavailable [phone] Kelsi Tripathi CHW Unavailable Sneha Calero JEWEL HOLE ROUGH OPENER Unavailable [phone] Argenis Mesa MD Unavailable [phone] DeuceKelsi ballard CHW Unavailable [phone] Candelaria SantillanC Unavailable Daysi Winston-C Unavailable [phone] Argenis Mesa MD Unavailable [phone] Melvi Chavez MD Unavailable [phone] Jaret Pitts CHW Unavailable Unavailable Neetu Hopkins CHW Unavailable [phone] Encounter Details Date Type Department Care Team (Late st Contact Info) Description 06/01/2023 MyC Medical Advice [facility] Gastroenterology Clinic [address] [place] [address] Diana Richmond, RN Social History Tobacco Use Types Packs/Day [...] Sex Assigned at Female 06/01/2023 2:55 PM BARBER SHOP MANAGER Legal Sex Female 1:26 PM BARBER SHOP MANAGER Gender Identity Female 06/01/2023 2:55 PM BARBER SHOP MANAGER Sexual Orientation Straight 06/01/2023 2: 55 PM BARBER SHOP MANAGER documented as of this encounter Plan of Treatment Upcoming Encounters Date Type Department Care Team (Late st Contact Info) Description 01/02/2025 10:30 AM CDT Office Visit [facility] [address] [place] [phone] Ara Short PA-C [address] [place] [phone] 01/07/2025 8:30 AM CDT Office Visit [facility] Urology [facility] [place] [address] [place] [address] Melvi Chavez MD 420 [facility] 394 [place], [place] 426125 02/11/2025 2:00 PM CDT Virtual Visit [facility] Specialty Clinic [address] [address] Larry Schaefer MD 516 [place], [place] 189155 02/13/2025 2:00 PM CDT Office Visit [facility] [address] [place] [address] Ara Short PA-C [address] [place] [address] 02/17/2025 3:15 PM CDT Virtual Visit [facility] Gastroenterology Clinic [address] [address] Jessica Howell PA-C [address] [place] [address] 008355 documented as of this encounter Visit Diagnoses Not on filedocumented in this encounter Additional Health Concerns Infection Onset Date Last Indicated Resolved Time Rule Out COVID-19 08/23/2023 08/23/2023 08/23/2023 3:33 AM CDT Assessment Noted Time PHQ-9 Depression Total Score: 21 024 9:44 AM BARBER SHOP MANAGER documented as of this encounter Care Teams Clinical Medical Transcriptionist Relationship Specialty Start Date End Date No Ref-Primary, Physician PCP - General 05/08/23 06/26/23 Ara Short PA-C [id number] [place] [address] PCP - General Family Medicine 06/27/23 Raiza Martinez MD [address] [place] [address] Otolaryngology 05/18/23 Sherry Aviles MD [address] [place] [address]89 Cardiovascular & Thoracic Surgery 06/11/23 Karen Rai APRN CNP [address] [place] [address]13 Nurse Practitioner Neurology 06/13/23 Deacon Bishop MD [address] [place] [address] Neurology 06/19/23 08/09/23 [place] [address] [place] [address] Nurse Practitioner Nurse Practitioner 06/21/23 02/26/24 Ara Short PA-C [address] [place] [address]-912683 Assigned PCP 06/22/23 Sherry Aviles MD [address] [place] [address] 37734 Assigned Surgical Provider 07/13/23 09/18/24 Graeme Le MD [address] [place] [address] Neurology 08/10/23 10/23/23 Jayda White, RIGOBERTO Specialty Healthcare Administration Intern Thoracic Surgery 08/28/23 [place] [address] [place], [place] [phone] Assigned Pain Medication Provider 09/20/23 03/21/24 Emeka Anand MD 909 [place], [place] 248795 Neurology 10/24/23 Anais Jaffe APRN WORKERS' COMPENSATION MAGISTRATE [address] [place] [address] 995045 Clinical Nurse Specialist Cardiovascular & Thoracic Surgery 11/09/23 Willy Owens DO [address] [place] [address] 417885 Physician Gastroenterology 11/09/23 Larry Schaefer MD 6 [place], [place] 966505 Assigned Endocrinology Provider 11/20/23 Daysi Winston PA-C [address] [place] [address] 789915 Physician Cleaning Supervisor Physician Cleaning Supervisor - Surgical 11/30/23 Saivta Gregory PA-C [address] [address] Physician Cleaning Supervisor Urology 11/30/23 [place] [address] [place] [address] Physician Gastroenterology 12/06/23 Kelsi Tripathi, [facility] Community Health Worker Primary Care - CC 12/11/23 4 [place] [address] [place] [address] Assigned Neuroscience Provider 12/21/[address] [place] [address] Registered Dietitian Dietitian, Registered 02/14/[address] [place] [address] [place] [address] Assigned Gastroenterology Provider 02/20/24 04/20/24 Jessica Howell PA-C [address] [place] [address] Assigned Gastroenterology Provider 04/21/24 09/18/24 Kelsi Tripathi, [facility] Community Health Worker Primary Care - CC 09/11/24 5 Sneha Calero, [facility] Lead Healthcare Administration Intern Primary Care - CC 09/15/24 Argenis Mesa MD [address] [place] [address] Colon & Rectal 09/17/24 Kelsi Tripathi, [facility] Community Health Worker Primary Care - CC 09/17/24 Candelaria Santillan PA-C [address] [place] [address] Assigned Gastroenterology Provider 09/19/24 Daysi Winston PA-C [address] [place] [address] Assigned Surgical Provider 09/19/24 10/19/24 Argenis Mesa MD [address] [place] [address] Assigned Surgical Provider 10/20/24 Melvi Chavez MD [address] [place] [place] [address] Urology 10/28/24 Jaret Pitts, CHW Community Health Worker Primary Care - CC 12/12/24 5 Neetu Hopkins CHW Community Health Worker 12/25/24 documented as of this encounter
--- OUTSIDE RECORDS SUMMARY | 2024-12-30 17:07 | XMS_ITS | Encounter Summary ---
Author Organization [place] Address [address] [place] [address] Care Team Providers Care Simplex Operator Name Role Phone No Ref-Primary, Physician Primary Care Provider Raiza Martinez MD Unavailable Stefan Gupta MD, Sherry Unavailable [phone] Karen Rai BINDERY CUTTER OPERATOR MEDICAL DETAILIST Unavailable [phone] Deacon Bishop MD Unavailable Catherine Miguel NP Unavailable Ara Short-C Unavailable [phone] Ara Short PA-C Primary Care Provider Stefan Gupta MD, Sherry Unavailable [phone] Graeme Le MD Unavailable Jayda White RN Unavailable Unavailable Audrey Dong MD Unavailable [phone] Emeka Anand MD Unavailable [phone] Anais Jaffe BINDERY CUTTER OPERATOR IRON AND STEEL WORK SUPERVISOR Unavailable Willy Owens DO Unavailable Larry Schaefer MD Unavailable [phone] Daysi Winston PA-C Unavailable [phone] Savita Gregory PA-C Unavailable Laura Ball DO Unavailable [phone] Kelsi Tripathi CHW Unavailable Michi Patterson MD Unavailable [phone] Unavailable Laura Ball DO Unavailable [phone] Jessica Howell PA-C Unavailable [phone] Kelsi Tripathi CHW Unavailable Sneha Calero HATCH BOSS Unavailable [phone] Argenis Mesa MD Unavailable [phone] Kelsi Tripathi CHW Unavailable [phone] Candelaria SantillanC Unavailable Daysi Winston-C Unavailable +[phone] Argenis Mesa MD Unavailable [phone] Melvi Chavez MD Unavailable [phone] Jaret Pitts CHW Unavailable Unavailable Neetu Hopkins CHW Unavailable [phone] Encounter Details Date Type Department Care Team (Late st Contact Info) Description 06/13/2023 MyC Medical Advice [facility] [address] [place] [address] Neetu Estrada, RN Social History Tobacco Use Types Packs/Day [...] Sex Assigned at Female 06/01/2023 2:55 PM BUSINESS SYSTEMS ADMINISTRATOR Legal Sex Female 1:26 PM BUSINESS SYSTEMS ADMINISTRATOR Gender Identity Female 06/01/2023 2:55 PM BUSINESS SYSTEMS ADMINISTRATOR Sexual Orientation Straight 06/01/2023 2: 55 PM BUSINESS SYSTEMS ADMINISTRATOR documented as of this encounter Plan of Treatment Upcoming Encounters Date Type Department Care Team (Late st Contact Info) Description 01/02/2025 10:30 AM CDT Office Visit [facility] [address] [place] [phone] Ara Short PA-C [address] [place] [address] 01/07/2025 8:30 AM CDT Office Visit [facility] Urology Clinic [place] [address] [facility] [address] [place] [address] Melvi Chavez MD 420 [facility] 394 [place] [address] 02/11/2025 2:00 PM CDT Virtual Visit [facility] Specialty [place] [address] [place] [address]-07332[address] Larry Schaefer MD 516 [place] [address] 02/13/2025 2:00 PM CDT Office Visit [facility] [address] [place] [address] Ara Short PA-C [address] [place] [address] 02/17/2025 3:15 PM CDT Virtual Visit [facility] Gastroenterology Clinic [address] [phone] Jessica Howell PA-C [address] [place] [address] 201685 documented as of this encounter Visit Diagnoses Not on filedocumented in this encounter Additional Health Concerns Infection Onset Date Last Indicated Resolved Time Rule Out COVID-19 08/23/2023 08/23/2023 08/23/2023 3:33 AM CDT Assessment Noted Time PHQ-9 Depression Total Score: 21 024 9:44 AM BUSINESS SYSTEMS ADMINISTRATOR documented as of this encounter Care Teams Simplex Operator Relationship Specialty Start Date End Date No Ref-Primary, Physician PCP - General 05/08/23 06/26/23 Ara Short PA-C [address] [place] [phone] PCP - General Family Medicine 06/27/23 Raiza Martinez MD [address] [place] [address] Otolaryngology 05/18/23 Sherry Aviles MD [address] [place] [address] Cardiovascular & Thoracic Surgery 06/11/23 Karen Rai APRN CNP [address] [place] [address] 68[address] Nurse Practitioner Neurology 06/13/23 Deacon Bishop MD [address] [place] [address] Neurology 06/19/23 08/09/23 [place] [address] [place] [address] Nurse Practitioner Nurse Practitioner 06/21/23 02/26/24 Ara Short PA-C [address] [place] [address]-718783 Assigned PCP 06/22/23 Sherry Aviles MD [address] [place] [address] Assigned Surgical Provider 07/13/23 09/18/24 Graeme Le MD [address] [place] [address]56 Neurology 08/10/23 10/23/23 Jayda White, RN Specialty Front End Mechanic Thoracic Surgery 08/28/23 [place] [address] [place], [place] 07302124 Assigned Pain Medication Provider 09/20/23 03/21/24 Emeka Anand MD [address] [place] [address] 610175 Neurology 10/24/23 Anais Jaffe, LYLA IRON AND STEEL WORK SUPERVISOR 420 [facility] 207 [place], [place] 330895 Clinical Nurse Specialist Cardiovascular & Thoracic Surgery 11/09/23 Willy Owens DO [address] 237655 Physician Gastroenterology 11/09/23 Larry Schaefer MD 6 [place], [place] 765735 Assigned Endocrinology Provider 11/20/23 Daysi Winston PA-C [address] [place] [address] 942665 Physician Internal Medicine Physician Assistant Physician Internal Medicine Physician Assistant - Surgical 11/30/23 Savita Gregory PA-C [address] [address] Physician Internal Medicine Physician Assistant Urology 11/30/23 [place] [address] [place], [place] 554569 Physician Gastroenterology 12/06/23 Kelsi Tripathi, [facility] Community Health Worker Primary Care - CC 12/11/23 4 [place] [address] [place] [address] Assigned Neuroscience Provider 12/21/[address] [place] [address] Registered Dietitian Dietitian, Registered 02/14/24 [place] [address] [place], [place] 285169 Assigned Gastroenterology Provider 02/20/24 04/20/24 Jessica Howell PA-C [address] [place] [address] 265915 Assigned Gastroenterology Provider 04/21/24 09/18/24 Kelsi Tripathi, [facility] Community Health Worker Primary Care - CC 09/11/24 5 Sneha Calero, [facility] Lead Front End Mechanic Primary Care - CC 09/15/24 Argenis Mesa MD [address] [place] [address] Colon & Rectal 09/17/24 Kelsi Tripathi, W Community Health Worker Primary Care - CC 09/17/24 Candelaria Santillan PA-C [address] [place] [address] Assigned Gastroenterology Provider 09/19/24 Daysi Winston PA-C 909 [place] [address] Assigned Surgical Provider 09/19/24 10/19/24 Argenis Mesa MD [address] [place] [address] Assigned Surgical Provider 10/20/24 Melvi Chavez MD [address] [place] [address] Urology 10/28/24 Jaret Pitts, CHW Community Health Worker Primary Care - CC 12/12/24 5 Neetu Hopkins CHW Community Health Worker 12/25/24 documented as of this encounter
--- OUTSIDE RECORDS SUMMARY | 2024-12-30 17:07 | XMS_ITS | Encounter Summary ---
Author Organization [place] Address [address] [place] [address] Care Team Providers Care Rubber Molder Name Role Phone Raiza Martinez MD Unavailable Stefan Gupta MD, Sherry Unavailable [phone] Karen Rai ELECTRICAL TECHNICIAN WEIGHT AND BALANCE CONTROL AGENT Unavailable [phone] Catherine Miguel NP Unavailable [phone] Ara ShortC Unavailable [phone] Ara ShortC Primary Care Provider [phone] Stefan Gupta MD, Sherry Unavailable [phone] Jayda White RN Unavailable Unavailable Audrey Dong MD Unavailable [phone] Emeka Anand MD Unavailable [phone] Anais Jaffe ELECTRICAL TECHNICIAN SANITATION OFFICER Unavailable Willy Owens DO Unavailable Larry Schaefer MD Unavailable [phone] Daysi Winston PA-C Unavailable +[phone] Savita Gregory PA-C Unavailable [phone] Laura Ball DO Unavailable Michi Patterson MD Unavailable Bianka Keene RD Unavailable [phone] QuinnLaura Samira CHIU Unavailable [phone] Jessica Howell-C Unavailable [phone] Kelsi Tripathi CHW Unavailable [phone] Sneha Calero LOCAL AREA NETWORK SYSTEMS ADMINSTRATOR Unavailable [phone] Argenis Mesa MD Unavailable [phone] Kelsi Tripathi W Unavailable [phone] Candelaria SantillanC Unavailable Daysi Winston-C Unavailable [phone] Argenis Mesa MD Unavailable [phone] Melvi Chavez MD Unavailable [phone] Jaret Pitts W Unavailable Unavailable Neetu Hopkins [facility] Unavailable [phone] Reason for Visit * Reason Onset Date Comments Call Back 02/15/2024 Encounter Details Date Type Department Care Team (Late st Contact Info) Description 02/15/2024 MyC Medical Advice [address] [address] Silva Patel V, RN Call Back Social History Tobacco Use Types Packs/Day Years [...] any clubs o r organizations such as rastafarian groups, unions, fraternal or athletic groups, or [...] 10/02/2023 PHQ-2 Answer Date Recorded PHQ-2 Score 4 02/11/2024 [facility] - [...] in an abandoned building, in an overnight longterm, or couch-surfing.) Yes 10/02/2023 Are you worried [...] Sex Assigned at Female 06/01/2023 2:55 PM DISPLAY CARVER Legal Sex Female 1:26 PM DISPLAY CARVER Gender Identity Female 06/01/2023 2:55 PM DISPLAY CARVER Sexual Orientation Straight 06/01/2023 2: 55 PM DISPLAY CARVER documented as of this encounter Miscellaneous Notes * Telephone Encounter - Lori Willard - 02/15/2024 9:41 AM CDT Pt states she is homeless and does not have an info on locations out there at this moment. Please advise. documented in this encounter Plan of Treatment Upcoming Encounters Date Type Department Care Team (Late st Contact Info) Description 01/02/2025 10:30 AM CDT Office Visit [facility] [address] [place] [phone] Ara Short PA-C [address] [place] [phone] 01/07/2025 8:30 AM CDT Office Visit [facility] [place] [address] [place] [phone] Melvi Chavez MD 420 [facility] 394 [place] [address] 02/11/2025 2:00 PM CDT Virtual Visit [facility] Specialty [address] [address] Larry Schaefer MD 516 [place], [place] 837045 02/13/2025 2:00 PM CDT Office Visit [facility] [address] [place] [phone] Ara Short PA-C [address] [place] [address] 02/17/2025 3:15 PM CDT Virtual Visit [facility] Gastroenterology [facility] [address] [place] [address] 4th [place] [phone] Jessica Howell PA-C [address] [place] [address] 281935 documented as of this encounter Visit Diagnoses Not on filedocumented in this encounter Additional Health Concerns Assessment Noted Time PHQ-9 Depression Total Score: 21 024 2:29 PM CDT documented as of this encounter Care Teams Rubber Molder Relationship Specialty Start Date End Date Ara Short PA-C [address] [place] [address] PCP - General Family Medicine 06/27/23 Raiza Martinez MD [address] [place] [address] 802755 Otolaryngology 05/18/23 Sherry Aviles MD [address] [place] [address] 393575 Cardiovascular & Thoracic Surgery 06/11/23 Karen Rai APRN WEIGHT AND BALANCE CONTROL AGENT [address] [place] [address] 026225 Nurse Practitioner Neurology 06/13/23 [place] [address] [place] [address] Nurse Practitioner Nurse Practitioner 06/21/23 02/26/24 Ara Short, PA-C [address] [place] [address]853983 Assigned PCP 06/22/23 Sherry Aviles MD [address] [place] [address] Assigned Surgical Provider 07/13/23 09/18/24 Jayda White, RIGOBERTO Specialty Hand Laster Thoracic Surgery 08/28/23 [place] [address] [place], [place] 54061124 Assigned Pain Medication Provider 09/20/23 03/21/24 Emeka Anand MD [address] [place] [address] Neurology 10/24/23 Anais Jaffe APRN SANITATION OFFICER [address] [address] Clinical Nurse Specialist Cardiovascular & Thoracic Surgery 11/09/23 Willy Owens DO [address] [address] Physician Gastroenterology 11/09/23 Larry Schaefer MD [address] [place] [address] Assigned Endocrinology Provider 11/20/23 Daysi Winston PA-C 9 [place] [address] Physician Electrical Mechanical Technician Physician Electrical Mechanical Technician - Surgical 11/30/23 Savita Gregory PA-C [facility] [address] [address] Physician Electrical Mechanical Technician Urology 11/30/23 [place] [address] [place] [address] Physician Gastroenterology 12/06/23 [place] [address] [address] Assigned Neuroscience Provider 12/21/[address] [place] [address] Registered Dietitian Dietitian, Registered 02/14/24 [place] [address] [place] [address] Assigned Gastroenterology Provider 02/20/24 04/20/24 Jessica Howell PA-C [address] [place] [address] Assigned Gastroenterology Provider 04/21/24 09/18/24 Kelsi Tripathi, [facility] Community Health Worker Primary Care - CC 09/11/24 5 Sneha Calero, [facility] Lead Hand Laster Primary Care - CC 09/15/24 Argenis Mesa MD [address] [place] [address] Colon & Rectal 09/17/24 Kelsi Tripathi, [facility] Community Health Worker Primary Care - CC 09/17/24 Candelaria Santillan PA-C [address] [place] [address] Assigned Gastroenterology Provider 09/19/24 Daysi Winston PA-C 909 [place] [address] Assigned Surgical Provider 09/19/24 10/19/24 Argenis Mesa MD [address] [place] [address] Assigned Surgical Provider 10/20/24 Melvi Chavez MD [address] [place] [address] Urology 10/28/24 Jaret Pitts, W Community Health Worker Primary Care - CC 12/12/24 5 Neetu Hopkins, [facility] Community Health Worker 12/25/24 documented as of this encounter
--- OUTSIDE RECORDS SUMMARY | 2024-12-30 17:07 | XMS_ITS | Encounter Summary ---
Author Organization [facility] [employer] [facility] Address [address] [place] [address] Phone Care Team Providers Care High Density Press Operator Name Role Phone Lucia Lemons RN Unavailable Unavailable Choice, No Pcp-Patient Primary Care Provider Susan vailable Encounter Details Date Type Department Care Team (Latest Contact Info) Description 12/09/2024 Travel Social History Tobacco Use Types Packs/Day Years Used Date Smoking Tobacco: Never Smokeless Tobacco: Never Alcohol Use Standard Drinks/Week Comments No 0 (1 standard drink = 0.6 oz pur e alcohol) [facility] Utilities Answer Date Recorded In the [...] were you homeless or living in a longterm (including now)? No 11/05/2024 EH IP Custom [...] on file Legal Sex Female 10:44 AM REFERENCE ASSISTANT Gender Identity Not on file Sexual Orientation [...] on filedocumented in this encounter Care Teams High Density Press Operator Relationship Specialty Start Date End Date Choice, No Pcp-Patient PCP - General 10/02/23 Lucia Lemons, RIGOBERTO Nurse Navigator Pulmonary Medicine 05/23/17 documented as of this encounter
--- OUTSIDE RECORDS SUMMARY | 2024-12-30 17:07 | XMS_ITS | Encounter Summary ---
Author Organization [place] Address [address] [place] [address] Care Team Providers Care Intermodal Dispatcher Name Role Phone Raiza Martinez MD Unavailable Stefan Gupta MD, Sherry Unavailable [phone] Karen Rai COMMUNICATIONS PROJECT LEAD BEHAVIORAL HEALTH CARE MANAGER Unavailable [phone] Ara Short-C Unavailable [phone] Ara Short PA-C Primary Care Provider Stefan Gupta MD, Sherry Unavailable [phone] Jayda White RN Unavailable Unavailable Emeka Anand MD Unavailable [phone] Anais Jaffe COMMUNICATIONS PROJECT LEAD ASSOCIATE CHEMIST Unavailable Willy Owens DO Unavailable Larry Schaefer MD Unavailable [phone] Daysi Winston PA-C Unavailable [phone] Savita Gregory PA-C Unavailable Laura Ball DO Unavailable [phone] Michi Patterson MD Unavailable [phone] Unavailable [phone] Laura Ball DO Unavailable [phone] Jessica Howell PA-C Unavailable [phone] Kelsi Tripathi CHW Unavailable [phone] Sneha Calero MANAGER COMPLIANCE Unavailable [phone] Argenis Mesa MD Unavailable [phone] Kelsi Tripathi CHW Unavailable [phone] Candelaria Santillan PA-C Unavailable Daysi Winston PA-C Unavailable [phone] Argenis Mesa MD Unavailable [phone] Melvi Chavez MD Unavailable [phone] Jaret Pitts W Unavailable Unavailable HopkinsNeetu W Unavailable [phone] Encounter Details Date Type Department Care Team (Late st Contact Info) Description 04/02/2024 [facility] Gastroenterology Clinic [address] [phone] [facility] Social History Tobacco Use Types Packs/Day Years [...] any clubs o r organizations such as sabianism groups, unions, fraternal or athletic groups, or [...] PHQ-2 Answer Date Recorded PHQ-2 Score 6 03/11/2024 [facility] - Occupational [...] Sex Assigned at Female 06/01/2023 2:55 PM COOKEE Legal Sex Female 1:26 PM COOKEE Gender Identity Female 06/01/2023 2:55 PM COOKEE Sexual Orientation Straight 06/01/2023 2: 55 PM COOKEE documented as of this encounter Plan of Treatment Upcoming Encounters Date Type Department Care Team (Late st Contact Info) Description 01/02/2025 10:30 AM CDT Office Visit [address] [address] Ara Short PA-C [address] [place] [address] 01/07/2025 8:30 AM CDT Office Visit [facility] Urology [facility] [place] [address] [facility] [address] [place] [phone] Melvi Chavez MD 420 [facility] 394 [place], [place] 654765 02/11/2025 2:00 PM CDT Virtual Visit [facility] Specialty Clinic [place] 18[address] [place] [phone] Larry Schaefer MD 6 [place] [address] 02/13/2025 2:00 PM CDT Office Visit [address] [address] Ara Short PA-C [address] [place] [address] 02/17/2025 3:15 PM CDT Virtual Visit [facility] Gastroenterology Clinic [place] [address] [facility] 4th [place] [address] Jessica Howell PA-C [address] [place] [address] documented as of this encounter Visit Diagnoses Not on filedocumented in this encounter Additional Health Concerns Assessment Noted Time PHQ-9 Depression Total Score: 21 024 2:29 PM CDT documented as of this encounter Care Teams Intermodal Dispatcher Relationship Specialty Start Date End Date Ara Short PA-C [address] [place] [address] PCP - General Family Medicine 06/27/23 Raiza Martinez MD [address] [place] [address] 390095 Otolaryngology 05/18/23 Sherry Aviles MD [address] [place] [address] 907645 Cardiovascular & Thoracic Surgery 06/11/23 Karen Rai APRN CNP [address] [place] [address] Nurse Practitioner Neurology 06/13/23 Ara Short PA-C [address] [place] [phone] Assigned PCP 06/22/23 Sherry Aviles MD [address] [place] [address]236 Assigned Surgical Provider 07/13/23 09/18/24 Jayda White, RN Specialty Digital Asset Coordinator Thoracic Surgery 08/28/23 Emeka Anand MD 9 [place], [place] 975465 Neurology 10/24/23 Anais Jaffe APRN ASSOCIATE CHEMIST [address] [place] [address] [phone] Clinical Nurse Specialist Cardiovascular & Thoracic Surgery 11/09/23 Willy Owens DO [address] [place] [address] 945915 Physician Gastroenterology 11/09/23 Larry Schaefer MD [address] [place] [address] [id number] Assigned Endocrinology Provider 11/20/23 Daysi Winston PA-C [address] [place] [address] Physician Vegetable Tier Physician Vegetable Tier - Surgical 11/30/23 Savita Gregory PA-C [address] [address] Physician Vegetable Tier Urology 11/30/23 [place] [address] [place] [address] Physician Gastroenterology 12/06/23 [place] [address] [facility] [address] [place], [place] 82535337 Assigned Neuroscience Provider 12/21/[address] [place] [address] 059775 Registered Dietitian Dietitian, Registered 02/14/24 [place] [address] [place], [place] 103239 Assigned Gastroenterology Provider 02/20/24 04/20/24 Jessica Howell PA-C [address] [place] [address] 121985 Assigned Gastroenterology Provider 04/21/24 09/18/24 Kelsi Tripathi, [facility] Community Health Worker Primary Care - CC 09/11/24 5 Sneha Calero, [facility] Lead Digital Asset Coordinator Primary Care - CC 09/15/24 Argenis Mesa MD [address] [facility] [address] 939785 Colon & Rectal 09/17/24 Kelsi Tripathi, [facility] Community Health Worker Primary Care - CC 09/17/24 Candelaria Santillan PA-C [address] [place], [place] 787299 Assigned Gastroenterology Provider 09/19/24 Daysi Winston PA-C [address] [place] [address] 932295 Assigned Surgical Provider 09/19/24 10/19/24 Argenis Mesa MD [address] [place] 801065 Assigned Surgical Provider 10/20/24 Melvi Chavez MD [address] [place] [address] [place] 834345 Urology 10/28/24 Jaret Pitts, CHW Community Health Worker Primary Care - CC 12/12/24 5 Neetu Hopkins CHW Community Health Worker 12/25/24 documented as of this encounter
--- OUTSIDE RECORDS SUMMARY | 2024-12-30 17:07 | XMS_ITS | Encounter Summary ---
Author Organization [facility] [employer] [facility] Address [address] [place] [address] Phone Care Team Providers Care Leguillon Debeader Name Role Phone Lucia Lemons RN Unavailable Unavailable Choice, No Pcp-Patient Primary Care Provider Susan vailable Encounter Details Date Type Department Care Team (Latest Contact Info) Description 11/18/2024 Travel Social History Tobacco Use Types Packs/Day Years Used Date Smoking Tobacco: Never Smokeless Tobacco: Never Alcohol Use Standard Drinks/Week Comments No 0 (1 standard drink = 0.6 oz pur e alcohol) [facility] Utilities Answer Date Recorded In the past [...] on file Legal Sex Female 10:44 AM ADVICE LINE RN Gender Identity Not on file Sexual Orientation [...] on filedocumented in this encounter Care Teams Leguillon Debeader Relationship Specialty Start Date End Date Choice, No Pcp-Patient PCP - General 10/02/23 Lucia Lemons, RIGOBERTO Nurse Navigator Pulmonary Medicine 05/23/17 documented as of this encounter
--- OUTSIDE RECORDS SUMMARY | 2024-12-30 17:07 | XMS_ITS | Encounter Summary ---
Author Organization [place] Address [address] [place] [address] Care Team Providers Care Chocolate Maker Name Role Phone No Ref-Primary, Physician Primary Care Provider Raiza Martinez MD Unavailable Stefan Gupta MD, Sherry Unavailable [phone] Karen Rai DISC PAD PLATE FILLER SECRETARY OF POLICE Unavailable [phone] Deacon Bishop MD Unavailable Catherine Miguel NP Unavailable Ara Short-C Unavailable [phone] Ara Short PA-C Primary Care Provider Stefan Gupta MD, Sherry Unavailable [phone] Graeme Le MD Unavailable Jayda White RN Unavailable Unavailable Audrey Dong MD Unavailable [phone] Emeka Anand MD Unavailable [phone] Anais Jaffe DISC PAD PLATE FILLER TELEPHONE ANSWERER Unavailable Willy Owens DO Unavailable Larry Schaefer MD Unavailable [phone] Daysi Winston PA-C Unavailable [phone] Savita Gregory PA-C Unavailable Laura Ball DO Unavailable [phone] Kelsi Tripathi CHW Unavailable Michi Patterson MD Unavailable [phone] Unavailable [phone] Laura Ball DO Unavailable [phone] Jessica Howell PA-C Unavailable [phone] Kelsi Tripathi CHW Unavailable Sneha Calero STEAM OVEN OPERATOR Unavailable [phone] Argenis Mesa MD Unavailable [phone] DeuceKelsi ballard CHW Unavailable [phone] Candelaria SantillanC Unavailable Daysi Winston-C Unavailable [phone] Argenis Mesa MD Unavailable [phone] Melvi Chavez MD Unavailable [phone] Jaret Pitts CHW Unavailable Unavailable Neetu Hopkins CHW Unavailable [phone] Encounter Details Date Type Department Care Team (Late st Contact Info) Description 06/01/2023 [facility] Gastroenterology Clinic [address] [place] [address] John Michele Social History Tobacco Use Types Packs/Day Years [...] an overnight group home, or couch-surfing.) Yes 05/18/2023 Are you worried [...] Sex Assigned at Female 06/01/2023 2:55 PM GROUP EXERCISE INSTRUCTOR Legal Sex Female 1:26 PM GROUP EXERCISE INSTRUCTOR Gender Identity Female 06/01/2023 2:55 PM GROUP EXERCISE INSTRUCTOR Sexual Orientation Straight 06/01/2023 2: 55 PM GROUP EXERCISE INSTRUCTOR documented as of this encounter Plan of Treatment Upcoming Encounters Date Type Department Care Team (Late st Contact Info) Description 01/02/2025 10:30 AM CDT Office Visit [facility] [address] [place] [phone] Ara Short PA-C [address] [place] [address]-9186[address] 01/07/2025 8:30 AM CDT Office Visit [facility] Urology Clinic [place] [address] [facility] [address] [place] [address] Melvi Chavez MD 420 [facility] 394 [place], [place] 555435 02/11/2025 2:00 PM CDT Virtual Visit [facility] Specialty Clinic [address] [address] Larry Schaefer MD 516 [place], [place] 433435 02/13/2025 2:00 PM CDT Office Visit [facility] [address] [place] [address] Ara Short PA-C [address] [place] [address] 02/17/2025 3:15 PM CDT Virtual Visit [facility] Gastroenterology Clinic [address] [address] Jessica Howell PA-C [address] [place] [address] 595685 documented as of this encounter Visit Diagnoses Not on filedocumented in this encounter Additional Health Concerns Infection Onset Date Last Indicated Resolved Time Rule Out COVID-19 08/23/2023 08/23/2023 08/23/2023 3:33 AM CDT Assessment Noted Time PHQ-9 Depression Total Score: 21 024 9:44 AM GROUP EXERCISE INSTRUCTOR documented as of this encounter Care Teams Chocolate Maker Relationship Specialty Start Date End Date No Ref-Primary, Physician PCP - General 05/08/23 06/26/23 Ara Short PA-C [address] [place] [address] PCP - General Family Medicine 06/27/23 Raiza Martinez MD [address] [place] [address] Otolaryngology 05/18/23 Sherry Aviles MD [address] [place] [address] Cardiovascular & Thoracic Surgery 06/11/23 Karen Rai APRN CNP [address] [place] [address] Nurse Practitioner Neurology 06/13/23 Deacon Bishop MD [address] [place] [address] Neurology 06/19/23 08/09/23 [place] [address] [place] [address] Nurse Practitioner Nurse Practitioner 06/21/23 02/26/24 Ara Short PA-C [address] [place] [address]-223883 Assigned PCP 06/22/23 Sherry Aviles MD [address] [place] [address] 38[address] Assigned Surgical Provider 07/13/23 09/18/24 Graeme Le MD [address] [place] [address] Neurology 08/10/23 10/23/23 Jayda White, RIGOBERTO Specialty Mexican Food Machine Tender Thoracic Surgery 08/28/23 [place] [address] [place], [place] 84347124 Assigned Pain Medication Provider 09/20/23 03/21/24 Emeka Anand MD [address] [place], [place] 069595 Neurology 10/24/23 Anais Jaffe APRN TELEPHONE ANSWERER [address] [place] [address] 064985 Clinical Nurse Specialist Cardiovascular & Thoracic Surgery 11/09/23 Willy Owens DO [address] [place] [address] 143285 Physician Gastroenterology 11/09/23 Larry Schaefer MD 6 [place], [place] 114545 Assigned Endocrinology Provider 11/20/23 Daysi Winston PA-C [address] [place], [place] 005985 Physician Fire Prevention Chief Physician Fire Prevention Chief - Surgical 11/30/23 Savita Gregory PA-C [address] 239107 Physician Fire Prevention Chief Urology 11/30/23 [place] [address] [place] [address] Physician Gastroenterology 12/06/23 Kelsi Tripathi, [facility] Community Health Worker Primary Care - CC 12/11/23 4 [place] [address] [place] [address] [place] [address] Assigned Neuroscience Provider 12/21/[address] [place] [address] Registered Dietitian Dietitian, Registered 02/14/24 [place] [address] [place] [address] Assigned Gastroenterology Provider 02/20/24 04/20/24 Jessica Howell PA-C [address] [place] [address] Assigned Gastroenterology Provider 04/21/24 09/18/24 Kelsi Tripathi, [facility] Community Health Worker Primary Care - CC 09/11/24 5 Sneha Calero, [facility] Lead Mexican Food Machine Tender Primary Care - CC 09/15/24 Argenis Mesa MD [address] [place] [address] Colon & Rectal 09/17/24 Kelsi Tripathi, [facility] Community Health Worker Primary Care - CC 09/17/24 Candelaria Santillan PA-C [address] [place] [address] Assigned Gastroenterology Provider 09/19/24 Daysi Winston PA-C [address] [place] [address] Assigned Surgical Provider 09/19/24 10/19/24 Argensi Mesa MD [address] [place] [address] Assigned Surgical Provider 10/20/24 Melvi Chavez MD [address] [place] [address] Urology 10/28/24 Jaret Pitts, CHW Community Health Worker Primary Care - CC 12/12/24 5 Neetu Hopkins CHW Community Health Worker 12/25/24 documented as of this encounter
--- OUTSIDE RECORDS SUMMARY | 2024-12-30 17:07 | XMS_ITS | Encounter Summary ---
Author Organization [facility] Address [address] [place] [address] Phone Care Team Providers Care Exceptional Needs Teacher Name Role Phone Lucia Lemons RN Unavailable Unavailable Choice, No Pcp-Patient Primary Care Provider Susan vailable Encounter Details Date Type Department Care Team (Late st Contact Info) Description 11/24/2024 Results Follow-Up [facility] [address] [place], [place] 476182 Jayda Butler RN MR CERVICAL SPINE WO CONTRAST Social History Tobacco Use Types Packs/Day Years Used Date Smoking Tobacco: Never Smokeless Tobacco: Never Alcohol Use Standard Drinks/Week Comments No 0 (1 standard drink = 0.6 oz pur e alcohol) [facility] Utilities Answer Date Recorded In [...] any time in the past 12 m [facility], were you homeless or living in [...] on file Legal Sex Female 10:44 AM HAND MOLDER MEAT Gender Identity Not on file Sexual Orientation [...] on filedocumented in this encounter Care Teams Exceptional Needs Teacher Relationship Specialty Start Date End Date Choice, No Pcp-Patient PCP - General 10/02/23 Lucia Lemons RN Nurse Navigator Pulmonary Medicine 05/23/17 documented as of this encounter
--- OUTSIDE RECORDS SUMMARY | 2024-12-30 17:07 | XMS_ITS | Encounter Summary ---
Author Organization [facility] Address [address] [place] [address] Care Team Providers Care Maid Cleaning Cooking Name Role Phone No Ref-Primary, Physician Primary Care Provider Raiza Maritnez MD Unavailable Stefan Gupta MD, Sherry Unavailable [phone] Karen Rai MUSHROOM SPAWN MAKER RN BEHAVIORAL HEALTH Unavailable [phone] Deacon Bishop MD Unavailable Catherine Miguel NP Unavailable Ara Short-C Unavailable [phone] Ara Short PA-C Primary Care Provider Stefan Gupta MD, Sherry Unavailable [phone] Graeme Le MD Unavailable Jayda White RN Unavailable Unavailable Audrey Dong MD Unavailable [phone] Emeka Anand MD Unavailable +[phone] Anais Jaffe MUSHROOM SPAWN MAKER PARTNERSHIP MARKETING MANAGER Unavailable Willy Owens DO Unavailable Larry Schaefer MD Unavailable [phone] Daysi Winston PA-C Unavailable [phone] Savita Gregory PA-C Unavailable Laura Ball DO Unavailable [phone] Kelsi Tripathi CHW Unavailable Michi Patterson MD Unavailable [phone] Unavailable [phone] Laura Ball DO Unavailable [phone] Jessica Howell PA-C Unavailable [phone] Kelsi Tripathi CHW Unavailable Sneha Calero AIR BRAKE RIGGER Unavailable [phone] Argenis Mesa MD Unavailable [phone] Kelsi Tripathi CHW Unavailable [phone] Candelaria SantillanC Unavailable Daysi Winston-C Unavailable +[phone] Argenis Mesa MD Unavailable [phone] Melvi Chavez MD Unavailable [phone] Jaret Pitts CHW Unavailable Unavailable Neetu Hopkins CHW Unavailable [phone] Encounter Details Date Type Department Care Team (Late st Contact Info) Description 06/05/2023 MyC Medical Advice [facility] [address] [place] [address] Neetu Estrada, RN Social History Tobacco [...] Sex Assigned at Female 06/01/2023 2:55 PM APPRENTICE ARCHITECT Legal Sex Female 1:26 PM APPRENTICE ARCHITECT Gender Identity Female 06/01/2023 2:55 PM APPRENTICE ARCHITECT Sexual Orientation Straight 06/01/2023 2: 55 PM APPRENTICE ARCHITECT documented as of this encounter Plan of Treatment Upcoming Encounters Date Type Department Care Team (Late st Contact Info) Description 01/02/2025 10:30 AM CDT Office Visit [facility] [address] [place] [phone] Ara Short PA-C [address] [place] [address] 01/07/2025 8:30 AM CDT Office Visit [facility] [place] [address] [facility] [address] [place] [address] Melvi Chavez MD 420 [facility] 394 [place] [address] 02/11/2025 2:00 PM CDT Virtual Visit [facility] Specialty [place] [place] [phone] Larry Schaefer MD 516 [place] [address] 02/13/2025 2:00 PM CDT Office Visit [facility] [address] [place] [address] Ara Short PA-C [address] [place] [address] 02/17/2025 3:15 PM CDT Virtual Visit [facility] G[facility]ology [facility] [address] [phone] Jessica Howell PA-C [address] [place] [address] 787295 documented as of this encounter Visit Diagnoses Not on filedocumented in this encounter Additional Health Concerns Infection Onset Date Last Indicated Resolved Time Rule Out COVID-19 08/23/2023 08/23/2023 08/23/2023 3:33 AM CDT Assessment Noted Time PHQ-9 Depression Total Score: 21 024 9:44 AM APPRENTICE ARCHITECT documented as of this encounter Care Teams Maid Cleaning Cooking Relationship Specialty Start Date End Date No Ref-Primary, Physician PCP - General 05/08/23 06/26/23 Ara Short PA-C [id number] [place] [phone] PCP - General Family Medicine 06/27/23 Raiza Martinez MD [address] [place] [address] Otolaryngology 05/18/23 Sherry Aviles MD [address] [place] [address] Cardiovascular & Thoracic Surgery 06/11/23 Karen Rai APRN CNP [address] [place] [address] Nurse Practitioner Neurology 06/13/23 Deacon Bishop MD [address] [place] [address] Neurology 06/19/23 08/09/23 [place] [address] [place] [address] Nurse Practitioner Nurse Practitioner 06/21/23 02/26/24 Ara Short PA-C [address] [place] [address]250083 Assigned PCP 06/22/23 Sherry Aviles MD [address] [place] [address] Assigned Surgical Provider 07/13/23 09/18/24 Graeme Le MD [address] [place] [address] Neurology 08/10/23 10/23/23 Jayda White, RN Specialty Food And Nutrition Services Assistant Thoracic Surgery 08/28/23 [place] [address] [place], [place] [phone] Assigned Pain Medication Provider 09/20/23 03/21/24 Emeka Anand MD [address] [place] [address] 409355 Neurology 10/24/23 Anais Jaffe, LYLA PARTNERSHIP MARKETING MANAGER 420 [facility] 207 [place], [place] 145785 Clinical Nurse Specialist Cardiovascular & Thoracic Surgery 11/09/23 Willy Owens DO [address] 149[address] Physician Gastroenterology 11/09/23 Larry Schaefer MD 6 [place], [place] 971455 Assigned Endocrinology Provider 11/20/23 Daysi Winston PA-C [address] [place] [address] 156885 Physician Pattern Hand Physician Pattern Hand - Surgical 11/30/23 Savita Gregory PA-C [address] [address] Physician Pattern Hand Urology 11/30/23 [place] [address] [place], [place] [address]229 Physician Gastroenterology 12/06/23 Kelsi Tripathi, [facility] Community Health Worker Primary Care - CC 12/11/23 4 [place] [address] [place] [address] Assigned Neuroscience Provider 12/21/[address] [place] [address] Registered Dietitian Dietitian, Registered 02/14/24 [place] [address] [place], [place] [address]149 Assigned Gastroenterology Provider 02/20/24 04/20/24 Jessica Howell PA-C [address] [place] [address] 865255 Assigned Gastroenterology Provider 04/21/24 09/18/24 Kelsi Tripathi, [facility] Community Health Worker Primary Care - CC 09/11/24 5 Sneha Calero, [facility] Lead Food And Nutrition Services Assistant Primary Care - CC 09/15/24 Argenis Mesa MD [address] [place] [address] Colon & Rectal 09/17/24 Kelsi Tripathi, W Community Health Worker Primary Care - CC 09/17/24 Candelaria Santillan PA-C [address] [place] [address] Assigned Gastroenterology Provider 09/19/24 Daysi Winston PA-C 909 [place] [address] Assigned Surgical Provider 09/19/24 10/19/24 Argenis Mesa MD [address] [place] [address] [place] [address] Assigned Surgical Provider 10/20/24 Melvi Chavez MD [address] [place] [place] [address] Urology 10/28/24 Jaret Pitts, CHW Community Health Worker Primary Care - CC 12/12/24 5 Neetu Hopkins CHW Community Health Worker 12/25/24 documented as of this encounter
--- OUTSIDE RECORDS SUMMARY | 2024-12-30 17:07 | XMS_ITS | Encounter Summary ---
Author Organization [facility] Address [address] [place] [address] Care Team Providers Care Stone Polisher Machine Name Role Phone Raiza Martinez MD Unavailable Stefan Gupta MD, Sherry Unavailable [phone] Karen Rai SEWER SYSTEM SUPERVISOR MASONRY TEACHER Unavailable [phone] Ara Short PA-C Unavailable [phone] Ara ShortC Primary Care Provider Stefan Gupta MD, Sherry Unavailable Jayda White RN Unavailable Unavailable Audrey Dong MD Unavailable [phone] Emeka Anand MD Unavailable Anais Jaffe SEWER SYSTEM SUPERVISOR DEFECT CUTTER Unavailable Willy Owens DO Unavailable Larry Schaefer MD Unavailable [phone] Daysi Winston PA-C Unavailable [phone] Savita Gregory PA-C Unavailable Laura Ball DO Unavailable Michi Patterson MD Unavailable Bianka Keene RD Unavailable [phone] Laura Ball DO Unavailable [phone] Jessica Howell Urbano PA-C Unavailable [phone] Kelsi Tripathi CHW Unavailable [phone] Abdias Sneha Delisa GAS PROVER Unavailable [phone] Argenis Mesa MD Unavailable [phone] Kelsi Tripathi CHW Unavailable [phone] Candelaria Santillan PA-C Unavailable Daysi Winston PA-C Unavailable [phone] Argenis Mesa MD Unavailable [phone] Melvi Chavez MD Unavailable [phone] Jaret Pitts CHW Unavailable Unavailable Neetu Hopkins CHW Unavailable [phone] Encounter Details Date Type Department Care Team (Late st Contact Info) Description 03/17/2024 MyC Medical Advice [facility] [address] [place] [address] Mago Lyon, RN Social History Tobacco Use Types Packs/Day [...] and Family Not on file 10/02/2023 Attends Synagogue Services Not on file 10/01 Do you belong to any clubs o r organizations such as denominational groups, unions, fraternal or athletic groups, or [...] Answer Date Recorded PHQ-2 Score 6 03/11/2024 [facility] - Occupational Stress Questionnaire Answer Date Recorded [...] Sex Assigned at Female 06/01/2023 2:55 PM RESEARCH MANAGER Legal Sex Female 1:26 PM RESEARCH MANAGER Gender Identity Female 06/01/2023 2:55 PM RESEARCH MANAGER Sexual Orientation Straight 06/01/2023 2: 55 PM RESEARCH MANAGER documented as of this encounter Plan of Treatment Upcoming Encounters Date Type Department Care Team (Late st Contact Info) Description 01/02/2025 10:30 AM CDT Office Visit [address] [address] Ara Short PA-C [address] [place] [address] 01/07/2025 8:30 AM CDT Office Visit [facility] Urology [facility] [address] [facility] [address] [place] [phone] Melvi Chavez MD 420 [facility] 394 [place], [place] 264445 02/11/2025 2:00 PM CDT Virtual Visit [facility] Specialty [facility] 1875 [place] [phone] Larry Schaefer MD 516 [place], [place] [phone] 02/13/2025 2:00 PM CDT Office Visit [address] [address] rAa Short PA-C [address] [place] [address] 02/17/2025 3:15 PM CDT Virtual Visit [facility] Gastroenterology Clinic [address] [phone] Jessica Howell PA-C [address] [place] [address] 018145 documented as of this encounter Visit Diagnoses Not on filedocumented in this encounter Additional Health Concerns Assessment Noted Time PHQ-9 Depression Total Score: 21 024 2:29 PM CDT documented as of this encounter Care Teams Stone Polisher Machine Relationship Specialty Start Date End Date Ara Short PA-C [address] [place] [phone] PCP - General Family Medicine 06/27/23 Raiza Martinez MD [address] [place] [address] Otolaryngology 05/18/23 Sherry Aviles MD [address] [place] [address] 420895 Cardiovascular & Thoracic Surgery 06/11/23 Karen Rai APRN MASONRY TEACHER [address] [place] [address] Nurse Practitioner Neurology 06/13/23 Ara Short PA-C [address] [place] [phone] Assigned PCP 06/22/23 Sherry Aviles MD [address] [place] [address] Assigned Surgical Provider 07/13/23 09/18/24 Jayda White, RN Specialty Sample Stitcher Thoracic Surgery 08/28/23 [place] [address] [place] [address] Assigned Pain Medication Provider 09/20/23 03/21/24 Emeka Anand MD 909 [place], [place] 087735 Neurology 10/24/23 Anais Jaffe, LYLA DEFECT CUTTER [address] 722545 Clinical Nurse Specialist Cardiovascular & Thoracic Surgery 11/09/23 Willy Owens DO [address] [address] Physician Gastroenterology 11/09/23 Larry Schaefer MD 6 [place] [address] Assigned Endocrinology Provider 11/20/23 Daysi Winston PA-C 909 [place] [address] Physician Supervisor Vine Fruit Farming Physician Supervisor [employer] - Surgical 11/30/23 Savita Gregory PA-C [address] [address] Physician Supervisor [employer] Farm[employer] Urology 11/30/23 [place] [address] [place] [address] Physician Gastroenterology 12/06/23 [place] [address] [place] [address] Assigned Neuroscience Provider 12/21/[address] [place] [address] Registered Dietitian Dietitian, Registered 02/14/24 [place] [address] [place] [address] Assigned Gastroenterology Provider 02/20/24 04/20/24 Jessica Howell PA-C [address] [place] [address] 764375 Assigned Gastroenterology Provider 04/21/24 09/18/24 Kelsi Tripathi, W Community Health Worker Primary Care - CC 09/11/24 5 Sneha Calero, [facility] Lead Sample Stitcher Primary Care - CC 09/15/24 Argenis Mesa MD [address] 152995 Colon & Rectal 09/17/24 Kelsi Tripathi, W Community Health Worker Primary Care - CC 09/17/24 Candelaria Santillan PA-C [address] [place] [address] Assigned Gastroenterology Provider 09/19/24 Daysi Winston PA-C 909 [place] [address] Assigned Surgical Provider 09/19/24 10/19/24 Argenis Mesa MD [address] [place] [address] Assigned Surgical Provider 10/20/24 Melvi Chavez MD [address] [place], [place] 07[address] Urology 10/28/24 Jaret Pitts CHW Community Health Worker Primary Care - CC 12/12/24 5 Neetu Hopkins CHW Community Health Worker 12/25/24 documented as of this encounter
--- OUTSIDE RECORDS SUMMARY | 2024-12-30 17:07 | XMS_ITS | Encounter Summary ---
Author Organization [facility] Address [address] [place] [address] Care Team Providers Care Bindery Helper Name Role Phone No Ref-Primary, Physician Primary Care Provider Raiza Martinez MD Unavailable Stefan Gupta MD, Sherry Unavailable [phone] Karen Rai ANGIO TECHNOLOGIST EXPLOSIVE ORDNANCE DISPOSAL TECHNICIAN Unavailable [phone] Deacon Bishop MD Unavailable Catherine Miguel NP Unavailable Ara Short-C Unavailable [phone] Ara Short PA-C Primary Care Provider Stefan Gupta MD, Sherry Unavailable [phone] Graeme Le MD Unavailable Jayda White RN Unavailable Unavailable Audrey Dong MD Unavailable [phone] Emeka Anand MD Unavailable [phone] Anais Jaffe ANGIO TECHNOLOGIST PROPERTY CONDITION ASSESSOR Unavailable Willy Owens DO Unavailable Larry Schaefer MD Unavailable [phone] Daysi Winston PA-C Unavailable [phone] Savita Gregory PA-C Unavailable Laura Ball DO Unavailable [phone] Kelsi Tripathi CHW Unavailable Michi Patterson MD Unavailable [phone] Unavailable [phone] Laura Ball DO Unavailable [phone] Jessica Howell PA-C Unavailable [phone] Kelsi Tripathi CHW Unavailable Sneha Calero SANDER AND POLISHER Unavailable [phone] Argenis Mesa MD Unavailable [phone] DeuceKelsi ballard CHW Unavailable [phone] Candelaria SantillanC Unavailable Daysi Winston-C Unavailable +[phone] Argenis Mesa MD Unavailable [phone] Melvi Chavez MD Unavailable [phone] Jaret Pitts CHW Unavailable Unavailable Neetu Hopkins CHW Unavailable [phone] Encounter Details Date Type Department Care Team (Late st Contact Info) Description 05/18/2023 MyC Medical [facility] [address] [place] [address] John Michele Social History Tobacco [...] in an overnight penitentiary, or couch-surfing.) Yes 05/18/2023 Are you worried [...] Sex Assigned at Female 06/01/2023 2:55 PM LAND DEVELOPMENT PROJECT MANAGER Legal Sex Female 1:26 PM LAND DEVELOPMENT PROJECT MANAGER Gender Identity Female 06/01/2023 2:55 PM LAND DEVELOPMENT PROJECT MANAGER Sexual Orientation Straight 06/01/2023 2: 55 PM LAND DEVELOPMENT PROJECT MANAGER documented as of this encounter Plan of Treatment Upcoming Encounters Date Type Department Care Team (Late st Contact Info) Description 01/02/2025 10:30 AM CDT Office Visit [facility] [address] [place] [phone] Ara Short PA-C [address] [place] [phone] 01/07/2025 8:30 AM CDT Office Visit [facility] [place] [address] [facility] [address] [place] [address] Melvi Chavez MD 420 [facility] 394 [place], [place] 406885 02/11/2025 2:00 PM CDT Virtual Visit [facility] [address] [address] Larry Schaefer MD 516 [place], [place] 706155 02/13/2025 2:00 PM CDT Office Visit [facility] [address] [place] [address] Ara Short PA-C [address] [place] [address] 02/17/2025 3:15 PM CDT Virtual Visit [facility] Gastroenterology Clinic [address] [address] Jessica Howell PA-C [address] [place] [address] 020085 documented as of this encounter Visit Diagnoses Not on filedocumented in this encounter Additional Health Concerns Infection Onset Date Last Indicated Resolved Time Rule Out COVID-19 08/23/2023 08/23/2023 08/23/2023 3:33 AM CDT Assessment Noted Time PHQ-9 Depression Total Score: 21 024 9:44 AM LAND DEVELOPMENT PROJECT MANAGER documented as of this encounter Care Teams Bindery Helper Relationship Specialty Start Date End Date No Ref-Primary, Physician PCP - General 05/08/23 06/26/23 Ara Short PA-C [address] [place] [address] PCP - General Family Medicine 06/27/23 Raiza Martinez MD [address] [place] [address] Otolaryngology 05/18/23 Sherry Aviles MD [address] [place] [address] Cardiovascular & Thoracic Surgery 06/11/23 Karen Rai APRN CNP [address] [place] [address] Nurse Practitioner Neurology 06/13/23 Deacon Bishop MD [address] [place] [address] Neurology 06/19/23 08/09/23 [place] [address] [place] [address] Nurse Practitioner Nurse Practitioner 06/21/23 02/26/24 Ara Short PA-C [address] [place] [address]-285[address] Assigned PCP 06/22/23 Sherry Aviles MD [address] [place] [address] Assigned Surgical Provider 07/13/23 09/18/24 Graeme Le MD [address] [place] [address] Neurology 08/10/23 10/23/23 Jayda White, RIGOBERTO Specialty Tube Turner Thoracic Surgery 08/28/23 [place] [address] [place], [place] 09422124 Assigned Pain Medication Provider 09/20/23 03/21/24 Emeka Anand MD 909 [place], [place] 598685 Neurology 10/24/23 Anais Jaffe APRN PROPERTY CONDITION ASSESSOR [address] [place] [address] 577775 Clinical Nurse Specialist Cardiovascular & Thoracic Surgery 11/09/23 Willy Owens DO [address] [place] [address] 399675 Physician Gastroenterology 11/09/23 Larry Schaefer MD 6 [place], [place] 781745 Assigned Endocrinology Provider 11/20/23 Daysi Winston PA-C 9 [place], [place] 609205 Physician Retail Delivery Driver Physician Retail Delivery Driver - Surgical 11/30/23 Savita Gregory PA-C [address] 969567 Physician Retail Delivery Driver Urology 11/30/23 [place] [address] [place] [address] Physician Gastroenterology 12/06/23 Kelsi Tripathi, [facility] Community Health Worker Primary Care - CC 12/11/23 4 [place] [address] [place] [address] Assigned Neuroscience Provider 12/21/[address] [place] [address] Registered Dietitian Dietitian, Registered 02/14/24 [place] [address] [place] [address] Assigned Gastroenterology Provider 02/20/24 04/20/24 Jessica Howell PA-C [address] [place] [address] Assigned Gastroenterology Provider 04/21/24 09/18/24 Kelsi Tripathi, [facility] Community Health Worker Primary Care - CC 09/11/24 5 Sneha Calero, [facility] Lead Tube Turner Primary Care - CC 09/15/24 Argenis Mesa MD [address] [place] [address] Colon & Rectal 09/17/24 Kelsi Tripathi, [facility] Community Health Worker Primary Care - CC 09/17/24 Candelaria Santillan PA-C [address] [place] [address] Assigned Gastroenterology Provider 09/19/24 Daysi Winston PA-C [address] [place] [address] Assigned Surgical Provider 09/19/24 10/19/24 Argenis Mesa MD [address] [place] [address] Assigned Surgical Provider 10/20/24 Melvi Chavez MD [address] [place] [address] Urology 10/28/24 Jaret Pitts, CHW Community Health Worker Primary Care - CC 12/12/24 5 Neetu Hopkins CHW Community Health Worker 12/25/24 documented as of this encounter
--- OUTSIDE RECORDS SUMMARY | 2024-12-30 17:07 | XMS_ITS | Clinical Summary ---
Author Organization [facility] Address [address] [place] [address] Phone Care Team Providers Care Livestock Yard Attendant Name Role Phone Lucia Lemons RN Unavailable [...] Vitamin D 90 Tablet 3 4 Active [place]-3 Fatty Acids (fish oil) 1200 MG capsuleIndicati [...] (Tinactin) 1 % AerosolIndicati ons:Infection Apply 1 [place] topically two times a day. Indications: Infection [...] (09/08/2021): Added automatically from request for surgery [id number] Hernia of anterior abdominal wall 09/27/2018 Gastroesophageal [...] Description 12/09/2024 5:00 PM CDT Office Visit [facility] 34 CLINIC WALK - [place] [address] [place] [phone] Rocío Campa, CARDIAC/VASCULAR SONOGRAPHER, BRICK PAVER Abdominal pain, unspecified abdominal location (Primary Dx) 12/09/2024 Travel 11/24/2024 Results Follow-Up [facility] MEDICINE [address] [place] [address] Jayda Butler, RN MR CERVICAL SPINE WO CONTRAST 11/18/2024 Travel 11/13/2024 4:02 PM CDT - 11/13/2024 11:59 PM CDT Hospital Encounter [facility] RAD MRI [address] [place] [address] Zoey Terry MD Neck pain Discharge Disposition: Discharged 11/13/2024 Travel 11/10/2024 Telephone [facility] [address] [place] [address] Laura Dietrich LPN Medication 11/07/[address] [address] Iris Rodriguez 11/06/[address] [address] Kiesha Ansari LPN Results 11/05/2024 3:46 PM CDT - 11/05/2024 11:59 PM CDT Hospital Encounter [facility] RADIOLOGY [address] [place] [address] Zoey Terry MD Neck pain Discharge Disposition: Discharged 11/05/2024 3:20 PM CDT Office Visit [facility] MEDICINE [address] [place] [address] Zoey Terry MD Neck pain (Primary Dx); [...] and perineoplasty; Surgeon: Belen Fernandez MD; Location: [facility] OR Medical devices from this surgery are in the Medical Devices section. VAGINAL PROLAPSE REPAIR 07/09/2015 Perineum/N/A Procedure: posterior repair and perineoplasty; Surgeon: Belen Fernandez MD; Location: [facility] OR Medical devices from this surgery are in the Medical Devices section. CYSTOSCOPY 11/29/2015 Bladder/Right Procedure: Cystoscopy with right retrograde pyelogram and Ureteroscopy Right with balloon dilation; Surgeon: Cuong Correia MD; Location: [facility] OR COLONOSCOPY 03/15/2016 Colon/N/A Procedure: COLONOSCOPY DIAGNOSTIC; Surgeon: Ezequiel Dye MD; Location: [facility] OR UPPER GASTROINTESTINAL ENDOSCOPY 03/15/2016 Mouth/N/A Procedure: [...] VENTRAL HERNIA REPAIR 09/30/2018 Repair with mesh. ([facility]) COLONOSCOPY 03/25/2024 Colon/N/A Procedure: COLONOSCOPY DIAGNOSTIC; Surgeon: [...] drink = 0.6 oz pur e alcohol) [facility] Utilities Answer Date Recorded In the [...] any time in the past 12 m [facility], were you homeless or living in a penitentiary (including now)? No 11/05/2024 EH IP Custom [...] on file Legal Sex Female 10:44 AM TRADE UNION OFFICIAL Gender Identity Not on file Sexual Orientation [...] 2 - PCV20 or PCV21) 06/13/2017 06/13/2016 Influenza Vaccine Seasonal (Standing Order) (#1) 2024 03/28/2017, 06/13/2016, 06/13/2016, Additional history exists MAMMO,SCREEN 05/07/2025 05/07/2024, 08/29, 06/12/2019, Additional history [...] this topic Medical Devices Implanted Type Area Lining Maker Hand Device Identifier Shelf Expiration Date Model / Serial / Lot Alyte Y Mesh Graft Y500 - [id number] Implanted:Qty: 1 on 07/09/2015 by Belen Fernandez MD at [facility] N/A: Vagina BARD 05/27/2017 Y500 / NA / [id number] Procedures Procedure Name Priority Date/Time Associated Diagnosis Comments MR CERVICAL SPINE WO CONTRAST Routine 11/13/2024 4:44 PM CDT Neck pain XR CERVICAL SPINE 2 OR 3 VIEWS Xray today 11/05/2024 3:52 PM CDT Neck pain MAMM TATA SCREEN DIGITAL BILAT Routine 05/07/2024 11:11 AM TRADE UNION OFFICIAL Visit for screening mammogram COLONOSCOPY PROCEDURE 03/15/2016 12:00 AM TRADE UNION OFFICIAL FECAL OCCULT BLOOD, IMMUNOASSAY (COLORECTAL SCREENING) Routine [...] Signed: Eran Sanches MD 11/14/2024 9:41 PM Zoey Terry MD MRI ORDERABLES Final Result * XR CERVICAL [...] Rohit Contreras 11/05/2024 8:57 PM us Zoey Terry MD EC DIAGNOSTIC IMAGING ORDERABL ES Final Result * MAMM TATA SCREEN DIGITAL BILAT (05/07/2024 11:11 AM TRADE UNION OFFICIAL) Anatomical Region Laterality Modality Breast Bilateral Mammography 05/07/2024 11:1 1 AM TRADE UNION OFFICIAL Narrative 05/07/2024 9:46 PM TRADE UNION OFFICIAL This document is currently in Final Status [...] Moses De La Torre 05/07/2024 9:46 PM Yanni Almonte APRN, BRICK PAVER EC MAMMOGRAPHY ORDERAB LES Final Result * COLONOSCOPY PROCEDURE (03/15/2016 12:00 AM TRADE UNION OFFICIAL) 03/15/2016 Narrative Procedure Note Ezequiel Dye MD - 03/15/2016 12:45 PM CST [facility] Patient Name: JO ANN PORTILLO Date of Service: 03/15/2016 : 1965 Age: 50Y Sex: F Patient Loc/Room #: FSHPRE/F PRE Provider: Ezequiel Dye MD, General Surgery COLONOSCOPY SITE: [facility] ORDERED BY: PROCEDURES: 1. EGD. 2. Colonoscopy. FINDINGS: Diverticulosis - mostly concentrated in the sigmoid colon. COMPLICATIONS: None. CUSTOMER SOLUTIONS COORDINATOR: None. ANESTHETIC: MAC. PREOPERATIVE DIAGNOSIS: GI bleeding. [...] tolerated the procedure well. Ezequiel Dye MD [facility] General Surgery cc: Yanira Newell PA-C /RW Job ID: [id number] /rosalinda/[email or web address](status) Document ID: [id number] Ezequiel Dye MD EC PROCEDURES Final Resul t * (ABNORMAL) FECAL OCCULT BLOOD, IMMUNOASSAY (02/02/2016 12:50 PM CDT) Fecal Occult Blood, Immunoassay Positive( A) 02/02/2016 2:00 PM CDT [facility] Comment: PLEASE NOTE: Our gastroenterology section [...] Newell PA-C EC URINE ORDERABLES Final Result [facility] [address] [place] [address] from Last 3 Months or Most Recently Relevant to Health Maintenance Insurance [facility] [employer] COMP [facility] * Guarantor: [employer] 7 Account Type Relation to Patient Date of Phone Billing Address [employer] [address] [place] [address] Advance Directives For more information, please contact: [phone] * Full Code (Latest Code Status on [...] 11:43 AM 09/01/2016 12:32 PM Care Teams Livestock Yard Attendant Relationship Specialty Start Date End Date Choice, No Pcp-Patient PCP - General 10/02/23 Lucia Lemons, RN Nurse Navigator Pulmonary Medicine 05/23/17
--- OUTSIDE RECORDS SUMMARY | 2024-12-30 17:07 | XMS_ITS | Encounter Summary ---
Author Organization [facility] Address [address] [place] [address] Care Team Providers Care Near East Archeology Professor Name Role Phone No Ref-Primary, Physician Primary Care Provider Raiza Martinez MD Unavailable Stefan Gupta MD, Sherry Unavailable [phone] Karen Rai LUMBER TAILER MOLD CAPPER HELPER Unavailable [phone] Deacon Bishop MD Unavailable Catherine Miguel NP Unavailable Ara Short-C Unavailable [phone] Ara Short PA-C Primary Care Provider [phone] Stefan Gupta MD, Sherry Unavailable [phone] Graeme Le MD Unavailable Jayda White RN Unavailable Unavailable Audrey Dong MD Unavailable [phone] Emeka Anand MD Unavailable [phone] Anais Jaffe LUMBER TAILER POTATO PANCAKE FRIER Unavailable Willy Owens DO Unavailable Larry Schaefer MD Unavailable [phone] Daysi Winston PA-C Unavailable [phone] Savita Gregory PA-C Unavailable Laura Ball DO Unavailable Kelsi Tripathi CHW Unavailable Michi Patterson MD Unavailable Yecenia Bianka A RD Unavailable [phone] Laura Ball DO Unavailable Jessica Howell PA-C Unavailable [phone] DeuceKelsi ballard CHW Unavailable Sneha Calero FELT COVERER Unavailable [phone] Argenis Mesa MD Unavailable [phone] DeuceKelsi ballard CHW Unavailable Candelaria Santillan-C Unavailable Daysi Winston PA-C Unavailable [phone] Argenis Mesa MD Unavailable [phone] Melvi Chavez MD Unavailable Jaret Pitts CHW Unavailable Unavailable Neetu Hopkins CHW Unavailable [phone] Encounter Details Date Type Department Care Team (Late st Contact Info) Description 05/29/2023 MyC Medical Advice [facility] Physical Medicine and Rehabilitation Clinic [address] [address] Karen Rai APRN [address] [address] Social History Tobacco Use Types Packs/Day [...] in an overnight halfway, or couch-surfing.) Yes 05/18/2023 Are you worried [...] Sex Assigned at Female 06/01/2023 2:55 PM NEEDLE CONTROL CHENILLER Legal Sex Female 1:26 PM NEEDLE CONTROL CHENILLER Gender Identity Female 06/01/2023 2:55 PM NEEDLE CONTROL CHENILLER Sexual Orientation Straight 06/01/2023 2: 55 PM NEEDLE CONTROL CHENILLER documented as of this encounter Plan of Treatment Upcoming Encounters Date Type Department Care Team (Late st Contact Info) Description 01/02/2025 10:30 AM CDT Office Visit [facility] [address] [place] [address] Ara Short PA-C [address] [place] [address] 01/07/2025 8:30 AM CDT Office Visit [facility] Urology Clinic [place] [id number] [facility] [address] [place] [address] Melvi Chavez MD [address] [facility] [address] [place] [address] 02/11/2025 2:00 PM CDT Virtual Visit [facility] Specialty Clinic [place] [address] [place] [phone] Larry Schaefer MD [address] [place] [address] 02/13/2025 2:00 PM CDT Office Visit [facility] [address] [place] [address] Ara Short PA-C [address] [place] [address] 02/17/2025 3:15 PM CDT Virtual Visit [facility] Gastroenterology Clinic [place] [address] [place] [phone] Jessica Howell PA-C [address] [place] [address] documented as of this encounter Visit Diagnoses Not on filedocumented in this encounter Additional Health Concerns Infection Onset Date Last Indicated Resolved Time Rule Out COVID-19 08/23/2023 08/23/2023 08/23/2023 3:33 AM CDT Assessment Noted Time PHQ-9 Depression Total Score: 21 024 9:44 AM NEEDLE CONTROL CHENILLER documented as of this encounter Care Teams Near East Archeology Professor Relationship Specialty Start Date End Date No Ref-Primary, Physician PCP - General 05/08/23 06/26/23 Ara Short PA-C [id number] [place] [address] PCP - General Family Medicine 06/27/23 Raiza Martinez MD [address] [place] [address] Otolaryngology 05/18/23 Sherry Aviles MD [address] [place] [address] Cardiovascular & Thoracic Surgery 06/11/23 Karen Rai APRN MOLD CAPPER HELPER [address] [place] [address] Nurse Practitioner Neurology 06/13/23 Deacon Bishop MD [address] [place] [address] 224565 Neurology 06/19/23 08/09/23 [place] [address] [place] [address] Nurse Practitioner Nurse Practitioner 06/21/23 02/26/24 Ara Short, PA-C [address] [place] [phone] Assigned PCP 06/22/23 Sherry Aviles MD [address] [place] [address] Assigned Surgical Provider 07/13/23 09/18/24 Graeme Le MD [address] [place], [place] [address] [place], [place] [address] Neurology 08/10/23 10/23/23 Jayda White, RIGOBERTO Specialty Molder Sweep Thoracic Surgery 08/28/23 [place] [address] [place] [address] Assigned Pain Medication Provider 09/20/23 03/21/24 Emeka Anand MD [address] [place] [address] Neurology 10/24/23 Anais Jaffe APRN POTATO PANCAKE FRIER [address] [facility] [address] [place] [address] Clinical Nurse Specialist Cardiovascular & Thoracic Surgery 11/09/23 Willy Owens DO 420 [facility] 207 [place] [address] Physician Gastroenterology 11/09/23 Larry Schaefer MD [address] [place] [address] Assigned Endocrinology Provider 11/20/23 Daysi Winston PA-C [address] [place] [address] Physician Shipping And Receiving Specialist Physician Shipping And Receiving Specialist - Surgical 11/30/23 Savita Gregory PA-C [address] [address] Physician Shipping And Receiving Specialist Urology 11/30/23 [place] [address] [place] [address] Physician Gastroenterology 12/06/23 Kelsi Tripathi, [facility] Community Health Worker Primary Care - CC 12/11/23 4 [place] [address] [place] [address] Assigned Neuroscience Provider 12/21/[address] [place] [address] [phone] Registered Dietitian Dietitian, Registered 02/14/24 [place] [address] [place], [place] [address] Assigned Gastroenterology Provider 02/20/24 04/20/24 Jessica Howell PA-C [address] [place] [address] Assigned Gastroenterology Provider 04/21/24 09/18/24 Kelsi Tripathi, W Community Health Worker Primary Care - CC 09/11/24 5 Sneha Calero, [facility] Lead Molder Sweep Primary Care - CC 09/15/24 Argenis Mesa MD [address] [place] [address] Colon & Rectal 09/17/24 Kelsi Tripathi, W Community Health Worker Primary Care - CC 09/17/24 Candelaria Santillan PA-C [address] [place] [address] Assigned Gastroenterology Provider 09/19/24 Daysi Winston PA-C [address] [place] [address] Assigned Surgical Provider 09/19/24 10/19/24 Argenis Mesa MD [address] [place], [place] 904[address] Assigned Surgical Provider 10/20/24 Melvi Chavez MD [address] [place], [place] [address] Urology 10/28/24 Jaret Pitts CHW Community Health Worker Primary Care - CC 12/12/24 5 Neetu Hopkins CHW Community Health Worker 12/25/24 documented as of this encounter
--- OUTSIDE RECORDS SUMMARY | 2024-12-30 17:07 | XMS_ITS ---
Author Organization [facility] Address [address] [place] [address] Care Team Providers Care Motorcyles Final Inspector Name Role Phone Raiza Martinez MD Unavailable Stefan Gupta MD, Sherry Unavailable Karen Rai CUSTOMER EXPERIENCE CONSULTANT ORACLE OBIEE DEVELOPER Unavailable [phone] Ara Short PA-C Unavailable [phone] Ara Short PA-C Primary Care Provider Jayda White RN Unavailable Unavailable Emeka Anand MD Unavailable [phone] Anais Jaffe CUSTOMER EXPERIENCE CONSULTANT MANAGER ECONOMIC Unavailable Willy Owens DO Unavailable Larry Schaefer MD Unavailable [phone] Daysi Winston PA-C Unavailable [phone] Savita Gregory PA-C Unavailable Laura Ball DO Unavailable [phone] Michi Patterson MD Unavailable Bianka Keene RD Unavailable [phone] Sneha Calero ROVING CHANGER Unavailable [phone] Argenis Mesa MD Unavailable [phone] Kelsi Tripathi CHW Unavailable [phone] Candelaria Santillan PA-C Unavailable Argenis Mesa MD Unavailable [phone] Melvi Chavez MD Unavailable [phone] Neetu Hopkins CHW Unavailable [phone] Primary Care Care Coordination Status:Enrolled (Active) Start date:09/11/2024 Enrollment date:09/15/2024 Case Team Name Relationship Phone Sneha Calero ROVING CHANGER(Responsible Staff) Lead President & Ceo [phone] Kelsi Tripathi CHW Community Health Worker Neetu Hopkins CHW Community Health Worker Continued Care and Services Coordination
--- OUTSIDE RECORDS SUMMARY | 2024-12-30 17:08 | XMS_ITS | Encounter Summary ---
Author Organization [facility] Address [address] [place] [address] Care Team Providers Care Voice Network Engineer Name Role Phone Raiza Martinez MD Unavailable Stefan Gupta MD, Sherry Unavailable [phone] Karen Rai RESEARCH PHLEBOTOMIST OYSTER PREPARER Unavailable [phone] Ara Short-C Unavailable [phone] Ara Short PA-C Primary Care Provider [phone] Stefan Gupta MD, Sherry Unavailable Jayda White RN Unavailable Unavailable Emeka Anand MD Unavailable [phone] Anais Jaffe RESEARCH PHLEBOTOMIST QUALITY CONTROL LAB TECH Unavailable Willy Owens DO Unavailable Larry Schaefer MD Unavailable [phone] Daysi Winston PA-C Unavailable [phone] Savita Gregory PA-C Unavailable Laura Ball DO Unavailable [phone] Michi Patterson MD Unavailable [phone] Unavailable [phone] Jessica Howell PA-C Unavailable [phone] Kelsi Tripathi CHW Unavailable +[phone] Sneha Calero STARCH MANGLE TENDER Unavailable [phone] Argenis Mesa MD Unavailable [phone] Deuce Kelsi C CHW Unavailable [phone] Candelaria Santillan PA-C Unavailable Daysi Winston PA-C Unavailable [phone] Argenis Mesa MD Unavailable [phone] Melvi Chavez MD Unavailable [phone] Jaret Pitts CHW Unavailable Unavailable Neetu Hopkins CHW Unavailable [phone] Encounter Details Date Type Department Care Team (Late st Contact Info) Description 05/23/2024 MyC Medical Advice [facility] Colon and Rectal Surgery Clinic [address] [place] [address] Jessica Sunshine, RN Social History Tobacco Use Types Packs/Day [...] and Family Not on file 10/02/2023 Attends Mosque Services Not on file 10/01 Do you belong to any clubs o r organizations such as restoration groups, unions, fraternal or athletic groups, or [...] PHQ-2 Answer Date Recorded PHQ-2 Score 2 04/16/2024 [facility] - Occupational Stress Questionnaire Answer Date [...] Sex Assigned at Female 06/01/2023 2:55 PM PRICE ACCURACY SUPERVISOR Legal Sex Female 1:26 PM PRICE ACCURACY SUPERVISOR Gender Identity Female 06/01/2023 2:55 PM PRICE ACCURACY SUPERVISOR Sexual Orientation Straight 06/01/2023 2: 55 PM PRICE ACCURACY SUPERVISOR documented as of this encounter Plan of Treatment Upcoming Encounters Date Type Department Care Team (Late st Contact Info) Description 01/02/2025 10:30 AM CDT Office Visit [address] [phone] Ara Short PA-C [address] [place] [address] 01/07/2025 8:30 AM CDT Office Visit [facility] Urology [address] [place] [phone] Melvi Chavez MD 420 [facility] [address] [place], [place] [address] 02/11/2025 2:00 PM CDT Virtual Visit [facility] Specialty Clinic [address] [phone] Larry Schaefer MD [address] [place], [place] [address] 02/13/2025 2:00 PM CDT Office Visit [address] [address] Ara Short PA-C [address] [place] [address] 02/17/2025 3:15 PM CDT Virtual Visit [facility] Gastroenterology Clinic [address] [place] [phone] Jessica Howell PA-C [address] [place] [address] 214915 documented as of this encounter Visit Diagnoses Not on filedocumented in this encounter Additional Health Concerns Assessment Noted Time PHQ-9 Depression Total Score: 21 024 2:29 PM CDT documented as of this encounter Care Teams Voice Network Engineer Relationship Specialty Start Date End Date Ara Short PA-C [address] [place] [phone] PCP - General Family Medicine 06/27/23 Raiza Martinez MD [address] [place] [address] 976595 Otolaryngology 05/18/23 Sherry Aviles MD [address] [place] [address] 041855 Cardiovascular & Thoracic Surgery 06/11/23 Karen Rai APRN CNP [address] [place] [address] 295315 Nurse Practitioner Neurology 06/13/23 Ara Short PA-C [address] [place] [phone] Assigned PCP 06/22/23 Sherry Aviles MD [address] [place] [address] Assigned Surgical Provider 07/13/23 09/18/24 Christopher, Jayda, RN Specialty Deer Farm Worker Thoracic Surgery 08/28/23 Emeka Anand MD [address] [place] [address] Neurology 10/24/23 Anais Jaffe APRN QUALITY CONTROL LAB TECH [address] [address]47[address] Clinical Nurse Specialist Cardiovascular & Thoracic Surgery 11/09/23 Willy Ownes DO [address] 373[address] Physician Gastroenterology 11/09/23 Larry Schaefer MD 6 [place], [place] [address]25 Assigned Endocrinology Provider 11/20/23 Daysi Winston PA-C 9 [place], [place] 673085 Physician Sort Operations Supervisor Physician Sort Operations Supervisor - Surgical 11/30/23 Savita Gregory PA-C [address] [facility] [address] [place], [place] [id number] Physician Sort Operations Supervisor Urology 11/30/23 [place] [address] [place], [place] [address] Physician Gastroenterology 12/06/23 [place] [address] [facility] [facility] [address] [place], [place] [address] Assigned Neuroscience Provider 8/23/[address] [place] [address] 923735 Registered Dietitian Dietitian, Registered 02/14/24 Jessica Howell PA-C [address] [place] [address] 850895 Assigned Gastroenterology Provider 04/21/24 09/18/24 Kelsi Tripathi, [facility] Community Health Worker Primary Care - CC 09/11/24 5 Sneha Calero, [facility] Lead Deer Farm Worker Primary Care - CC 09/15/24 Argenis Mesa MD [address] [place] [address] Colon & Rectal 09/17/24 Kelsi Tripathi, [facility] Community Health Worker Primary Care - CC 09/17/24 Candelaria Santillan PA-C [address] [place] [address] Assigned Gastroenterology Provider 09/19/24 Daysi Winston PA-C [address] [place] [address] Assigned Surgical Provider 09/19/24 10/19/24 Argenis Mesa MD [address] [place], [place] 8045[address] Assigned Surgical Provider 10/20/24 Melvi Chavez MD [address] [facility] [address] [place] [address] Urology 10/28/24 Jaret Pitts CHW Community Health Worker Primary Care - CC 12/12/24 5 Neetu Hopkins CHW Community Health Worker 12/25/24 documented as of this encounter
--- OUTSIDE RECORDS SUMMARY | 2024-12-30 17:08 | XMS_ITS | Clinical Summary ---
Author Organization [facility] Address [address] [place] [address] Care Team Providers Care Saxophone Teacher Name Role Phone Raiza Martinez MD Unavailable Stefan Gupta MD, Madhuri Unavailable [phone] Karen Rai EXTENSION WORK DIRECTOR FOREIGN LEGAL CONSULTANT Unavailable [phone] Ara Short-C Unavailable [phone] Ara Short PA-C Primary Care Provider Jayda White RN Unavailable Unavailable Emeka Anand MD Unavailable [phone] Anais Jaffe EXTENSION WORK DIRECTOR MANAGER [employer]NAGEMENT Unavailable Willy Owens DO Unavailable Larry Schaefer MD Unavailable [phone] Daysi Winston PA-C Unavailable [phone] Savita Gregory PA-C Unavailable [phone] Laura Ball DO Unavailable Michi Patterson MD Unavailable [phone] Unavailable [phone] Sneha Calero SENIOR IT ARCHITECT Unavailable [phone] Argenis Mesa MD Unavailable [phone] Kelsi Tripathi CHW Unavailable Candelaria Santillan PA-C Unavailable Argenis Mesa MD Unavailable [phone] Melvi Chavez MD Unavailable Neetu Hopkins [facility] Unavailable [phone] Allergies Active Allergy Reactions Criticality Noted Date Comments Latex Hives 10/04/2023 Medications amphetamine-dextro amphetamine (ADDERALL XR) 20 MG 24 hr capsule Take 20 mg by mouth every morning. Active traZODone (DESYREL) 50 MG tablet Take 50 mg by mouth nightly as needed for sleep Active acetaminophen (TYLENOL) 500 MG tabletIndications: Hiatal hernia Take 2 tablets (1,000 mg) by mouth every 6 hours as needed for mild pain 08/20/19 24 Active Additional Information Patient not taking.Reason: Other, Reported on 12/09/2024 sertraline (ZOLOFT) 100 MG tablet Take 1 tablet by mouth every morning. 11/05/19 24 Active ondansetron (ZOFRAN) 4 MG tabletIndications: Postoperative nausea Take 1 tablet (4 mg) by mouth every 6 hours as needed for nausea. 10 tablet 08/21/19 25 Active vitamin D3 (CHOLECALCIFEROL) 50 mcg (2000 units) tabletIndications: Hip pain, left,Acute pain of left shoulder,Sacroilia c joint pain,Degeneration of intervertebral disc of lumbar region with discogenic back pain Take 1 tablet (50 mcg) by mouth daily. 90 tablet 1 10/02/19 25 Active omeprazole (PRILOSEC) [address] capsuleIndications :Dyspepsia Take 1 capsule (20 mg) by mouth daily. 30 capsule 3 08/19/19 25 025 Active Problems Problem Noted Date Diagnosed Date Incontinence of feces, unspecified fecal inconti nence type 05/22/2024 Age-related osteoporosis wit h current pathological fracture, initial encounter 02/12/2024 Abdominal pain, epigastric 08/23/2023 Urinary tract infection 08/23/2023 Hiatal hernia 08/17/2023 Pain in both lower legs 05/31/2023 Chronic bilateral low back pain with bilateral s ciatica 05/31/2023 Weakness of left lower extremity 05/31/2023 Lumbar radiculopathy 05/31/2023 Scoliosis, unspecified scoli osis type, unspecified spinal region 05/31/2023 Sacroiliac joint pain 05/31/2023 Hip pain, left 05/31/2023 Umbilical hernia 09/27/2018 05/30/2023 Overview (05/30/2023): Added automatically from request for surgery [id number] Gastroesophageal reflux disease 10/26/2017 05/30/2023 Intussusception of rectum 10/12/20172023 Cyst of right breast 08/02/2017 05/30/2023 Dense breasts 08/02/2017 05/30/2023 HPV (human papilloma virus) infection 08/02/2017 05/30/2023 Meibomian gland dysfunction (MGD) of upper and lower lids of both eyes 07/05/2017 05/30/2023 Intractable headache 06/04/2017 05/30/2023 Memory loss 06/04/2017 05/30/2023 Restless leg syndrome 06/04/2017 05/30/2023 Neuropathy 05/25/2017 05/30/2023 Incidental pulmonary nodule, less than or equal to 3mm 05/24/2017 05/30/2023 Bilateral hand pain 12/08/2016 05/30/2023 Scalp pain 12/08/2016 05/30/2023 Urinary incontinence 12/08/2016 05/30/2023 Vitreous syneresis 10/26/2016 05/30/2023 DDD (degenerative disc disease), lumbar 09/20/19 17 05/30/2023 Facet arthropathy, lumbar 09/19/20162023 Spinal stenosis of cervical region 08/01/2016 05/30/2023 Major depressive disorder, recurrent episode, mo derate 04/24/2016 05/30/2023 CINTHIA (generalized anxiety disorder) 04/18/2016 05/30/2023 Ureteral stone 11/09/2015 05/30/2023 Hypermetropia 09/29/2015 05/30/2023 Mixed stress and urge urinary incontinence 04/0105/30/2023 Rectocele 04/01/2015 05/30/2023 Upper back pain 12/17/2014 05/30/2023 Dysthymia 10/04/2011 05/30/2023 Moderate major depression 06/25/20092023 Anxiety state 01/26/2009 05/30/2023 Overview (05/30/2023): Overview: IMO Update IMO Update Insomnia, unspecified 01/26/2009 05/30/2023 Overview (05/30/2023): Updated per 01/28/17 IMO import Overview: Updated per 01/28/17 IMO import Resolved Problems Problem Noted Date Diagnosed Date Resolved Date Fever, unspecified fever cause 08/23/2023 08/23/2023 Falls frequently 12/08/2016 05/30/2023 10/02/2023 Encounters Date Type Department Care Team Description 12/23/2024 Telephone [facility] [address] [phone] Argenis Mesa MD Call Back 12/19/[address] [phone] Ara Short PA-C Call Back (Patient is headed back to hospital - was on antibiotics and is having accidents - has a machine in place that is to prevent accident - this has led to a anal infection - unsure if machine is failing - family has general questions - please call and advise. ) 12/17/[address] [phone] Ara Short PA-C Patient Inquiry 12/15/2024 Telephone M [address] [phone] Ara Short PA-C Forms 12/15/[address] [phone] Ara Short PA-C Appointment 12/09/2024 2:30 PM CDT Virtual Visit [facility] [address] [place] [phone] Melvi Chavez MD Mixed stress and urge urinary incontinence (Primary Dx); Pelvic pain in female; Incontinence of feces, unspecified fecal incontinence type; H/O pelvic surgery 11/06/2024 Telephone [facility] [address] [phone] Argenis Mesa MD Call Back 10/23/2024 MyC Medical Advice [facility] [address] [phone] Jessica Sunshine RN 10/23/2024 Orders Only [facility] [address] [phone] Argenis Mesa MD Incontinence of feces, unspecified fecal incontinence type (Primary Dx); Urinary incontinence, unspecified type 10/17/2024 MyC Medical Advice [facility] [address] [place] [phone] Kelsi Tripathi CHW 10/16/2024 11:30 AM CDT Office Visit [facility] [address] [phone] Argenis Mesa MD Incontinence of feces, unspecified fecal incontinence type (Primary Dx) 10/16/2024 Travel 10/01/2024 1:30 PM CDT Office Visit [address] [phone] Leonela Garsia, EXTENSION WORK DIRECTOR FOREIGN LEGAL CONSULTANT Hip pain, left (Primary Dx); Acute pain of left shoulder; Sacroiliac joint pain; Degeneration of intervertebral disc of lumbar region with discogenic back pain 10/01/2024 Travel from Last 3 Months Immunizations Immunization Administration Dates Next Due Influenza (IIV3) PF 01/26/2015,01/28/2013,2008 Influenza Vaccine >6 months,quad, PF 03/28/2017, 06/13/2016 Influenza Vaccine, 6+MO IM ( QUADRIVALENT W/PRESERVATIVES) 06/13/2016,03/10/2013 Pneumo Conj 13-V (2010&after) 06/13/2016 TDAP (Adacel,Boostrix) 06/24/2020,01/26/2009 Family History Medical History Relation Comments No Known Problems Brother 1 No Known Problems Brother 2 Deep Vein Thrombosis Father Diabetes Father Cancer Maternal Aunt Prostate Cancer Maternal Uncle Breast Cancer Mother Diabetes Mother Anesthesia Reaction No family hx of Bleeding Disorder No family hx of Relation Status Comments Brother 1 Alive Brother 2 Alive Father Maternal Aunt Alive Maternal Uncle Alive Mother Social History Tobacco Use Types Packs/Day Years Used Date Smoking Tobacco: Never Passive Smoke Exposure: Never Smokeless Tobacco: Never Tobacco Cessation:Counseling Given: Not Answered Alcohol Use Standard Drinks/Week Comments Never 0 (1 standard drink = 0.6 oz pur e alcohol) Social Connection and Isolation Panel [NHANES] A nswer Date Recorded In a typical week, how many times do you talk on the phone with family, friends, or neighbors? Once a week 10/02/2023 Frequency of Social Gatherings with Friends and Family Not on file 10/02/2023 Attends [employer] Not on file 10/01 Do you belong to any clubs o r organizations such as buddhist groups, unions, fraternal or athletic groups, or [...] Answer Date Recorded PHQ-2 Score 6 09/11/2024 [facility] - Occupational Stress [...] in an overnight mcc, or couch-surfing.) Yes 10/02/2023 Are you worried [...] Sex Assigned at Female 06/01/2023 2:55 PM REGULATORY ANALYST Legal Sex Female 1:26 PM REGULATORY ANALYST Gender Identity Female 06/01/2023 2:55 PM REGULATORY ANALYST Sexual Orientation Straight 06/01/2023 2: 55 PM REGULATORY ANALYST Last Filed Vital Signs Vital Sign Reading Time Taken Comments Blood Pressure 99/64 10/16/2024 11:35 AM CDT Pulse 70 10/16/2024 11:35 AM CDT Temperature 36.8 C (98.2 F) 10/01/2024 1:22 PM CDT Respiratory Rate 18 10/01/2024 1:22 PM CDT Oxygen Saturation 98% 10/16/2024 11:35 AM CDT Inhaled Oxygen Concentration - - Weight 73.1 kg (161 lb 1.6 oz) 10/16/2024 11:35 AM CDT Height 162.6 cm (5' 4) 10/16/2024 11:35 AM CDT Body Mass Index 27.65 10/16/2024 11:35 AM CDT Plan of Treatment Upcoming Encounters Date Type Department Care Team (Late st Contact Info) Description 01/02/2025 10:30 AM CDT Office Visit [facility] [address] [place] [phone] Ara Short PA-C [id number] [place] [phone] 01/07/2025 8:30 AM CDT Office Visit [facility] [place] [address] [place] [address] Melvi Chavez MD [address] [facility] [address] [place] [address] 02/11/2025 2:00 PM CDT Virtual Visit [facility] [address] [phone] Larry Schaefer MD [address] [place], [place] 2[address] 02/13/2025 2:00 PM CDT Office Visit [facility] [address] [place] [phone] Ara Short PA-C [address] [place] [address] 02/17/2025 3:15 PM CDT Virtual Visit [facility] [address] [place] [phone] Jsesica Howell PA-C [address] [place] [address] [phone] Health Maintenance Due Date Last Done Comments CT COLONOGRAPHY 1964 DEPRESSION ACTION PLAN 1964 FLEX SIG 1964 sDNA (Cologuard) 1965 ZOSTER VACCINE (1 of 2) 2014 FIT 02/01/2017 02/02/2016 PNEUMOCOCCAL VACCINE 50+ YEARS (2 of 2 - PCV20 or PCV21) 06/13/2017 06/13/2016 YEARLY PREVENTIVE VISIT 12/21/2021 12/21/2020, 03/28 PAP 12/22/2023 12/21/2020, 01/26/2009 ANNUAL REVIEW OF HM ORDERS 06/27/2024 06/27/2023 COVID-19 VACCINE ( season) 2024 INFLUENZA VACCINE (#1) 2024 7, 06/13/2016, 06/13/2016, Additional history exists PHQ-9 03/14/2025 09/11/2024, 042 04/2024, 02/11/2024, Additional history exists MAMMO SCREENING 05/07/2026 05/07/2024, 11/2024, 09/24/2020, Additional history exists DIABETES SCREENING 02/10/2027 02/11/2024, 0 11/27/2023, 08/28/2023, Additional history exists COLONOSCOPY 04/06/2027 04/06/2017, 03/15/2016 COLORECTAL CANCER SCREENING 04/06/2027 LIPID 08/26/2028 08/27/2023 ADVANCE CARE PLANNING 10/01/2028 10/02/2023 DTAP/TDAP/TD VACCINE (3 - Td or Tdap) 06/24/2030 06/24/2020, 01/26/2009 RSV VACCINE (1 - 1-dose 75+ series) 08/11/2039 HEPATITIS C SCREENING Completed 08/27/2023, 017 HIV SCREENING Completed 08/27/2023 HPV VACCINE (No Doses Required) Completed MENINGITIS VACCINE Aged Out No longer eligible based on patient's age to complete this topic Goals Goal Patient Goal Type Associated Problems Recent Progress Patient-Stated? Author MYC ECC PW2 OPY WELCOME MEDIUM RISK - GOAL TEMPLATE Care Plan MYC ECC PW2 OPY WELCOME MEDIUM RISK - PROBLEM TEMPLATE No Dawn Luis Mendez MD Demonstrate improved diet management Care Plan Diet management No Sneha Calero LSW Note: Enroll in [employer] when open again Currently not open as of 12/16/24 Establish Stable Housing Care Plan SDOH LACK OF STABLE HOUSING 20%( 5 4:09 PM CDT) No Sneha Calero LSW Note: Barriers: Currently have no income source Strengths: Good family support Patient expressed understanding of goal: Yes Action steps to achieve this goal: 1. I will work with my estate planning attorney on my Social Security Disability application appeal. 2. I will work with a Housing Stabilization program to assist me in finding housing. (Services are on hold) 3. I will call the [facility] Housing Crisis Line #[phone]. Discussed on 12/16: No progress as of yet, d/t the patient being hospitalized. Medical Devices Implanted Type Area Chemotherapist Device Identifier Shelf Expiration Date Model / Serial / Lot Lead Basic Evaluation [id number] - [id number] Implanted:Qty: 1 on 08/13/2024 by Argenis Mesa MD at [facility] Leads N/A: Back [employer] 03/27/2026 [id number] / / [id number] Kit Basic Evaluation [id number] - [id number] Implanted:Qty: 1 on 08/13/2024 by Argenis Mesa MD at [facility] Surgery [facility] Neurology device N/A: Back [employer] 01/16/2026 [id number] / / [id number] Procedures Procedure Name Priority Date/Time Associated Diagnosis Comments BASIC METABOLIC PANEL Routine 02/11/2024 3:36 PM CDT Age-related osteoporosis with current pathological fracture, initial encounter HIV ANTIGEN ANTIBODY COMBO Routine 08/27/2023 2:58 PM CDT Screening for HIV (human immunodeficiency virus) HEPATITIS C SCREEN REFLEX TO HCV RNA QUANT AND GENOTYPE Routine 08/27/2023 2:58 PM CDT Need for hepatitis C screening test LIPID REFLEX TO DIRECT LDL PANEL Routine 08/27/2023 2:58 PM CDT CARDIOVASCULAR SCREENING; LDL GOAL LESS THAN 130 from Last 3 Months or Most Recently Relevant to Health Maintenance Results * (ABNORMAL) BASIC METABOLIC PANEL (02/11/2024 3:36 PM CDT) Sodium 139 135 - 145 mmol/L 02/11/2024 9:09 PM CDT [facility] Potassium 4.3 3.4 - 5.3 mmol/L 02/11/2024 9:09 PM CDT [facility] Chloride 104 98 - 107 mmol/L 02/11/2024 9:09 PM CDT [facility] Carbon Dioxide (CO2) 23 22 - 29 mmol/L 02/11/2024 9:09 PM CDT [facility] Anion Gap 12 7 - 15 mmol/L 02/11/2024 9:09 PM CDT [facility] Urea Nitrogen 21.2 8.0 - 23.0 mg/dL 02/11/2024 9:09 PM CDT [facility] Creatinine 0.73 0.51 - 0.95 mg/dL 02/11/2024 9:09 PM CDT [facility] GFR Estimate >90 >60 mL/min/1.7 3m2 02/11/2024 9:09 PM CDT [facility] Comment:eGFR calculated 2020 CKD-EPI equation. Calcium 9.1 8.8 - 10.4 mg/dL 02/11/2024 9:09 PM CDT [facility] Comment:Reference intervals for this test were updated on 11/13/2023 to reflect our healthy population more accurately. There may be differences in the flagging of prior results with similar values performed with this method. Those prior results can be interpreted in the context of the updated reference intervals. Glucose 120(H) 70 - 99 mg/dL 02/11/2024 9:09 PM CDT [facility] Blood BLOOD SPECIMEN / Unknown Venipuncture / Unknown 02/11/2024 3:36 PM CDT 02/11/2024 3:36 PM CDT Larry Schaefer MD LAB - BLOOD ORDERABLES Final R esult [facility] [address] [facility], [address] [phone] * HIV Antigen Antibody Combo (08/27/2023 2:58 PM CDT) [facility] HIV Antigen Antibody Combo Nonreactive Nonreactive 08/27/2023 8:04 PM CDT [facility] Comment:Negative HIV-1 p24 a ntigen and HIV-1/2 antibody screening test results usually indicate the absence of HIV-1 and HIV-2 infection. However, such negative results do not rule-out acute HIV infection. If acute HIV-1 or HIV-2 infection is suspected, detection of HIV-1 or HIV-2 RNA is recommended. Blood BLOOD SPECIMEN / Unknown Venipuncture / Unknown 08/27/2023 2:58 PM CDT 08/27/2023 2:58 PM CDT Audrey Dong MD LAB - BLOOD ORDERABLES Final Re sult [facility] [address] [facility], [address] [place] [phone] * Hepatitis C Screen Reflex to HCV RNA Quant and Genotype (08/27/2023 2:58 PM CDT) Pathologist [facility] Hepatitis C Antibody Nonreactive Nonreactive 08/28/2023 9:53 PM CDT [facility] Comment:A nonreactive screen ing test result does not exclude the possibility of exposure to or infection with HCV. Nonreactive screening test results in individuals with prior exposure to HCV may be due to antibody levels below the limit of detection of this assay or lack of reactivity to the HCV antigens used in this assay. Patients with recent HCV infections (<3 months from time of exposure) may have false- negative HCV antibody results due to the time needed for seroconversion (average of 8 to 9 weeks). Blood BLOOD SPECIMEN / Unknown Venipuncture / Unknown 08/27/2023 2:58 PM CDT 08/27/2023 2:58 PM CDT us Audrey Dong MD LAB - BLOOD ORDERABLES Final Re sult Performing Organization Address [facility] Co de Phone Number [facility] [address], [address] [place] [phone] * (ABNORMAL) Lipid panel reflex to direct LDL Non-fasting (08/27/2023 2:58 PM CDT) Cholesterol 211(H) <200 mg/dL 08/27/2023 7:39 PM CDT [facility] Triglycerides 234(H) <150 mg/dL 08/27/2023 7:39 PM CDT [facility] Direct Measure HDL 43(L) >=50 mg/dL 08/27/2023 7:39 PM CDT [facility] LDL Cholesterol Calculated 121(H) <=100 mg/dL 08/27/2023 7:39 PM CDT [facility] Non HDL Cholesterol 168(H) <130 mg/dL 08/27/2023 7:39 PM CDT [facility] Patient Fasting > 8hrs? No 08/27/2023 7:39 PM CDT [facility] Blood BLOOD SPECIMEN / Unknown Venipuncture / Unknown 08/27/2023 2:58 PM CDT 08/27/2023 2:58 PM CDT Narrative [facility] - 08/27/2023 7:39 PM CDT Cholesterol Desirable: <200 mg/dL Triglycerides Normal: Less than 150 mg/dL Borderline High: 150-199 mg/dL High: 200-499 mg/dL Very High: Greater than or equal to 500 mg/dL Direct Measure HDL Female: Greater than or equal to 50 mg/dL Male: Greater than or equal to 40 mg/dL LDL Cholesterol Desirable: <100mg/dL Above Desirable: 100-129 mg/dL Borderline High: 130-159 mg/dL High: 160-189 mg/dL Very High: >= 190 mg/dL Non HDL Cholesterol Desirable: 130 mg/dL Above Desirable: 130-159 mg/dL Borderline High: 160-189 mg/dL High: 190-219 mg/dL Very High: Greater than or equal to 220 mg/dL us Audrey Dong MD LAB - BLOOD ORDERABLES Final Re sult [facility] [address] [facility], [address] [place] [phone] from Last 3 Months or Most Recently Relevant to Health Maintenance Additional Health Concerns Active Problems Noted Date Diagnosed Date MYC ECC PW2 OPY WELCOME MEDIUM RISK - PROBLEM TE MPLATE 08/12/2024 Diet management 09/17/2024 SDOH LACK OF STABLE HOUSING 09/17/2024 Insurance [facility] Advance Directives For more information, please contact: [phone] * Full Code (Latest Code Status on File) Date Activated Date Inactivated Comments 08/23/2023 5:59 AM 08/23/2023 2:42 PM All basic an d advanced life-sustaining interventions are performed as appropriate Question Answer Comments Code status determined by: Discussion with mandy nt/ legal decision maker Care Teams Saxophone Teacher Relationship Specialty Start Date End Date Ara Short PA-C [address] [place] [phone] PCP - General Family Medicine 06/27/23 Raiza Martinez MD [address] [place] [address] [phone] Otolaryngology 05/18/23 Sherry Aviles MD [address] [place] [address] [phone] Cardiovascular & Thoracic Surgery 06/11/23 Karen Rai APRN FOREIGN LEGAL CONSULTANT [address] [place] [address] Nurse Practitioner Neurology 06/13/23 Ara Short PA-C [address] [place] [phone] Assigned PCP 06/22/23 Jayda White, RN Specialty Dtp Operator Thoracic Surgery 08/28/23 Emeka Anand MD [address] [place] [address] [phone] Neurology 10/24/23 Anais Jaffe APRN MANAGER [employer] [address] [phone] Clinical Nurse Specialist Cardiovascular & Thoracic Surgery 11/09/23 Willy Owens DO [address] [address] Physician Gastroenterology 11/09/23 Larry Schaefer MD [address] [place], [place] [phone] Assigned Endocrinology Provider 11/20/23 Daysi Winston PA-C [address] [place] [address] Physician Precinct Police Captain Physician Precinct Police Captain - Surgical 11/30/23 Savita Gregory PA-C [address] [address] Physician Precinct Police Captain Urology 11/30/23 [place] [address] [place] [address] Physician Gastroenterology 12/06/23 [place] [address] [place] [address] Assigned Neuroscience Provider 12/21/[address] [place], [place] 895895 Registered Dietitian Dietitian, Registered 02/14/24 Sneha Calero, [facility] Lead Dtp Operator Primary Care - CC 09/15/24 Argenis Mesa MD [address] [place] [id number] Colon & Rectal 09/17/24 Kelsi Tripathi, [facility] Community Health Worker Primary Care - CC 09/17/24 Candelaria Santillan PA-C [address] [place] [address] Assigned Gastroenterology Provider 09/19/24 Argenis Mesa MD [address] [place] [id number] Assigned Surgical Provider 10/20/24 Melvi Chavez MD [address] [place] [id number] MD [place] 10/28/24 Neetu Hopkins, W Community Health Worker 12/25/24
--- OUTSIDE RECORDS SUMMARY | 2024-12-30 17:08 | XMS_ITS | Encounter Summary ---
Author Organization [facility] Address [address] [place] [address] Care Team Providers Care Channel Business Manager Name Role Phone Raiza Martinez MD Unavailable Stefan Gupta MD, Madhuri Unavailable [phone] Karen Rai TECHNICIAN ASSISTANT TOOTH CUTTER PINION Unavailable [phone] Ara ShortC Unavailable Ara Short PA-C Primary Care Provider Jayda White RN Unavailable Unavailable Emeka Anand MD Unavailable +[phone] Anais Jaffe TECHNICIAN ASSISTANT PRODUCTION CONTROL ANALYST Unavailable Willy Owens DO Unavailable Larry Schaefer MD Unavailable [phone] Daysi Winston PA-C Unavailable [phone] Savita Gregory PA-C Unavailable Laura Ball DO Unavailable Michi Patterson MD Unavailable [phone] Unavailable [phone] Sneha Calero GROUP BURNER MACHINE Unavailable [phone] Argenis Mesa MD Unavailable [phone] Deuce, Kelsi C CHW Unavailable [phone] Candelaria Santillan PA-C Unavailable Argenis Mesa MD Unavailable [phone] Melvi Chavez MD Unavailable [phone] Jaret Pitts CHW Unavailable Unavailable Reason for Visit * Reason Onset Date Comments Patient Inquiry 12/17/2024 Encounter Details Date Type Department Care Team (Late st Contact Info) Description 12/17/2024 Telephone [facility] [address] [place] [address] Ara Short PA-C [id number] [place] [address] Patient Inquiry Social History Tobacco Use Types Packs/Day Years [...] and Family Not on file 10/02/2023 Attends [facility] Not on file 10/01 Do you [...] Answer Date Recorded PHQ-2 Score 6 09/11/2024 [facility]at [facility] - Occupational [...] in an overnight usp, or couch-surfing.) Yes 10/02/2023 Are you worried [...] Sex Assigned at Female 06/01/2023 2:55 PM PETROLEUM INSPECTOR Legal Sex Female 1:26 PM PETROLEUM INSPECTOR Gender Identity Female 06/01/2023 2:55 PM PETROLEUM INSPECTOR Sexual Orientation Straight 06/01/2023 2: 55 PM PETROLEUM INSPECTOR documented as of this encounter Miscellaneous Notes * Telephone Encounter - Jules Sneed RN - 12/17/2024 11:44 AM CDT RN received call from patient. Patient asking for number to call and receive her incontinence supplies. Per chart review, there is a DME order in chart from 03/31/2024, which should be active. Per order, patient gets supplies through [facility] in [place]. RN looked up number [ ] and gave patient number to call to order. RN advised patient to call back if unsuccessful or needs a new order. Jules Crespo RN 12/17/2024 at 11:47 AM documented in this encounter Plan of Treatment Upcoming Encounters Date Type Department Care Team (Late st Contact Info) Description 01/02/2025 10:30 AM CDT Office Visit [facility] [address] [place] [phone] Ara Short PA-C [address] [place] [phone] 01/07/2025 8:30 AM CDT Office Visit [facility] [address] 500 [place] [phone] Melvi Chavez MD 420 [facility] 394 [place], [place] [address] 02/11/2025 2:00 PM CDT Virtual Visit [facility] Specialty [address] [phone] Larry Schaefer MD 6 [place], [place] [phone] 02/13/2025 2:00 PM CDT Office Visit [facility] [address] [place] [address] Ara Short PA-C [address] [place] [address] 02/17/2025 3:15 PM CDT Virtual Visit [facility] Gastroenterology Clinic [address] 4th [place] [address] Jessica Howell PA-C [address] [place] [address] 371715 documented as of this encounter Goals Goal Patient Goal Type Associated Problems Recent Progress Patient-Stated? Author MYC ECC PW2 DARIUSZ KHALIL MEDIUM RISK - GOAL TEMPLATE Care Plan MYC ECC PW2 OPY REMI MEDIUM RISK - PROBLEM TEMPLATE No Luis [...] goal: 1. I will work with my environmental systems coordinator on my Social Security Disability application appeal. 2. I will work with a Housing Stabilization program to assist me in finding housing. (Services are on hold) 3. I will call the [facility] Housing Crisis Line #[phone]. Discussed on 12/16: No progress as of yet, d/t the patient being hospitalized. documented as of this encounter Visit Diagnoses Not on filedocumented in this encounter Additional Health Concerns Active Problems Noted Date Diagnosed Date MYC ECC PW2 OPY WELCOME MEDIUM RISK - PROBLEM TE MPLATE 08/12/2024 Diet management 09/17/2024 SDOH LACK OF STABLE HOUSING 09/17/2024 Assessment Noted Time PHQ-9 Depression Total Score: 18 025 10:30 AM CDT documented as of this encounter Care Teams Channel Business Manager Relationship Specialty Start Date End Date Ara Short PA-C [address] [place] [address] PCP - General Family Medicine 06/27/23 Raiza Martinez MD [address] [place] [address] Otolaryngology 05/18/23 Sherry Aviles MD [address] [place] [address] Cardiovascular & Thoracic Surgery 06/11/23 Karen Rai APRN TOOTH CUTTER PINION [address] [place] [address] Nurse Practitioner Neurology 06/13/23 Ara Short PA-C [address] [place] [phone] Assigned PCP 06/22/23 Jayda White, RN Specialty Costumer Assistant Thoracic Surgery 08/28/23 Emeka Anand MD [address] [place] [address] Neurology 10/24/23 Anais Jaffe APRN PRODUCTION CONTROL ANALYST [address] [place] [address] [phone] Clinical Nurse Specialist Cardiovascular & Thoracic Surgery 11/09/23 Willy Owens DO 420 [facility] 207 [place], [place] 702065 Physician Gastroenterology 11/09/23 Larry Schaefer MD 516 [place], [place] 910965 Assigned Endocrinology Provider 11/20/23 Daysi Winston PA-C 909 [place], [place] 7[address]65 Physician Civil Structural Engineer Physician Civil Structural Engineer - Surgical 11/30/23 Savita Gregory PA-C [address] 895797 Physician Civil Structural Engineer Urology 11/30/23 [place] [address] [address] [place] [place], [place] [address] Physician Gastroenterology 12/06/23 [place] [address] 220637 Assigned Neuroscience Provider 12/21/[address] [place], [place] 061135 Registered Dietitian Dietitian, Registered 02/14/24 Sneha Calero, GROUP BURNER MACHINE Lead Costumer Assistant Primary Care - CC 09/15/24 Argenis Mesa MD [address] [place] [address] Colon & Rectal 09/17/24 Kelsi Tripathi, CHW Community Health Worker Primary Care - CC 09/17/24 Candelaria Santillan PA-C [address] [place] [address] Assigned Gastroenterology Provider 09/19/24 Argenis Mesa MD [address] [place] [address] Assigned Surgical Provider 10/20/24 Melvi Chavez MD [address] [place] [address] Urology 10/28/24 Jaret Pitts, W Community Health Worker Primary Care - CC 12/12/24 5 documented as of this encounter
--- OUTSIDE RECORDS SUMMARY | 2024-12-30 17:08 | XMS_ITS | Encounter Summary ---
Author Organization [facility] Address [address] [place] [address] Care Team Providers Care Cattle Rancher Name Role Phone Raiza Martinez MD Unavailable Stefan Gupta MD, Madhuri Unavailable [phone] Karen Rai CIRCULAR DISTRIBUTOR RETAIL DIRECTOR Unavailable [phone] Ara ShortC Unavailable [phone] Ara Short PA-C Primary Care Provider [phone] Jayda White RN Unavailable Unavailable Emeka Anand MD Unavailable [phone] Anais Jaffe CIRCULAR DISTRIBUTOR MIXER MACHINE FEEDER Unavailable Willy Owens DO Unavailable Larry Schaefer MD Unavailable [phone] Daysi Winston PA-C Unavailable [phone] Savita Gregory PA-C Unavailable Laura Ball DO Unavailable Michi Patterson MD Unavailable [phone] Unavailable [phone] Sneha Calero WOOD GANG SAWYER Unavailable [phone] Argenis Mesa MD Unavailable [phone] Deuce, Kelsi C CHW Unavailable [phone] Candelaria Santillan PA-C Unavailable Argenis Mesa MD Unavailable [phone] Melvi Chavez MD Unavailable [phone] Jaret Pitts CHW Unavailable Unavailable Reason for Visit * Reason Onset Date Comments Forms 12/15/2024 Encounter Details Date Type Department Care Team (Late st Contact Info) Description 12/15/2024 Telephone [facility] [address] [place] [address] Ara Short PA-C [address] [place] [phone] Forms Social History Tobacco Use Types Packs/Day Years [...] and Family Not on file 10/02/2023 Attends [employer] Not on file 10/01 Do you belong to any clubs o r organizations such as yazidism groups, unions, fraternal or athletic groups, or [...] Answer Date Recorded PHQ-2 Score 6 09/11/2024 [facility] of Occupat ional Health - Occupational Stress [...] Sex Assigned at Female 06/01/2023 2:55 PM STUNT MAN Legal Sex Female 1:26 PM STUNT MAN Gender Identity Female 06/01/2023 2:55 PM STUNT MAN Sexual Orientation Straight 06/01/2023 2: 55 PM STUNT MAN documented as of this encounter Miscellaneous Notes * Telephone Encounter - Nesha Kenney CMA - 12/16/2024 4:14 PM CDT Spoke with patient. Patient stated she can bring the form to the clinic Sunday12/19/2024. * Telephone Encounter - Ara Short PA-C - 12/16/2024 6:46 AM CDT Can we have patient bring this form or send in form prior to appointment? Thanks! Ara Short PA-C * Telephone Encounter - Analisa Escobar - 12/15/2024 5:02 PM CDT Spoke to patient to scheduled a hosp f/unit(s) which is scheduled on 12/22/24 with Ara Short. Patient can go over form with Ara ty. DEREJE Pham * Telephone Encounter - Merline Hogan - 12/15/2024 10:45 AM CDT Forms/Letter Request Type of form/letter: OTHER: FFI form Do we have the form/letter: No Who is the form from? From pt reproduction technician, regarding FFI form (if other please explain) Where did/will the form come from? Patient or family brought in N/A When is form/letter needed by: as soon as possible How would you like the form/letter returned: N/A Patient Notified form requests are processed in 5-7 business days:Yes [facility] or would you prefer to receive a phone call?: Patient would prefer a phone call Okay to leave a detailed message?: Yes at Cell number on file: Telephone Information: documented in this encounter Plan of Treatment Upcoming Encounters Date Type Department Care Team (Late st Contact Info) Description 01/02/2025 10:30 AM CDT Office Visit [facility] [address] [place] [phone] Ara Short PA-C [address] [place] [phone] 01/07/2025 8:30 AM CDT Office Visit [facility] Urology [facility] [address] [facility] [address] [place] [phone] Melvi Chavez MD 420 [facility] 394 [place], [place] [address] 02/11/2025 2:00 PM CDT Virtual Visit [facility] Specialty [place] [address] [place] [phone] Larry Schaefer MD 516 [place], [place] [address] 02/13/2025 2:00 PM CDT Office Visit [facility] [address] [place] [phone] Ara Short PA-C [address] [place] [address] 02/17/2025 3:15 PM CDT Virtual Visit [facility] Gastroenterology Clinic [place] [address] [facility] 4th [place] [phone] Jessica Howell PA-C [address] [place] [address] documented as of this encounter Goals Goal Patient Goal Type Associated Problems Recent Progress Patient-Stated? Author MYC BRANDEN PW2 OPY REMI MEDIUM RISK - GOAL TEMPLATE Care Plan [...] goal: 1. I will work with my email operations manager on my Social Security Disability application appeal. 2. I will work with a Housing Stabilization program to assist me in finding housing. (Services are on hold) 3. I will call the [facility] Housing Crisis Line #[phone]. Discussed on 12/16: No progress as of yet, d/t the patient being hospitalized. documented as of this encounter Visit Diagnoses Not on filedocumented in this encounter Additional Health Concerns Active Problems Noted Date Diagnosed Date MYC BRANDEN PW2 OPY REMI MEDIUM RISK - PROBLEM TE MPLATE 08/12/2024 Diet management 09/17/2024 SDOH LACK OF STABLE HOUSING 09/17/2024 Assessment Noted Time PHQ-9 Depression Total Score: 18 025 10:30 AM CDT documented as of this encounter Care Teams Cattle Rancher Relationship Specialty Start Date End Date Ara Short PA-C [address] [place] [phone] PCP - General Family Medicine 06/27/23 Raiza Martinez MD 909 [place], [place] 6879[address] Otolaryngology 05/18/23 Sherry Aviles MD [address] [place] [address] 576495 Cardiovascular & Thoracic Surgery 06/11/23 Karen Rai APRN RETAIL DIRECTOR [address] [place] [address] 463985 Nurse Practitioner Neurology 06/13/23 Ara Short PA-C [address] [place] [phone] Assigned PCP 06/22/23 Jayda White, RN Specialty Convenience Store Manager Thoracic Surgery 08/28/23 Emeka Anand MD [address] [place] [address] 008045 Neurology 10/24/23 Anais Jaffe APRN MIXER MACHINE FEEDER [address] [place] [address] 795985 Clinical Nurse Specialist Cardiovascular & Thoracic Surgery 11/09/23 Willy Owens DO [address] [place] [address] 576435 Physician Gastroenterology 11/09/23 Larry Schaefer MD [address] [place] [address] Assigned Endocrinology Provider 11/20/23 Daysi Winston PA-C [address] [place] [address] 152875 Physician Ultrasonic Seaming Machine Operator Physician Ultrasonic Seaming Machine Operator - Surgical 11/30/23 Savita Gregory PA-C [address] [place] [address] Physician Ultrasonic Seaming Machine Operator Urology 11/30/23 [place] [address] [facility] [place] [address] Physician Gastroenterology 12/06/23 [place] [address] [place] [address] Assigned Neuroscience Provider 12/21/[address] [place] [address] 719005 Registered Dietitian Dietitian, Registered 02/14/24 Sneha Calero, [facility] Lead Convenience Store Manager Primary Care - CC 09/15/24 Argenis Mesa MD [address] [place] [address] Colon & Rectal 09/17/24 Kelsi Tripathi, [facility] Community Health Worker Primary Care - CC 09/17/24 Candelaria Santillan PA-C [address] [place] [address] Assigned Gastroenterology Provider 09/19/24 Argenis Mesa MD [address] [place] [address] Assigned Surgical Provider 10/20/24 Melvi Chavez MD [address] [place] [address] Urology 10/28/24 Jaret Pitts, CHW Community Health Worker Primary Care - CC 12/12/24 5 documented as of this encounter
--- OUTSIDE RECORDS SUMMARY | 2024-12-30 17:08 | XMS_ITS | Encounter Summary ---
Author Organization [facility] Address [address] [place] [address] Care Team Providers Care Wire Coater Name Role Phone Raiza Martinez MD Unavailable Stefan Gupta MD, Madhuri Unavailable [phone] Karen Rai WINDOW SHADE INSTALLER FORENSIC DNA ANALYST Unavailable [phone] Ara ShortC Unavailable [phone] Ara Short PA-C Primary Care Provider [phone] Jayda White RN Unavailable Unavailable Emeka Anand MD Unavailable [phone] Anais Jaffe WINDOW SHADE INSTALLER BUSINESS SERVICES CLERK Unavailable Willy Owens DO Unavailable Larry Schaefer MD Unavailable [phone] Daysi Winston PA-C Unavailable [phone] Savita Gregory PA-C Unavailable [phone] Laura Ball DO Unavailable Michi Patterson MD Unavailable [phone] Unavailable [phone] Sneha Calero PATIENT ASSISTANT Unavailable [phone] Argenis Mesa MD Unavailable [phone] Kelsi Tripathi CHW Unavailable [phone] Candelaria Santillan PA-C Unavailable Argenis Mesa MD Unavailable [phone] Melvi Chavez MD Unavailable [phone] Jarte Pitts CHW Unavailable Unavailable Neetu Hopkins CHW Unavailable [phone] Reason for Visit * Reason Onset Date Comments Call Back 12/19/2024 Patient is heade d back to hospital - was on antibiotics and is having accidents - has a machine in place that is to prevent accident - this has led to a anal infection - unsure if machine is failing - family has general questions - please call and advise. Encounter Details Date Type Department Care Team (Late st Contact Info) Description 12/19/2024 Telephone [facility] [address] [place] [address] Ara Short PA-C [address] [place] [phone] Call Back (Patient is headed back to hospital - was on antibiotics and is having accidents - has a machine in place that is to prevent accident - this has led to a anal infection - unsure if machine is failing - family has general questions - please call and advise. ) Social History Tobacco Use Types Packs/Day Years [...] and Family Not on file 10/02/2023 Attends [employer] Not on file 10/01 Do you belong to any clubs o r organizations such as judaism groups, unions, fraternal or athletic groups, or [...] Answer Date Recorded PHQ-2 Score 6 09/11/2024 [facility] of Occupat ional Health - Occupational [...] in an overnight retirement, or couch-surfing.) Yes 10/02/2023 Are you worried [...] Sex Assigned at Female 06/01/2023 2:55 PM GENERATOR MAN Legal Sex Female 1:26 PM GENERATOR MAN Gender Identity Female 06/01/2023 2:55 PM GENERATOR MAN Sexual Orientation Straight 06/01/2023 2: 55 PM GENERATOR MAN documented as of this encounter Miscellaneous Notes * Telephone Encounter - Lance Méndez - 12/19/2024 6:17 PM CDT Patient Returning Call Reason for call: Patient is headed back to hospital - was on antibiotics and is having accidents - has a machine in place that is to prevent accident - this has led to a anal infection - unsure if machine is failing - family has general questions - please call and advise. Information relayed to patient: Message Sent Patient has additional questions: Yes What are your questions/concerns: Patient is headed back to hospital - was on antibiotics and is having accidents - has a machine in place that is to prevent accident - this has led to a anal infection - unsure if machine is failing - family has general questions - please call and advise. Could we send this information to you in [facility] or would you prefer to receive a phone call?: Patient would prefer a phone call Okay to leave a detailed message?: Yes at Other phone number: Diana (DAUGHTER) [phone] documented in this encounter Plan of Treatment Upcoming Encounters Date Type Department Care Team (Late st Contact Info) Description 01/02/2025 10:30 AM CDT Office Visit [address] [address] Ara Short PA-C [address] [place] [phone] 01/07/2025 8:30 AM CDT Office Visit [facility] Urology [facility] [address] [place] [phone] Melvi Chavez MD 420 [facility] 394 [place], [place] 12[address] 02/11/2025 2:00 PM CDT Virtual Visit [facility] Specialty [address] [address] Larry Schaefer MD 516 [place], [place] [address]135 02/13/2025 2:00 PM CDT Office Visit [facility] [address] [place] [phone] Ara Short PA-C [address] [place] [phone] 02/17/2025 3:15 PM CDT Virtual Visit [facility] Gastroenterology Clinic [address] [phone] Jessica Howell PA-C [address] [place] [address] 453145 documented as of this encounter Goals Goal Patient Goal Type Associated Problems Recent Progress Patient-Stated? Author MYC ECC PW2 OPY WELCOME MEDIUM RISK - GOAL TEMPLATE Care Plan MYC ECC PW2 OPY WELCOME MEDIUM RISK - PROBLEM TEMPLATE No Luis Alcala MD Demonstrate improved diet management Care Plan Diet management No Sneha Calero, PATIENT ASSISTANT Note: Enroll in [employer] when open again Currently not open as of 12/16/24 Establish Stable Housing Care Plan SDOH LACK OF STABLE HOUSING 20%( 5 4:09 PM CDT) No Sneha Calero, YANICK Note: Barriers: Currently have no income source Strengths: Good family support Patient expressed understanding of goal: Yes Action steps to achieve this goal: 1. I will work with my workers compensation defense attorney on my Social Security Disability application appeal. 2. I will work with a Housing Stabilization program to assist me in finding housing. (Services are on hold) 3. I will call the [facility] Housing Crisis Line #[phone]. Discussed on 12/16: No progress as of [...] documented as of this encounter Care Teams Wire Coater Relationship Specialty Start Date End Date Ara Short PA-C [address] [place] [phone] PCP - General Family Medicine 06/27/23 Raiza Martinez MD [address] [place] [address] [id number] Otolaryngology 05/18/23 Sherry Aviles MD [address] [place] [address] Cardiovascular & Thoracic Surgery 06/11/23 Karen Rai APRN FORENSIC DNA ANALYST [address] [place] [address] Nurse Practitioner Neurology 06/13/23 Ara Short PA-C [address] [place] [phone] Assigned PCP 06/22/23 Jayda White, RN Specialty Information Technology Assistant Thoracic Surgery 08/28/23 Emeka Anand MD 909 [place] [address] Neurology 10/24/23 Anais Jaffe APRN BUSINESS SERVICES CLERK 420 [facility] 207 [place], [place] 12[address] Clinical Nurse Specialist Cardiovascular & Thoracic Surgery 11/09/23 Willy Owens DO 420 [facility] 207 [place] [address] Physician Gastroenterology 11/09/23 Larry Schaefer MD 516 [place], [place] 458735 Assigned Endocrinology Provider 11/20/23 Daysi Winston PA-C 909 [place], [place] 185665 Physician Room Server Physician Room Server - Surgical 11/30/23 Savita Gregory PA-C [address] 676747 Physician Room Server Urology 11/30/23 [place] [address] [facility] [place] [address] Physician Gastroenterology 12/06/23 [place] [address] [place] [address] Assigned Neuroscience Provider 12/21/23 Bianka Keene, IVAN 9 [place] [address] Registered Dietitian Dietitian, Registered 02/14/24 Sneha Calero, [facility] Lead Information Technology Assistant Primary Care - CC 09/15/24 Argenis Mesa MD [address] [place] [address] Colon & Rectal 09/17/24 Kelsi Tripathi, [facility] Community Health Worker Primary Care - CC 09/17/24 Candelaria Santillan PA-C [address] [place] [address] Assigned Gastroenterology Provider 09/19/24 Argenis Mesa MD [address] [place] [address] Assigned Surgical Provider 10/20/24 Melvi Chavez MD [address] [place] [address] Urology 10/28/24 Jaret Pitts, W Community Health Worker Primary Care - CC 12/12/24 5 Neetu Hopkins, CHW Community Health Worker 12/25/24 documented as of this encounter
--- OUTSIDE RECORDS SUMMARY | 2024-12-30 17:08 | XMS_ITS | Encounter Summary ---
Author Organization [facility] Address [address] [place] [address] Care Team Providers Care Road Supervisor Of Engines Name Role Phone Raiza Martinez MD Unavailable Stefan Gupta MD, Sherry Unavailable [phone] Karen Rai RESERVOIR ENGINEERING CONSULTANT CHIEF OPTOMETRY SERVICE Unavailable [phone] Ara Short-C Unavailable [phone] Ara Short PA-C Primary Care Provider Stefan Gupta MD, Sherry Unavailable [phone] Jayda White RN Unavailable Unavailable Emeka Anand MD Unavailable [phone] Anais Jaffe RESERVOIR ENGINEERING CONSULTANT WEB ASSISTANT Unavailable Willy Owens DO Unavailable Larry Schaefer MD Unavailable [phone] Daysi Winston PA-C Unavailable [phone] Savita Gregory PA-C Unavailable [phone] Laura Ball DO Unavailable Michi Patterson MD Unavailable [phone] Unavailable [phone] Jessica Howell PA-C Unavailable [phone] Kelsi Tripathi CHW Unavailable +[phone] Sneha Calero FUSING MACHINE FEEDER Unavailable [phone] Argenis Mesa MD Unavailable [phone] Deuce Kelsi C CHW Unavailable [phone] Candelaria Santillan PA-C Unavailable Daysi Winston PA-C Unavailable [phone] Argenis Mesa MD Unavailable +[phone] Melvi Chavez MD Unavailable [phone] Jaret Pitts CHW Unavailable Unavailable Neetu Hopkins CHW Unavailable [phone] Encounter Details Date Type Department Care Team (Late st Contact Info) Description 09/15/2024 MyC Medical Advice [facility] Colon and [facility]al Surgery Clinic [address] [place] [address] Jessica Sunshine, RN Social History [...] and Family Not on file 10/02/2023 Attends Sikhism Services Not on file 10/01 Do you belong to any clubs o r organizations such as anabaptism groups, unions, fraternal or athletic groups, or [...] Answer Date Recorded PHQ-2 Score 6 09/11/2024 [facility] - Occupational Stress Questionnaire Answer Date [...] in an abandoned building, in an overnight skilled nursing, or couch-surfing.) Yes 10/02/2023 Are you worried [...] Sex Assigned at Female 06/01/2023 2:55 PM INSTRUCTOR PROGRAMMABLE CONTROLLERS Legal Sex Female 1:26 PM INSTRUCTOR PROGRAMMABLE CONTROLLERS Gender Identity Female 06/01/2023 2:55 PM INSTRUCTOR PROGRAMMABLE CONTROLLERS Sexual Orientation Straight 06/01/2023 2: 55 PM INSTRUCTOR PROGRAMMABLE CONTROLLERS documented as of this encounter Plan of Treatment Upcoming Encounters Date Type Department Care Team (Late st Contact Info) Description 01/02/2025 10:30 AM CDT Office Visit [address] [phone] Ara Short PA-C [id number] [place] [address] 01/07/2025 8:30 AM CDT Office Visit [facility] Urology [address] [place] [phone] Melvi Chavez MD 420 [facility] EMER[facility]ENC[facility]PARTMENT 394 [place], [place] [address] 02/11/2025 2:00 PM CDT Virtual Visit [facility] Specialty [address] [phone] Larry Schaefer MD 516 [place], [place] [address]295 02/13/2025 2:00 PM CDT Office Visit [address] [address] Ara Short PA-C [address] [place] [address] 02/17/2025 3:15 PM CDT Virtual Visit [facility] Gastroenterology Clinic [address] [address] Jessica Howell PA-C [address] [place] [address] 704045 documented as of this encounter Goals Goal Patient Goal Type Associated Problems Recent Progress Patient-Stated? Author MYC ECC PW2 OPY W[facility]COME MEDIUM RISK - GOAL TEMPLATE Care Plan MYC ECC PW2 OPY WELCOME MEDIUM RISK - PROBLEM TEMPLATE No Luis Alcala MD documented as of this encounter Visit Diagnoses Not on filedocumented in this encounter Additional Health Concerns Active Problems Noted Date Diagnosed Date MYC ECC PW2 OPY WELCOME MEDIUM RISK - PROBLEM TE MPLATE 08/12/2024 Assessment Noted Time PHQ-9 Depression Total Score: 18 025 10:30 AM CDT documented as of this encounter Care Teams Road Supervisor Of Engines Relationship Specialty Start Date End Date Ara Short PA-C [address] [place] [phone] PCP - General Family Medicine 06/27/23 Raiza Martinez MD [address] [place] [address] 567705 Otolaryngology 05/18/23 Sherry Aviles MD [address] [place] [address] 578215 Cardiovascular & Thoracic Surgery 06/11/23 Karen Rai APRN CHIEF OPTOMETRY SERVICE [address] [place] [address] Nurse Practitioner Neurology 06/13/23 Ara Short PA-C [address] [place] [phone] Assigned PCP 06/22/23 Sherry Aviles MD [address] [place] [address] Assigned Surgical Provider 07/13/23 09/18/24 Jayda White, RN Specialty Foam Cutting Supervisor Thoracic Surgery 08/28/23 Emeka Anand MD [address] [place] [address] Neurology 10/24/23 Anais Jaffe APRN WEB ASSISTANT 420 [facility] 207 [place] [address] Clinical Nurse Specialist Cardiovascular & Thoracic Surgery 11/09/23 Willy Owens DO 420 [facility] 207 [place] [address] Physician Gastroenterology 11/09/23 Larry Schaefer MD [address] [place] [address] Assigned Endocrinology Provider 11/20/23 Daysi Winston PA-C [address] [place] [address] Physician Refinery Operator Reforming Unit Physician Refinery Operator Reforming Unit - Surgical 11/30/23 Savita Gregory PA-C [address] [address] Physician Refinery Operator Reforming Unit Urology 11/30/23 [place] [address] [place] [address] Physician Gastroenterology 12/06/23 [place] [address] [place] [address] Assigned Neuroscience Provider 12/21/[address] [place] [address] 424975 Registered Dietitian Dietitian, Registered 02/14/24 Jessica Howell PA-C [address] [place] [address] 204855 Assigned Gastroenterology Provider 04/21/24 09/18/24 Kelsi Tripathi, [facility] Community Health Worker Primary Care - CC 09/11/24 Sneha Calero, [facility] Lead Foam Cutting Supervisor Primary Care - CC 09/15/24 Argenis Mesa MD [address] [place] [address] Colon & Rectal 09/17/24 Kelsi Tripathi, [facility] Community Health Worker Primary Care - CC 09/17/24 Candelaria Santillan PA-C [address] [place] 931859 Assigned Gastroenterology Provider 09/19/24 Daysi Winston PA-C [address] [place] [address] 153735 Assigned Surgical Provider 09/19/24 10/19/24 Argenis Mesa MD [address] [place] [address] [place] [address] Assigned Surgical Provider 10/20/24 Melvi Chavez MD [address] [place] [address] [place] [address] Urology 10/28/24 Jaret Pitts, W Community Health Worker Primary Care - CC 12/12/24 5 Neetu Hopkins CHW Community Health Worker 12/25/24 documented as of this encounter
--- OUTSIDE RECORDS SUMMARY | 2024-12-30 17:08 | XMS_ITS | Encounter Summary ---
Author Organization [facility] Address [address] [place] [address] Care Team Providers Care Breeder Hen Service Technician Name Role Phone Raiza Martinez MD Unavailable Stefan Gupta MD, Madhuri Unavailable [phone] Karen Rai FLAVORINGS COMPOUNDER POSTING CLERK Unavailable [phone] Ara ShortC Unavailable [phone] Ara Short PA-C Primary Care Provider Jayda White RN Unavailable Unavailable Emeka Anand MD Unavailable [phone] Anais Jaffe FLAVORINGS COMPOUNDER TENNIS CAMP INSTRUCTOR Unavailable Willy Owens DO Unavailable Larry Schaefer MD Unavailable [phone] Daysi Winston PA-C Unavailable [phone] Savita Gregory PA-C Unavailable Laura Ball DO Unavailable [phone] Michi Patterson MD Unavailable [phone] Unavailable [phone] Sneha Calero DATA REVIEWER Unavailable [phone] Argenis Mesa MD Unavailable [phone] Deuce, Kelsi C CHW Unavailable [phone] Candelaria Santillan PA-C Unavailable Argenis Mesa MD Unavailable [phone] Melvi Chavez MD Unavailable [phone] Jaret Pitts CHW Unavailable Unavailable Neetu Hopkins CHW Unavailable [phone] Reason for Visit * Reason Onset Date Comments Appointment 12/15/2024 Encounter Details Date Type Department Care Team (Late st Contact Info) Description 12/15/2024 Telephone [facility] [address] [place] [address] Ara Short PA-C [id number] [place] [phone] Appointment Social History Tobacco Use Types Packs/Day Years [...] any clubs o r organizations such as zoroastrianism groups, unions, fraternal or athletic groups, or [...] Answer Date Recorded PHQ-2 Score 6 09/11/2024 [facility] - Occupational [...] Sex Assigned at Female 06/01/2023 2:55 PM EXTRUSION BENDER Legal Sex Female 1:26 PM EXTRUSION BENDER Gender Identity Female 06/01/2023 2:55 PM EXTRUSION BENDER Sexual Orientation Straight 06/01/2023 2: 55 PM EXTRUSION BENDER documented as of this encounter Miscellaneous Notes * Telephone Encounter - Merline Hogan - 12/15/2024 10:40 AM CDT Reason for Call: Appointment Request Patient requesting this type of appt: Hospital/ED Follow-Up Requested provider: Ara Short Reason patient unable to be scheduled: Not within requested timeframe When does patient want to be seen/preferred time: 3-7 days Comments: Would like to schedule follow up with pcp from hospital visit at [facility]. Visit was 12/09-12/12 [facility] or would you prefer to receive a phone call?: Patient would prefer a phone call Okay to leave a detailed message?: Yes at Cell number on file: Telephone Information: Call taken on 12/15/2024 at 10:40 AM by Merline Hogan documented in this encounter Plan of Treatment Upcoming Encounters Date Type Department Care Team (Late st Contact Info) Description 01/02/2025 10:30 AM CDT Office Visit [facility] [address] [place] [phone] Ara Short, PA-C [address] [place] [phone] 01/07/2025 8:30 AM CDT Office Visit [facility] Urology Clinic [address] [place] [address] Melvi Chavez MD 420 [facility] 394 [place], [place] 9828[address] 02/11/2025 2:00 PM CDT Virtual Visit [facility] Specialty Clinic [place] 1875 [place] [phone] Larry Schaefer MD 516 [place] [address] 02/13/2025 2:00 PM CDT Office Visit [facility] [address] [place] [address] Ara Short PA-C [address] [place] [address] 02/17/2025 3:15 PM CDT Virtual Visit [facility] Gastroenterology Clinic [place] 909 [facility] 4th [place] [phone] Jessica Howell PA-C [address] [place] [address] 392805 documented as of this encounter Goals Goal [...] 5 4:09 PM CDT) No Sneha Calero DATA REVIEWER Note: Barriers: Currently have no income source Strengths: Good family support Patient expressed understanding of goal: Yes Action steps to achieve this goal: 1. I will work with my city attorney on my Social Security Disability application appeal. 2. I will work with a Housing Stabilization program to assist me in finding housing. (Services are on hold) 3. I will call the [facility] [employer] Crisis Line #[phone]. Discussed on 12/16: No progress as of [...] documented as of this encounter Care Teams Breeder Hen Service Technician Relationship Specialty Start Date End Date Ara Short PA-C [address] [place] [phone] PCP - General Family Medicine 06/27/23 Raiza Martinez MD 909 [place], [place] [phone] Otolaryngology 05/18/23 Sherry Aviles MD [address] [place] [address] 252255 Cardiovascular & Thoracic Surgery 06/11/23 Karen Rai APRN POSTING CLERK 9 [place], [place] [phone] Nurse Practitioner Neurology 06/13/23 Ara Short PA-C [address] [place] [phone] Assigned PCP 06/22/23 Jayda White, RN Specialty Forensic Investigator Thoracic Surgery 08/28/23 Emeka Anand MD 9 [place], [place] [phone] Neurology 10/24/23 Anais Jaffe APRN CNS 420 [facility] 207 [place], [place] 761245 Clinical Nurse Specialist Cardiovascular & Thoracic Surgery 11/09/23 Willy Owens DO 420 [facility] 207 [place], [place] 663195 Physician Gastroenterology 11/09/23 Larry Schaefer MD 6 [place], [place] 363075 Assigned Endocrinology Provider 11/20/23 Daysi Winston PA-C [address] [place] [address] 268055 Physician Hydraulic And Plumbing Installer Physician Hydraulic And Plumbing Installer - Surgical 11/30/23 Savita Gregory PA-C [address] [phone] Physician Hydraulic And Plumbing Installer Urology 11/30/23 [place] [address] [place], [place] 363229 Physician Gastroenterology 12/06/23 [place] [address] [facility] 300 [place], [place] [phone] Assigned Neuroscience Provider 12/21/[address] [place] [address] 017385 Registered Dietitian Dietitian, Registered 02/14/24 Sneha Calero, [facility] Lead Forensic Investigator Primary Care - CC 09/15/24 Argenis Mesa MD [address] [place] [address] Colon & Rectal 09/17/24 Kelsi Tripathi, [facility] Community Health Worker Primary Care - CC 09/17/24 Candelaria Santillan PA-C [address] [place] [address] Assigned Gastroenterology Provider 09/19/24 Argenis Mesa MD [address] [place] [address] [place] [address] Assigned Surgical Provider 10/20/24 Melvi Chavez MD [address] [place] [address] [place] [address] Urology 10/28/24 Jaret Pitts, [facility] Community Health Worker Primary Care - CC 12/12/24 Neetu Lui, [facility] Community Health Worker 12/25/24 documented as of this encounter
--- OUTSIDE RECORDS SUMMARY | 2024-12-30 17:08 | XMS_ITS | Encounter Summary ---
Author Organization [facility] Address [address] [place] [address] Care Team Providers Care Remote Broadcast Technician Name Role Phone Raiza Martinez MD Unavailable Stefan Gupta MD, Madhuri Unavailable [phone] Karen Rai PIER WORKER REGULATORY TECHNICIAN Unavailable [phone] Ara ShortC Unavailable [phone] Ara Short PA-C Primary Care Provider Jayda White RN Unavailable Unavailable Emeka Anand MD Unavailable [phone] Anais Jaffe PIER WORKER MONOMER RECOVERY SUPERVISOR Unavailable Willy Owens DO Unavailable Larry Schaefer MD Unavailable [phone] Daysi Winston PA-C Unavailable [phone] Savita Gregory PA-C Unavailable [phone] Laura Ball DO Unavailable Michi Patterson MD Unavailable [phone] Unavailable [phone] Sneha Calero RECYCLING SPECIALIST Unavailable [phone] Argenis Mesa MD Unavailable [phone] Kelsi Tripathi CHW Unavailable [phone] Candelaria Santillan PA-C Unavailable Argenis Mesa MD Unavailable [phone] Melvi Chavez MD Unavailable [phone] Jaret Pitts CHW Unavailable Unavailable Neetu Hopkins CHW Unavailable [phone] Reason for Visit * Reason Onset Date Comments Call Back 12/23/2024 Encounter Details Date Type Department Care Team (Late st Contact Info) Description 12/23/2024 Telephone [facility] Colon and [facility]al [facility] Clinic [address] 4th [place] [address] Argenis Mesa MD 0672 [facility] 200 [place] [address] Call Back Social History Tobacco Use Types [...] and Family Not on file 10/02/2023 Attends Hoahaoism Services Not on file 10/01 Do you belong to any clubs o r organizations such as lutheran groups, unions, fraternal or athletic groups, or [...] Answer Date Recorded PHQ-2 Score 6 09/11/2024 [facility] - Occupational Stress Questionnaire Answer Date [...] in an abandoned building, in an overnight care home, or couch-surfing.) Yes 10/02/2023 Are you [...] Sex Assigned at Female 06/01/2023 2:55 PM CANNONEER Legal Sex Female 1:26 PM CANNONEER Gender Identity Female 06/01/2023 2:55 PM CANNONEER Sexual Orientation Straight 06/01/2023 2: 55 PM CANNONEER documented as of this encounter Miscellaneous Notes * Telephone Encounter - Jessica Sunshine RN - 12/25/2024 2:00 PM CDT Answered all of patient's quesitons at this time * Telephone Encounter - Winston Hancock - 12/23/2024 11:01 AM CDT [facility] Call Center Phone Message May a detailed message be left on voicemail: yes Reason for Call: Other: Pt requesting call back, has medical questions. Dr placed a stent on their back, wants it out, wants to be put to sleep for this. Action Taken: Other: clr Travel Screening: Not Applicable Date of Service: documented in this encounter Plan of Treatment Upcoming Encounters Date Type Department Care Team (Late st Contact Info) Description 01/02/2025 10:30 AM CDT Office Visit [facility] [address] [place] [phone] Ara Short, PAOliver [address] [place] [phone] 01/07/2025 8:30 AM CDT Office Visit [facility] Urology Clinic [address] [place] [address] Melvi Chavez MD 420 [facility] 394 [place], [place] 490615 02/11/2025 2:00 PM CDT Virtual Visit [facility] Specialty Clinic [place] 1875 [place] [phone] Larry Schaefer MD 516 [place] [address] 02/13/2025 2:00 PM CDT Office Visit [facility] [address] [place] [address] Ara Short PA-C [address] [place] [address] 02/17/2025 3:15 PM CDT Virtual Visit [facility] Gastroenterology Clinic [place] 909 [facility] 4th [place] [phone] Jessica Howell PA-C [address] [place] [address] 506125 documented as of this encounter Goals Goal [...] goal: 1. I will work with my contract attorney on my Social Security Disability application appeal. 2. I will work with a Housing Stabilization program to assist me in finding housing. (Services are on hold) 3. I will call the [facility] Housing Crisis Line #[phone]. Discussed on 12/16: No progress as of [...] documented as of this encounter Care Teams Remote Broadcast Technician Relationship Specialty Start Date End Date Ara Short [place]-C [address] [place] [phone] PCP - General Family Medicine 06/27/23 Raiza Martinez MD 9 [place], [place] [phone] Otolaryngology 05/18/23 Sherry Aviles MD [address] [place] [address] 653235 Cardiovascular & Thoracic Surgery 06/11/23 Karen Rai APRN REGULATORY TECHNICIAN 9 [place], [place] [phone] Nurse Practitioner Neurology 06/13/23 Ara Short PA-C [address] [place] [address]-72[address]283 Assigned PCP 06/22/23 aJyda White, RN Specialty Jet Dyeing Machine Operator Thoracic Surgery 08/28/23 Emeka Anand MD [address] [place] [address] 000715 Neurology 10/24/23 Anais Jaffe APRN MONOMER RECOVERY SUPERVISOR 420 [facility] 207 [place] [address] Clinical Nurse Specialist Cardiovascular & Thoracic Surgery 11/09/23 Willy Owens DO 420 [facility] 207 [place] [address] Physician Gastroenterology 11/09/23 Larry Schaefer MD 6 [place], [place] [address] Assigned Endocrinology Provider 11/20/23 Daysi Winston PA-C [address] [place] [address] 349625 Physician Grocery Clerk Selling Physician Grocery Clerk Selling - Surgical 11/30/23 Savita Gregory PA-C [address] [phone] Physician Grocery Clerk Selling Urology 11/30/23 [place] [address] [facility] [place] [place] [address] Physician Gastroenterology 12/06/23 [place] [address] [facility] 300 [place], [place] 58417337 Assigned Neuroscience Provider 12/21/[address] [place] [address] 120375 Registered Dietitian Dietitian, Registered 02/14/24 Sneha Calero, [facility] Lead Jet Dyeing Machine Operator Primary Care - CC 09/15/24 Argenis Mesa MD [address] [place] [address] Colon & Rectal 09/17/24 Kelsi Tripathi, W Community Health Worker Primary Care - CC 09/17/24 Candelaria Santillan PA-C [address] [place] [address] Assigned Gastroenterology Provider 09/19/24 Argenis Mesa MD [address] [place] [address] [place] [address] Assigned Surgical Provider 10/20/24 Melvi Chavez MD [address] [place] [address] [place] [address] Urology 10/28/24 Jaret Pitts, W Community Health Worker Primary Care - CC 12/12/24 Neetu Lui [facility] Community Health Worker 12/25/24 documented as of this encounter
--- OUTSIDE RECORDS SUMMARY | 2024-12-30 17:08 | XMS_ITS | Encounter Summary ---
Author Organization [place] Address [address] [place] [address] Care Team Providers Care Injection Moulding Machine Operator Name Role Phone Raiza Martinez MD Unavailable Stefan Gupta MD, Sherry Unavailable [phone] Karen Rai YACHT RIGGER STRATEGIC CLIENT EXECUTIVE Unavailable [phone] Ara Short-C Unavailable [phone] Ara Short PA-C Primary Care Provider Stefan Gupta MD, Sherry Unavailable [phone] Jayda White RN Unavailable Unavailable Emeka Anand MD Unavailable [phone] Anais Jaffe YACHT RIGGER COAL TRIMMER MACHINE OPERATOR Unavailable Willy Owens DO Unavailable Larry Schaefer MD Unavailable [phone] Daysi Winston PA-C Unavailable [phone] Savita Gregory PA-C Unavailable [phone] Laura Ball DO Unavailable [phone] Michi Patterson MD Unavailable [phone] Unavailable [phone] Jessica Howell PA-C Unavailable [phone] Kelsi Tripathi CHW Unavailable [phone] AbdiasSneha de la paz SHANK MAKER Unavailable [phone] Argenis Mesa MD Unavailable [phone] Deuce Kelsi C CHW Unavailable [phone] Candelaria Santillan PA-C Unavailable Daysi Winston PA-C Unavailable [phone] Argenis Mesa MD Unavailable [phone] Melvi Chavez MD Unavailable [phone] Jaret Pitts CHW Unavailable Unavailable Neetu Hopkins CHW Unavailable [phone] Encounter Details Date Type Department Care Team (Late st Contact Info) Description 05/23/2024 MyC Medical Advice [facility] [address] [place] [address] Rama Fuller Social History Tobacco Use Types Packs/Day Years [...] Answer Date Recorded PHQ-2 Score 2 04/16/2024 [facility] - Occupational Stress Questionnaire Answer Date Recorded [...] Sex Assigned at Female 06/01/2023 2:55 PM CONVEYOR TENDER CONCRETE MIXING PLANT Legal Sex Female 1:26 PM CONVEYOR TENDER CONCRET[employer] PLANT Gender Identity Female 06/01/2023 2:55 PM CONVEYOR TENDER CONCRETE MIXING PLANT Sexual Orientation Straight 06/01/2023 2: 55 PM CONVEYOR TENDER CONCRETE MIXING PLANT documented as of this encounter Plan of Treatment Upcoming Encounters Date Type Department Care Team (Late st Contact Info) Description 01/02/2025 10:30 AM CDT Office Visit [address] [phone] Ara Short PA-C [address] [place] [address] 01/07/2025 8:30 AM CDT Office Visit [facility] [address] [place] [phone] Melvi Chavez MD [address] [facility] [address] [place], [place] [address] 02/11/2025 2:00 PM CDT [facility] [address] [phone] Larry Schaefer MD [address] [place], [place] [address] 02/13/2025 2:00 PM CDT Office Visit [address] [phone] Ara Short PA-C [address] [place] [address] 02/17/2025 3:15 PM CDT Virtual Visit [facility] [place] [address] [place] [phone] Jessica Howell PA-C [address] [place] [address] [phone] documented as of this encounter Visit Diagnoses Not on filedocumented in this encounter Additional Health Concerns Assessment Noted Time PHQ-9 Depression Total Score: 21 024 2:29 PM CDT documented as of this encounter Care Teams Injection Moulding Machine Operator Relationship Specialty Start Date End Date Ara Short PA-C [address] [place] [phone] PCP - General Family Medicine 06/27/23 Raiza Martinez MD [address] [place] [address] 177965 Otolaryngology 05/18/23 Sherry Aviles MD [address] [place] [address] 055175 Cardiovascular & Thoracic Surgery 06/11/23 Karen Rai APRN CNP [address] [place] [address] [phone] Nurse Practitioner Neurology 06/13/23 Ara Short PA-C [address] [place] [phone] Assigned PCP 06/22/23 Sherry Aviles MD [address] [place] [address]118 Assigned Surgical Provider 07/13/23 09/18/24 Christopher, Jayda, RN Specialty Residential Program Director Thoracic Surgery 08/28/23 Emeka Anand MD [address] [place] [address] Neurology 10/24/23 Anais Jaffe APRN COAL TRIMMER MACHINE OPERATOR [address] [phone] Clinical Nurse Specialist Cardiovascular & Thoracic Surgery 11/09/23 Willy Owens DO [address] [phone] Physician Gastroenterology 11/09/23 Larry Schaefer MD 6 [place], [place] 239315 Assigned Endocrinology Provider 11/20/23 Daysi Winston PA-C 9 [place], [place] 765285 Physician Heat Regulator Physician Heat Regulator - Surgical 11/30/23 Savita Gregory PA-C [address] [facility] [address] [place], [place] [phone] Physician Heat Regulator Urology 11/30/23 [place] [address] [place], [place] 9[address] Physician Gastroenterology 12/06/23 [place] [address] [facility] [address] [place], [place] [phone] Assigned Neuroscience Provider 12/21/[address] [place] [address] 459285 Registered Dietitian Dietitian, Registered 02/14/24 Jessica Howell PA-C [address] [place] [address] [phone] Assigned Gastroenterology Provider 04/21/24 09/18/24 Kelsi Tripathi, [facility] Community Health Worker Primary Care - CC 09/11/24 5 Sneha Calero, [facility] Lead Residential Program Director Primary Care - CC 09/15/24 Argenis Mesa MD [address] [place], [place] [address] Colon & Rectal 09/17/24 Kelsi Tripathi, [facility] Community Health Worker Primary Care - CC 09/17/24 Candelaria Santillan PA-C [address] [place] [address] Assigned Gastroenterology Provider 09/19/24 Daysi Winston PA-C [address] [place] [address] Assigned Surgical Provider 09/19/24 10/19/24 Argenis Mesa MD [address] [place], [place] 3009[address] Assigned Surgical Provider 10/20/24 Melvi Chavez MD [address] [facility] [address] [place], [place] [address] Urology 10/28/24 Jaret Pitts, CHW Community Health Worker Primary Care - CC 12/12/24 5 Neetu Hopkins CHW Community Health Worker 12/25/24 documented as of this encounter
--- OUTSIDE RECORDS SUMMARY | 2024-12-30 17:08 | XMS_ITS ---
Care Plan Created on: December 30, 2024 Jo Ann Ely : 1965 Sex: Female Author Organization [place] Address [address] [place] [address] Care Team Providers Care High Value Associate Name Role Phone Raiza Martinez MD Unavailable Stefan Gupta MD, Madhuri Unavailable [phone] Karen Rai CHARGE MASTER ANALYST MOLD FORMS BUILDER Unavailable [phone] Ara Short-C Unavailable [phone] Ara Short PA-C Primary Care Provider Jayda White RN Unavailable Unavailable Emeka Anand MD Unavailable [phone] Anais Jaffe CHARGE MASTER ANALYST STEAM SHOVEL OILER Unavailable Willy Owens DO Unavailable Larry Schaefer MD Unavailable [phone] Daysi Winston PA-C Unavailable [phone] Savita Gregory PA-C Unavailable [phone] Laura Ball DO Unavailable Michi Patterson MD Unavailable Bianka Keene RD Unavailable [phone] Sneha Calero CORPORATE STRATEGIST Unavailable Argenis Mesa MD Unavailable [phone] Deuce, Kelsi C CHW Unavailable [phone] Candelaria Santillan PA-C Unavailable Argenis Mesa MD Unavailable [phone] Melvi Chavez MD Unavailable [phone] Neetu Hopkins CHW Unavailable [phone] Active Problems Problem Noted Date Diagnosed Date [...] (05/30/2023): Added automatically from request for surgery [id number] Gastroesophageal reflux disease 10/26/2017 05/30/2023 Intussusception of [...] 08/23/2023 08/23/2023 Falls frequently 12/08/2016 05/30/2023 10/02/2023 Additional Health Concerns Active Problems Noted Date Diagnosed Date MYC ECC PW2 OPY WELCOME MEDIUM RISK - PROBLEM TE MPLATE 08/12/2024 Diet management 09/17/2024 SDOH LACK OF STABLE HOUSING 09/17/2024 Goals Goal Patient Goal Type Associated Problems Recent Progress Patient-Stated? Author MYC ECC PW2 OPY WELCOME MEDIUM RISK - GOAL TEMPLATE Care Plan MYC ECC PW2 OPY WELCOME MEDIUM RISK - PROBLEM TEMPLATE No Luis Alcala MD Demonstrate improved diet management Care Plan Diet management No Sneha Calero CORPORATE STRATEGIST Note: Enroll in [employer] when open again Currently not open as of 12/16/24 Establish Stable Housing Care Plan SDOH LACK OF STABLE HOUSING 20%( 5 4:09 PM CDT) No Sneha Calero, CORPORATE STRATEGIST Note: Barriers: Currently have no income source Strengths: Good family support Patient expressed understanding of goal: Yes Action steps to achieve this goal: 1. I will work with my transactional attorney on my Social Security Disability application appeal. 2. I will work with a Housing Stabilization program to assist me in finding housing. (Services are on hold) 3. I will call the [facility] Housing Crisis Line #[phone]. Discussed on 12/16: No progress as of yet, d/t the patient being hospitalized. Interventions Care Plan Interventions Intervention Entry Date Outcome Provide Housing Resources 09/17/2024 Support referral to panel saw operator if appropriate 09/17/2024 Provide resources for healthy diet (nutrition.gov) 09/17/2024 Related Goals and Interventions Goal Associated Intervent ions Demonstrate improved diet management Sup port referral to panel saw operator if appropriate; Provide resources for healthy diet (nutrition.gov) Establish Stable Housing Provide Housing Resources
--- OUTSIDE RECORDS SUMMARY | 2024-12-30 17:08 | XMS_ITS | Clinical Summary ---
Author Organization [facility] Address [address] [place] [address] Care Team Providers Care Fly Winder Name Role Phone Clinic, No Pcp Or [...] 03/23/2009 Severe depression 01/26/2009 02/22/2009 Depression 01/26/2009 Encounters Date Type Department Care Team Description 12/20/2024 2:00 PM CDT Ancillary Procedure [facility] [address] [place] [address] from Last 3 Months Immunizations Immunization Administration [...] on file Legal Sex Female 7:40 AM PANTRY STEWARD/STEWARDESS Gender Identity Not on file Sexual Orientation [...] 45-75 02/07/2017 02/08/20 16 (Completed outside of [facility]), 02/26/2009, 02/23/2009 Pneumococcal series for age 50+ (2 of 2 - PPSV23) 06/13/2017 06/13/2016 Tetanus booster 01/26/2019 01/26/2009 Pap test for age 21-65 03/28/2020 7 (Completed outside of [facility]), 08/11/2011 (Completed outside of [facility]), 01/26/2009 Lipids for age 45-75 05/11/2021 05/11/2016 (Completed outside of [facility]), 02/10/2009 BMI (ht and wt on same day) for age 18+ 12/07/2023 12/06/2022, 12/28/2016 RSV vaccine for adults or (1 - Risk 60-74 years 1-dose series) 2024 COVID-19 vaccine series ( - season) 2024 Influenza Vaccine (#1) 2024 7, 06/13/2016, 01/26/2009 Colonoscopy through age 75 04/06/202704/06, 03/15/2016 (Completed outside of [facility]) Hepatitis B series for 19+ Aged Out N o longer eligible based on patient's age to complete this topic Procedures Procedure Name Priority Date/Time Associated Diagnosis Comments ECHO TTE COMPLETE WO CONTRAST Routine 12/20/2024 3:00 PM CDT Hypotension SCAN-COLONOSCOPY 04/06/2017 2:00 PM PANTRY STEWARD/STEWARDESS XR FFDM MAMMO UNI ADDL VIEWS RIGHT (IA) Routine 02/26/2009 2:46 PM CDT Abnormal Mammogram, Unspecified LIPID PANEL W REFLEX MEASURED LDL Routine 02/10/2009 8:51 AM CDT Lipid Screening SAND PLANT ATTENDANT THIN PREP PAP SCREEN IMAGED Routine 01/26/2009 4:30 PM CDT Routine Physical Examination from Last 3 Months or Most Recently Relevant to Health Maintenance Results * ECHO TTE COMPLETE WO CONTRAST (12/20/2024 3:00 PM CDT) AORTIC VALVE MEAN PG 5 mmHg EJECTION FRACTION 71 % LVEDD 4.5 cm EJECTION FRACTION 70 - 75% Anatomical Region Laterality Modality Ultrasound 12/20/2024 2:21 PM CDT Narrative 12/20/2024 5:26 PM CDT ECHOCARDIOGRAM VARUN AJ : 1965 59 years Study Date: 12/20/2024 2:21:18 PM Gender: F BP: 94/47 mmHg Height: 163.00 cm BSA: 1.76 m Weight: 70.00 kg Tech: MHR Referring MD: ARASELI FONSECA Site: [facility] Reading Location: MOBILE IP Patient Location: Inpatient. Procedure: 2D, Color Doppler and Spectral Doppler. Indication for study: refractory hypotension Cardiac Rhythm: Normal sinus.Study quality: Good. Final Impressions: 1. Normal LV size, normal wall thickness, estimated EF of 70 - 75%. 2. Normal RV size and systolic function. 3. No significant valve disease detected. 4. No pericardial effusion. Chamber Sizes and Function Normal left ventricular size, normal wall thickness, normal global systolic function with an estimated EF of 70 - 75%. No resting regional wall motion abnormality visualized. Left atrial size is normal. Right ventricular cavity size is normal, global systolic RV function is normal. The right atrium is normal. Right atrial volume index is 15 ml/m . Right atrial area is 13 cm . The pulmonary artery is of normal size and origin. The sinus of Valsalva is normal sized. The ascending aorta is normal sized. Valves, RV Pressures and Diastolic Function The aortic valve is normal in structure and trileaflet, no stenosis and no regurgitation. The mitral valve is normal in structure, no mitral regurgitation. Normal diastolic function. The tricuspid valve is normal in structure, mild tricuspid regurgitation. The pulmonic valve is normal. No pulmonary regurgitation. Masses, Effusion, Shunts There is no pericardial effusion. The inferior vena cava is normal sized, respiratory size variation greater than 50%. No left to right shunting was detected by limited color flow Doppler interrogation of the interatrial septum. MEASUREMENTS AND CALCULATIONS 2-D Measurements and LV Function: LVID (d) 4.4 cm LV FS% (2D) 50 % LVID (s) 2.2 cm LVOT diameter 2.0 cm IVS (d) 0.9 cm HR 90 bpm LVPW (d) 0.9 cm LA Vol index 31 ml/m2 Ao Sinus 3.2 cm RA Vol index 15 ml/m2 Ao Sinus ULN 3.7 cm RA area [address] junct 2.6 cm RV Basal Diam 3.4 cm Asc Ao 3.0 cm RV Mid Diam 2.5 cm Asc Ao ULN 3.8 cm LA 3.8 cm Diastology: Mitral Tissue Doppler E Peak 0.9 m/s e', Septum 0.06 m/s A Peak 0.9 m/s e', Lateral 0.11 m/s E/A 1.0 E/e' Average 10.69 DT 213 msec Aortic Valve: Vmax 1.6 m/s GREG (V) 2.30 cm VTI 0.26 m GREG (I) 2.65 cm LVOT V max 1.2 m/s Max PG 10 mmHg LVOT VTI 0.23 m Mean PG 5 mmHg SV 70 ml Dim Index 0.85 SV index 40 ml/m CO 6.3 l/min CI 3.6 l/min/m Mitral Valve: MVA 3.6 cm MV P 1/2 62 msec Tricuspid Valve and estimated PA pressures: TAPSE 2.0 cm . This study was interpreted by an [facility] accredited facility. CC: HIM (med records) [facility], Med/Surg - IP [facility]. Final Procedure Note Ezequiel Isaacs MD - 12/20/2024 ECHOCARDIOGRAM VARUN AJ : 1965 59 years Study Date: 12/20/2024 2:21:18 PM Gender: F BP: 94/47 mmHg Height: 163.00 cm BSA: 1.76 m Weight: 70.00 kg Tech: R Referring MD: ARASELI FONSECA Site: [facility] Reading Location: MOBILE IP Patient Location: Inpatient. Procedure: 2D, Color Doppler and Spectral Doppler. Indication for study: refractory hypotension Cardiac Rhythm: Normal sinus.Study quality: Good. Final Impressions: 1. Normal LV size, normal wall thickness, estimated EF of 70 - 75%. 2. Normal RV size and systolic function. 3. No significant valve disease detected. 4. No pericardial effusion. Chamber Sizes and Function Normal left ventricular size, normal wall thickness, normal globalsystolic function with an estimated EF of 70 - 75%. No resting regionalwall motion abnormality visualized. Left atrial size is normal. Rightventricular cavity size is normal, global systolic RV function is normal.The right atrium is normal. Right atrial volume index is 15 ml/m . Rightatrial area is 13 cm . The pulmonary artery is of normal size and origin.The sinus of Valsalva is normal sized. The ascending aorta is normalsized. Valves, RV Pressures and Diastolic Function The aortic valve is normal in structure and trileaflet, no stenosis and noregurgitation. The mitral valve is normal in structure, no mitralregurgitation. Normal diastolic function. The tricuspid valve is normal instructure, mild tricuspid regurgitation. The pulmonic valve is normal. Nopulmonary regurgitation. Masses, Effusion, Shunts There is no pericardial effusion. The inferior vena cava is normal sized,respiratory size variation greater than 50%. No left to right shunting wasdetected by limited color flow Doppler interrogation of the interatrialseptum. MEASUREMENTS AND CALCULATIONS 2-D Measurements and LV Function: LVID (d) 4.4 cm LV FS% (2D) 50 % LVID (s) 2.2 cm LVOT diameter 2.0 cm IVS (d) 0.9 cm HR 90 bpm LVPW (d) 0.9 cm LA Vol index 31 ml/m2 Ao Sinus 3.2 cm RA Vol index 15 ml/m2 Ao Sinus ULN 3.7 cm RA area [address] junct 2.6 cm RV Basal Diam 3.4 cm Asc Ao 3.0 cm RV Mid Diam 2.5 cm Asc Ao ULN 3.8 cm LA 3.8 cm Diastology: Mitral Tissue Doppler E Peak 0.9 m/s e', Septum 0.06 m/s A Peak 0.9 m/s e', Lateral 0.11 m/s E/A 1.0 E/e' Average 10.69 DT 213 msec Aortic Valve: Vmax 1.6 m/s GREG (V) 2.30 cm VTI 0.26 m GREG (I) 2.65 cm LVOT V max 1.2 m/s Max PG 10 mmHg LVOT VTI 0.23 m Mean PG 5 mmHg SV 70 ml Dim Index 0.85 SV index 40 ml/m CO 6.3 l/min CI 3.6 l/min/m Mitral Valve: MVA 3.6 cm MV P 1/2 62 msec Tricuspid Valve and estimated PA pressures: TAPSE 2.0 cm . This study was interpreted by an [facility] accredited facility. CC: HIM (med records) [facility], Med/Surg - IP [facility]. Final us Araseli Fonseca MD ECHO ORD Final Resu lt * SCAN-COLONOSCOPY (04/06/2017 2:00 PM PANTRY STEWARD/STEWARDESS) Narrative Procedure Note Vahe Mcghee MD - 04/06/2017 12:53 PM CST [facility] [address], [address], [place] [address] Patient Name: Varun Aj Gender: Female Exam Date: 04/06/2017 Visit Number: [id number] Age: 51 Years Date of : 1965 Attending MD: Vahe Mcghee MD Medical Record#: [id number] ----- Procedure: Colonoscopy Indications: Rectal bleeding Constipation [...] Impression: Constipation, unspecified constipation type Internal hemorrhoids impression comments: MIld decreased sphincter tone on [...] distortion. Benign-appearing calcifications are seen in the ovddn-rj-tzbz. CONCLUSION: ACR 3 Probably Benign Findings: Short interval followup suggested. RECOMMENDATION: Bilateral mammogram in 6 months. NOTE: The short-term interval followup mammogram of both breasts is being performed for the bilateral calcifications that are noted on this patient's baseline study with no prior studies for comparison. Today's findings were discussed with the patient. Procedure Note Piotr Erickson DO - 02/26/2009 UNILATERAL RIGHT BREAST ULTRASOUND CLINICAL [...] architectural distortion. Benign-appearing calcifications areseen in the tasun-ke-orid. CONCLUSION: ACR 3 Probably Benign Findings: Short interval followupsuggested. RECOMMENDATION: Bilateral mammogram in 6 months. NOTE: The short-term interval followup mammogram of both breasts is beingperformed for the bilateral calcifications that are noted on thispatient's baseline study with no prior studies for comparison. Today's findings were discussed with the patient. us Teo Locke DO MAMMO Final Result * LIPID PANEL W REFLEX MEASURED LDL (02/10/2009 8:51 AM CDT) Pathologist [facility] CHOLESTEROL,TOTAL 155 110 - 199 mg/dL [facility] TRIGLYCERIDES 94 <150 mg/dL [facility] HDL CHOLESTEROL 41 >40 mg/dL [facility] CHOL/HDL RATIO 3.78 <4.51 [facility] LDL CHOLESTEROL 95 <131 mg/dL [facility] PATIENT STATUS Fasting [facility] Blood specimen (specimen) BLOOD SPECIMEN / Unknown 02/10/2009 8:51 AM CDT 02/10/2009 8:45 AM CDT [facility] CHEMISTRY Final Result [facility] [address] [place] [address] * SAND PLANT ATTENDANT THIN PREP PAP SCREEN IMAGED (01/26/2009 4:30 PM CDT) Pathologist [facility] CYTOLOGY CYTOPATHOLOGY REPORT [facility] Status: Final Status [id number] CLINICAL INFORMATION Last Pap Result :NIL ABN [place]/Bx Past 5 YRS :None Hormone Usage :None Menstrual Status : Irregular Periods [place]/Bx done today :No HPV Request :HPV if ASCUS SPECIMEN SOURCE :Cervical/vaginal ThinPrep Vial, screening SPECIMEN ADEQUACY :Satisfactory for evaluation Endocervical component present. INT ERPRETATIO N/RESULT Negative for intraepithelial lesion or malignancy (NIL) Cytology 1st Screener :yael Signed by :[email or web address] This specimen was screened by the FDA [...] malignant lesions. COLLECTED:01/26/09 ACCESSIONED: 01/29/09 SIGNED: 02/08/09 [facility] PAP [place] CODE NIL [facility] Cervical/Vaginal (Cervical/Vagina l) 01/26/2009 4:30 PM CDT 01/26/2009 4:27 PM CDT Teo Locke DO PATHOLOGY/CYTOLOGY Final Result Performing Organization Address City/State/[facility] Co de Phone Number [facility] INTERNAL ZIP [phone] [address] from Last 3 Months or Most Recently Relevant to Health Maintenance Insurance [facility] Advance Directives * Full Code (Latest Code Status on File) Date Activated Date Inactivated Comments 10/11/2017 9:48 AM 10/13/2017 3:33 PM * Full Code Date Activated Date Inactivated Comments 06/01/2017 2:43 PM 06/01/2017 7:03 PM Question Answer Comments Code Status Discussion: Discussed Care Teams Fly Winder Relationship Specialty Start Date End Date Clinic, No Pcp Or . PCP - General 12/06/22
--- OUTSIDE RECORDS SUMMARY | 2024-12-30 17:08 | XMS_ITS | Encounter Summary ---
Author Organization [facility] Address [address] [place] [address] Care Team Providers Care Welfare Centre Manager Name Role Phone Raiza Martinez MD Unavailable Stefan Gupta MD, Sherry Unavailable [phone] Karen Rai MANAGER STAR LICENSED PRACTICAL VOCATIONAL NURSE Unavailable [phone] Ara Short PA-C Unavailable [phone] Ara ShortC Primary Care Provider [phone] Stefan Gupta MD, Sherry Unavailable [phone] Jayda White RN Unavailable Unavailable Audrey Dong MD Unavailable [phone] Emeka Anand MD Unavailable [phone] Anais Jaffe MANAGER STAR RESEARCH SCIENTIST Unavailable Willy Owens DO Unavailable Larry Schaefer MD Unavailable [phone] Daysi Winston PA-C Unavailable Savita Gregory PA-C Unavailable Laura Ball DO Unavailable Michi Patterson MD Unavailable Bianka Kenee RD Unavailable [phone] Laura Ball DO Unavailable Jessica Howell Urbano PA-C Unavailable [phone] Kelsi Tripathi CHW Unavailable [phone] Abdias Sneha Delisa VENTILATION MECHANIC Unavailable [phone] Argenis Mesa MD Unavailable [phone] Kelsi Tripathi CHW Unavailable [phone] Candelaria Santillan PA-C Unavailable Daysi Winston PA-C Unavailable [phone] Argenis Mesa MD Unavailable [phone] Melvi Chavez MD Unavailable [phone] Jaret Pitts CHW Unavailable Unavailable Neetu Hopkins CHW Unavailable [phone] Encounter Details Date Type Department Care Team (Late st Contact Info) Description 03/03/2024 MyC Medical Advice [address] [address] Nesha Kenney CMA Social History [...] any clubs o r organizations such as amish groups, unions, fraternal or athletic groups, or [...] Answer Date Recorded PHQ-2 Score 2 02/20/2024 [facility] Occupat ional [facility] - Occupational [...] Sex Assigned at Female 06/01/2023 2:55 PM GYRO COMPASS TESTER Legal Sex Female 1:26 PM GYRO COMPASS TESTER Gender Identity Female 06/01/2023 2:55 PM GYRO COMPASS TESTER Sexual Orientation Straight 06/01/2023 2: 55 PM GYRO COMPASS TESTER documented as of this encounter Plan of Treatment Upcoming Encounters Date Type Department Care Team (Late st Contact Info) Description 01/02/2025 10:30 AM CDT Office Visit [address] [address] Ara Short PA-C [address] [place] [address] 01/07/2025 8:30 AM CDT Office Visit [facility] Urology [facility] [address] [place] [phone] Melvi Chavez MD 420 [facility] 394 [place], [place] [address] 02/11/2025 2:00 PM CDT Virtual Visit [facility] Specialty [address] [place] [address] Larry Schaefer MD 6 [place], [place] [address] 02/13/2025 2:00 PM CDT Office Visit [address] [address] Ara Short PA-C [address] [place] [address] 02/17/2025 3:15 PM CDT Virtual Visit [facility] G[facility]ology [facility] [place] [address] [place] [address] 4th [place] [address] Jessica Howell PA-C [address] [place] [address] documented as of this encounter Visit Diagnoses Not on filedocumented in this encounter Additional Health Concerns Assessment Noted Time PHQ-9 Depression Total Score: 21 024 2:29 PM CDT documented as of this encounter Care Teams Welfare Centre Manager Relationship Specialty Start Date End Date Ara Short PA-C [address] [place] [phone] PCP - General Family Medicine 06/27/23 Raiza Martinez MD [address] [place] [address] Otolaryngology 05/18/23 Sherry Aviles MD [address] [place] [address] Cardiovascular & Thoracic Surgery 06/11/23 Karen Rai APRN CNP [address] [place] [address] Nurse Practitioner Neurology 06/13/23 Ara Short PA-C [address] [place] [phone] Assigned PCP 06/22/23 Sherry Aviles MD [address] [place] [address] Assigned Surgical Provider 07/13/23 09/18/24 Jayda White, RN Specialty Section Hand Helper Thoracic Surgery 08/28/23 [place] [address] [place] [address] Assigned Pain Medication Provider 09/20/23 03/21/24 Emeka Anand MD 909 [place] [address] Neurology 10/24/23 Anais Jaffe APRN RESEARCH SCIENTIST 420 [facility] 207 [place] [address] Clinical Nurse Specialist Cardiovascular & Thoracic Surgery 11/09/23 Willy Owens DO 420 [facility] 207 [place] [address] Physician Gastroenterology 11/09/23 Larry Schaefer MD 6 [place] [address] Assigned Endocrinology Provider 11/20/23 Daysi Winston PA-C 909 [place] [address] Physician Gritting Machine Operator Physician Gritting Machine Operator - Surgical 11/30/23 Savita Gregory PA-C [address] [address] Physician Gritting Machine Operator Urology 11/30/23 [place] [address] [place] [address] Physician Gastroenterology 12/06/23 [place] [address] [place] [address] Assigned Neuroscience Provider 12/21/[address] [place] [address] Registered Dietitian Dietitian, Registered 02/14/24 [place] [address] [place] [address] Assigned Gastroenterology Provider 02/20/24 04/20/24 Jessica Howell PA-C [address] [place] [address] Assigned Gastroenterology Provider 04/21/24 09/18/24 Kelsi Tripathi, CHW Community Health Worker Primary Care - CC 09/11/24 5 Sneha Calero, [facility] Lead Section Hand Helper Primary Care - CC 09/15/24 Argenis Mesa MD [address] [place] [address] Colon & Rectal 09/17/24 Kelsi Tripathi, W Community Health Worker Primary Care - CC 09/17/24 Candelaria Santillan PA-C [address] [place] [address] Assigned Gastroenterology Provider 09/19/24 Daysi Winston PA-C 909 [place] [address] Assigned Surgical Provider 09/19/24 10/19/24 Argenis Mesa MD [address] [place] [address] Assigned Surgical Provider 10/20/24 Melvi Chavez MD [address] [place] [address] Urology 10/28/24 Jaret Pitts, CHW Community Health Worker Primary Care - CC 12/12/24 5 Neetu Hopkins CHW Community Health Worker 12/25/24 documented as of this encounter
--- OUTSIDE RECORDS SUMMARY | 2024-12-30 17:08 | XMS_ITS | Encounter Summary ---
Author Organization [facility] Address [address] [place] [address] Care Team Providers Care It Network Architect Name Role Phone Raiza Martinez MD Unavailable Stefan Gupta MD, Madhuri Unavailable [phone] Karen Rai SUPERVISOR PRODUCTION MANAGING EMPLOYEE RELATIONS REPRESENTATIVE Unavailable [phone] Ara ShortC Unavailable [phone] Ara Short PA-C Primary Care Provider Jayda White RN Unavailable Unavailable Emeka Anand MD Unavailable [phone] Anais Jaffe SUPERVISOR PRODUCTION MANAGING STONE ENGRAVER Unavailable Willy Owens DO Unavailable Larry Schaefer MD Unavailable [phone] Daysi Winston PA-C Unavailable [phone] Savita Gregory PA-C Unavailable [phone] Laura Ball DO Unavailable Michi Patterson MD Unavailable [phone] Unavailable Sneha Calero CARE TRANSITION COORDINATOR Unavailable [phone] Argenis Mesa MD Unavailable [phone] Kelsi Tripathi CHW Unavailable [phone] Candelaria Santillan PA-C Unavailable Daysi Winston PA-C Unavailable [phone] Argenis Mesa MD Unavailable [phone] Melvi Chavez MD Unavailable [phone] Jaret Pitts W Unavailable Unavailable Neetu Hopkins CHW Unavailable [phone] Encounter Details Date Type Department Care Team (Late st Contact Info) Description 10/17/2024 MyC Medical Advice [facility] Care Coordination [facility] [address] [place] [phone] Kelsi Tripathi, [facility] Social History Tobacco Use Types Packs/Day Years [...] and Family Not on file 10/02/2023 Attends Denominational Services Not on file 10/01 Do you belong to any clubs o r organizations such as mosque groups, unions, fraternal or athletic groups, or [...] Answer Date Recorded PHQ-2 Score 6 09/11/2024 [facility] of Occupat ional Health - Occupational Stress [...] Sex Assigned at Female 06/01/2023 2:55 PM FOREIGN LANGUAGE INSTRUCTOR Legal Sex Female 1:26 PM FOREIGN LANGUAGE INSTRUCTOR Gender Identity Female 06/01/2023 2:55 PM FOREIGN LANGUAGE INSTRUCTOR Sexual Orientation Straight 06/01/2023 2: 55 PM FOREIGN LANGUAGE INSTRUCTOR documented as of this encounter Plan of Treatment Upcoming Encounters Date Type Department Care Team (Late st Contact Info) Description 01/02/2025 10:30 AM CDT Office Visit [facility] [address] [place] [phone] Ara Short PA-C [address] [place] [address] 01/07/2025 8:30 AM CDT Office Visit [facility] Urology [facility] [address] [facility] [address] [place] [phone] Melvi Chavez MD 420 [facility] 394 [place], [place] [address] 02/11/2025 2:00 PM CDT Virtual Visit [facility] Specialty [facility] 1875 [place] [phone] Larry Schaefer MD 516 [place], [place] 3[address] 02/13/2025 2:00 PM CDT Office Visit [facility] [address] [place] [phone] Ara Short PA-C [address] [place] [phone] 02/17/2025 3:15 PM CDT Virtual Visit [facility] Gastroenterology Clinic [place] 909 [facility] 4th [place] [phone] Jessica Howell PA-C [address] [place] [address] 1807[address] documented as of this encounter Goals Goal Patient Goal Type Associated Problems Recent Progress Patient-Stated? Author MYC ECC PW2 OPY WELNASH MEDIUM RISK - GOAL TEMPLATE Care Plan MYC ECC PW2 OPY WELCOME MEDIUM RISK - PROBLEM TEMPLATE No Luis Alcala MD Demonstrate improved diet management Care Plan Diet management No Sneha Calero, CARE TRANSITION COORDINATOR Note: Enroll in [employer] when open again Currently not open as of 12/16/24 Establish Stable Housing Care Plan SDOH LACK OF STABLE HOUSING 20%( 4:09 PM CDT) No Sneha Calero K, CARE TRANSITION COORDINATOR Note: Barriers: Currently have no income source Strengths: Good family support Patient expressed understanding of goal: Yes Action steps to achieve this goal: 1. I will work with my estate attorney on my Social Security Disability application appeal. 2. I will work with a Housing Stabilization program to assist me in finding housing. (Services are on hold) 3. I will call the [facility] Housing Crisis Line #[phone]. Discussed on 12/16: No progress as of [...] documented as of this encounter Care Teams It Network Architect Relationship Specialty Start Date End Date Ara Short PA-C [address] [place] [phone] PCP - General Family Medicine 06/27/23 Raiza Martinez MD 909 [place] [address] Otolaryngology 05/18/23 Sherry Aviles MD [address] [place] [address] 028275 Cardiovascular & Thoracic Surgery 06/11/23 Karen Rai APRN EMPLOYEE RELATIONS REPRESENTATIVE [address] [place] [address] 064085 Nurse Practitioner Neurology 06/13/23 Ara Short PA-C [address] [place] [phone] Assigned PCP 06/22/23 Jayda White, RN Specialty Hospice Care Consultant Thoracic Surgery 08/28/23 Emeka Anand MD [address] [place] [address] [phone] Neurology 10/24/23 Anais Jaffe APRN STONE ENGRAVER [address] [phone] Clinical Nurse Specialist Cardiovascular & Thoracic Surgery 11/09/23 Willy Owens DO 420 [facility] 207 [place], [place] 2740[address] Physician Gastroenterology 11/09/23 Larry Schaefer MD [address] [place] [address] 171505 Assigned Endocrinology Provider 11/20/23 Daysi Winston PA-C [address] [place] [address] 895945 Physician Lapping Machine Operator Physician Lapping Machine Operator - Surgical 11/30/23 Savita Gregory PA-C [address] [facility] 377 [place] [address] Physician Lapping Machine Operator Urology 11/30/23 [place] [address] [place] [address] Physician Gastroenterology 12/06/23 [place] [address] [facility] 300 [place], [place] [address] Assigned Neuroscience Provider 12/21/[address] [place] [address] [phone] Registered Dietitian Dietitian, Registered 02/14/24 Sneha Calero, [facility] Lead Hospice Care Consultant Primary Care - CC 09/15/24 Argenis Mesa MD 6525 [facility] 200 [place], [place] 0[address] Colon & Rectal 09/17/24 Kelsi Tripathi, [facility] Community Health Worker Primary Care - CC 09/17/24 Candelaria Santillan PA-C [address] [place], [place] [address] Assigned Gastroenterology Provider 09/19/24 Daysi Winston PA-C [address] [place] [address] 939735 Assigned Surgical Provider 09/19/24 10/19/24 Argenis Mesa MD [address] [place] [address] Assigned Surgical Provider 10/20/24 Melvi Chavez MD [address] [place] [address] [place] [address] Urology 10/28/24 Jaret Pitts, W Community Health Worker Primary Care - CC 12/12/24 5 Neetu Hopkins CHW Community Health Worker 12/25/24 documented as of this encounter
--- OUTSIDE RECORDS SUMMARY | 2024-12-30 17:08 | XMS_ITS | Encounter Summary ---
Author Organization [facility] Address [address] [place] [address] Care Team Providers Care Intellectual Property Lawyer Name Role Phone Raiza Martinez MD Unavailable Stefan Gupta MD, Madhuri Unavailable [phone] Karen Rai CONTOUR STITCHER SALON SUPERVISOR Unavailable [phone] Ara ShortC Unavailable [phone] Ara Short PA-C Primary Care Provider Jayda White RN Unavailable Unavailable Emeka Anand MD Unavailable [phone] Anais Jaffe CONTOUR STITCHER GENERAL CLERK Unavailable Willy Owens DO Unavailable Larry Schaefer MD Unavailable [phone] Daysi Winston PA-C Unavailable [phone] Savita Gregory PA-C Unavailable Laura Ball DO Unavailable Michi Patterson MD Unavailable [phone] Unavailable [phone] Sneha Calero ORTHOTIC ASSISTANT Unavailable [phone] Argenis Mesa MD Unavailable [phone] Kelsi Tripathi CHW Unavailable Candelaria Santillan PA-C Unavailable Argenis Mesa MD Unavailable [phone] Melvi Chavez MD Unavailable [phone] Jaret Pitts CHW Unavailable Unavailable Neetu Hopkins CHW Unavailable [phone] Encounter Details Date Type Department Care Team (Late st Contact Info) Description 10/23/2024 MyC Medical Advice [facility] [address] [place] [address] 200 [place] [address] Jessica Sunshine, RN Social History Tobacco Use [...] and Family Not on file 10/02/2023 Attends Nondenominational Services Not on file 10/01 Do you belong to any clubs o r organizations such as nondenominational groups, unions, fraternal or athletic groups, or [...] Answer Date Recorded PHQ-2 Score 6 09/11/2024 [facility] of Occupat ional Health - Occupational Stress [...] Sex Assigned at Female 06/01/2023 2:55 PM DENTAL OFFICE RECEPTIONIST Legal Sex Female 1:26 PM DENTAL OFFICE RECEPTIONIST Gender Identity Female 06/01/2023 2:55 PM DENTAL OFFICE RECEPTIONIST Sexual Orientation Straight 06/01/2023 2: 55 PM DENTAL OFFICE RECEPTIONIST documented as of this encounter Plan of Treatment Upcoming Encounters Date Type Department Care Team (Late st Contact Info) Description 01/02/2025 10:30 AM CDT Office Visit [facility] [address] [place] [phone] Ara Short PA-C [address] [place] [address] 01/07/2025 8:30 AM CDT Office Visit [facility] Urology [facility] [address] [place] [phone] Melvi Chavez MD 420 [facility] 394 [place], [place] 9[address] 02/11/2025 2:00 PM CDT Virtual Visit [facility] Specialty [address] [place] [phone] Larry Schaefer MD 516 [place], [place] 5[address] 02/13/2025 2:00 PM CDT Office Visit [facility] [address] [place] [phone] Ara Short PA-C [address] [place] [address] 02/17/2025 3:15 PM CDT Virtual Visit [facility] Gastroenterology Clinic [place] 909 [facility] 4th [place] [phone] Jessica Howell PA-C 909 [place], [place] [address] documented as of this encounter Goals Goal Patient Goal Type Associated Problems Recent Progress Patient-Stated? Author MYC ECC PW2 OPY WELNASH MEDIUM RISK - GOAL TEMPLATE Care Plan MYC ECC PW2 OPY WELCOME MEDIUM RISK - PROBLEM TEMPLATE No Luis Alcala MD Demonstrate improved diet management Care Plan Diet management No Sneha Calero, ORTHOTIC ASSISTANT Note: Enroll in [employer] when [...] on hold) 3. I will call the [facility] Housing Crisis Line #[phone]. Discussed on 12/16: No progress as of [...] documented as of this encounter Care Teams Intellectual Property Lawyer Relationship Specialty Start Date End Date Ara Short PA-C [address] [place] [address] PCP - General Family Medicine 06/27/23 Raiza Martinez MD [address] [place] [address] Otolaryngology 05/18/23 Sherry Aviles MD [address] [place] [address] Cardiovascular & Thoracic Surgery 06/11/23 Karen Rai APRN SALON SUPERVISOR [address] [place] [address] Nurse Practitioner Neurology 06/13/23 Ara Short PA-C [address] [place] [address] Assigned PCP 06/22/23 Jayda White, RIGOBERTO Specialty Product Development Director Thoracic Surgery 08/28/23 Emeka Anand MD [address] [place] [address]115 Neurology 10/24/23 Anais Jaffe APRN GENERAL CLERK [address] [address] Clinical Nurse Specialist Cardiovascular & Thoracic Surgery 11/09/23 Willy Owens DO [address] [address]295 Physician Gastroenterology 11/09/23 Larry Schaefer MD [address] [place] [address] 578685 Assigned Endocrinology Provider 11/20/23 Daysi Winston PA-C [address] [place] [address] Physician Commissioning Specialist Physician Commissioning Specialist - Surgical 11/30/23 Savita Gregory PA-C [address] [facility] [place] [address] [place] [address] Physician Commissioning Specialist Urology 11/30/23 [place] [address] [place] [address] Physician Gastroenterology 12/06/23 [place] [address] [place] [address] Assigned Neuroscience Provider 12/21/[address] 909 [place] [address] Registered Dietitian Dietitian, Registered 02/14/24 Sneha Calero, [facility] Lead Product Development Director Primary Care - CC 09/15/24 Argenis Mesa MD [address] [place] [address] Colon & Rectal 09/17/24 Kelsi Tripathi, [facility] Community Health Worker Primary Care - CC 09/17/24 Candelaria Santillan PA-C [address] [place] [address] Assigned Gastroenterology Provider 09/19/24 Argenis Mesa MD [address] [place] [address] Assigned Surgical Provider 10/20/24 Melvi Chavez MD 6[address] [facility] [address] [place], [place] [address] Urology 10/28/24 Jaret Pitts, CHW Community Health Worker Primary Care - CC 12/12/24 5 Neetu Hopkins CHW Community Health Worker 12/25/24 documented as of this encounter
--- OUTSIDE RECORDS SUMMARY | 2024-12-30 17:09 | XMS_ITS | Encounter Summary ---
Author Organization [place] Address [address] [place] [address] 41539 Care Team Providers Care Office Machine Inspector Name Role Phone Raiza Martinez MD Unavailable Stefan Gupta MD, Sherry Unavailable [phone] Karen Rai PERFORMANCE CONSULTANT CELL PLASTERER Unavailable [phone] Ara Short-C Unavailable [phone] Ara Short PA-C Primary Care Provider [phone] Stefan Gupta MD, Sherry Unavailable [phone] Jayda White RN Unavailable Unavailable Emeka Anand MD Unavailable +[phone] Anais Jaffe PERFORMANCE CONSULTANT ATTENDANT CAMPGROUND Unavailable Willy Owens DO Unavailable Larry Schaefer MD Unavailable [phone] Daysi Winston PA-C Unavailable [phone] Savita Gregory PA-C Unavailable Laura Ball DO Unavailable Michi Patterson MD Unavailable +[phone] Unavailable [phone] Jessica Howell PA-C Unavailable [phone] Kelsi Tripathi CHW Unavailable +[phone] Abdias Sneha Hercules CORNCOB PIPE MANUFACTURING SUPERVISOR Unavailable [phone] Argenis Mesa MD Unavailable +[phone] Deuce Kelsi C CHW Unavailable [phone] Candelaria Santillan PA-C Unavailable Daysi Winston PA-C Unavailable [phone] Argenis Mesa MD Unavailable [phone] Melvi Chavez MD Unavailable [phone] Jaret Pitts CHW Unavailable Unavailable Neetu Hopkins CHW Unavailable [phone] Encounter Details Date Type Department Care Team (Late st Contact Info) Description 08/21/2024 MyC Medical Advice [facility] [address] [address] Ghazala Israel Social History Tobacco Use Types Packs/Day Years [...] and Family Not on file 10/02/2023 Attends [employer] Services Not on file 10/01 Do you belong to any clubs o r organizations such as baptism groups, unions, fraternal or athletic groups, or [...] PHQ-2 Answer Date Recorded PHQ-2 Score 6 08/18/2024 [facility] Occupational Stress Questionnaire Answer Date [...] Sex Assigned at Female 06/01/2023 2:55 PM POLICE CAPTAIN PRECINCT Legal Sex Female 1:26 PM POLICE CAPTAIN PRECINCT Gender Identity Female 06/01/2023 2:55 PM POLICE CAPTAIN PRECINCT Sexual Orientation Straight 06/01/2023 2: 55 PM POLICE CAPTAIN PRECINCT documented as of this encounter Plan of Treatment Upcoming Encounters Date Type Department Care Team (Late st Contact Info) Description 01/02/2025 10:30 AM CDT Office Visit [facility] [address] [place] [phone] Ara Short PA-C [address] [place] [address] 01/07/2025 8:30 AM CDT Office Visit [facility] [address] [place] [phone] Melvi Chavez MD 420 [facility] 394 [place], [place] 45[address] 02/11/2025 2:00 PM CDT Virtual Visit [facility] [place] [address] [place] [phone] Larry Schaefer MD 516 [place], [place] [address]165 02/13/2025 2:00 PM CDT Office Visit [address] [address] Ara Short PA-C [address] [place] [address] 02/17/2025 3:15 PM CDT Virtual Visit [facility] [place] [address] [phone] Jessica Howell PA-C [address] [place] [address] 198485 documented as of this encounter Goals Goal [...] Assessment Noted Time PHQ-9 Depression Total Score: 025 11:11 AM CDT documented as of this encounter Care Teams Office Machine Inspector Relationship Specialty Start Date End Date Ara Short PA-C [address] [place] [phone] PCP - General Family Medicine 06/27/23 Raiza Martinez MD [address] [place] [address] 094405 Otolaryngology 05/18/23 Sherry Aviles MD [address] [place] [address] 386405 Cardiovascular & Thoracic Surgery 06/11/23 Karen Rai APRN CELL PLASTERER [address] [place] [address] Nurse Practitioner Neurology 06/13/23 Ara Short PA-C [address] [place] [phone] Assigned PCP 06/22/23 Sherry Aviles MD [address] [place] [address] 11627 Assigned Surgical Provider 07/13/23 09/18/24 Jayda White, RN Specialty Medicare Interviewer Thoracic Surgery 08/28/23 Emeka Anand MD [address] [place] [address] Neurology 10/24/23 Anais Jaffe APRN ATTENDANT CAMPGROUND 420 [facility] 207 [place] [address] Clinical Nurse Specialist Cardiovascular & Thoracic Surgery 11/09/23 Willy Owens DO 420 [facility] 207 [place] [address] Physician Gastroenterology 11/09/23 Larry Schaefer MD 6 [place], [place] 513535 Assigned Endocrinology Provider 11/20/23 Daysi Winston PA-C [address] [place] [address] Physician City Supervisor Physician City Supervisor - Surgical 11/30/23 Savita Gregory PA-C [address] 932247 Physician City Supervisor Urology 11/30/23 [place] [address] [place] [address] Physician Gastroenterology 12/06/23 [place] [address] [place] [address] Assigned Neuroscience Provider 12/21/[address] [place] [address] 782965 Registered Dietitian Dietitian, Registered 02/14/24 Jessica Howell PA-C [address] [place] [address] 734645 Assigned Gastroenterology Provider 04/21/24 09/18/24 Kelsi Tripathi, [facility] Community Health Worker Primary Care - CC 09/11/24 5 Sneha Calero, [facility] Lead Medicare Interviewer Primary Care - CC 09/15/24 Argenis Mesa MD [address] 313205 Colon & Rectal 09/17/24 Kelsi Tripathi, [facility] Community Health Worker Primary Care - CC 09/17/24 Candelaria Santillan PA-C [address] [facility] [place] [address] Assigned Gastroenterology Provider 09/19/24 Daysi Winston PA-C [address] [place] [address] [id number] Assigned Surgical Provider 09/19/24 10/19/24 Argenis Mesa MD [address] [place] [address] [place] [address] Assigned Surgical Provider 10/20/24 Melvi Chavez MD [address] [place] [place] [address] Urology 10/28/24 Jaret Pitts, [facility] Community Health Worker Primary Care - CC 12/12/24 5 Neetu Hopkins CHW Community Health Worker 12/25/24 documented as of this encounter
--- OUTSIDE RECORDS SUMMARY | 2024-12-30 17:09 | XMS_ITS | Encounter Summary ---
Author Organization [facility] Address [address] [place] [address] Care Team Providers Care Pitch Filler Name Role Phone Raiza Martinez MD Unavailable Stefan Gupta MD, Sherry Unavailable [phone] Karen Rai SUPERVISOR SPEECH DIRECTOR OF CLINICAL EDUCATION Unavailable [phone] Ara Short-C Unavailable [phone] Ara Short PA-C Primary Care Provider [phone] Stefan Gupta MD, Sherry Unavailable [phone] Jayda White RN Unavailable Unavailable Emeka Anand MD Unavailable +[phone] Anais Jaffe SUPERVISOR SPEECH CAREER AND GUIDANCE COUNSELOR Unavailable Willy Owens DO Unavailable Larry Schaefer MD Unavailable [phone] Daysi Winston PA-C Unavailable [phone] Savita Gregory PA-C Unavailable Laura Ball DO Unavailable Michi Patterson MD Unavailable [phone] Unavailable [phone] Jessica Howell PA-C Unavailable [phone] Kelsi Tripathi CHW Unavailable +[phone] AbdiasSneha de la paz Delisa HAND MOLDER Unavailable [phone] Argenis Mesa MD Unavailable [phone] Deuce Kelsi Cedric CHW Unavailable +[phone] Candelaria Santillan PA-C Unavailable Daysi Winston PA-C Unavailable [phone] Argenis Mesa MD Unavailable [phone] Melvi Chavez MD Unavailable [phone] Jaret Pitts W Unavailable Unavailable Neetu Hopkins [facility] Unavailable [phone] Reason for Visit * Reason Onset Date Comments Medication Request 08/21/2024 HYDROcodone-acetaminophen (NORCO) 5-325 MG table t 08/21/2024 Encounter Details Date Type Department Care Team (Late st Contact Info) Description 08/21/2024 Telephone [facility] [address] [place] [address] Argenis Mesa MD [address] [phone] Medication Request; HYDROcodone-acetaminoph en (NORCO) 5-325 MG tablet Social History Tobacco Use Types Packs/Day Years [...] any clubs o r organizations such as taoism groups, unions, fraternal or athletic groups, or [...] Answer Date Recorded PHQ-2 Score 6 08/18/2024 [facility] of Occupat ional Health - Occupational Stress [...] in an abandoned building, in an overnight alf, or couch-surfing.) Yes 10/02/2023 Are you worried [...] Sex Assigned at Female 06/01/2023 2:55 PM KILN LABOURER Legal Sex Female 1:26 PM KILN LABOURER Gender Identity Female 06/01/2023 2:55 PM KILN LABOURER Sexual Orientation Straight 06/01/2023 2: 55 PM KILN LABOURER documented as of this encounter Miscellaneous Notes * Telephone Encounter - Winston Hancock - 08/21/2024 11:01 AM CDT [facility] Call Center Phone Message May a detailed message be left on voicemail: yes Reason for Call: Other: Pt called to inform that her pain meds were sent to the wrong pharmacy, requesting these be sent to [facility] in [place]. Pt is not at home now, pt states they are with theirdaughter, their daughter is taking care of them in [place]. Pt is in pain, please send these CLAUDIA Action Taken: Other: clr Travel Screening: Not Applicable Date of Service: documented in this encounter Plan of Treatment Upcoming Encounters Date Type Department Care Team (Late st Contact Info) Description 01/02/2025 10:30 AM CDT Office Visit [facility] [address] [place] [address] Ara Short PA-C [address] [place] [address] 01/07/2025 8:30 AM CDT Office Visit [facility] Urology [address] [place] [phone] Melvi Chavez MD 420 [facility] 394 [place], [place] 78[address] 02/11/2025 2:00 PM CDT Virtual Visit [facility] Specialty [facility] 1875 [place] [phone] Larry Schaefer MD 516 [place] [address] 02/13/2025 2:00 PM CDT Office Visit [facility] [address] [place] [address] Ara Short PA-C [address] [place] [address] 02/17/2025 3:15 PM CDT Virtual Visit [facility] Gastroenterology [facility] [place] 909 [facility] 4th [place] [phone] Jessica Howell PA-C [address] [place] [address] documented as of this encounter Goals Goal [...] Assessment Noted Time PHQ-9 Depression Total Score: 15 025 11:11 AM CDT documented as of this encounter Care Teams Pitch Filler Relationship Specialty Start Date End Date Ara Short PA-C [address] [place] [address] PCP - General Family Medicine 06/27/23 Raiza Martinez MD [address] [place] [address]876 Otolaryngology 05/18/23 Sherry Aviles MD [address] [place] [address]999 Cardiovascular & Thoracic Surgery 06/11/23 Karen Rai APRN DIRECTOR OF CLINICAL EDUCATION [address] [place] [address] 204285 Nurse Practitioner Neurology 06/13/23 Ara Short PA-C [address] [place] [phone] Assigned PCP 06/22/23 Sherry Aviles MD [address] [place] [address] 021755 Assigned Surgical Provider 07/13/23 09/18/24 Jayda White, RIGOBERTO Specialty Corporate Responsibility Officer Thoracic Surgery 08/28/23 Emeka Anand MD [address] [place] [address] 945945 Neurology 10/24/23 Anais Jaffe APRN CAREER AND GUIDANCE COUNSELOR [address] [place] [address] 930375 Clinical Nurse Specialist Cardiovascular & Thoracic Surgery 11/09/23 Willy Owens DO [address] [place] [address] 207 [place] [address] Physician Gastroenterology 11/09/23 Larry Schaefer MD [address] [place] [address] 86347 Assigned Endocrinology Provider 11/20/23 Daysi Winston PA-C [address] [place] [address] 22871 Physician Cabinet Maker Physician Cabinet Maker - Surgical 11/30/23 Savita Gregory PA-C [address] [address] Physician Cabinet Maker Urology 11/30/23 [place] [address] [place] [address] Physician Gastroenterology 12/06/23 [place] [address] [address] Assigned Neuroscience Provider 12/21/[address] [place] [address] Registered Dietitian Dietitian, Registered 02/14/24 Jessica Howell PA-C [address] [place] [address]1009 Assigned Gastroenterology Provider 04/21/24 09/18/24 Kelsi Tripathi, [facility] Community Health Worker Primary Care - CC 09/11/24 5 Sneha Calero, [facility] Lead Corporate Responsibility Officer Primary Care - CC 09/15/24 Argenis Mesa MD [address] [place], [place] 257395 Colon & Rectal 09/17/24 Kelsi Tripathi, [facility] Community Health Worker Primary Care - CC 09/17/24 Candelaria Santillan PA-C [address] [place] [address] Assigned Gastroenterology Provider 09/19/24 Daysi Winston PA-C [address] [place] [address] Assigned Surgical Provider 09/19/24 10/19/24 Argenis Mesa MD [address] [place] [address] Assigned Surgical Provider 10/20/24 Melvi Chavez MD [address] [place] [address] Urology 10/28/24 Jaret Pitts, W Community Health Worker Primary Care - CC 12/12/24 5 Neetu Hopkins, [facility] Community Health Worker 12/25/24 documented as of this encounter
--- OUTSIDE RECORDS SUMMARY | 2024-12-30 17:09 | XMS_ITS | Encounter Summary ---
Author Organization [place] Address [address] [place] [address] Care Team Providers Care Social Problems Specialist Name Role Phone Raiza Martinez MD Unavailable Stefan Gupta MD, Sherry Unavailable [phone] Karen Rai COOPERATIVE EXTENSION AGENT PHYSICAL SCIENCE PROFESSOR Unavailable [phone] Ara Short-C Unavailable [phone] Ara Short PA-C Primary Care Provider Stefan Gupta MD, Sherry Unavailable [phone] Jayda White RN Unavailable Unavailable Emeka Anand MD Unavailable +[phone] Anais Jaffe COOPERATIVE EXTENSION AGENT ORTHODONTIST VICE PRESIDENT Unavailable Willy Owens DO Unavailable Larry Schaefer MD Unavailable [phone] Daysi Winston PA-C Unavailable [phone] Savita Gregory PA-C Unavailable Laura Ball DO Unavailable [phone] Michi Patterson MD Unavailable [phone] Unavailable [phone] Jessica Howell PA-C Unavailable [phone] Kelsi Tripathi CHW Unavailable + [phone] Sneha Calero RETURN CHECKER Unavailable [phone] Argenis Mesa MD Unavailable +[phone] Deuce Kelsi Cedric CHW Unavailable +[phone] Candelaria Santillan PA-C Unavailable Daysi Winston PA-C Unavailable [phone] Argenis Mesa MD Unavailable [phone] Melvi Chavez MD Unavailable [phone] Jaret Pitts W Unavailable Unavailable Neetu Hopkins CHW Unavailable [phone] Encounter Details Date Type Department Care Team (Late st Contact Info) Description 08/11/2024 MyC Medical Advice [address] [place] [address] Lulu Rashid, RN Social History Tobacco Use Types Packs/Day [...] and Family Not on file 10/02/2023 Attends [employer] Not on file 10/01 Do you [...] 10/02/2023 PHQ-2 Answer Date Recorded PHQ-2 Score 1 07/29/2024 [facility] of Occupat ional Health - Occupational [...] Sex Assigned at Female 06/01/2023 2:55 PM ADMINISTRATIVE STAFF SUPERVISOR Legal Sex Female 1:26 PM ADMINISTRATIVE STAFF SUPERVISOR Gender Identity Female 06/01/2023 2:55 PM ADMINISTRATIVE STAFF SUPERVISOR Sexual Orientation Straight 06/01/2023 2: 55 PM ADMINISTRATIVE STAFF SUPERVISOR documented as of this encounter Plan of Treatment Upcoming Encounters Date Type Department Care Team (Late st Contact Info) Description 01/02/2025 10:30 AM CDT Office Visit [facility] [address] [place] [phone] Ara Short PA-C [address] [place] [address] 01/07/2025 8:30 AM CDT Office Visit [facility] Urology [address] [place] [phone] Melvi Chavez MD 420 [facility] 394 [place], [place] 535875 02/11/2025 2:00 PM CDT Virtual Visit [facility] Specialty Clinic [place] [address] [place] [phone] Larry Schaefer MD 516 [place], [place] 926085 02/13/2025 2:00 PM CDT Office Visit [facility] [address] [place] [address] Ara Short PA-C [address] [place] [address] 02/17/2025 3:15 PM CDT Virtual Visit [facility]ology [facility] [place] [address] [phone] Jessica Howell PA-C [address] [place] [address] 049465 documented as of this encounter Visit Diagnoses Not on filedocumented in this encounter Additional Health Concerns Assessment Noted Time PHQ-9 Depression Total Score: 21 024 2:29 PM CDT documented as of this encounter Care Teams Social Problems Specialist Relationship Specialty Start Date End Date Ara Short PA-C [address] [place] [phone] PCP - General Family Medicine 06/27/23 Raiza Martinez MD [address] [place] [address] 161605 Otolaryngology 05/18/23 Sherry Aviles MD [address] [place] [address] 472875 Cardiovascular & Thoracic Surgery 06/11/23 Karen Rai APRN CNP [address] [place] [address] 254245 Nurse Practitioner Neurology 06/13/23 Ara Short PA-C [address] [place] [phone] Assigned PCP 06/22/23 Sherry Aviles MD [address] [place] [address] 12904 Assigned Surgical Provider 07/13/23 09/18/24 Christopher, Jayda, RN Specialty Water Pumping Station Engineer Thoracic Surgery 08/28/23 Emeka Anand MD 909 [place] [address] Neurology 10/24/23 Anais Jaffe APRN ORTHODONTIST VICE PRESIDENT [address] 255015 Clinical Nurse Specialist Cardiovascular & Thoracic Surgery 11/09/23 Willy Owens DO [address] 212715 Physician Gastroenterology 11/09/23 Larry Schaefer MD 6 [place], [place] 693395 Assigned Endocrinology Provider 11/20/23 Daysi Winston PA-C 909 [place], [place] [address]1985 Physician Monotype Keyboard Operator Physician Monotype Keyboard Operator - Surgical 11/30/23 Savita Gregory PA-C [address] [facility] 377 [place], [place] 65669337 Physician Monotype Keyboard Operator Urology 11/30/23 [place] [address] [place], [place] [address] Physician Gastroenterology 12/06/23 [place] [address] [address] [facility] 300 [place], [place] 44815337 Assigned Neuroscience Provider 12/21/[address] [place] [address] 159415 Registered Dietitian Dietitian, Registered 02/14/24 Jessica Howell PA-C [address] [place] [address] 986075 Assigned Gastroenterology Provider 04/21/24 09/18/24 Kelsi Tripathi, [facility] Community Health Worker Primary Care - CC 09/11/24 5 Sneha Calero, [facility] Lead Water Pumping Station Engineer Primary Care - CC 09/15/24 Argenis Mesa MD [address] [place], [place] 451645 Colon & Rectal 09/17/24 Kelsi Tripathi, [facility] Community Health Worker Primary Care - CC 09/17/24 Candelaria Santillan PA-C [address] [place] [address] Assigned Gastroenterology Provider 09/19/24 Daysi Winston PA-C [address] [place] [address] Assigned Surgical Provider 09/19/24 10/19/24 Argenis Mesa MD [address] [place] 305905 Assigned Surgical Provider 10/20/24 Melvi Chavez MD 6363 [facility] [address] [place], [place] [address] Urology 10/28/24 Jaret Pitts, CHW Community Health Worker Primary Care - CC 12/12/24 5 Neetu Hopkins CHW Community Health Worker 12/25/24 documented as of this encounter
[2024-12-30] MEDS: TAMSULOSIN HCL 0.4 MG CAPSULE PO (18:18)
[2024-12-30 18:22] VITALS: BP 102/58; PULSE 57; RESP 18; O2SAT 96
[2024-12-30 19:46] LABS: C.Difficile Negative (Negative); CDIFFEPI 027 PRESUMPTIVE NEGATIVE (Negative)
== END 2024-12-30 19:11 | disposition home or self-care (01) ==
PROVIDERS: Emergency Provider Family Medicine
DX: N20.1 Calculus of ureter (principal); N23 Unspecified renal colic
CPT/HCPCS: 36415; 74176; 80048; 81001; 83605; 85025; 86140; 87040; 87086; 87493; 96374; 96375; 99284; 99285; A9270; J1171; J1885; J2405; J7030